=== PATIENT | female | born 1940 | race Caucasian/White ===

== ENCOUNTER 2018-09-06 19:04 | Inpatient (IN) | payer MEDICARE, OTHER ==
[~2018-09-06] VITALS: Ht 167.6 cm; Wt 80.6 kg
--- NOTE | 2018-09-06 19:40 | ED.ADGEN ---
Adult General Chief Complaint Chief Complaint Medical screening HPI HPI 77 years old female to be admitted for [facility] she is in emergency department for medical screening she denies any physical complaints no headache no fever no chills no cough no abdominal pain no chest pain no shortness breath Review of Systems Review of Systems Constitutional: Denies fever or chills [] Eyes: Denies change in visual acuity, redness, or eye pain [] HENT: Denies nasal congestion or sore throat [] Respiratory: Denies cough or shortness of breath [] Cardiovascular: No additional information not addressed in HPI [] GI: Denies abdominal pain, nausea, vomiting, bloody stools or diarrhea [] : Denies dysuria or hematuria [] Musculoskeletal: Denies back pain or joint pain [] Integument: Denies rash or skin lesions [] Neurologic: Denies headache, focal weakness or sensory changes [] Endocrine: Denies polyuria or polydipsia [] All other systems were reviewed and found to be within normal limits, except as documented in this note. Physical Exam Physical Exam Constitutional: Well developed, well nourished, no acute distress, non-toxic appearance. [] HENT: Normocephalic, atraumatic, bilateral external ears normal, oropharynx moist, no oral exudates, nose normal. [] Eyes: PERRLA, EOMI, conjunctiva normal, no discharge. [] Neck: Normal range of motion, no tenderness, supple, no stridor. [] Cardiovascular:Heart rate regular rhythm, no murmur [] Lungs & Thorax: Bilateral breath sounds clear to auscultation [] Abdomen: Bowel sounds normal, soft, no tenderness, no masses, no pulsatile masses. [] Skin: Warm, dry, no erythema, no rash. [] Back: No tenderness, no CVA tenderness. [] Extremities: No tenderness, no cyanosis, no clubbing, ROM intact, no edema. [] Neurologic: Alert and oriented X 3, normal motor function, normal sensory function, no focal deficits noted. [] Psychologic: Affect normal, judgement normal, mood normal. [] EKG EKG [] Radiology/Procedures Radiology/Procedures [] Course & Med Decision Making Course & Med Decision Making Pertinent Labs and Imaging studies reviewed. (See chart for details) [] Final Impression Final Impression [] Problems: (1) Encounter for medical screening examination Ghulam Disclaimer Dragon Disclaimer This electronic medical record was generated, in whole or in part, using a voice recognition dictation system. WENDY RIGGS MD Sep 06, 2018 19:40
[2018-09-06 19:52] LABS: BASO # 0.2 x10^3/uL (0.0-0.2); BASO % 2 % (0-3); EOS # 0.6 x10^3/uL (0.0-0.7); EOS % 6 % (0-3); HEMATOCRIT 46.1 % (36.0-47.0); HEMOGLOBIN 14.7 g/dL (12.0-15.5); LYMPH % 31 % (24-48); MEAN CORPUSCULAR HEMOGLOBIN 26 pg (25-35); MEAN CORPUSCULAR HGB CONC 32 g/dL (31-37); MEAN CORPUSCULAR VOLUME 82 fL (79-100); MONO # 1.1 x10^3/uL (0.0-1.1); MONO % 12 % (0-9); NEUT # 4.9 x10^3uL (1.8-7.7); NEUT % 50 % (31-73); PLATELET COUNT 250 x10^3/uL (140-400); RED BLOOD COUNT 5.63 x10^6/uL (3.50-5.40); RED CELL DISTRIBUTION WIDTH 15.2 % (11.5-14.5); WHITE BLOOD COUNT 9.7 x10^3/uL (4.0-11.0)
[2018-09-06 20:01] LABS: CALCIUM 10.4 mg/dL (8.5-10.1); CREATININE 1.3 mg/dL (0.6-1.0); GFR 39.9; POTASSIUM 4.5 mmol/L (3.5-5.1)
[2018-09-06 20:02] LABS: BACTERIA,URINE MANY /HPF (0-FEW); BILIRUBIN,URINE SMALL (NEG); CLARITY,URINE CLOUDY; COLOR,URINE AMBER; GLUCOSE,URINE NEG (NEG); NITRITE,URINE POS (NEG); RBC,URINE >40 /HPF (0-2); UROBILINOGEN,URINE 0.2 mg/dL (0.2 mg/dL); WBC,URINE TNTC /HPF (0-4)
[2018-09-06 20:03] LABS: BARBITURATES NEG (NEG); BENZODIAZEPINES NEG (NEG); CANNABINOIDS NEG (NEG); COCAINE NEG (NEG); METHADONE NEG (NEG); OPIATES NEG (NEG); PHENCYCLIDINE NEG (NEG); SQUAMOUS EPITHELIAL CELL,UR FEW /LPF
[2018-09-06 20:04] LABS: AMPHETAMINE/METHAMPHETAMINE NEG (NEG)
[2018-09-06] MEDS ORDERED: DULO60CA6 PO (22:15)
[2018-09-06] MEDS ORDERED: ALLO100T PO (22:15)
[2018-09-06] MEDS ORDERED: CYAN10005 PO (22:15)
[2018-09-06] MEDS ORDERED: TIOT18CA IH (22:15)
[2018-09-06] MEDS ORDERED: LATA2.5D3 OS (22:15)
[2018-09-06] MEDS ORDERED: CARV6.25 PO (22:15)
[2018-09-06] MEDS ORDERED: IPRA3AMP29 NEB (22:15)
[2018-09-06] MEDS ORDERED: FOLI1TAB16 PO (22:15)
[2018-09-06] MEDS ORDERED: POTA20TA4 PO (22:15)
[2018-09-06] MEDS ORDERED: RIVA20TA2 PO (22:15)
[2018-09-06] MEDS ORDERED: INSU100V8 SQ (22:15)
[2018-09-06] MEDS ORDERED: ACET500T33 PO (22:15)
[2018-09-06] MEDS ORDERED: LACT1CAP29 PO (22:15)
[2018-09-06] MEDS ORDERED: FURO-68 PO (22:15)
[2018-09-06] MEDS ORDERED: LOSA25TA11 PO (22:15)
[2018-09-06] MEDS ORDERED: ONDA4TAB7 PO (22:15)
[2018-09-06] MEDS ORDERED: CRAN425C3 PO (22:15)
[2018-09-06] MEDS ORDERED: FERR325T14 PO (22:15)
[2018-09-06] MEDS ORDERED: METHYL SALICYLATE/MENTHOL TOPICAL OINTMENT 29GM TUBE. TP PRN (22:45)
[2018-09-06] MEDS ORDERED: MAGNESIUM HYDROXIDE 2,400 MG/30 ML ORAL.SUSP. PO PRN (22:45)
[2018-09-06] MEDS ORDERED: MAG HYDROX/AL HYDROX/SIMETH 30 ML ORAL.SUSP PO PRN (22:45)
--- NOTE | 2018-09-06 22:46 | PDOC ---
Exam Note: Nain Note: Please also refer to the separate dictated note~for this date of service dictated separately. Discussed the patient with Nursing staff reviewed the chart.~Reviewed interim history and current functioning. Reviewed vital signs,~ Labs/ Radiology~and current medications noted below. Continue current treatment with the changes noted in the dictated addendum note Assessment: Vital Signs: Vital Signs Date Time Temp Pulse Resp B/P (MAP) Pulse Ox O2 Delivery O2 Flow Rate FiO2 09/06/18 19:10 97.8 67 20 110/55 (73) 93 Room Air Labs: Laboratory Tests Test 09/06/18 19:29 09/06/18 19:36 09/06/18 19:43 White Blood Count 9.7 x10^3/uL (4.0-11.0) Red Blood Count 5.63 x10^6/uL (3.50-5.40) H Hemoglobin 14.7 g/dL (12.0-15.5) Hematocrit 46.1 % (36.0-47.0) Mean Corpuscular Volume 82 fL (79-100) Mean Corpuscular Hemoglobin 26 pg (25-35) Mean Corpuscular Hemoglobin Concent 32 g/dL (31-37) Red Cell Distribution Width 15.2 % (11.5-14.5) H Platelet Count 250 x10^3/uL (140-400) Neutrophils (%) (Auto) 50 % (31-73) Lymphocytes (%) (Auto) 31 % (24-48) Monocytes (%) (Auto) 12 % (0-9) H Eosinophils (%) (Auto) 6 % (0-3) H Basophils (%) (Auto) 2 % (0-3) Neutrophils # (Auto) 4.9 x10^3uL (1.8-7.7) Lymphocytes # (Auto) 3.0 x10^3/uL (1.0-4.8) Monocytes # (Auto) 1.1 x10^3/uL (0.0-1.1) Eosinophils # (Auto) 0.6 x10^3/uL (0.0-0.7) Basophils # (Auto) 0.2 x10^3/uL (0.0-0.2) Sodium Level 141 mmol/L (136-145) Potassium Level 4.5 mmol/L (3.5-5.1) Chloride Level 105 mmol/L (98-107) Carbon Dioxide Level 32 mmol/L (21-32) Anion Gap 4 (6-14) L Blood Urea Nitrogen 37 mg/dL (7-20) H Creatinine 1.3 mg/dL (0.6-1.0) H Estimated GFR (Cockcroft-Gault) 39.9 Glucose Level 200 mg/dL (70-99) H Calcium Level 10.4 mg/dL (8.5-10.1) H Ethyl Alcohol Level < 10 mg/dL (0-10) Urine Collection Type U cath Urine Color Malgorzata Urine Clarity Cloudy Urine pH 5.5 Urine Specific [place] 1.020 Urine Protein 100 mg/dl (NEG-TRACE) Urine Glucose (UA) Neg mg/dL (NEG) Urine Ketones (Stick) Trace mg/dL (NEG) Urine Blood Large (NEG) Urine Nitrite Pos (NEG) Urine Bilirubin Small (NEG) Urine Urobilinogen Dipstick 0.2 mg/dL (0.2 mg/dL) Urine Leukocyte Esterase Large (NEG) Urine RBC >40 /HPF (0-2) Urine WBC Tntc /HPF (0-4) Urine Squamous Epithelial Cells Few /LPF Urine Transitional Epithelial Cells Few /LPF Urine Bacteria Many /HPF (0-FEW) Urine Mucus Mod /LPF Urine Opiates Screen Neg (NEG) Urine Methadone Screen Neg (NEG) Urine Barbiturates Neg (NEG) Urine Phencyclidine Screen Neg (NEG) Urine Amphetamine/Methamphetamine Neg (NEG) Urine Benzodiazepines Screen Neg (NEG) Urine Cocaine Screen Neg (NEG) Urine Cannabinoids Screen Neg (NEG) Urine Ethyl Alcohol Neg (NEG) Glucose (Fingerstick) 176 mg/dL (70-99) H Current Medications: Meds: Current Medications Multi-Ingredient Ointment (Analgesic [place]) 1 rachel PRN QID PRN TP MUSCLE PAIN; Start 09/06/18 at 22:45; Status UNV Al Hydroxide/Mg Hydroxide (Mylanta Plus Xs) 15 ml PRN AFTMEALHC PRN PO DYSPEPSIA; Start 09/06/18 at 22:45; Status UNV Magnesium Hydroxide (Milk Of Magnesia) 2,400 mg PRN QHS PRN PO CONSTIPATION; Start 09/06/18 at 22:45; Status UNV Active Scripts Active Reported Xarelto (Rivaroxaban) 20 Mg Tablet 20 Mg PO DAILY Probiotic (Lactobacillus Combo No.10) 1 Each Capsule 1 Cap PO DAILY Klor-Con M20 (Potassium Chloride) 20 Meq Tab.er.prt 20 Meq PO BID Lasix (Furosemide) 40 Mg Tablet 40 Mg PO DAILY Folic Acid 1 Mg Tablet 1 Mg PO DAILY Ferrous Sulfate 325 Mg Tablet 325 Mg PO DAILY Coreg (Carvedilol) 6.25 Mg Tablet 6.25 Mg PO BIDWMEALS Duoneb 0.5-3(2.5) Mg/3 Ml (Albuterol/Ipratropium) 3 Ml Ampul.neb 3 Ml NEB QID Lantus (Insulin Glargine,Hum.rec.anlog) 100 Unit/1 Ml Vial 17 Unit SQ HS Vitamin B-12 (Cyanocobalamin (Vitamin B-12)) 1,000 Mcg Tablet 1,000 Mcg PO DAILY Allopurinol 100 Mg Tablet 100 Mg PO DAILYWBKFT Tylenol Extra Strength (Acetaminophen) 500 Mg Tablet 500 Mg PO PRN Q6HRS PRN Zofran (Ondansetron Hcl) 4 Mg Tablet 4 Mg PO PRN Q4HRS PRN Latanoprost 2.5 Ml Drops 1 Drop OS QHS Losartan Potassium (Losartan Potassium) 25 Mg Tablet 25 Mg PO DAILY Cranberry (Cranberry Extract) 425 Mg Capsule 425 Mg PO DAILY Cymbalta (Duloxetine Hcl) 60 Mg Capsule. 60 Mg PO DAILY Spiriva (Tiotropium [place]) 18 Mcg Cap.w.dev 18 Mcg IH DAILY I have reviewed the current psychotropics carefully including drug interactions. Risk benefit ratio favors no change other than as noted in my dictated progress note. Diagnosis: Problems: (1) Encounter for medical screening examination CLAUDIA LAROSE MD Sep 06, 2018 22:46
--- NOTE | 2018-09-07 00:44 | EKG ---
[address] [address] Test Date: 2018-09-06 Test Time: 19:36:31 Pat Name: VALERIA HANCOCK Department: Room: [address] [place] [address] Gender: F Drop Board Man: JANELLE : 1940 Requested By: WENDY RIGGS Order Number: [id number] Reading MD: Dionicio Rivera Measurements Intervals [place] Rate: 70 P: -90 WV: 108 QRS: -34 QRSD: 78 T: 42 QT: 422 QTc: 459 Interpretive Statements SINUS RHYTHM ABNORMAL LEFT AXIS DEVIATION QRS(T) CONTOUR ABNORMALITY CONSIDER ANTEROLATERAL INFARCT CONSIDER INFERIOR INFARCT ABNORMAL ECG RI6.01 No previous ECG available for comparison Electronically Signed On 09-11-2018 8:46:32 PERSONNEL PLACEMENT SPECIALIST by Dionicio Rivera
[2018-09-07] MEDS ORDERED: ACETAMINOPHEN 500 MG TABLET PO PRN (00:45)
[2018-09-07] MEDS ORDERED: ANTI-COAG MONITOR BY PHARMACY. MC PRN (00:45)
[2018-09-07] MEDS ORDERED: ONDANSETRON ODT 4 MG TAB.RAPDIS PO PRN (00:45)
[2018-09-07] MEDS ORDERED: POTA10TA10 PO (01:06)
[2018-09-07] MEDS ORDERED: DOCU100C28 PO (01:18)
[2018-09-07] MEDS ORDERED: POLY15DR27 OU (01:18)
[2018-09-07] MEDS ORDERED: INSU100I11 SQ (01:18)
[2018-09-07] MEDS ORDERED: CEPH-263 PO (01:18)
[2018-09-07] MEDS ORDERED: FEBU40TA PO (01:18)
[2018-09-07] MEDS ORDERED: MAGN64TA7 PO (01:18)
[2018-09-07] MEDS ORDERED: ACET325T16 PO (01:18)
[2018-09-07] MEDS ORDERED: OXYB5TAB PO (01:18)
[2018-09-07] MEDS ORDERED: MINE3.5O4 OU (01:18)
[2018-09-07] MEDS ORDERED: ACETAMINOPHEN 325 MG TABLET PO PRN (01:30)
[2018-09-07 04:39] VITALS: BP 126/79
[2018-09-07 06:59] VITALS: BP 145/85
[2018-09-07] MEDS ORDERED: IPRATRPIUM/ALBUTEROL 0.5/2.5MG 3 ML NEBU. NEB SCH (08:00)
[2018-09-07] MEDS ORDERED: ALLOPURINOL 100 MG TABLET. PO SCH (08:00)
[2018-09-07] MEDS: POTASSIUM CHLORIDE 10 MEQ TABLET.ER. PO SCH (08:10)
[2018-09-07] MEDS: RIVAROXABAN 10 MG TABLET. PO SCH (08:10)
[2018-09-07] MEDS: CARVEDILOL 6.25 MG TABLET PO SCH ×2 (08:10→17:00)
[2018-09-07] MEDS: MAGNESIUM CHLORIDE ER 64 MG TABLET.ER PO SCH (08:14)
[2018-09-07] MEDS: POLYVINYL ALCOHOL 1.4% OPHTH SOLUTION 15ML BOTTLE. OU SCH ×4 (08:15→20:53)
[2018-09-07] MEDS: FUROSEMIDE 40 MG TABLET PO SCH (08:15)
[2018-09-07] MEDS: LOSARTAN 25 MG TABLET. PO SCH (08:15)
[2018-09-07] MEDS: DOCUSATE SODIUM 100 MG CAPSULE PO SCH (08:15)
[2018-09-07] MEDS: LACTOBACILLUS RHAMNOSUS GG 1 CAPSULE. PO SCH ×2 (08:15→20:49)
[2018-09-07] MEDS: OXYBUTYNIN CHLORIDE 5 MG TABLET PO SCH (08:15)
[2018-09-07] MEDS: DULoxetine HCL 60 MG CAPSULE.DR PO SCH (08:15)
[2018-09-07 08:52] LABS: ALBUMIN 3.1 g/dL (3.4-5.0); ALBUMIN/GLOBULIN RATIO 0.7 (1.0-1.7); CALCIUM 10.2 mg/dL (8.5-10.1); CREATININE 1.1 mg/dL (0.6-1.0); GFR 48.4; POTASSIUM 4.8 mmol/L (3.5-5.1); TOTAL BILIRUBIN 0.2 mg/dL (0.2-1.0); TOTAL PROTEIN 7.6 g/dL (6.4-8.2)
[2018-09-07] MEDS ORDERED: FOLIC ACID 1 MG TABLET PO SCH (09:00)
[2018-09-07] MEDS ORDERED: NON FORMULARY ITEM (Cranberry Extract (Cranberry) 425 MG) PO SCH (09:00)
[2018-09-07] MEDS ORDERED: POTASSIUM CHLORIDE 20 MEQ TABLET.ER. PO SCH (09:00)
[2018-09-07] MEDS ORDERED: CYANOCOBALAMIN (VITAMIN B-12) 1,000 MCG TABLET. PO SCH (09:00)
[2018-09-07] MEDS: INSULIN LISPRO 300 UNITS/3 ML INSULN.PEN. SQ SCH ×2 (09:00→11:57)
[2018-09-07] MEDS ORDERED: NON FORMULARY ITEM (Tiotropium Bromide (Spiriva) 18 MCG) IH SCH (09:00)
[2018-09-07] MEDS ORDERED: FERROUS SULFATE 325 MG TABLET. PO SCH (09:00)
[2018-09-07] MEDS ORDERED: CEPHALEXIN 250 MG CAPSULE PO SCH (09:00)
[2018-09-07 11:07] LABS: THYROXINE 6.8 ug/dL (4.5-12.0)
[2018-09-07] MEDS: FEBUXOSTAT 40 MG TABLET PO SCH (12:09)
[2018-09-07 15:10] LABS: THYROID STIM HORMONE (TSH) 1.726 uIU/mL (0.358-3.740)
[2018-09-07 16:15] VITALS: BP 117/75
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
[2018-09-07] MEDS: MELATONIN 3 MG TABLET PO SCH (20:52)
[2018-09-07] MEDS: LATANOPROST 0.005% OPHTH SOLUTION 2.5ML BOTTLE. OS SCH (20:53)
[2018-09-07] MEDS: INSULIN GLARGINE 300 UNITS/3 ML INSULN.PEN. SQ SCH (21:00)
[2018-09-07] MEDS: MINERAL OIL/PETROLATUM,WHITE OPHTH OINT 3.5GM TUBE. OU SCH (21:00)
--- NOTE | 2018-09-07 22:02 | PDOC ---
Exam Note: Nain Note: Please also refer to the separate dictated note~for this date of service dictated separately.~Patient seen individually. Discussed the patient with Nursing staff reviewed the chart.~Reviewed interim history and current functioning. Reviewed vital signs,~Labs/ Radiology~and current medications noted below. Continue current treatment with the changes noted in the dictated addendum note Assessment: Vital Signs: Vital Signs Date Time Temp Pulse Resp B/P (MAP) Pulse Ox O2 Delivery O2 Flow Rate FiO2 09/07/18 17:00 65 117/75 09/07/18 16:15 98.0 20 94 09/06/18 22:15 Room Air I&O Intake and Output 09/07/18 07:00 Intake Total 0 ml Balance 0 ml Intake Oral 0 ml Labs: Laboratory Tests Test 09/07/18 08:21 09/07/18 11:46 09/07/18 20:58 Sodium Level 143 mmol/L (136-145) Potassium Level 4.8 mmol/L (3.5-5.1) Chloride Level 105 mmol/L (98-107) Carbon Dioxide Level 32 mmol/L (21-32) Anion Gap 6 (6-14) Blood Urea Nitrogen 31 mg/dL (7-20) H Creatinine 1.1 mg/dL (0.6-1.0) H Estimated GFR (Cockcroft-Gault) 48.4 BUN/Creatinine Ratio 28 (6-20) H Glucose Level 230 mg/dL (70-99) H Calcium Level 10.2 mg/dL (8.5-10.1) H Iron Level 50 ug/dL (50-170) Total Iron Binding Capacity 311 ug/dL (250-450) Iron Saturation 16 % (15-34) Total Bilirubin 0.2 mg/dL (0.2-1.0) Aspartate Amino Transferase (AST) 10 U/L (15-37) L Alanine Aminotransferase (ALT) 12 U/L (14-59) L Alkaline Phosphatase 96 U/L (46-116) Total Protein 7.6 g/dL (6.4-8.2) Albumin 3.1 g/dL (3.4-5.0) L Albumin/Globulin Ratio 0.7 (1.0-1.7) L Triglycerides Level 159 mg/dL (0-150) H Cholesterol Level 199 mg/dL (0-200) LDL Cholesterol, Calculated 128 mg/dL (0-100) H VLDL Cholesterol, Calculated 31 mg/dL (0-40) Non-HDL Cholesterol Calculated 159 mg/dL (0-129) H HDL Cholesterol 40 mg/dL (40-60) Cholesterol/HDL Ratio 4.0 Thyroid Stimulating Hormone (TSH) 1.726 uIU/mL (0.358-3.740) Thyroxine (T4) 6.8 ug/dL (4.5-12.0) Total Triiodothyronine (TT3) 84 ng/dL (71-180) Glucose (Fingerstick) 307 mg/dL (70-99) H 270 mg/dL (70-99) H Current Medications: Meds: Current Medications Multi-Ingredient Ointment (Analgesic [place]) 1 karlos PRN QID PRN TP MUSCLE PAIN; Start 09/06/18 at 22:45 Al Hydroxide/Mg Hydroxide (Mylanta Plus Xs) 15 ml PRN AFTMEALHC PRN PO DYSPEPSIA; Start 09/06/18 at 22:45 Magnesium Hydroxide (Milk Of Magnesia) 2,400 mg PRN QHS PRN PO CONSTIPATION; Start 09/06/18 at 22:45 Duloxetine HCl (Cymbalta) 60 mg DAILY PO Last administered on 09/07/18at 08:15; Start 09/07/18 at 09:00 Cyanocobalamin (Vitamin B-12) 1,000 mcg DAILY PO ; Start 09/07/18 at 09:00; Stop 09/07/18 at 09:00; Status DC Ferrous Sulfate (Feosol) 325 mg DAILY PO ; Start 09/07/18 at 09:00; Stop at 09:00; Status DC Albuterol/ Ipratropium (Duoneb) 3 ml RTQID NEB ; Start 09/07/18 at 08:00; Stop 09/07/18 at 08:00; Status DC Losartan Potassium (Cozaar) 25 mg DAILY PO Last administered on 09/07/18at 08:15 ; Start 09/07/18 at 09:00 Potassium Chloride (Klor-Con) 20 meq BID PO ; Start 09/07/18 at 09:00; Status Cancel Acetaminophen (Tylenol) 500 mg PRN Q6HRS PRN PO PAIN / TEMP; Start 09/07/18 at 00:45 Allopurinol (Zyloprim) 100 mg DAILYWBKFT PO ; Start 09/07/18 at 08:00; Stop at 08:00; Status DC Carvedilol (Coreg) 6.25 mg BIDWMEALS PO Last administered on 09/07/18at 17:00; Start 09/07/18 at 08:00 Non-Formulary Medication (Cranberry Extract (Cranberry)) 425 mg DAILY PO ; Start 09/07/18 at 09:00; Status UNV Folic Acid (Folic Acid) 1 mg DAILY PO ; Start 09/07/18 at 09:00; Stop 09/07/18 at 09:00; Status DC Furosemide (Lasix) 40 mg DAILY PO Last administered on 09/07/18at 08:15; Start 09/07/18 at 09:00 Insulin Glargine (Lantus) 17 units QHS SQ Last administered on 09/07/18at 21:00 ; Start 09/07/18 at 21:00 Lactobacillus Rhamnosus (Culturelle) 1 cap BID PO Last administered on at 20:49; Start 09/07/18 at 09:00 Latanoprost (Xalatan) 1 drop QHS OS Last administered on 09/07/18at 20:53; Start 09/07/18 at 21:00 Ondansetron HCl (Zofran Odt) 4 mg PRN Q8HRS PRN PO NAUSEA/VOMITING; Start 09/07 at 00:45; Stop 09/07/18 at 01:25; Status DC Rivaroxaban (Xarelto) 20 mg DAILYWBKFT PO Last administered on 09/07/18at 08:10 ; Start 09/07/18 at 08:00 Non-Formulary Medication (Tiotropium [place] (Spiriva)) 18 mcg DAILY IH ; Start 09/07/18 at 09:00; Status UNV Info (Anti-Coagulation Monitoring By Pharmacy) 1 each PRN DAILY PRN MC SEE COMMENTS; Start 09/07/18 at 00:45 Acetaminophen (Tylenol) 650 mg PRN Q6HRS PRN PO PAIN / TEMP; Start 09/07/18 at 01:30; Stop 09/07/18 at 05:53; Status DC Cephalexin HCl (Keflex) 250 mg DAILY PO Last administered on 09/07/18 08:14; Start 09/07/18 at 09:00; Stop 09/07/18 at 17:40; Status DC Febuxostat (Uloric) 40 mg DAILY PO Last administered on 09/07/18at 12:09; Start 09/07/18 at 09:00 Insulin Human Lispro (HumaLOG) 5 units DAILY SQ Last administered on 09/07/18 11:57; Start 09/07/18 at 09:00; Stop 09/07/18 at 17:37; Status DC Artificial Tears (Artificial Tears) 1 drop QID OU Last administered on 20:53; Start 09/07/18 at 09:00 Docusate Sodium (Colace) 100 mg DAILY PO Last administered on 09/07/18 08:15; Start 09/07/18 at 09:00 Magnesium Chloride (Mag Delay) 64 mg DAILY PO Last administered on 09/07/18 08 :14; Start 09/07/18 at 09:00 Multi-Ingred Cream/Lotion/Oil/ Oint (Artificial Tears Eye Ointment) 1 karlos QHS OU ; Start 09/07/18 at 21:00 Oxybutynin Chloride (Ditropan) 5 mg DAILY PO Last administered on 09/07/18 08: 15; Start 09/07/18 at 09:00 Potassium Chloride (Klor-Con) 10 meq DAILYWBKFT PO Last administered on at 08:10; Start 09/07/18 at 08:00 Insulin Human Lispro (HumaLOG) 5 units TIDAC SQ ; Start 09/08/18 at 07:30 Melatonin 3 mg QHS PO Last administered on 09/07/18at 20:52; Start 09/07/18 at 21:00 Active Scripts Active Reported Uloric (Febuxostat) 40 Mg Tablet 40 Mg PO DAILY Systane Nighttime Eye Oint (Mineral Oil/Petrolatum,White) 3.5 Gm Oint...g. 1 Karlos OP QHS Oxybutynin Chloride Er (Oxybutynin Chloride) 5 Mg Tab.er.24 5 Mg PO DAILY Mapap (Acetaminophen) 325 Mg Tablet 650 Mg PO PRN Q6HRS PRN Magnesium Chloride 64 Mg Tablet.dr 64 Mg PO DAILY Keflex (Cephalexin) 250 Mg Capsule 250 Mg PO DAILY Humalog (Insulin Lispro) 100 Unit/1 Ml Insuln.pen 5 Unit SQ DAILY Docusate Sodium 100 Mg Capsule 100 Mg PO DAILY Artificial Tears (Polyvinyl Alcohol) 15 Ml Drops 1 Drp OP QID Potassium Chloride 10 Meq Tablet.er 10 Meq PO DAILY Xarelto (Rivaroxaban) 20 Mg Tablet 20 Mg PO DAILY Probiotic (Lactobacillus Combo No.10) 1 Each Capsule 1 Cap PO DAILY Lasix (Furosemide) 40 Mg Tablet 40 Mg PO DAILY Coreg (Carvedilol) 6.25 Mg Tablet 6.25 Mg PO BIDWMEALS Duoneb 0.5-3(2.5) Mg/3 Ml (Albuterol/Ipratropium) 3 Ml Ampul.neb 3 Ml NEB QID Lantus (Insulin Glargine,Hum.rec.anlog) 100 Unit/1 Ml Vial 17 Unit SQ HS Latanoprost 2.5 Ml Drops 1 Drop OS QHS Losartan Potassium (Losartan Potassium) 25 Mg Tablet 25 Mg PO DAILY Cymbalta (Duloxetine Hcl) 60 Mg Capsule.dr 60 Mg PO DAILY Spiriva (Tiotropium [place]) 18 Mcg Cap.w.dev 18 Mcg IH DAILY I have reviewed the current psychotropics carefully including drug interactions. Risk benefit ratio favors no change other than as noted in my dictated progress note. Diagnosis: Problems: (1) Encounter for medical screening examination (2) Anxiety disorder (3) Major depressive disorder, recurrent episode (4) Impulse control disorder CLAUDIA LAROSE MD Sep 07, 2018 22:02
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
[2018-09-07 23:09] LABS: HEMOGLOBIN A1C 8.8 % (4.8-5.6)
[2018-09-08 06:00] VITALS: BP 162/83
[2018-09-08] MEDS: RIVAROXABAN 10 MG TABLET. PO SCH (08:19)
[2018-09-08] MEDS: FEBUXOSTAT 40 MG TABLET PO SCH (08:21)
[2018-09-08] MEDS: OXYBUTYNIN CHLORIDE 5 MG TABLET PO SCH (08:21)
[2018-09-08] MEDS: MAGNESIUM CHLORIDE ER 64 MG TABLET.ER PO SCH (08:21)
[2018-09-08] MEDS: LOSARTAN 25 MG TABLET. PO SCH (08:21)
[2018-09-08] MEDS: POTASSIUM CHLORIDE 10 MEQ TABLET.ER. PO SCH (08:22)
[2018-09-08] MEDS: DOCUSATE SODIUM 100 MG CAPSULE PO SCH (08:22)
[2018-09-08] MEDS: FUROSEMIDE 40 MG TABLET PO SCH (08:23)
[2018-09-08] MEDS: CARVEDILOL 6.25 MG TABLET PO SCH ×2 (08:23→17:32)
[2018-09-08] MEDS: POLYVINYL ALCOHOL 1.4% OPHTH SOLUTION 15ML BOTTLE. OU SCH ×4 (08:23→19:48)
[2018-09-08] MEDS: LACTOBACILLUS RHAMNOSUS GG 1 CAPSULE. PO SCH ×2 (08:23→19:45)
[2018-09-08] MEDS: DULoxetine HCL 60 MG CAPSULE.DR PO SCH (08:23)
[2018-09-08] MEDS: INSULIN LISPRO 300 UNITS/3 ML INSULN.PEN. SQ SCH ×3 (08:38→16:30)
[2018-09-08 16:21] VITALS: BP 139/75
[2018-09-08] MEDS: MELATONIN 3 MG TABLET PO SCH (19:45)
[2018-09-08] MEDS: INSULIN GLARGINE 300 UNITS/3 ML INSULN.PEN. SQ SCH (19:46)
[2018-09-08] MEDS: LATANOPROST 0.005% OPHTH SOLUTION 2.5ML BOTTLE. OS SCH (19:48)
[2018-09-08] MEDS: MINERAL OIL/PETROLATUM,WHITE OPHTH OINT 3.5GM TUBE. OU SCH (19:48)
--- NOTE | 2018-09-08 22:42 | PDOC ---
Exam Note: Nain Note: Please also refer to the separate dictated note~for this date of service dictated separately.~Patient seen individually. Discussed the patient with Nursing staff reviewed the chart.~Reviewed interim history and current functioning. Reviewed vital signs,~Labs/ Radiology~and current medications noted below. Continue current treatment with the changes noted in the dictated addendum note Assessment: Vital Signs: Vital Signs Date Time Temp Pulse Resp B/P (MAP) Pulse Ox O2 Delivery O2 Flow Rate FiO2 09/08/18 17:32 71 139/75 09/08/18 16:21 97.9 18 95 09/06/18 22:15 Room Air I&O Intake and Output 09/08/18 07:00 Intake Total 1200 ml Output Total 600 ml Balance 600 ml Intake Oral 1200 ml Output Urine Total 600 ml Labs: Laboratory Tests Test 09/08/18 07:34 09/08/18 11:07 09/08/18 16:53 09/08/18 19:20 Glucose (Fingerstick) 190 mg/dL (70-99) H 264 mg/dL (70-99) H 115 mg/dL (70-99) H 198 mg/dL (70-99) H Current Medications: Meds: Current Medications Multi-Ingredient Ointment (Analgesic [place]) 1 karlos PRN QID PRN TP MUSCLE PAIN; Start 09/06/18 at 22:45 Al Hydroxide/Mg Hydroxide (Mylanta Plus Xs) 15 ml PRN AFTMEALHC PRN PO DYSPEPSIA; Start 09/06/18 at 22:45 Magnesium Hydroxide (Milk Of Magnesia) 2,400 mg PRN QHS PRN PO CONSTIPATION; Start 09/06/18 at 22:45 Duloxetine HCl (Cymbalta) 60 mg DAILY PO Last administered on 09/08/18at 08:23; Start 09/07/18 at 09:00 Cyanocobalamin (Vitamin B-12) 1,000 mcg DAILY PO ; Start 09/07/18 at 09:00; Stop 09/07/18 at 09:00; Status DC Ferrous Sulfate (Feosol) 325 mg DAILY PO ; Start 09/07/18 at 09:00; Stop at 09:00; Status DC Albuterol/ Ipratropium (Duoneb) 3 ml RTQID NEB ; Start 09/07/18 at 08:00; Stop 09/07/18 at 08:00; Status DC Losartan Potassium (Cozaar) 25 mg DAILY PO Last administered on 09/08/18at 08:21 ; Start 09/07/18 at 09:00 Potassium Chloride (Klor-Con) 20 meq BID PO ; Start 09/07/18 at 09:00; Status Cancel Acetaminophen (Tylenol) 500 mg PRN Q6HRS PRN PO PAIN / TEMP; Start 09/07/18 at 00:45 Allopurinol (Zyloprim) 100 mg DAILYWBKFT PO ; Start 09/07/18 at 08:00; Stop at 08:00; Status DC Carvedilol (Coreg) 6.25 mg BIDWMEALS PO Last administered on 09/08/18at 17:32; Start 09/07/18 at 08:00 Non-Formulary Medication (Cranberry Extract (Cranberry)) 425 mg DAILY PO ; Start 09/07/18 at 09:00; Status UNV Folic Acid (Folic Acid) 1 mg DAILY PO ; Start 09/07/18 at 09:00; Stop 09/07/18 at 09:00; Status DC Furosemide (Lasix) 40 mg DAILY PO Last administered on 09/08/18at 08:23; Start 09/07/18 at 09:00 Insulin Glargine (Lantus) 17 units QHS SQ Last administered on 09/08/18at 19:46 ; Start 09/07/18 at 21:00 Lactobacillus Rhamnosus (Culturelle) 1 cap BID PO Last administered on at 19:45; Start 09/07/18 at 09:00 Latanoprost (Xalatan) 1 drop QHS OS Last administered on 09/08/18at 19:48; Start 09/07/18 at 21:00 Ondansetron HCl (Zofran Odt) 4 mg PRN Q8HRS PRN PO NAUSEA/VOMITING; Start 09/07 at 00:45; Stop 09/07/18 at 01:25; Status DC Rivaroxaban (Xarelto) 20 mg DAILYWBKFT PO Last administered on 09/08/18at 08:19 ; Start 09/07/18 at 08:00 Non-Formulary Medication (Tiotropium [place] (Spiriva)) 18 mcg DAILY IH ; Start 09/07/18 at 09:00; Status UNV Info (Anti-Coagulation Monitoring By Pharmacy) 1 each PRN DAILY PRN MC SEE COMMENTS; Start 09/07/18 at 00:45 Acetaminophen (Tylenol) 650 mg PRN Q6HRS PRN PO PAIN / TEMP; Start 09/07/18 at 01:30; Stop 09/07/18 at 05:53; Status DC Cephalexin HCl (Keflex) 250 mg DAILY PO Last administered on 09/07/18at 08:14; Start 09/07/18 at 09:00; Stop 09/07/18 at 17:40; Status DC Febuxostat (Uloric) 40 mg DAILY PO Last administered on 09/08/18at 08:21; Start 09/07/18 at 09:00 Insulin Human Lispro (HumaLOG) 5 units DAILY SQ Last administered on 09/07/18at 11:57; Start 09/07/18 at 09:00; Stop 09/07/18 at 17:37; Status DC Artificial Tears (Artificial Tears) 1 drop QID OU Last administered on 19:48; Start 09/07/18 at 09:00 Docusate Sodium (Colace) 100 mg DAILY PO Last administered on 09/08/18at 08:22; Start 09/07/18 at 09:00 Magnesium Chloride (Mag Delay) 64 mg DAILY PO Last administered on 09/08/18at 08 :21; Start 09/07/18 at 09:00 Multi-Ingred Cream/Lotion/Oil/ Oint (Artificial Tears Eye Ointment) 1 karlos QHS OU ; Start 09/07/18 at 21:00 Oxybutynin Chloride (Ditropan) 5 mg DAILY PO Last administered on 09/08/18 08: 21; Start 09/07/18 at 09:00 Potassium Chloride (Klor-Con) 10 meq DAILYWBKFT PO Last administered on 08:22; Start 09/07/18 at 08:00 Insulin Human Lispro (HumaLOG) 5 units TIDAC SQ Last administered on 09/08/18at 12:18; Start 09/08/18 at 07:30 Melatonin 3 mg QHS PO Last administered on 2/17/19at 19:45; Start 09/07/18 at 21:00 Active Scripts Active Reported Uloric (Febuxostat) 40 Mg Tablet 40 Mg PO DAILY Systane Nighttime Eye Oint (Mineral Oil/Petrolatum,White) 3.5 Gm Oint...g. 1 Karlos OP QHS Oxybutynin Chloride Er (Oxybutynin Chloride) 5 Mg Tab.er.24 5 Mg PO DAILY Mapap (Acetaminophen) 325 Mg Tablet 650 Mg PO PRN Q6HRS PRN Magnesium Chloride 64 Mg Tablet.dr 64 Mg PO DAILY Keflex (Cephalexin) 250 Mg Capsule 250 Mg PO DAILY Humalog (Insulin Lispro) 100 Unit/1 Ml Insuln.pen 5 Unit SQ DAILY Docusate Sodium 100 Mg Capsule 100 Mg PO DAILY Artificial Tears (Polyvinyl Alcohol) 15 Ml Drops 1 Drp OP QID Potassium Chloride 10 Meq Tablet.er 10 Meq PO DAILY Xarelto (Rivaroxaban) 20 Mg Tablet 20 Mg PO DAILY Probiotic (Lactobacillus Combo No.10) 1 Each Capsule 1 Cap PO DAILY Lasix (Furosemide) 40 Mg Tablet 40 Mg PO DAILY Coreg (Carvedilol) 6.25 Mg Tablet 6.25 Mg PO BIDWMEALS Duoneb 0.5-3(2.5) Mg/3 Ml (Albuterol/Ipratropium) 3 Ml Ampul.neb 3 Ml NEB QID Lantus (Insulin Glargine,Hum.rec.anlog) 100 Unit/1 Ml Vial 17 Unit SQ HS Latanoprost 2.5 Ml Drops 1 Drop OS QHS Losartan Potassium (Losartan Potassium) 25 Mg Tablet 25 Mg PO DAILY Cymbalta (Duloxetine Hcl) 60 Mg Capsule.dr 60 Mg PO DAILY Spiriva (Tiotropium [place]) 18 Mcg Cap.w.dev 18 Mcg IH DAILY I have reviewed the current psychotropics carefully including drug interactions. Risk benefit ratio favors no change other than as noted in my dictated progress note. Diagnosis: Problems: (1) Encounter for medical screening examination (2) Anxiety disorder (3) Major depressive disorder, recurrent episode (4) Impulse control disorder CLAUDIA LAROSE MD Sep 08, 2018 22:42
[2018-09-09 06:20] VITALS: BP 143/60
[2018-09-09] MEDS: DULoxetine HCL 60 MG CAPSULE.DR PO SCH (08:12)
[2018-09-09] MEDS: OXYBUTYNIN CHLORIDE 5 MG TABLET PO SCH (08:12)
[2018-09-09] MEDS: FUROSEMIDE 40 MG TABLET PO SCH (08:12)
[2018-09-09] MEDS: POTASSIUM CHLORIDE 10 MEQ TABLET.ER. PO SCH (08:12)
[2018-09-09] MEDS: RIVAROXABAN 10 MG TABLET. PO SCH (08:13)
[2018-09-09] MEDS: FEBUXOSTAT 40 MG TABLET PO SCH (08:13)
[2018-09-09] MEDS: LOSARTAN 25 MG TABLET. PO SCH (08:13)
[2018-09-09] MEDS: MAGNESIUM CHLORIDE ER 64 MG TABLET.ER PO SCH (08:13)
[2018-09-09] MEDS: POLYVINYL ALCOHOL 1.4% OPHTH SOLUTION 15ML BOTTLE. OU SCH ×4 (08:13→20:57)
[2018-09-09] MEDS: CARVEDILOL 6.25 MG TABLET PO SCH ×2 (08:13→16:58)
[2018-09-09] MEDS: LACTOBACILLUS RHAMNOSUS GG 1 CAPSULE. PO SCH ×2 (08:13→20:58)
[2018-09-09] MEDS: DOCUSATE SODIUM 100 MG CAPSULE PO SCH (08:13)
[2018-09-09] MEDS: busPIRone 5 MG TABLET. PO SCH ×2 (08:14→16:58)
[2018-09-09] MEDS: INSULIN LISPRO 300 UNITS/3 ML INSULN.PEN. SQ SCH ×3 (08:16→16:58)
[2018-09-09 16:26] VITALS: BP 132/83
[2018-09-09] MEDS: LATANOPROST 0.005% OPHTH SOLUTION 2.5ML BOTTLE. OS SCH (20:57)
[2018-09-09] MEDS: MELATONIN 3 MG TABLET PO SCH (20:58)
[2018-09-09] MEDS: INSULIN GLARGINE 300 UNITS/3 ML INSULN.PEN. SQ SCH (20:59)
[2018-09-09] MEDS: MINERAL OIL/PETROLATUM,WHITE OPHTH OINT 3.5GM TUBE. OU SCH (21:00)
[2018-09-09] MEDS: NYSTATIN TOPICAL POWDER 15GM BOTTLE. TP SCH (21:29)
--- NOTE | 2018-09-09 22:29 | PDOC ---
Exam Note: Nain Note: Please also refer to the separate dictated note~for this date of service dictated separately.~Patient seen individually. Discussed the patient with Nursing staff reviewed the chart.~Reviewed interim history and current functioning. Reviewed vital signs,~Labs/ Radiology~and current medications noted below. Continue current treatment with the changes noted in the dictated addendum note Assessment: Vital Signs: Vital Signs Date Time Temp Pulse Resp B/P (MAP) Pulse Ox O2 Delivery O2 Flow Rate FiO2 09/09/18 16:58 76 132/83 09/09/18 16:26 97.8 16 92 09/06/18 22:15 Room Air I&O Intake and Output 09/09/18 07:00 Intake Total 960 ml Output Total 2300 ml Balance -1340 ml Intake Oral 960 ml Output Urine Total 2300 ml Labs: Laboratory Tests Test 09/09/18 07:04 09/09/18 11:41 09/09/18 16:38 09/09/18 19:10 Glucose (Fingerstick) 161 mg/dL (70-99) H 213 mg/dL (70-99) H 201 mg/dL (70-99) H 185 mg/dL (70-99) H Current Medications: Meds: Current Medications Multi-Ingredient Ointment (Analgesic [place]) 1 karlos PRN QID PRN TP MUSCLE PAIN; Start 09/06/18 at 22:45 Al Hydroxide/Mg Hydroxide (Mylanta Plus Xs) 15 ml PRN AFTMEALHC PRN PO DYSPEPSIA; Start 09/06/18 at 22:45 Magnesium Hydroxide (Milk Of Magnesia) 2,400 mg PRN QHS PRN PO CONSTIPATION; Start 09/06/18 at 22:45 Duloxetine HCl (Cymbalta) 60 mg DAILY PO Last administered on 09/09/18at 08:12; Start 09/07/18 at 09:00 Cyanocobalamin (Vitamin B-12) 1,000 mcg DAILY PO ; Start 09/07/18 at 09:00; Stop 09/07/18 at 09:00; Status DC Ferrous Sulfate (Feosol) 325 mg DAILY PO ; Start 09/07/18 at 09:00; Stop at 09:00; Status DC Albuterol/ Ipratropium (Duoneb) 3 ml RTQID NEB ; Start 09/07/18 at 08:00; Stop 09/07/18 at 08:00; Status DC Losartan Potassium (Cozaar) 25 mg DAILY PO Last administered on 09/09/18at 08:13 ; Start 09/07/18 at 09:00 Potassium Chloride (Klor-Con) 20 meq BID PO ; Start 09/07/18 at 09:00; Status Cancel Acetaminophen (Tylenol) 500 mg PRN Q6HRS PRN PO PAIN / TEMP; Start 09/07/18 at 00:45 Allopurinol (Zyloprim) 100 mg DAILYWBKFT PO ; Start 09/07/18 at 08:00; Stop at 08:00; Status DC Carvedilol (Coreg) 6.25 mg BIDWMEALS PO Last administered on 09/09/18at 16:58; Start 09/07/18 at 08:00 Non-Formulary Medication (Cranberry Extract (Cranberry)) 425 mg DAILY PO ; Start 09/07/18 at 09:00; Status UNV Folic Acid (Folic Acid) 1 mg DAILY PO ; Start 09/07/18 at 09:00; Stop 09/07/18 at 09:00; Status DC Furosemide (Lasix) 40 mg DAILY PO Last administered on 09/09/18at 08:12; Start 09/07/18 at 09:00 Insulin Glargine (Lantus) 17 units QHS SQ Last administered on 09/09/18at 20:59 ; Start 09/07/18 at 21:00 Lactobacillus Rhamnosus (Culturelle) 1 cap BID PO Last administered on 20:58; Start 09/07/18 at 09:00 Latanoprost (Xalatan) 1 drop QHS OS Last administered on 09/09/18at 20:57; Start 09/07/18 at 21:00 Ondansetron HCl (Zofran Odt) 4 mg PRN Q8HRS PRN PO NAUSEA/VOMITING; Start 09/07 at 00:45; Stop 09/07/18 at 01:25; Status DC Rivaroxaban (Xarelto) 20 mg DAILYWBKFT PO Last administered on 09/09/18at 08:13 ; Start 09/07/18 at 08:00 Non-Formulary Medication (Tiotropium [place] (Spiriva)) 18 mcg DAILY IH ; Start 09/07/18 at 09:00; Status UNV Info (Anti-Coagulation Monitoring By Pharmacy) 1 each PRN DAILY PRN MC SEE COMMENTS; Start 09/07/18 at 00:45 Acetaminophen (Tylenol) 650 mg PRN Q6HRS PRN PO PAIN / TEMP; Start 09/07/18 at 01:30; Stop 09/07/18 at 05:53; Status DC Cephalexin HCl (Keflex) 250 mg DAILY PO Last administered on 09/07/18at 08:14; Start 09/07/18 at 09:00; Stop 09/07/18 at 17:40; Status DC Febuxostat (Uloric) 40 mg DAILY PO Last administered on 09/09/18at 08:13; Start 09/07/18 at 09:00 Insulin Human Lispro (HumaLOG) 5 units DAILY SQ Last administered on 09/07/18at 11:57; Start 09/07/18 at 09:00; Stop 09/07/18 at 17:37; Status DC Artificial Tears (Artificial Tears) 1 drop QID OU Last administered on 20:57; Start 09/07/18 at 09:00 Docusate Sodium (Colace) 100 mg DAILY PO Last administered on 09/09/18 08:13; Start 09/07/18 at 09:00 Magnesium Chloride (Mag Delay) 64 mg DAILY PO Last administered on 09/09/18at 08 :13; Start 09/07/18 at 09:00 Multi-Ingred Cream/Lotion/Oil/ Oint (Artificial Tears Eye Ointment) 1 karlos QHS OU ; Start 09/07/18 at 21:00 Oxybutynin Chloride (Ditropan) 5 mg DAILY PO Last administered on 09/09/18at 08: 12; Start 09/07/18 at 09:00 Potassium Chloride (Klor-Con) 10 meq DAILYWBKFT PO Last administered on at 08:12; Start 09/07/18 at 08:00 Insulin Human Lispro (HumaLOG) 5 units TIDAC SQ Last administered on 09/09/18 16:58; Start 09/08/18 at 07:30 Melatonin 3 mg QHS PO Last administered on 2/18/19at 20:58; Start 09/07/18 at 21:00 Buspirone HCl (Buspar) 5 mg BID@0900,1700 PO Last administered on 09/09/18 16: 58; Start 09/09/18 at 09:00 Nystatin (Nystop) 1 karlos BID TP Last administered on 09/09/18at 21:29; Start at 21:30 Active Scripts Active Reported Uloric (Febuxostat) 40 Mg Tablet 40 Mg PO DAILY Systane Nighttime Eye Oint (Mineral Oil/Petrolatum,White) 3.5 Gm Oint...g. 1 Karlos OP QHS Oxybutynin Chloride Er (Oxybutynin Chloride) 5 Mg Tab.er.24 5 Mg PO DAILY Mapap (Acetaminophen) 325 Mg Tablet 650 Mg PO PRN Q6HRS PRN Magnesium Chloride 64 Mg Tablet.dr 64 Mg PO DAILY Keflex (Cephalexin) 250 Mg Capsule 250 Mg PO DAILY Humalog (Insulin Lispro) 100 Unit/1 Ml Insuln.pen 5 Unit SQ DAILY Docusate Sodium 100 Mg Capsule 100 Mg PO DAILY Artificial Tears (Polyvinyl Alcohol) 15 Ml Drops 1 Drp OP QID Potassium Chloride 10 Meq Tablet.er 10 Meq PO DAILY Xarelto (Rivaroxaban) 20 Mg Tablet 20 Mg PO DAILY Probiotic (Lactobacillus Combo No.10) 1 Each Capsule 1 Cap PO DAILY Lasix (Furosemide) 40 Mg Tablet 40 Mg PO DAILY Coreg (Carvedilol) 6.25 Mg Tablet 6.25 Mg PO BIDWMEALS Duoneb 0.5-3(2.5) Mg/3 Ml (Albuterol/Ipratropium) 3 Ml Ampul.neb 3 Ml NEB QID Lantus (Insulin Glargine,Hum.rec.anlog) 100 Unit/1 Ml Vial 17 Unit SQ HS Latanoprost 2.5 Ml Drops 1 Drop OS QHS Losartan Potassium (Losartan Potassium) 25 Mg Tablet 25 Mg PO DAILY Cymbalta (Duloxetine Hcl) 60 Mg Capsule.dr 60 Mg PO DAILY Spiriva (Tiotropium [place]) 18 Mcg Cap.w.dev 18 Mcg IH DAILY I have reviewed the current psychotropics carefully including drug interactions. Risk benefit ratio favors no change other than as noted in my dictated progress note. Diagnosis: Problems: (1) Encounter for medical screening examination (2) Anxiety disorder (3) Major depressive disorder, recurrent episode (4) Impulse control disorder CLAUDIA LAROSE MD Sep 09, 2018 22:29
[2018-09-10 06:07] VITALS: BP 130/75
[2018-09-10] MEDS: INSULIN LISPRO 300 UNITS/3 ML INSULN.PEN. SQ SCH ×3 (09:32→17:19)
[2018-09-10] MEDS: OXYBUTYNIN CHLORIDE 5 MG TABLET PO SCH (09:33)
[2018-09-10] MEDS: RIVAROXABAN 10 MG TABLET. PO SCH (09:33)
[2018-09-10] MEDS: busPIRone 5 MG TABLET. PO SCH ×2 (09:33→17:16)
[2018-09-10] MEDS: LOSARTAN 25 MG TABLET. PO SCH (09:33)
[2018-09-10] MEDS: POTASSIUM CHLORIDE 10 MEQ TABLET.ER. PO SCH (09:34)
[2018-09-10] MEDS: CARVEDILOL 6.25 MG TABLET PO SCH ×2 (09:34→17:17)
[2018-09-10] MEDS: DULoxetine HCL 60 MG CAPSULE.DR PO SCH (09:34)
[2018-09-10] MEDS: LACTOBACILLUS RHAMNOSUS GG 1 CAPSULE. PO SCH ×2 (09:34→20:47)
[2018-09-10] MEDS: MAGNESIUM CHLORIDE ER 64 MG TABLET.ER PO SCH (09:34)
[2018-09-10] MEDS: FUROSEMIDE 40 MG TABLET PO SCH (09:35)
[2018-09-10] MEDS: DOCUSATE SODIUM 100 MG CAPSULE PO SCH (09:35)
[2018-09-10] MEDS: POLYVINYL ALCOHOL 1.4% OPHTH SOLUTION 15ML BOTTLE. OU SCH ×3 (09:35→20:46)
[2018-09-10] MEDS: NYSTATIN TOPICAL POWDER 15GM BOTTLE. TP SCH ×2 (09:38→20:52)
[2018-09-10] MEDS: FEBUXOSTAT 40 MG TABLET PO SCH (09:38)
[2018-09-10 16:33] VITALS: BP 119/80
[2018-09-10] MEDS: LATANOPROST 0.005% OPHTH SOLUTION 2.5ML BOTTLE. OS SCH (20:47)
[2018-09-10] MEDS: MELATONIN 3 MG TABLET PO SCH (20:47)
[2018-09-10] MEDS: INSULIN GLARGINE 300 UNITS/3 ML INSULN.PEN. SQ SCH (20:50)
[2018-09-10] MEDS: DOXYCYCLINE HYCLATE 100 MG TABLET PO SCH (20:51)
[2018-09-10] MEDS: MINERAL OIL/PETROLATUM,WHITE OPHTH OINT 3.5GM TUBE. OU SCH (21:00)
--- NOTE | 2018-09-10 22:35 | PN ---
DATE: 09/08/2018 PSYCHIATRIC PROGRESS NOTE This late entry 09/08/2018 covers elements not covered in my initial note. SUBJECTIVE: I met with the patient in the evening. The patient slept 6-1/2 hours previous night. She has been rude condescending per nursing report. She is on DNR status, wants full code. We will defer to psychiatric social worker discussing with family. REVIEW OF SYSTEMS: Ambulation impaired, in wheelchair. No CV, , pulmonary, eye system symptoms on review. MENTAL STATUS EXAM: Oriented to herself and situation. Speech coherent, rapid at times. Abstraction fair, computation impaired, language function intact, attention span short. Mood and affect somewhat anxious, labile at times. LABORATORY DATA: Reviewed. IMPRESSION: Major depressive disorder; anxiety disorder, unspecified. Rest unchanged. PLAN: Start BuSpar 5 mg 9 a.m., 5:00 p.m. Rest unchanged per initial note. MAN Nicolette LAROSE MD DR: RUFUS/carina JOB#: [id number] / [id number]
--- NOTE | 2018-09-10 22:36 | PN ---
DATE: 09/09/2018 PSYCHIATRIC PROGRESS NOTE This late entry 09/09/2018 covers elements not covered in my initial note. SUBJECTIVE: I met with the patient in the evening. The patient slept 6-3/4 hours previous night. Overall, she remains somewhat anxious, attention seeking per nursing report, labile at times. REVIEW OF SYSTEMS: Ambulation impaired, in wheelchair. No CV, , pulmonary, eye system symptoms on review. MENTAL STATUS EXAM: Oriented to herself and situation. Speech is coherent, rapid at times, obsessive of talking about problems on the unit. Abstraction fair, computation impaired, language function intact. Mood and affect remains anxious, labile. No suicidal ideation, no homicidal ideation. LABORATORY DATA: Reviewed. IMPRESSION: Unchanged from initial note. PLAN: No change from initial note. MAN Nicolette LAROSE MD DR: RUFUS/carina JOB#: [id number] / [id number]
--- NOTE | 2018-09-10 22:45 | PDOC ---
Exam Note: Nain Note: Please also refer to the separate dictated note~for this date of service dictated separately.~Patient seen individually. Discussed the patient with Nursing staff reviewed the chart.~Reviewed interim history and current functioning. Reviewed vital signs,~Labs/ Radiology~and current medications noted below. Continue current treatment with the changes noted in the dictated addendum note Assessment: Vital Signs: Vital Signs Date Time Temp Pulse Resp B/P (MAP) Pulse Ox O2 Delivery O2 Flow Rate FiO2 09/10/18 17:17 73 119/80 09/10/18 16:33 97.8 18 96 Room Air I&O Intake and Output 09/10/18 07:00 Intake Total 960 ml Output Total 1150 ml Balance -190 ml Intake Oral 960 ml Output Urine Total 1150 ml Labs: Laboratory Tests Test 09/10/18 07:25 09/10/18 11:42 09/10/18 17:04 09/10/18 19:19 Glucose (Fingerstick) 127 mg/dL (70-99) H 251 mg/dL (70-99) H 127 mg/dL (70-99) H 207 mg/dL (70-99) H Current Medications: Meds: Current Medications Multi-Ingredient Ointment (Analgesic [place]) 1 karlos PRN QID PRN TP MUSCLE PAIN; Start 09/06/18 at 22:45 Al Hydroxide/Mg Hydroxide (Mylanta Plus Xs) 15 ml PRN AFTMEALHC PRN PO DYSPEPSIA; Start 09/06/18 at 22:45 Magnesium Hydroxide (Milk Of Magnesia) 2,400 mg PRN QHS PRN PO CONSTIPATION; Start 09/06/18 at 22:45 Duloxetine HCl (Cymbalta) 60 mg DAILY PO Last administered on 09/10/18at 09:34; Start 09/07/18 at 09:00 Cyanocobalamin (Vitamin B-12) 1,000 mcg DAILY PO ; Start 09/07/18 at 09:00; Stop 09/07/18 at 09:00; Status DC Ferrous Sulfate (Feosol) 325 mg DAILY PO ; Start 09/07/18 at 09:00; Stop at 09:00; Status DC Albuterol/ Ipratropium (Duoneb) 3 ml RTQID NEB ; Start 09/07/18 at 08:00; Stop 09/07/18 at 08:00; Status DC Losartan Potassium (Cozaar) 25 mg DAILY PO Last administered on 09/10/18at 09:33 ; Start 09/07/18 at 09:00 Potassium Chloride (Klor-Con) 20 meq BID PO ; Start 09/07/18 at 09:00; Status Cancel Acetaminophen (Tylenol) 500 mg PRN Q6HRS PRN PO PAIN / TEMP; Start 09/07/18 at 00:45 Allopurinol (Zyloprim) 100 mg DAILYWBKFT PO ; Start 09/07/18 at 08:00; Stop at 08:00; Status DC Carvedilol (Coreg) 6.25 mg BIDWMEALS PO Last administered on 09/10/18at 17:17; Start 09/07/18 at 08:00 Non-Formulary Medication (Cranberry Extract (Cranberry)) 425 mg DAILY PO ; Start 09/07/18 at 09:00; Status UNV Folic Acid (Folic Acid) 1 mg DAILY PO ; Start 09/07/18 at 09:00; Stop 09/07/18 at 09:00; Status DC Furosemide (Lasix) 40 mg DAILY PO Last administered on 09/10/18at 09:35; Start 09/07/18 at 09:00 Insulin Glargine (Lantus) 17 units QHS SQ Last administered on 09/10/18at 20:50 ; Start 09/07/18 at 21:00 Lactobacillus Rhamnosus (Culturelle) 1 cap BID PO Last administered on at 20:47; Start 09/07/18 at 09:00 Latanoprost (Xalatan) 1 drop QHS OS Last administered on 09/10/18at 20:47; Start 09/07/18 at 21:00 Ondansetron HCl (Zofran Odt) 4 mg PRN Q8HRS PRN PO NAUSEA/VOMITING; Start 09/07 at 00:45; Stop 09/07/18 at 01:25; Status DC Rivaroxaban (Xarelto) 20 mg DAILYWBKFT PO Last administered on 09/10/18at 09:33 ; Start 09/07/18 at 08:00 Non-Formulary Medication (Tiotropium [place] (Spiriva)) 18 mcg DAILY IH ; Start 09/07/18 at 09:00; Status UNV Info (Anti-Coagulation Monitoring By Pharmacy) 1 each PRN DAILY PRN MC SEE COMMENTS; Start 09/07/18 at 00:45 Acetaminophen (Tylenol) 650 mg PRN Q6HRS PRN PO PAIN / TEMP; Start 09/07/18 at 01:30; Stop 09/07/18 at 05:53; Status DC Cephalexin HCl (Keflex) 250 mg DAILY PO Last administered on 09/07/18at 08:14; Start 09/07/18 at 09:00; Stop 09/07/18 at 17:40; Status DC Febuxostat (Uloric) 40 mg DAILY PO Last administered on 09/10/18at 09:38; Start 09/07/18 at 09:00 Insulin Human Lispro (HumaLOG) 5 units DAILY SQ Last administered on 09/07/18at 11:57; Start 09/07/18 at 09:00; Stop 09/07/18 at 17:37; Status DC Artificial Tears (Artificial Tears) 1 drop QID OU Last administered on at 12:02; Start 09/07/18 at 09:00; Stop 09/10/18 at 15:55; Status DC Docusate Sodium (Colace) 100 mg DAILY PO Last administered on 09/10/18at 09:35; Start 09/07/18 at 09:00 Magnesium Chloride (Mag Delay) 64 mg DAILY PO Last administered on 09/10/18at 09 :34; Start 09/07/18 at 09:00 Multi-Ingred Cream/Lotion/Oil/ Oint (Artificial Tears Eye Ointment) 1 karlos QHS OU ; Start 09/07/18 at 21:00 Oxybutynin Chloride (Ditropan) 5 mg DAILY PO Last administered on 09/10/18at 09: 33; Start 09/07/18 at 09:00 Potassium Chloride (Klor-Con) 10 meq DAILYWBKFT PO Last administered on at 09:34; Start 09/07/18 at 08:00 Insulin Human Lispro (HumaLOG) 5 units TIDAC SQ Last administered on 09/10/18at 17:19; Start 09/08/18 at 07:30 Melatonin 3 mg QHS PO Last administered on 09/10/18at 20:47; Start 09/07/18 at 21:00 Buspirone HCl (Buspar) 5 mg BID@0900,1700 PO Last administered on 09/10/18at 17: 16; Start 09/09/18 at 09:00 Nystatin (Nystop) 1 karlos BID TP Last administered on 09/10/18at 20:52; Start at 21:30 Doxycycline Hyclate (Vibra-Tab) 100 mg BID PO Last administered on 09/10/18 20 :51; Start 09/10/18 at 21:00; Stop 09/19/18 at 20:59 Artificial Tears (Artificial Tears) 1 drop Q6H OU Last administered on at 20:46; Start 09/10/18 at 21:00 Active Scripts Active Reported Uloric (Febuxostat) 40 Mg Tablet 40 Mg PO DAILY Systane Nighttime Eye Oint (Mineral Oil/Petrolatum,White) 3.5 Gm Oint...g. 1 Karlos OP QHS Oxybutynin Chloride Er (Oxybutynin Chloride) 5 Mg Tab.er.24 5 Mg PO DAILY Mapap (Acetaminophen) 325 Mg Tablet 650 Mg PO PRN Q6HRS PRN Magnesium Chloride 64 Mg Tablet.dr 64 Mg PO DAILY Keflex (Cephalexin) 250 Mg Capsule 250 Mg PO DAILY Humalog (Insulin Lispro) 100 Unit/1 Ml Insuln.pen 5 Unit SQ DAILY Docusate Sodium 100 Mg Capsule 100 Mg PO DAILY Artificial Tears (Polyvinyl Alcohol) 15 Ml Drops 1 Drp OP QID Potassium Chloride 10 Meq Tablet.er 10 Meq PO DAILY Xarelto (Rivaroxaban) 20 Mg Tablet 20 Mg PO DAILY Probiotic (Lactobacillus Combo No.10) 1 Each Capsule 1 Cap PO DAILY Lasix (Furosemide) 40 Mg Tablet 40 Mg PO DAILY Coreg (Carvedilol) 6.25 Mg Tablet 6.25 Mg PO BIDWMEALS Duoneb 0.5-3(2.5) Mg/3 Ml (Albuterol/Ipratropium) 3 Ml Ampul.neb 3 Ml NEB QID Lantus (Insulin Glargine,Hum.rec.anlog) 100 Unit/1 Ml Vial 17 Unit SQ HS Latanoprost 2.5 Ml Drops 1 Drop OS QHS Losartan Potassium (Losartan Potassium) 25 Mg Tablet 25 Mg PO DAILY Cymbalta (Duloxetine Hcl) 60 Mg Capsule.dr 60 Mg PO DAILY Spiriva (Tiotropium [place]) 18 Mcg Cap.w.dev 18 Mcg IH DAILY I have reviewed the current psychotropics carefully including drug interactions. Risk benefit ratio favors no change other than as noted in my dictated progress note. Diagnosis: Problems: (1) Encounter for medical screening examination (2) Anxiety disorder (3) Major depressive disorder, recurrent episode (4) Impulse control disorder CLAUDIA LAROSE MD Sep 10, 2018 22:45
[2018-09-11] MEDS: POLYVINYL ALCOHOL 1.4% OPHTH SOLUTION 15ML BOTTLE. OU SCH ×4 (03:00→20:45)
[2018-09-11 05:52] VITALS: BP 133/77
[2018-09-11] MEDS: CARVEDILOL 6.25 MG TABLET PO SCH ×2 (08:09→16:15)
[2018-09-11] MEDS: DOCUSATE SODIUM 100 MG CAPSULE PO SCH (08:09)
[2018-09-11] MEDS: MAGNESIUM CHLORIDE ER 64 MG TABLET.ER PO SCH (08:09)
[2018-09-11] MEDS: DOXYCYCLINE HYCLATE 100 MG TABLET PO SCH ×2 (08:10→20:45)
[2018-09-11] MEDS: LOSARTAN 25 MG TABLET. PO SCH (08:10)
[2018-09-11] MEDS: OXYBUTYNIN CHLORIDE 5 MG TABLET PO SCH (08:10)
[2018-09-11] MEDS: FUROSEMIDE 40 MG TABLET PO SCH (08:10)
[2018-09-11] MEDS: POTASSIUM CHLORIDE 10 MEQ TABLET.ER. PO SCH (08:10)
[2018-09-11] MEDS: DULoxetine HCL 60 MG CAPSULE.DR PO SCH (08:10)
[2018-09-11] MEDS: LACTOBACILLUS RHAMNOSUS GG 1 CAPSULE. PO SCH ×2 (08:11→20:45)
[2018-09-11] MEDS: RIVAROXABAN 10 MG TABLET. PO SCH (08:11)
[2018-09-11] MEDS: busPIRone 5 MG TABLET. PO SCH ×2 (08:11→16:14)
[2018-09-11] MEDS: INSULIN LISPRO 300 UNITS/3 ML INSULN.PEN. SQ SCH ×3 (08:15→17:00)
[2018-09-11] MEDS: FEBUXOSTAT 40 MG TABLET PO SCH (08:16)
[2018-09-11] MEDS: NYSTATIN TOPICAL POWDER 15GM BOTTLE. TP SCH ×2 (08:16→20:45)
[2018-09-11 15:26] VITALS: BP 112/77
[2018-09-11] MEDS: MINERAL OIL/PETROLATUM,WHITE OPHTH OINT 3.5GM TUBE. OU SCH (20:44)
[2018-09-11] MEDS: MELATONIN 3 MG TABLET PO SCH (20:45)
[2018-09-11] MEDS: LATANOPROST 0.005% OPHTH SOLUTION 2.5ML BOTTLE. OS SCH (20:45)
[2018-09-11] MEDS: INSULIN GLARGINE 300 UNITS/3 ML INSULN.PEN. SQ SCH (20:46)
--- NOTE | 2018-09-11 21:44 | PN ---
DATE: 09/10/2018 PSYCHIATRIC PROGRESS NOTE This late entry 09/10/2018 covers elements not covered in my initial note. SUBJECTIVE: I met with the patient in the evening at length. The patient slept 6-1/4 hours previous night. She remains extremely obsessive, very particular and wants things done exactly the same way; gets upset, anxious if anything changes. She does have a UTI, started on doxycycline per Dr. Dennis. Nursing staff report her to be "needy." REVIEW OF SYSTEMS: Ambulation impaired, in wheelchair. No CV, , pulmonary, eye system symptoms on review. MENTAL STATUS EXAM: Reasonably oriented. Speech is coherent, has some latency. Abstraction fair, computation impaired, language function intact, attention span short. Mood and affect remains quite anxious, labile, obsessive. LABORATORY DATA: Reviewed. IMPRESSION: Unchanged from initial note. PLAN: No change from initial note. MAN Nicolette LAROSE MD DR: RUFUS/carina JOB#: [id number] / [id number]
--- NOTE | 2018-09-11 22:22 | PDOC ---
Exam Note: Nain Note: Please also refer to the separate dictated note~for this date of service dictated separately.~Patient seen individually. Discussed the patient with Nursing staff reviewed the chart.~Reviewed interim history and current functioning. Reviewed vital signs,~Labs/ Radiology~and current medications noted below. Continue current treatment with the changes noted in the dictated addendum note Assessment: Vital Signs: Vital Signs Date Time Temp Pulse Resp B/P (MAP) Pulse Ox O2 Delivery O2 Flow Rate FiO2 09/11/18 16:15 82 112/77 09/11/18 15:26 98.1 15 92 09/11/18 05:52 Room Air I&O Intake and Output 09/11/18 07:00 Intake Total 1560 ml Output Total 450 ml Balance 1110 ml Intake Oral 1560 ml Output Urine Total 450 ml Labs: Laboratory Tests Test 09/11/18 07:20 09/11/18 11:36 09/11/18 16:57 09/11/18 19:07 Glucose (Fingerstick) 123 mg/dL (70-99) H 164 mg/dL (70-99) H 166 mg/dL (70-99) H 259 mg/dL (70-99) H Current Medications: Meds: Current Medications Multi-Ingredient Ointment (Analgesic [place]) 1 karlos PRN QID PRN TP MUSCLE PAIN; Start 09/06/18 at 22:45 Al Hydroxide/Mg Hydroxide (Mylanta Plus Xs) 15 ml PRN AFTMEALHC PRN PO DYSPEPSIA; Start 09/06/18 at 22:45 Magnesium Hydroxide (Milk Of Magnesia) 2,400 mg PRN QHS PRN PO CONSTIPATION; Start 09/06/18 at 22:45 Duloxetine HCl (Cymbalta) 60 mg DAILY PO Last administered on 09/11/18at 08:10; Start 09/07/18 at 09:00 Cyanocobalamin (Vitamin B-12) 1,000 mcg DAILY PO ; Start 09/07/18 at 09:00; Stop 09/07/18 at 09:00; Status DC Ferrous Sulfate (Feosol) 325 mg DAILY PO ; Start 09/07/18 at 09:00; Stop at 09:00; Status DC Albuterol/ Ipratropium (Duoneb) 3 ml RTQID NEB ; Start 09/07/18 at 08:00; Stop 09/07/18 at 08:00; Status DC Losartan Potassium (Cozaar) 25 mg DAILY PO Last administered on 09/11/18at 08:10 ; Start 09/07/18 at 09:00 Potassium Chloride (Klor-Con) 20 meq BID PO ; Start 09/07/18 at 09:00; Status Cancel Acetaminophen (Tylenol) 500 mg PRN Q6HRS PRN PO PAIN / TEMP; Start 09/07/18 at 00:45 Allopurinol (Zyloprim) 100 mg DAILYWBKFT PO ; Start 09/07/18 at 08:00; Stop at 08:00; Status DC Carvedilol (Coreg) 6.25 mg BIDWMEALS PO Last administered on 09/11/18at 16:15; Start 09/07/18 at 08:00 Non-Formulary Medication (Cranberry Extract (Cranberry)) 425 mg DAILY PO ; Start 09/07/18 at 09:00; Status UNV Folic Acid (Folic Acid) 1 mg DAILY PO ; Start 09/07/18 at 09:00; Stop 09/07/18 at 09:00; Status DC Furosemide (Lasix) 40 mg DAILY PO Last administered on 09/11/18at 08:10; Start 09/07/18 at 09:00 Insulin Glargine (Lantus) 17 units QHS SQ Last administered on 09/11/18at 20:46 ; Start 09/07/18 at 21:00 Lactobacillus Rhamnosus (Culturelle) 1 cap BID PO Last administered on at 20:45; Start 09/07/18 at 09:00 Latanoprost (Xalatan) 1 drop QHS OS Last administered on 09/11/18at 20:45; Start 09/07/18 at 21:00 Ondansetron HCl (Zofran Odt) 4 mg PRN Q8HRS PRN PO NAUSEA/VOMITING; Start 09/07 at 00:45; Stop 09/07/18 at 01:25; Status DC Rivaroxaban (Xarelto) 20 mg DAILYWBKFT PO Last administered on 09/11/18at 08:11 ; Start 09/07/18 at 08:00 Non-Formulary Medication (Tiotropium [place] (Spiriva)) 18 mcg DAILY IH ; Start 09/07/18 at 09:00; Status UNV Info (Anti-Coagulation Monitoring By Pharmacy) 1 each PRN DAILY PRN MC SEE COMMENTS; Start 09/07/18 at 00:45 Acetaminophen (Tylenol) 650 mg PRN Q6HRS PRN PO PAIN / TEMP; Start 09/07/18 at 01:30; Stop 09/07/18 at 05:53; Status DC Cephalexin HCl (Keflex) 250 mg DAILY PO Last administered on 09/07/18at 08:14; Start 09/07/18 at 09:00; Stop 09/07/18 at 17:40; Status DC Febuxostat (Uloric) 40 mg DAILY PO Last administered on 09/11/18at 08:16; Start 09/07/18 at 09:00 Insulin Human Lispro (HumaLOG) 5 units DAILY SQ Last administered on 09/07/18at 11:57; Start 09/07/18 at 09:00; Stop 09/07/18 at 17:37; Status DC Artificial Tears (Artificial Tears) 1 drop QID OU Last administered on at 12:02; Start 09/07/18 at 09:00; Stop 09/10/18 at 15:55; Status DC Docusate Sodium (Colace) 100 mg DAILY PO Last administered on 09/11/18at 08:09; Start 09/07/18 at 09:00 Magnesium Chloride (Mag Delay) 64 mg DAILY PO Last administered on 09/11/18at 08 :09; Start 09/07/18 at 09:00 Multi-Ingred Cream/Lotion/Oil/ Oint (Artificial Tears Eye Ointment) 1 karlos QHS OU ; Start 09/07/18 at 21:00 Oxybutynin Chloride (Ditropan) 5 mg DAILY PO Last administered on 09/11/18 08: 10; Start 09/07/18 at 09:00 Potassium Chloride (Klor-Con) 10 meq DAILYWBKFT PO Last administered on at 08:10; Start 09/07/18 at 08:00 Insulin Human Lispro (HumaLOG) 5 units TIDAC SQ Last administered on 09/11/18at 17:00; Start 09/08/18 at 07:30 Melatonin 3 mg QHS PO Last administered on 09/11/18at 20:45; Start 09/07/18 at 21:00 Buspirone HCl (Buspar) 5 mg BID@0900,1700 PO Last administered on 09/11/18at 16: 14; Start 09/09/18 at 09:00 Nystatin (Nystop) 1 karlos BID TP Last administered on 09/11/18 20:45; Start at 21:30 Doxycycline Hyclate (Vibra-Tab) 100 mg BID PO Last administered on 09/11/18 20 :45; Start 09/10/18 at 21:00; Stop 09/19/18 at 20:59 Artificial Tears (Artificial Tears) 1 drop Q6H OU Last administered on 20:45; Start 09/10/18 at 21:00 Ascorbic Acid (Vitamin C) 500 mg DAILY PO ; Start 09/12/18 at 09:00 Active Scripts Active Reported Uloric (Febuxostat) 40 Mg Tablet 40 Mg PO DAILY Systane Nighttime Eye Oint (Mineral Oil/Petrolatum,White) 3.5 Gm Oint...g. 1 Karlos OP QHS Oxybutynin Chloride Er (Oxybutynin Chloride) 5 Mg Tab.er.24 5 Mg PO DAILY Mapap (Acetaminophen) 325 Mg Tablet 650 Mg PO PRN Q6HRS PRN Magnesium Chloride 64 Mg Tablet.dr 64 Mg PO DAILY Keflex (Cephalexin) 250 Mg Capsule 250 Mg PO DAILY Humalog (Insulin Lispro) 100 Unit/1 Ml Insuln.pen 5 Unit SQ DAILY Docusate Sodium 100 Mg Capsule 100 Mg PO DAILY Artificial Tears (Polyvinyl Alcohol) 15 Ml Drops 1 Drp OP QID Potassium Chloride 10 Meq Tablet.er 10 Meq PO DAILY Xarelto (Rivaroxaban) 20 Mg Tablet 20 Mg PO DAILY Probiotic (Lactobacillus Combo No.10) 1 Each Capsule 1 Cap PO DAILY Lasix (Furosemide) 40 Mg Tablet 40 Mg PO DAILY Coreg (Carvedilol) 6.25 Mg Tablet 6.25 Mg PO BIDWMEALS Duoneb 0.5-3(2.5) Mg/3 Ml (Albuterol/Ipratropium) 3 Ml Ampul.neb 3 Ml NEB QID Lantus (Insulin Glargine,Hum.rec.anlog) 100 Unit/1 Ml Vial 17 Unit SQ HS Latanoprost 2.5 Ml Drops 1 Drop OS QHS Losartan Potassium (Losartan Potassium) 25 Mg Tablet 25 Mg PO DAILY Cymbalta (Duloxetine Hcl) 60 Mg Capsule.dr 60 Mg PO DAILY Spiriva (Tiotropium [place]) 18 Mcg Cap.w.dev 18 Mcg IH DAILY I have reviewed the current psychotropics carefully including drug interactions. Risk benefit ratio favors no change other than as noted in my dictated progress note. Diagnosis: Problems: (1) Encounter for medical screening examination (2) Anxiety disorder (3) Major depressive disorder, recurrent episode (4) Impulse control disorder CLAUDIA LAROSE MD Sep 11, 2018 22:22
[2018-09-12] MEDS: POLYVINYL ALCOHOL 1.4% OPHTH SOLUTION 15ML BOTTLE. OU SCH ×4 (03:00→21:11)
[2018-09-12 06:21] VITALS: BP 149/85
[2018-09-12] MEDS: INSULIN LISPRO 300 UNITS/3 ML INSULN.PEN. SQ SCH ×3 (07:41→16:41)
[2018-09-12] MEDS: DOXYCYCLINE HYCLATE 100 MG TABLET PO SCH ×2 (08:46→21:11)
[2018-09-12] MEDS: MAGNESIUM CHLORIDE ER 64 MG TABLET.ER PO SCH (08:46)
[2018-09-12] MEDS: CARVEDILOL 6.25 MG TABLET PO SCH ×2 (08:46→16:39)
[2018-09-12] MEDS: RIVAROXABAN 10 MG TABLET. PO SCH (08:47)
[2018-09-12] MEDS: OXYBUTYNIN CHLORIDE 5 MG TABLET PO SCH (08:47)
[2018-09-12] MEDS: busPIRone 5 MG TABLET. PO SCH ×2 (08:47→16:38)
[2018-09-12] MEDS: POTASSIUM CHLORIDE 10 MEQ TABLET.ER. PO SCH (08:47)
[2018-09-12] MEDS: DULoxetine HCL 60 MG CAPSULE.DR PO SCH (08:47)
[2018-09-12] MEDS: LACTOBACILLUS RHAMNOSUS GG 1 CAPSULE. PO SCH ×2 (08:47→21:11)
[2018-09-12] MEDS: DOCUSATE SODIUM 100 MG CAPSULE PO SCH (08:48)
[2018-09-12] MEDS: LOSARTAN 25 MG TABLET. PO SCH (08:48)
[2018-09-12] MEDS: NYSTATIN TOPICAL POWDER 15GM BOTTLE. TP SCH ×2 (08:48→21:12)
[2018-09-12] MEDS: FUROSEMIDE 40 MG TABLET PO SCH (08:48)
[2018-09-12] MEDS: FEBUXOSTAT 40 MG TABLET PO SCH (08:51)
[2018-09-12] MEDS: ASCORBIC ACID 500 MG TABLET PO SCH (08:51)
[2018-09-12 16:08] VITALS: BP 136/81
[2018-09-12] MEDS: MINERAL OIL/PETROLATUM,WHITE OPHTH OINT 3.5GM TUBE. OU SCH (21:00)
[2018-09-12] MEDS: LATANOPROST 0.005% OPHTH SOLUTION 2.5ML BOTTLE. OS SCH (21:11)
[2018-09-12] MEDS: MELATONIN 3 MG TABLET PO SCH (21:11)
[2018-09-12] MEDS: INSULIN GLARGINE 300 UNITS/3 ML INSULN.PEN. SQ SCH (21:13)
--- NOTE | 2018-09-12 22:19 | PDOC ---
Exam Note: Nain Note: Please also refer to the separate dictated note~for this date of service dictated separately.~Patient seen individually. Discussed the patient with Nursing staff reviewed the chart.~Reviewed interim history and current functioning. Reviewed vital signs,~Labs/ Radiology~and current medications noted below. Continue current treatment with the changes noted in the dictated addendum note Assessment: Vital Signs: Vital Signs Date Time Temp Pulse Resp B/P (MAP) Pulse Ox O2 Delivery O2 Flow Rate FiO2 09/12/18 16:39 71 136/81 09/12/18 16:08 98.1 16 96 09/11/18 05:52 Room Air I&O Intake and Output 09/12/18 07:00 Intake Total 1195 ml Balance 1195 ml Intake Oral 1195 ml Labs: Laboratory Tests Test 09/12/18 07:15 09/12/18 11:59 09/12/18 16:24 09/12/18 19:10 Glucose (Fingerstick) 99 mg/dL (70-99) 302 mg/dL (70-99) H 190 mg/dL (70-99) H 291 mg/dL (70-99) H Current Medications: Meds: Current Medications Multi-Ingredient Ointment (Analgesic [place]) 1 karlos PRN QID PRN TP MUSCLE PAIN; Start 09/06/18 at 22:45 Al Hydroxide/Mg Hydroxide (Mylanta Plus Xs) 15 ml PRN AFTMEALHC PRN PO DYSPEPSIA; Start 09/06/18 at 22:45 Magnesium Hydroxide (Milk Of Magnesia) 2,400 mg PRN QHS PRN PO CONSTIPATION; Start 09/06/18 at 22:45 Duloxetine HCl (Cymbalta) 60 mg DAILY PO Last administered on 09/12/18at 08:47; Start 09/07/18 at 09:00 Cyanocobalamin (Vitamin B-12) 1,000 mcg DAILY PO ; Start 09/07/18 at 09:00; Stop 09/07/18 at 09:00; Status DC Ferrous Sulfate (Feosol) 325 mg DAILY PO ; Start 09/07/18 at 09:00; Stop at 09:00; Status DC Albuterol/ Ipratropium (Duoneb) 3 ml RTQID NEB ; Start 09/07/18 at 08:00; Stop 09/07/18 at 08:00; Status DC Losartan Potassium (Cozaar) 25 mg DAILY PO Last administered on 09/12/18at 08:48 ; Start 09/07/18 at 09:00 Potassium Chloride (Klor-Con) 20 meq BID PO ; Start 09/07/18 at 09:00; Status Cancel Acetaminophen (Tylenol) 500 mg PRN Q6HRS PRN PO PAIN / TEMP; Start 09/07/18 at 00:45 Allopurinol (Zyloprim) 100 mg DAILYWBKFT PO ; Start 09/07/18 at 08:00; Stop at 08:00; Status DC Carvedilol (Coreg) 6.25 mg BIDWMEALS PO Last administered on 09/12/18at 16:39; Start 09/07/18 at 08:00 Non-Formulary Medication (Cranberry Extract (Cranberry)) 425 mg DAILY PO ; Start 09/07/18 at 09:00; Status UNV Folic Acid (Folic Acid) 1 mg DAILY PO ; Start 09/07/18 at 09:00; Stop 09/07/18 at 09:00; Status DC Furosemide (Lasix) 40 mg DAILY PO Last administered on 09/12/18at 08:48; Start 09/07/18 at 09:00 Insulin Glargine (Lantus) 17 units QHS SQ Last administered on 09/12/18at 21:13 ; Start 09/07/18 at 21:00 Lactobacillus Rhamnosus (Culturelle) 1 cap BID PO Last administered on at 21:11; Start 09/07/18 at 09:00 Latanoprost (Xalatan) 1 drop QHS OS Last administered on 09/12/18at 21:11; Start 09/07/18 at 21:00 Ondansetron HCl (Zofran Odt) 4 mg PRN Q8HRS PRN PO NAUSEA/VOMITING; Start 09/07 at 00:45; Stop 09/07/18 at 01:25; Status DC Rivaroxaban (Xarelto) 20 mg DAILYWBKFT PO Last administered on 09/12/18at 08:47 ; Start 09/07/18 at 08:00 Non-Formulary Medication (Tiotropium [place] (Spiriva)) 18 mcg DAILY IH ; Start 09/07/18 at 09:00; Status UNV Info (Anti-Coagulation Monitoring By Pharmacy) 1 each PRN DAILY PRN MC SEE COMMENTS; Start 09/07/18 at 00:45 Acetaminophen (Tylenol) 650 mg PRN Q6HRS PRN PO PAIN / TEMP; Start 09/07/18 at 01:30; Stop 09/07/18 at 05:53; Status DC Cephalexin HCl (Keflex) 250 mg DAILY PO Last administered on 09/07/18at 08:14; Start 09/07/18 at 09:00; Stop 09/07/18 at 17:40; Status DC Febuxostat (Uloric) 40 mg DAILY PO Last administered on 09/12/18at 08:51; Start 09/07/18 at 09:00 Insulin Human Lispro (HumaLOG) 5 units DAILY SQ Last administered on 09/07/18at 11:57; Start 09/07/18 at 09:00; Stop 09/07/18 at 17:37; Status DC Artificial Tears (Artificial Tears) 1 drop QID OU Last administered on at 12:02; Start 09/07/18 at 09:00; Stop 09/10/18 at 15:55; Status DC Docusate Sodium (Colace) 100 mg DAILY PO Last administered on 09/12/18at 08:48; Start 09/07/18 at 09:00 Magnesium Chloride (Mag Delay) 64 mg DAILY PO Last administered on 09/12/18at 08 :46; Start 09/07/18 at 09:00 Multi-Ingred Cream/Lotion/Oil/ Oint (Artificial Tears Eye Ointment) 1 karlos QHS OU ; Start 09/07/18 at 21:00 Oxybutynin Chloride (Ditropan) 5 mg DAILY PO Last administered on 09/12/18 08: 47; Start 09/07/18 at 09:00 Potassium Chloride (Klor-Con) 10 meq DAILYWBKFT PO Last administered on at 08:47; Start 09/07/18 at 08:00 Insulin Human Lispro (HumaLOG) 5 units TIDAC SQ Last administered on 09/12/18 16:41; Start 09/08/18 at 07:30 Melatonin 3 mg QHS PO Last administered on 09/12/18 21:11; Start 09/07/18 at 21:00 Buspirone HCl (Buspar) 5 mg BID@0900,1700 PO Last administered on 09/12/18 16: 38; Start 09/09/18 at 09:00 Nystatin (Nystop) 1 karlos BID TP Last administered on 09/12/18 21:12; Start at 21:30 Doxycycline Hyclate (Vibra-Tab) 100 mg BID PO Last administered on 09/12/18 21 :11; Start 09/10/18 at 21:00; Stop 09/19/18 at 20:59 Artificial Tears (Artificial Tears) 1 drop Q6H OU Last administered on 21:11; Start 09/10/18 at 21:00 Ascorbic Acid (Vitamin C) 500 mg DAILY PO Last administered on 09/12/18 08:51 ; Start 09/12/18 at 09:00 Active Scripts Active Reported Uloric (Febuxostat) 40 Mg Tablet 40 Mg PO DAILY Systane Nighttime Eye Oint (Mineral Oil/Petrolatum,White) 3.5 Gm Oint...g. 1 Karlos OP QHS Oxybutynin Chloride Er (Oxybutynin Chloride) 5 Mg Tab.er.24 5 Mg PO DAILY Mapap (Acetaminophen) 325 Mg Tablet 650 Mg PO PRN Q6HRS PRN Magnesium Chloride 64 Mg Tablet.dr 64 Mg PO DAILY Keflex (Cephalexin) 250 Mg Capsule 250 Mg PO DAILY Humalog (Insulin Lispro) 100 Unit/1 Ml Insuln.pen 5 Unit SQ DAILY Docusate Sodium 100 Mg Capsule 100 Mg PO DAILY Artificial Tears (Polyvinyl Alcohol) 15 Ml Drops 1 Drp OP QID Potassium Chloride 10 Meq Tablet.er 10 Meq PO DAILY Xarelto (Rivaroxaban) 20 Mg Tablet 20 Mg PO DAILY Probiotic (Lactobacillus Combo No.10) 1 Each Capsule 1 Cap PO DAILY Lasix (Furosemide) 40 Mg Tablet 40 Mg PO DAILY Coreg (Carvedilol) 6.25 Mg Tablet 6.25 Mg PO BIDWMEALS Duoneb 0.5-3(2.5) Mg/3 Ml (Albuterol/Ipratropium) 3 Ml Ampul.neb 3 Ml NEB QID Lantus (Insulin Glargine,Hum.rec.anlog) 100 Unit/1 Ml Vial 17 Unit SQ HS Latanoprost 2.5 Ml Drops 1 Drop OS QHS Losartan Potassium (Losartan Potassium) 25 Mg Tablet 25 Mg PO DAILY Cymbalta (Duloxetine Hcl) 60 Mg Capsule.dr 60 Mg PO DAILY Spiriva (Tiotropium [place]) 18 Mcg Cap.w.dev 18 Mcg IH DAILY I have reviewed the current psychotropics carefully including drug interactions. Risk benefit ratio favors no change other than as noted in my dictated progress note. Diagnosis: Problems: (1) Encounter for medical screening examination (2) Anxiety disorder (3) Major depressive disorder, recurrent episode (4) Impulse control disorder CLAUDIA LAROSE MD Sep 12, 2018 22:19
[2018-09-13] MEDS: POLYVINYL ALCOHOL 1.4% OPHTH SOLUTION 15ML BOTTLE. OU SCH ×4 (03:00→20:33)
[2018-09-13 06:30] VITALS: BP 138/56
[2018-09-13] MEDS: INSULIN LISPRO 300 UNITS/3 ML INSULN.PEN. SQ SCH ×3 (07:30→17:27)
[2018-09-13] MEDS: CARVEDILOL 6.25 MG TABLET PO SCH ×2 (08:32→17:02)
[2018-09-13] MEDS: POTASSIUM CHLORIDE 10 MEQ TABLET.ER. PO SCH (08:33)
[2018-09-13] MEDS: RIVAROXABAN 10 MG TABLET. PO SCH (08:33)
[2018-09-13] MEDS: DOCUSATE SODIUM 100 MG CAPSULE PO SCH (08:33)
[2018-09-13] MEDS: busPIRone 5 MG TABLET. PO SCH ×2 (08:33→17:02)
[2018-09-13] MEDS: DULoxetine HCL 60 MG CAPSULE.DR PO SCH (08:34)
[2018-09-13] MEDS: FUROSEMIDE 40 MG TABLET PO SCH (08:34)
[2018-09-13] MEDS: ASCORBIC ACID 500 MG TABLET PO SCH (08:34)
[2018-09-13] MEDS: LACTOBACILLUS RHAMNOSUS GG 1 CAPSULE. PO SCH ×2 (08:34→20:28)
[2018-09-13] MEDS: MAGNESIUM CHLORIDE ER 64 MG TABLET.ER PO SCH (08:34)
[2018-09-13] MEDS: OXYBUTYNIN CHLORIDE 5 MG TABLET PO SCH (08:34)
[2018-09-13] MEDS: NYSTATIN TOPICAL POWDER 15GM BOTTLE. TP SCH ×2 (08:34→20:28)
[2018-09-13] MEDS: LOSARTAN 25 MG TABLET. PO SCH (08:34)
[2018-09-13] MEDS: DOXYCYCLINE HYCLATE 100 MG TABLET PO SCH ×2 (08:34→20:28)
[2018-09-13] MEDS: FEBUXOSTAT 40 MG TABLET PO SCH (08:34)
[2018-09-13 16:03] VITALS: BP 155/72
[2018-09-13] MEDS ORDERED: CHOLECALCIFEROL (VITAMIN D3) 50,000 UNIT CAPSULE PO SCH (18:00)
--- NOTE | 2018-09-13 19:49 | PN ---
DATE: 09/11/2018 PSYCHIATRIC PROGRESS NOTE This late entry 09/11/2018 covers elements not covered in my initial note. SUBJECTIVE: I met with the patient in the evening and staffed at treatment team meeting with the entire team earlier in the day. The patient sleeping about 6 hours average at night. At the treatment team meeting, the patient's cousin Wes, power of contract attorney, attended the conference along with the patient. We had a lengthy discussion about her diagnosis, circumstances prompting admission, medications, some of her obsessive thought processes, inflexibility, ways to correct this, discharge plans, and current psychotropics including the option of fluvoxamine. The patient is unsure of it and I will continue to address this with her. She is compliant with her medications. Does have UTI. Reviewed at length circumstances and the incident that happened at the nursing facility prompting admission. REVIEW OF SYSTEMS: Ambulation impaired, in wheelchair. No CV, , pulmonary, eye system symptoms on review. MENTAL STATUS EXAM: Oriented to herself and situation. Speech has some latency, coherent. Abstraction fair, computation impaired, language function intact, attention span short. Mood and affect still somewhat anxious, at times labile, but improved. LABORATORY DATA: Reviewed. IMPRESSION: Unchanged from initial note. PLAN: No change from initial note other than above. CLAUDIA LAROSE MD DR: RUFUS/carina JOB#: [id number] / [id number]
[2018-09-13] MEDS: LATANOPROST 0.005% OPHTH SOLUTION 2.5ML BOTTLE. OS SCH (20:28)
[2018-09-13] MEDS: MELATONIN 3 MG TABLET PO SCH (20:28)
[2018-09-13] MEDS: MINERAL OIL/PETROLATUM,WHITE OPHTH OINT 3.5GM TUBE. OU SCH (20:28)
[2018-09-13] MEDS: INSULIN GLARGINE 300 UNITS/3 ML INSULN.PEN. SQ SCH (20:31)
[2018-09-13] MEDS: CHOLECALCIFEROL (VITAMIN D3) 50,000 UNIT CAPSULE PO SCH (20:31)
--- NOTE | 2018-09-13 21:23 | PN ---
DATE: 09/12/2018 PSYCHIATRIC PROGRESS NOTE This late entry 09/12/2018 covers elements not covered in my initial note. SUBJECTIVE: I met with the patient in the evening. The patient slept 6-1/4 hours previous night. She has been quite somatically preoccupied, anxious, believes she is going blind. REVIEW OF SYSTEMS: Ambulation impaired, in wheelchair. No CV, , pulmonary, eye system symptoms on review other than above. MENTAL STATUS EXAM: Oriented to herself and situation. Speech is coherent, abstraction fair, computation impaired, language function intact, attention span short. Mood and affect somewhat anxious, labile at times, but improved. LABORATORY DATA: Reviewed. IMPRESSION: Unchanged from initial note. PLAN: No change from initial note. MAN Nicolette LAROSE MD DR: RUFUS/carina JOB#: [id number] / [id number]
--- NOTE | 2018-09-13 22:47 | PDOC ---
Exam Note: Nain Note: Please also refer to the separate dictated note~for this date of service dictated separately.~Patient seen individually. Discussed the patient with Nursing staff reviewed the chart.~Reviewed interim history and current functioning. Reviewed vital signs,~Labs/ Radiology~and current medications noted below. Continue current treatment with the changes noted in the dictated addendum note Assessment: Vital Signs: Vital Signs Date Time Temp Pulse Resp B/P (MAP) Pulse Ox O2 Delivery O2 Flow Rate FiO2 09/13/18 17:02 63 155/72 09/13/18 16:03 97.6 20 95 09/13/18 06:30 Room Air I&O Intake and Output 09/13/18 06:59 Intake Total 1080 ml Output Total 650 ml Balance 430 ml Intake Oral 1080 ml Output Urine Total 650 ml # Bowel Movements 1 Labs: Laboratory Tests Test 09/13/18 07:11 09/13/18 11:55 09/13/18 17:14 09/13/18 19:12 Glucose (Fingerstick) 75 mg/dL (70-99) 260 mg/dL (70-99) H 255 mg/dL (70-99) H 325 mg/dL (70-99) H Current Medications: Meds: Current Medications Multi-Ingredient Ointment (Analgesic [place]) 1 karlos PRN QID PRN TP MUSCLE PAIN; Start 09/06/18 at 22:45 Al Hydroxide/Mg Hydroxide (Mylanta Plus Xs) 15 ml PRN AFTMEALHC PRN PO DYSPEPSIA; Start 09/06/18 at 22:45 Magnesium Hydroxide (Milk Of Magnesia) 2,400 mg PRN QHS PRN PO CONSTIPATION; Start 09/06/18 at 22:45 Duloxetine HCl (Cymbalta) 60 mg DAILY PO Last administered on 09/13/18at 08:34; Start 09/07/18 at 09:00 Cyanocobalamin (Vitamin B-12) 1,000 mcg DAILY PO ; Start 09/07/18 at 09:00; Stop 09/07/18 at 09:00; Status DC Ferrous Sulfate (Feosol) 325 mg DAILY PO ; Start 09/07/18 at 09:00; Stop at 09:00; Status DC Albuterol/ Ipratropium (Duoneb) 3 ml RTQID NEB ; Start 09/07/18 at 08:00; Stop 09/07/18 at 08:00; Status DC Losartan Potassium (Cozaar) 25 mg DAILY PO Last administered on 09/13/18 08:34 ; Start 09/07/18 at 09:00 Potassium Chloride (Klor-Con) 20 meq BID PO ; Start 09/07/18 at 09:00; Status Cancel Acetaminophen (Tylenol) 500 mg PRN Q6HRS PRN PO PAIN / TEMP; Start 09/07/18 at 00:45 Allopurinol (Zyloprim) 100 mg DAILYWBKFT PO ; Start 09/07/18 at 08:00; Stop at 08:00; Status DC Carvedilol (Coreg) 6.25 mg BIDWMEALS PO Last administered on 09/13/18 17:02; Start 09/07/18 at 08:00 Non-Formulary Medication (Cranberry Extract (Cranberry)) 425 mg DAILY PO ; Start 09/07/18 at 09:00; Status UNV Folic Acid (Folic Acid) 1 mg DAILY PO ; Start 09/07/18 at 09:00; Stop 09/07/18 at 09:00; Status DC Furosemide (Lasix) 40 mg DAILY PO Last administered on 09/13/18 08:34; Start 09/07/18 at 09:00 Insulin Glargine (Lantus) 17 units QHS SQ Last administered on 09/13/18at 20:31 ; Start 09/07/18 at 21:00 Lactobacillus Rhamnosus (Culturelle) 1 cap BID PO Last administered on 20:28; Start 09/07/18 at 09:00 Latanoprost (Xalatan) 1 drop QHS OS Last administered on 09/13/18 20:28; Start 09/07/18 at 21:00 Ondansetron HCl (Zofran Odt) 4 mg PRN Q8HRS PRN PO NAUSEA/VOMITING; Start 09/07 at 00:45; Stop 09/07/18 at 01:25; Status DC Rivaroxaban (Xarelto) 20 mg DAILYWBKFT PO Last administered on 09/13/18at 08:33 ; Start 09/07/18 at 08:00 Non-Formulary Medication (Tiotropium [place] (Spiriva)) 18 mcg DAILY IH ; Start 09/07/18 at 09:00; Status UNV Info (Anti-Coagulation Monitoring By Pharmacy) 1 each PRN DAILY PRN MC SEE COMMENTS; Start 09/07/18 at 00:45 Acetaminophen (Tylenol) 650 mg PRN Q6HRS PRN PO PAIN / TEMP; Start 09/07/18 at 01:30; Stop 09/07/18 at 05:53; Status DC Cephalexin HCl (Keflex) 250 mg DAILY PO Last administered on 09/07/18at 08:14; Start 09/07/18 at 09:00; Stop 09/07/18 at 17:40; Status DC Febuxostat (Uloric) 40 mg DAILY PO Last administered on 09/13/18at 08:34; Start 09/07/18 at 09:00 Insulin Human Lispro (HumaLOG) 5 units DAILY SQ Last administered on 09/07/18at 11:57; Start 09/07/18 at 09:00; Stop 09/07/18 at 17:37; Status DC Artificial Tears (Artificial Tears) 1 drop QID OU Last administered on at 12:02; Start 09/07/18 at 09:00; Stop 09/10/18 at 15:55; Status DC Docusate Sodium (Colace) 100 mg DAILY PO Last administered on 09/13/18at 08:33; Start 09/07/18 at 09:00 Magnesium Chloride (Mag Delay) 64 mg DAILY PO Last administered on 09/13/18at 08 :34; Start 09/07/18 at 09:00 Multi-Ingred Cream/Lotion/Oil/ Oint (Artificial Tears Eye Ointment) 1 karlos QHS OU ; Start 09/07/18 at 21:00 Oxybutynin Chloride (Ditropan) 5 mg DAILY PO Last administered on 09/13/18 08: 34; Start 09/07/18 at 09:00 Potassium Chloride (Klor-Con) 10 meq DAILYWBKFT PO Last administered on at 08:33; Start 09/07/18 at 08:00 Insulin Human Lispro (HumaLOG) 5 units TIDAC SQ Last administered on 09/13/18at 17:27; Start 09/08/18 at 07:30 Melatonin 3 mg QHS PO Last administered on 09/13/18 20:28; Start 09/07/18 at 21:00 Buspirone HCl (Buspar) 5 mg BID@0900,1700 PO Last administered on 09/13/18 17: 02; Start 09/09/18 at 09:00 Nystatin (Nystop) 1 karlos BID TP Last administered on 09/13/18 20:28; Start at 21:30 Doxycycline Hyclate (Vibra-Tab) 100 mg BID PO Last administered on 09/13/18 20 :28; Start 09/10/18 at 21:00; Stop 09/19/18 at 20:59 Artificial Tears (Artificial Tears) 1 drop Q6H OU Last administered on 20:33; Start 09/10/18 at 21:00 Ascorbic Acid (Vitamin C) 500 mg DAILY PO Last administered on 09/13/18 08:34 ; Start 09/12/18 at 09:00 Vitamin D (Vitamin D3) 50,000 unit WEEKLY PO ; Start 09/13/18 at 18:00; Stop at 18:06; Status DC Vitamin D (Vitamin D3) 50,000 unit WEEKLY PO Last administered on 09/13/18 20: 31; Start 09/13/18 at 20:00 Active Scripts Active Reported Uloric (Febuxostat) 40 Mg Tablet 40 Mg PO DAILY Systane Nighttime Eye Oint (Mineral Oil/Petrolatum,White) 3.5 Gm Oint...g. 1 Karlos OP QHS Oxybutynin Chloride Er (Oxybutynin Chloride) 5 Mg Tab.er.24 5 Mg PO DAILY Mapap (Acetaminophen) 325 Mg Tablet 650 Mg PO PRN Q6HRS PRN Magnesium Chloride 64 Mg Tablet.dr 64 Mg PO DAILY Keflex (Cephalexin) 250 Mg Capsule 250 Mg PO DAILY Humalog (Insulin Lispro) 100 Unit/1 Ml Insuln.pen 5 Unit SQ DAILY Docusate Sodium 100 Mg Capsule 100 Mg PO DAILY Artificial Tears (Polyvinyl Alcohol) 15 Ml Drops 1 Drp OP QID Potassium Chloride 10 Meq Tablet.er 10 Meq PO DAILY Xarelto (Rivaroxaban) 20 Mg Tablet 20 Mg PO DAILY Probiotic (Lactobacillus Combo No.10) 1 Each Capsule 1 Cap PO DAILY Lasix (Furosemide) 40 Mg Tablet 40 Mg PO DAILY Coreg (Carvedilol) 6.25 Mg Tablet 6.25 Mg PO BIDWMEALS Duoneb 0.5-3(2.5) Mg/3 Ml (Albuterol/Ipratropium) 3 Ml Ampul.neb 3 Ml NEB QID Lantus (Insulin Glargine,Hum.rec.anlog) 100 Unit/1 Ml Vial 17 Unit SQ HS Latanoprost 2.5 Ml Drops 1 Drop OS QHS Losartan Potassium (Losartan Potassium) 25 Mg Tablet 25 Mg PO DAILY Cymbalta (Duloxetine Hcl) 60 Mg Capsule.dr 60 Mg PO DAILY Spiriva (Tiotropium [place]) 18 Mcg Cap.w.dev 18 Mcg IH DAILY I have reviewed the current psychotropics carefully including drug interactions. Risk benefit ratio favors no change other than as noted in my dictated progress note. Diagnosis: Problems: (1) Encounter for medical screening examination (2) Anxiety disorder (3) Major depressive disorder, recurrent episode (4) Impulse control disorder CLAUDIA LAROSE MD Sep 13, 2018 22:47
[2018-09-14] MEDS: POLYVINYL ALCOHOL 1.4% OPHTH SOLUTION 15ML BOTTLE. OU SCH ×4 (03:00→20:48)
[2018-09-14 07:16] VITALS: BP 147/91
[2018-09-14] MEDS: INSULIN LISPRO 300 UNITS/3 ML INSULN.PEN. SQ SCH ×3 (07:38→17:22)
[2018-09-14] MEDS: RIVAROXABAN 10 MG TABLET. PO SCH (08:01)
[2018-09-14] MEDS: CARVEDILOL 6.25 MG TABLET PO SCH ×2 (08:01→17:36)
[2018-09-14] MEDS: POTASSIUM CHLORIDE 10 MEQ TABLET.ER. PO SCH (08:01)
[2018-09-14] MEDS: busPIRone 5 MG TABLET. PO SCH ×2 (08:02→17:36)
[2018-09-14] MEDS: DOCUSATE SODIUM 100 MG CAPSULE PO SCH (08:02)
[2018-09-14] MEDS: LOSARTAN 25 MG TABLET. PO SCH (08:03)
[2018-09-14] MEDS: MAGNESIUM CHLORIDE ER 64 MG TABLET.ER PO SCH (08:03)
[2018-09-14] MEDS: FUROSEMIDE 40 MG TABLET PO SCH (08:03)
[2018-09-14] MEDS: DULoxetine HCL 60 MG CAPSULE.DR PO SCH (08:03)
[2018-09-14] MEDS: OXYBUTYNIN CHLORIDE 5 MG TABLET PO SCH (08:03)
[2018-09-14] MEDS: LACTOBACILLUS RHAMNOSUS GG 1 CAPSULE. PO SCH ×2 (08:03→20:46)
[2018-09-14] MEDS: DOXYCYCLINE HYCLATE 100 MG TABLET PO SCH ×2 (08:04→20:46)
[2018-09-14] MEDS: FEBUXOSTAT 40 MG TABLET PO SCH (08:04)
[2018-09-14] MEDS: ASCORBIC ACID 500 MG TABLET PO SCH (08:04)
[2018-09-14] MEDS: NYSTATIN TOPICAL POWDER 15GM BOTTLE. TP SCH ×2 (08:05→20:50)
[2018-09-14 15:50] VITALS: BP 142/64
[2018-09-14] MEDS: LATANOPROST 0.005% OPHTH SOLUTION 2.5ML BOTTLE. OS SCH (20:48)
[2018-09-14] MEDS: INSULIN GLARGINE 300 UNITS/3 ML INSULN.PEN. SQ SCH (20:48)
[2018-09-14] MEDS: MINERAL OIL/PETROLATUM,WHITE OPHTH OINT 3.5GM TUBE. OU SCH (20:50)
[2018-09-14] MEDS: MELATONIN 3 MG TABLET PO SCH (20:50)
--- NOTE | 2018-09-14 21:42 | PDOC ---
Exam Note: Nain Note: Please also refer to the separate dictated note~for this date of service dictated separately.~Patient seen individually. Discussed the patient with Nursing staff reviewed the chart.~Reviewed interim history and current functioning. Reviewed vital signs,~Labs/ Radiology~and current medications noted below. Continue current treatment with the changes noted in the dictated addendum note Assessment: Vital Signs: Vital Signs Date Time Temp Pulse Resp B/P (MAP) Pulse Ox O2 Delivery O2 Flow Rate FiO2 09/14/18 17:36 80 142/64 09/14/18 15:50 97.9 20 97 Room Air I&O Intake and Output 09/14/18 07:00 Intake Total 1300 ml Output Total 2000 ml Balance -700 ml Intake Oral 1300 ml Output Urine Total 2000 ml Labs: Laboratory Tests Test 09/14/18 07:08 09/14/18 12:19 09/14/18 16:38 09/14/18 19:14 Glucose (Fingerstick) 78 mg/dL (70-99) 181 mg/dL (70-99) H 133 mg/dL (70-99) H 112 mg/dL (70-99) H Current Medications: Meds: Current Medications Multi-Ingredient Ointment (Analgesic [place]) 1 karlos PRN QID PRN TP MUSCLE PAIN; Start 09/06/18 at 22:45 Al Hydroxide/Mg Hydroxide (Mylanta Plus Xs) 15 ml PRN AFTMEALHC PRN PO DYSPEPSIA; Start 09/06/18 at 22:45 Magnesium Hydroxide (Milk Of Magnesia) 2,400 mg PRN QHS PRN PO CONSTIPATION; Start 09/06/18 at 22:45 Duloxetine HCl (Cymbalta) 60 mg DAILY PO Last administered on 09/14/18at 08:03; Start 09/07/18 at 09:00 Cyanocobalamin (Vitamin B-12) 1,000 mcg DAILY PO ; Start 09/07/18 at 09:00; Stop 09/07/18 at 09:00; Status DC Ferrous Sulfate (Feosol) 325 mg DAILY PO ; Start 09/07/18 at 09:00; Stop at 09:00; Status DC Albuterol/ Ipratropium (Duoneb) 3 ml RTQID NEB ; Start 09/07/18 at 08:00; Stop 09/07/18 at 08:00; Status DC Losartan Potassium (Cozaar) 25 mg DAILY PO Last administered on 09/14/18 08:03 ; Start 09/07/18 at 09:00 Potassium Chloride (Klor-Con) 20 meq BID PO ; Start 09/07/18 at 09:00; Status Cancel Acetaminophen (Tylenol) 500 mg PRN Q6HRS PRN PO PAIN / TEMP; Start 09/07/18 at 00:45 Allopurinol (Zyloprim) 100 mg DAILYWBKFT PO ; Start 09/07/18 at 08:00; Stop at 08:00; Status DC Carvedilol (Coreg) 6.25 mg BIDWMEALS PO Last administered on 09/14/18 17:36; Start 09/07/18 at 08:00 Non-Formulary Medication (Cranberry Extract (Cranberry)) 425 mg DAILY PO ; Start 09/07/18 at 09:00; Status UNV Folic Acid (Folic Acid) 1 mg DAILY PO ; Start 09/07/18 at 09:00; Stop 09/07/18 at 09:00; Status DC Furosemide (Lasix) 40 mg DAILY PO Last administered on 09/14/18 08:03; Start 09/07/18 at 09:00 Insulin Glargine (Lantus) 17 units QHS SQ Last administered on 09/14/18 20:48 ; Start 09/07/18 at 21:00 Lactobacillus Rhamnosus (Culturelle) 1 cap BID PO Last administered on 20:46; Start 09/07/18 at 09:00 Latanoprost (Xalatan) 1 drop QHS OS Last administered on 09/14/18 20:48; Start 09/07/18 at 21:00 Ondansetron HCl (Zofran Odt) 4 mg PRN Q8HRS PRN PO NAUSEA/VOMITING; Start 09/07 at 00:45; Stop 09/07/18 at 01:25; Status DC Rivaroxaban (Xarelto) 20 mg DAILYWBKFT PO Last administered on 09/14/18 08:01 ; Start 09/07/18 at 08:00 Non-Formulary Medication (Tiotropium [place] (Spiriva)) 18 mcg DAILY IH ; Start 09/07/18 at 09:00; Status UNV Info (Anti-Coagulation Monitoring By Pharmacy) 1 each PRN DAILY PRN [facility] SEE COMMENTS; Start 09/07/18 at 00:45 Acetaminophen (Tylenol) 650 mg PRN Q6HRS PRN PO PAIN / TEMP; Start 09/07/18 at 01:30; Stop 09/07/18 at 05:53; Status DC Cephalexin HCl (Keflex) 250 mg DAILY PO Last administered on 09/07/18 08:14; Start 09/07/18 at 09:00; Stop 09/07/18 at 17:40; Status DC Febuxostat (Uloric) 40 mg DAILY PO Last administered on 09/14/18 08:04; Start 09/07/18 at 09:00 Insulin Human Lispro (HumaLOG) 5 units DAILY SQ Last administered on 09/07/18 11:57; Start 09/07/18 at 09:00; Stop 09/07/18 at 17:37; Status DC Artificial Tears (Artificial Tears) 1 drop QID OU Last administered on 12:02; Start 09/07/18 at 09:00; Stop 09/10/18 at 15:55; Status DC Docusate Sodium (Colace) 100 mg DAILY PO Last administered on 09/14/18 08:02; Start 09/07/18 at 09:00 Magnesium Chloride (Mag Delay) 64 mg DAILY PO Last administered on 09/14/18 08 :03; Start 09/07/18 at 09:00 Multi-Ingred Cream/Lotion/Oil/ Oint (Artificial Tears Eye Ointment) 1 karlos QHS OU ; Start 09/07/18 at 21:00 Oxybutynin Chloride (Ditropan) 5 mg DAILY PO Last administered on 09/14/18 08: 03; Start 09/07/18 at 09:00 Potassium Chloride (Klor-Con) 10 meq DAILYWBKFT PO Last administered on 08:01; Start 09/07/18 at 08:00 Insulin Human Lispro (HumaLOG) 5 units TIDAC SQ Last administered on 09/14/18 17:22; Start 09/08/18 at 07:30 Melatonin 3 mg QHS PO Last administered on 09/14/18 20:50; Start 09/07/18 at 21:00 Buspirone HCl (Buspar) 5 mg BID@0900,1700 PO Last administered on 09/14/18 17: 36; Start 09/09/18 at 09:00 Nystatin (Nystop) 1 karlos BID TP Last administered on 09/14/18 20:50; Start at 21:30 Doxycycline Hyclate (Vibra-Tab) 100 mg BID PO Last administered on 09/14/18 20 :46; Start 09/10/18 at 21:00; Stop 09/19/18 at 20:59 Artificial Tears (Artificial Tears) 1 drop Q6H OU Last administered on 20:48; Start 09/10/18 at 21:00 Ascorbic Acid (Vitamin C) 500 mg DAILY PO Last administered on 09/14/18 08:04 ; Start 09/12/18 at 09:00 Vitamin D (Vitamin D3) 50,000 unit WEEKLY PO ; Start 09/13/18 at 18:00; Stop at 18:06; Status DC Vitamin D (Vitamin D3) 50,000 unit WEEKLY PO Last administered on 09/13/18 20: 31; Start 09/13/18 at 20:00 Active Scripts Active Reported Uloric (Febuxostat) 40 Mg Tablet 40 Mg PO DAILY Systane Nighttime Eye Oint (Mineral Oil/Petrolatum,White) 3.5 Gm Oint...g. 1 Karlos OP QHS Oxybutynin Chloride Er (Oxybutynin Chloride) 5 Mg Tab.er.24 5 Mg PO DAILY Mapap (Acetaminophen) 325 Mg Tablet 650 Mg PO PRN Q6HRS PRN Magnesium Chloride 64 Mg Tablet.dr 64 Mg PO DAILY Keflex (Cephalexin) 250 Mg Capsule 250 Mg PO DAILY Humalog (Insulin Lispro) 100 Unit/1 Ml Insuln.pen 5 Unit SQ DAILY Docusate Sodium 100 Mg Capsule 100 Mg PO DAILY Artificial Tears (Polyvinyl Alcohol) 15 Ml Drops 1 Drp OP QID Potassium Chloride 10 Meq Tablet.er 10 Meq PO DAILY Xarelto (Rivaroxaban) 20 Mg Tablet 20 Mg PO DAILY Probiotic (Lactobacillus Combo No.10) 1 Each Capsule 1 Cap PO DAILY Lasix (Furosemide) 40 Mg Tablet 40 Mg PO DAILY Coreg (Carvedilol) 6.25 Mg Tablet 6.25 Mg PO BIDWMEALS Duoneb 0.5-3(2.5) Mg/3 Ml (Albuterol/Ipratropium) 3 Ml Ampul.neb 3 Ml NEB QID Lantus (Insulin Glargine,Hum.rec.anlog) 100 Unit/1 Ml Vial 17 Unit SQ HS Latanoprost 2.5 Ml Drops 1 Drop OS QHS Losartan Potassium (Losartan Potassium) 25 Mg Tablet 25 Mg PO DAILY Cymbalta (Duloxetine Hcl) 60 Mg Capsule.dr 60 Mg PO DAILY Spiriva (Tiotropium [place]) 18 Mcg Cap.w.dev 18 Mcg IH DAILY I have reviewed the current psychotropics carefully including drug interactions. Risk benefit ratio favors no change other than as noted in my dictated progress note. Diagnosis: Problems: (1) Encounter for medical screening examination (2) Anxiety disorder (3) Major depressive disorder, recurrent episode (4) Impulse control disorder CLAUDIA LAROSE MD Sep 14, 2018 21:42
[2018-09-15] MEDS: POLYVINYL ALCOHOL 1.4% OPHTH SOLUTION 15ML BOTTLE. OU SCH ×4 (03:00→20:22)
[2018-09-15 06:21] VITALS: BP 136/82
[2018-09-15 07:45] LABS: BASO # 0.2 x10^3/uL (0.0-0.2); BASO % 2 % (0-3); EOS # 0.4 x10^3/uL (0.0-0.7); EOS % 6 % (0-3); HEMATOCRIT 49.5 % (36.0-47.0); HEMOGLOBIN 16.1 g/dL (12.0-15.5); LYMPH # 2.3 x10^3/uL (1.0-4.8); LYMPH % 30 % (24-48); MEAN CORPUSCULAR HEMOGLOBIN 26 pg (25-35); MEAN CORPUSCULAR HGB CONC 32 g/dL (31-37); MEAN CORPUSCULAR VOLUME 81 fL (79-100); MONO # 0.7 x10^3/uL (0.0-1.1); MONO % 10 % (0-9); NEUT % 53 % (31-73); PLATELET COUNT 244 x10^3/uL (140-400); RED CELL DISTRIBUTION WIDTH 15.3 % (11.5-14.5); WHITE BLOOD COUNT 7.6 x10^3/uL (4.0-11.0)
[2018-09-15] MEDS: INSULIN LISPRO 300 UNITS/3 ML INSULN.PEN. SQ SCH ×3 (07:48→17:15)
[2018-09-15 07:59] LABS: ALBUMIN 3.1 g/dL (3.4-5.0); ALBUMIN/GLOBULIN RATIO 0.6 (1.0-1.7); CALCIUM 10.5 mg/dL (8.5-10.1); GFR 54.1; POTASSIUM 4.1 mmol/L (3.5-5.1); TOTAL BILIRUBIN 0.3 mg/dL (0.2-1.0); TOTAL PROTEIN 8.5 g/dL (6.4-8.2)
[2018-09-15] MEDS: CARVEDILOL 6.25 MG TABLET PO SCH ×2 (08:20→17:26)
[2018-09-15] MEDS: busPIRone 5 MG TABLET. PO SCH ×2 (08:21→17:26)
[2018-09-15] MEDS: POTASSIUM CHLORIDE 10 MEQ TABLET.ER. PO SCH (08:21)
[2018-09-15] MEDS: RIVAROXABAN 10 MG TABLET. PO SCH (08:21)
[2018-09-15] MEDS: DOCUSATE SODIUM 100 MG CAPSULE PO SCH (08:21)
[2018-09-15] MEDS: LACTOBACILLUS RHAMNOSUS GG 1 CAPSULE. PO SCH ×2 (08:23→20:21)
[2018-09-15] MEDS: LOSARTAN 25 MG TABLET. PO SCH (08:23)
[2018-09-15] MEDS: FEBUXOSTAT 40 MG TABLET PO SCH (08:24)
[2018-09-15] MEDS: ASCORBIC ACID 500 MG TABLET PO SCH (08:24)
[2018-09-15] MEDS: MAGNESIUM CHLORIDE ER 64 MG TABLET.ER PO SCH (08:24)
[2018-09-15] MEDS: FUROSEMIDE 40 MG TABLET PO SCH (08:24)
[2018-09-15] MEDS: OXYBUTYNIN CHLORIDE 5 MG TABLET PO SCH (08:24)
[2018-09-15] MEDS: DULoxetine HCL 60 MG CAPSULE.DR PO SCH (08:24)
[2018-09-15] MEDS: NYSTATIN TOPICAL POWDER 15GM BOTTLE. TP SCH ×2 (08:24→20:22)
[2018-09-15] MEDS: DOXYCYCLINE HYCLATE 100 MG TABLET PO SCH ×2 (08:25→20:21)
[2018-09-15 16:21] VITALS: BP 101/64
--- NOTE | 2018-09-15 16:38 | PN ---
DATE: 09/15/2018 PSYCHIATRIC PROGRESS NOTE This late entry 09/13/2018 covers elements not covered in my initial note. SUBJECTIVE: I met with the patient in the evening. The patient slept 6-1/4 hours previous night. She has done well previous night and during the day, still somewhat anxious and I processed this with her individually in the evening. REVIEW OF SYSTEMS: Ambulation impaired, in wheelchair. No CV, , pulmonary, eye system symptoms on review. MENTAL STATUS EXAM: Reasonably oriented. Speech is coherent, abstraction fair, computation impaired, language function intact, attention span short. Mood and affect somewhat anxious, labile at times, but improved. LABORATORY DATA: Reviewed. ASSESSMENT: Unchanged from initial note. PLAN: No change from initial note. MAN Nicolette LAROSE MD DR: RUFUS/carina JOB#: [id number] / [id number]
--- NOTE | 2018-09-15 19:47 | PDOC ---
Exam Note: Nain Note: Please also refer to the separate dictated note~for this date of service dictated separately.~Patient seen individually. Discussed the patient with Nursing staff reviewed the chart.~Reviewed interim history and current functioning. Reviewed vital signs,~Labs/ Radiology~and current medications noted below. Continue current treatment with the changes noted in the dictated addendum note Assessment: Vital Signs: Vital Signs Date Time Temp Pulse Resp B/P (MAP) Pulse Ox O2 Delivery O2 Flow Rate FiO2 09/15/18 17:26 75 101/64 09/15/18 16:21 98.5 18 94 09/14/18 15:50 Room Air I&O Intake and Output 09/15/18 06:59 Intake Total 600 ml Balance 600 ml Intake Oral 600 ml Labs: Laboratory Tests Test 09/15/18 07:14 09/15/18 07:32 09/15/18 11:43 09/15/18 16:41 Glucose (Fingerstick) 111 mg/dL (70-99) H 228 mg/dL (70-99) H 126 mg/dL (70-99) H White Blood Count 7.6 x10^3/uL (4.0-11.0) Red Blood Count 6.10 x10^6/uL (3.50-5.40) H Hemoglobin 16.1 g/dL (12.0-15.5) H Hematocrit 49.5 % (36.0-47.0) H Mean Corpuscular Volume 81 fL (79-100) Mean Corpuscular Hemoglobin 26 pg (25-35) Mean Corpuscular Hemoglobin Concent 32 g/dL (31-37) Red Cell Distribution Width 15.3 % (11.5-14.5) H Platelet Count 244 x10^3/uL (140-400) Neutrophils (%) (Auto) 53 % (31-73) Lymphocytes (%) (Auto) 30 % (24-48) Monocytes (%) (Auto) 10 % (0-9) H Eosinophils (%) (Auto) 6 % (0-3) H Basophils (%) (Auto) 2 % (0-3) Neutrophils # (Auto) 4.0 x10^3uL (1.8-7.7) Lymphocytes # (Auto) 2.3 x10^3/uL (1.0-4.8) Monocytes # (Auto) 0.7 x10^3/uL (0.0-1.1) Eosinophils # (Auto) 0.4 x10^3/uL (0.0-0.7) Basophils # (Auto) 0.2 x10^3/uL (0.0-0.2) Sodium Level 143 mmol/L (136-145) Potassium Level 4.1 mmol/L (3.5-5.1) Chloride Level 105 mmol/L (98-107) Carbon Dioxide Level 31 mmol/L (21-32) Anion Gap 7 (6-14) Blood Urea Nitrogen 28 mg/dL (7-20) H Creatinine 1.0 mg/dL (0.6-1.0) Estimated GFR (Cockcroft-Gault) 54.1 BUN/Creatinine Ratio 28 (6-20) H Glucose Level 129 mg/dL (70-99) H Calcium Level 10.5 mg/dL (8.5-10.1) H Total Bilirubin 0.3 mg/dL (0.2-1.0) Aspartate Amino Transferase (AST) 11 U/L (15-37) L Alanine Aminotransferase (ALT) 12 U/L (14-59) L Alkaline Phosphatase 107 U/L (46-116) Total Protein 8.5 g/dL (6.4-8.2) H Albumin 3.1 g/dL (3.4-5.0) L Albumin/Globulin Ratio 0.6 (1.0-1.7) L Test 09/15/18 19:15 Glucose (Fingerstick) 211 mg/dL (70-99) H Current Medications: Meds: Current Medications Multi-Ingredient Ointment (Analgesic [place]) 1 karlos PRN QID PRN TP MUSCLE PAIN; Start 09/06/18 at 22:45 Al Hydroxide/Mg Hydroxide (Mylanta Plus Xs) 15 ml PRN AFTMEALHC PRN PO DYSPEPSIA; Start 09/06/18 at 22:45 Magnesium Hydroxide (Milk Of Magnesia) 2,400 mg PRN QHS PRN PO CONSTIPATION; Start 09/06/18 at 22:45 Duloxetine HCl (Cymbalta) 60 mg DAILY PO Last administered on 09/15/18at 08:24; Start 09/07/18 at 09:00 Cyanocobalamin (Vitamin B-12) 1,000 mcg DAILY PO ; Start 09/07/18 at 09:00; Stop 09/07/18 at 09:00; Status DC Ferrous Sulfate (Feosol) 325 mg DAILY PO ; Start 09/07/18 at 09:00; Stop at 09:00; Status DC Albuterol/ Ipratropium (Duoneb) 3 ml RTQID NEB ; Start 09/07/18 at 08:00; Stop 09/07/18 at 08:00; Status DC Losartan Potassium (Cozaar) 25 mg DAILY PO Last administered on 09/15/18at 08:23 ; Start 09/07/18 at 09:00 Potassium Chloride (Klor-Con) 20 meq BID PO ; Start 09/07/18 at 09:00; Status Cancel Acetaminophen (Tylenol) 500 mg PRN Q6HRS PRN PO PAIN / TEMP; Start 09/07/18 at 00:45 Allopurinol (Zyloprim) 100 mg DAILYWBKFT PO ; Start 09/07/18 at 08:00; Stop at 08:00; Status DC Carvedilol (Coreg) 6.25 mg BIDWMEALS PO Last administered on 09/15/18at 17:26; Start 09/07/18 at 08:00 Non-Formulary Medication (Cranberry Extract (Cranberry)) 425 mg DAILY PO ; Start 09/07/18 at 09:00; Status UNV Folic Acid (Folic Acid) 1 mg DAILY PO ; Start 09/07/18 at 09:00; Stop 09/07/18 at 09:00; Status DC Furosemide (Lasix) 40 mg DAILY PO Last administered on 09/15/18at 08:24; Start 09/07/18 at 09:00 Insulin Glargine (Lantus) 17 units QHS SQ Last administered on 09/14/18at 20:48 ; Start 09/07/18 at 21:00 Lactobacillus Rhamnosus (Culturelle) 1 cap BID PO Last administered on at 08:23; Start 09/07/18 at 09:00 Latanoprost (Xalatan) 1 drop QHS OS Last administered on 09/14/18at 20:48; Start 09/07/18 at 21:00 Ondansetron HCl (Zofran Odt) 4 mg PRN Q8HRS PRN PO NAUSEA/VOMITING; Start 09/07 at 00:45; Stop 09/07/18 at 01:25; Status DC Rivaroxaban (Xarelto) 20 mg DAILYWBKFT PO Last administered on 09/15/18at 08:21 ; Start 09/07/18 at 08:00 Non-Formulary Medication (Tiotropium [place] (Spiriva)) 18 mcg DAILY IH ; Start 09/07/18 at 09:00; Status UNV Info (Anti-Coagulation Monitoring By Pharmacy) 1 each PRN DAILY PRN MC SEE COMMENTS; Start 09/07/18 at 00:45 Acetaminophen (Tylenol) 650 mg PRN Q6HRS PRN PO PAIN / TEMP; Start 09/07/18 at 01:30; Stop 09/07/18 at 05:53; Status DC Cephalexin HCl (Keflex) 250 mg DAILY PO Last administered on 09/07/18at 08:14; Start 09/07/18 at 09:00; Stop 09/07/18 at 17:40; Status DC Febuxostat (Uloric) 40 mg DAILY PO Last administered on 09/15/18 08:24; Start 09/07/18 at 09:00 Insulin Human Lispro (HumaLOG) 5 units DAILY SQ Last administered on 09/07/18 11:57; Start 09/07/18 at 09:00; Stop 09/07/18 at 17:37; Status DC Artificial Tears (Artificial Tears) 1 drop QID OU Last administered on 12:02; Start 09/07/18 at 09:00; Stop 09/10/18 at 15:55; Status DC Docusate Sodium (Colace) 100 mg DAILY PO Last administered on 09/15/18 08:21; Start 09/07/18 at 09:00 Magnesium Chloride (Mag Delay) 64 mg DAILY PO Last administered on 09/15/18 08 :24; Start 09/07/18 at 09:00 Multi-Ingred Cream/Lotion/Oil/ Oint (Artificial Tears Eye Ointment) 1 karlos QHS OU ; Start 09/07/18 at 21:00 Oxybutynin Chloride (Ditropan) 5 mg DAILY PO Last administered on 09/15/18 08: 24; Start 09/07/18 at 09:00 Potassium Chloride (Klor-Con) 10 meq DAILYWBKFT PO Last administered on 08:21; Start 09/07/18 at 08:00 Insulin Human Lispro (HumaLOG) 5 units TIDAC SQ Last administered on 09/15/18 17:15; Start 09/08/18 at 07:30 Melatonin 3 mg QHS PO Last administered on 09/14/18 20:50; Start 09/07/18 at 21:00 Buspirone HCl (Buspar) 5 mg BID@0900,1700 PO Last administered on 09/15/18 17: 26; Start 09/09/18 at 09:00 Nystatin (Nystop) 1 karlos BID TP Last administered on 09/15/18 08:24; Start at 21:30 Doxycycline Hyclate (Vibra-Tab) 100 mg BID PO Last administered on 09/15/18 08 :25; Start 09/10/18 at 21:00; Stop 09/19/18 at 20:59 Artificial Tears (Artificial Tears) 1 drop Q6H OU Last administered on 17:26; Start 09/10/18 at 21:00 Ascorbic Acid (Vitamin C) 500 mg DAILY PO Last administered on 09/15/18 08:24 ; Start 09/12/18 at 09:00 Vitamin D (Vitamin D3) 50,000 unit WEEKLY PO ; Start 09/13/18 at 18:00; Stop at 18:06; Status DC Vitamin D (Vitamin D3) 50,000 unit WEEKLY PO Last administered on 09/13/18 20: 31; Start 09/13/18 at 20:00 Active Scripts Active Reported Uloric (Febuxostat) 40 Mg Tablet 40 Mg PO DAILY Systane Nighttime Eye Oint (Mineral Oil/Petrolatum,White) 3.5 Gm Oint...g. 1 Karlos OP QHS Oxybutynin Chloride Er (Oxybutynin Chloride) 5 Mg Tab.er.24 5 Mg PO DAILY Mapap (Acetaminophen) 325 Mg Tablet 650 Mg PO PRN Q6HRS PRN Magnesium Chloride 64 Mg Tablet.dr 64 Mg PO DAILY Keflex (Cephalexin) 250 Mg Capsule 250 Mg PO DAILY Humalog (Insulin Lispro) 100 Unit/1 Ml Insuln.pen 5 Unit SQ DAILY Docusate Sodium 100 Mg Capsule 100 Mg PO DAILY Artificial Tears (Polyvinyl Alcohol) 15 Ml Drops 1 Drp OP QID Potassium Chloride 10 Meq Tablet.er 10 Meq PO DAILY Xarelto (Rivaroxaban) 20 Mg Tablet 20 Mg PO DAILY Probiotic (Lactobacillus Combo No.10) 1 Each Capsule 1 Cap PO DAILY Lasix (Furosemide) 40 Mg Tablet 40 Mg PO DAILY Coreg (Carvedilol) 6.25 Mg Tablet 6.25 Mg PO BIDWMEALS Duoneb 0.5-3(2.5) Mg/3 Ml (Albuterol/Ipratropium) 3 Ml Ampul.neb 3 Ml NEB QID Lantus (Insulin Glargine,Hum.rec.anlog) 100 Unit/1 Ml Vial 17 Unit SQ HS Latanoprost 2.5 Ml Drops 1 Drop OS QHS Losartan Potassium (Losartan Potassium) 25 Mg Tablet 25 Mg PO DAILY Cymbalta (Duloxetine Hcl) 60 Mg Capsule.dr 60 Mg PO DAILY Spiriva (Tiotropium [place]) 18 Mcg Cap.w.dev 18 Mcg IH DAILY I have reviewed the current psychotropics carefully including drug interactions. Risk benefit ratio favors no change other than as noted in my dictated progress note. Diagnosis: Problems: (1) Encounter for medical screening examination (2) Anxiety disorder (3) Major depressive disorder, recurrent episode (4) Impulse control disorder CLAUDIA LAROSE MD Sep 15, 2018 19:47
[2018-09-15] MEDS: MELATONIN 3 MG TABLET PO SCH (20:21)
[2018-09-15] MEDS: MINERAL OIL/PETROLATUM,WHITE OPHTH OINT 3.5GM TUBE. OU SCH (20:22)
[2018-09-15] MEDS: LATANOPROST 0.005% OPHTH SOLUTION 2.5ML BOTTLE. OS SCH (20:23)
[2018-09-15] MEDS: INSULIN GLARGINE 300 UNITS/3 ML INSULN.PEN. SQ SCH (20:25)
[2018-09-16] MEDS: POLYVINYL ALCOHOL 1.4% OPHTH SOLUTION 15ML BOTTLE. OU SCH ×4 (03:00→21:06)
[2018-09-16 06:16] VITALS: BP 162/91
[2018-09-16] MEDS: INSULIN LISPRO 300 UNITS/3 ML INSULN.PEN. SQ SCH ×3 (07:54→17:13)
[2018-09-16] MEDS: RIVAROXABAN 10 MG TABLET. PO SCH (08:13)
[2018-09-16] MEDS: POTASSIUM CHLORIDE 10 MEQ TABLET.ER. PO SCH (08:13)
[2018-09-16] MEDS: CARVEDILOL 6.25 MG TABLET PO SCH ×2 (08:13→17:22)
[2018-09-16] MEDS: LOSARTAN 25 MG TABLET. PO SCH (08:14)
[2018-09-16] MEDS: DULoxetine HCL 60 MG CAPSULE.DR PO SCH (08:14)
[2018-09-16] MEDS: LACTOBACILLUS RHAMNOSUS GG 1 CAPSULE. PO SCH ×2 (08:14→21:05)
[2018-09-16] MEDS: DOCUSATE SODIUM 100 MG CAPSULE PO SCH (08:14)
[2018-09-16] MEDS: busPIRone 5 MG TABLET. PO SCH ×2 (08:14→17:22)
[2018-09-16] MEDS: DOXYCYCLINE HYCLATE 100 MG TABLET PO SCH ×2 (08:15→21:05)
[2018-09-16] MEDS: MAGNESIUM CHLORIDE ER 64 MG TABLET.ER PO SCH (08:15)
[2018-09-16] MEDS: FEBUXOSTAT 40 MG TABLET PO SCH (08:15)
[2018-09-16] MEDS: OXYBUTYNIN CHLORIDE 5 MG TABLET PO SCH (08:15)
[2018-09-16] MEDS: FUROSEMIDE 40 MG TABLET PO SCH (08:15)
[2018-09-16] MEDS: ASCORBIC ACID 500 MG TABLET PO SCH (08:16)
[2018-09-16] MEDS: NYSTATIN TOPICAL POWDER 15GM BOTTLE. TP SCH ×2 (08:17→21:06)
[2018-09-16 16:00] VITALS: BP 123/78
--- NOTE | 2018-09-16 18:57 | PN ---
DATE: 09/14/2018 PSYCHIATRIC PROGRESS NOTE This late entry 09/14/2018 covers elements, not covered in my initial note. SUBJECTIVE: I met with the patient in the evening. The patient slept 5-3/4 hours previous night. The patient has been more appropriate. [place] was changed per nursing report. REVIEW OF SYSTEMS: Ambulation impaired, in wheelchair. No CV, , pulmonary, eye system symptoms on review other than above. MENTAL STATUS EXAM: Reasonably oriented. Speech coherent, somewhat anxious, labile at times. Abstraction fair, computation impaired, language function intact. Mood and affect showing improvement. LABORATORY DATA: Reviewed. IMPRESSION: Unchanged from initial note. PLAN: No change from initial note. CLAUDIA LAROSE MD DR: RUFUS/carina JOB#: [id number] / [id number]
--- NOTE | 2018-09-16 19:00 | PN ---
DATE: 09/15/2018 PSYCHIATRIC PROGRESS NOTE This is a late entry 09/15/2018, covers elements not covered in my initial note. SUBJECTIVE: I met with the patient in the evening. The patient slept 4 hours previous night, took no shower the previous night, but more appropriate during the day. As I met with her in the evening, she was anxious, upset that nursing staff had removed her dinner tray earlier then she was ready to let it go and I processed this with her. REVIEW OF SYSTEMS: Ambulation impaired, in wheelchair. No CV, , pulmonary, eye system symptoms on review. MENTAL STATUS EXAM: Oriented reasonably. Speech coherent, abstraction fair, computation impaired, language function intact. Mood and affect overall improved, less anxious, labile. LABORATORY DATA: Reviewed. IMPRESSION: Unchanged from initial note. PLAN: No change from initial note. MAN Nicolette LAROSE MD DR: RUFUS/carina JOB#: [id number] / [id number]
[2018-09-16] MEDS: MINERAL OIL/PETROLATUM,WHITE OPHTH OINT 3.5GM TUBE. OU SCH (21:00)
[2018-09-16] MEDS: LATANOPROST 0.005% OPHTH SOLUTION 2.5ML BOTTLE. OS SCH (21:06)
[2018-09-16] MEDS: MELATONIN 3 MG TABLET PO SCH (21:07)
[2018-09-16] MEDS: INSULIN GLARGINE 300 UNITS/3 ML INSULN.PEN. SQ SCH (21:09)
--- NOTE | 2018-09-16 22:26 | PDOC ---
Exam Note: Nain Note: Please also refer to the separate dictated note~for this date of service dictated separately.~Patient seen individually. Discussed the patient with Nursing staff reviewed the chart.~Reviewed interim history and current functioning. Reviewed vital signs,~Labs/ Radiology~and current medications noted below. Continue current treatment with the changes noted in the dictated addendum note Assessment: Vital Signs: Vital Signs Date Time Temp Pulse Resp B/P (MAP) Pulse Ox O2 Delivery O2 Flow Rate FiO2 09/16/18 17:22 78 123/78 09/16/18 16:00 97.3 18 98 09/14/18 15:50 Room Air I&O Intake and Output 09/16/18 06:59 Intake Total 1320 ml Output Total 1800 ml Balance -480 ml Intake Oral 1320 ml Output Urine Total 1800 ml Labs: Laboratory Tests Test 09/16/18 07:20 09/16/18 11:22 09/16/18 16:37 09/16/18 19:32 Glucose (Fingerstick) 105 mg/dL (70-99) H 160 mg/dL (70-99) H 183 mg/dL (70-99) H 140 mg/dL (70-99) H Current Medications: Meds: Current Medications Multi-Ingredient Ointment (Analgesic [place]) 1 karlos PRN QID PRN TP MUSCLE PAIN; Start 09/06/18 at 22:45 Al Hydroxide/Mg Hydroxide (Mylanta Plus Xs) 15 ml PRN AFTMEALHC PRN PO DYSPEPSIA; Start 09/06/18 at 22:45 Magnesium Hydroxide (Milk Of Magnesia) 2,400 mg PRN QHS PRN PO CONSTIPATION; Start 09/06/18 at 22:45 Duloxetine HCl (Cymbalta) 60 mg DAILY PO Last administered on 09/16/18at 08:14; Start 09/07/18 at 09:00 Cyanocobalamin (Vitamin B-12) 1,000 mcg DAILY PO ; Start 09/07/18 at 09:00; Stop 09/07/18 at 09:00; Status DC Ferrous Sulfate (Feosol) 325 mg DAILY PO ; Start 09/07/18 at 09:00; Stop at 09:00; Status DC Albuterol/ Ipratropium (Duoneb) 3 ml RTQID NEB ; Start 09/07/18 at 08:00; Stop 09/07/18 at 08:00; Status DC Losartan Potassium (Cozaar) 25 mg DAILY PO Last administered on 09/16/18 08:14 ; Start 09/07/18 at 09:00 Potassium Chloride (Klor-Con) 20 meq BID PO ; Start 09/07/18 at 09:00; Status Cancel Acetaminophen (Tylenol) 500 mg PRN Q6HRS PRN PO PAIN / TEMP; Start 09/07/18 at 00:45 Allopurinol (Zyloprim) 100 mg DAILYWBKFT PO ; Start 09/07/18 at 08:00; Stop at 08:00; Status DC Carvedilol (Coreg) 6.25 mg BIDWMEALS PO Last administered on 09/16/18 17:22; Start 09/07/18 at 08:00 Non-Formulary Medication (Cranberry Extract (Cranberry)) 425 mg DAILY PO ; Start 09/07/18 at 09:00; Status UNV Folic Acid (Folic Acid) 1 mg DAILY PO ; Start 09/07/18 at 09:00; Stop 09/07/18 at 09:00; Status DC Furosemide (Lasix) 40 mg DAILY PO Last administered on 09/16/18 08:15; Start 09/07/18 at 09:00 Insulin Glargine (Lantus) 17 units QHS SQ Last administered on 09/16/18 21:09 ; Start 09/07/18 at 21:00 Lactobacillus Rhamnosus (Culturelle) 1 cap BID PO Last administered on 21:05; Start 09/07/18 at 09:00 Latanoprost (Xalatan) 1 drop QHS OS Last administered on 09/16/18 21:06; Start 09/07/18 at 21:00 Ondansetron HCl (Zofran Odt) 4 mg PRN Q8HRS PRN PO NAUSEA/VOMITING; Start 09/07 at 00:45; Stop 09/07/18 at 01:25; Status DC Rivaroxaban (Xarelto) 20 mg DAILYWBKFT PO Last administered on 09/16/18 08:13 ; Start 09/07/18 at 08:00 Non-Formulary Medication (Tiotropium [place] (Spiriva)) 18 mcg DAILY IH ; Start 09/07/18 at 09:00; Status UNV Info (Anti-Coagulation Monitoring By Pharmacy) 1 each PRN DAILY PRN MC SEE COMMENTS; Start 09/07/18 at 00:45 Acetaminophen (Tylenol) 650 mg PRN Q6HRS PRN PO PAIN / TEMP; Start 09/07/18 at 01:30; Stop 09/07/18 at 05:53; Status DC Cephalexin HCl (Keflex) 250 mg DAILY PO Last administered on 09/07/18at 08:14; Start 09/07/18 at 09:00; Stop 09/07/18 at 17:40; Status DC Febuxostat (Uloric) 40 mg DAILY PO Last administered on 09/16/18at 08:15; Start 09/07/18 at 09:00 Insulin Human Lispro (HumaLOG) 5 units DAILY SQ Last administered on 09/07/18at 11:57; Start 09/07/18 at 09:00; Stop 09/07/18 at 17:37; Status DC Artificial Tears (Artificial Tears) 1 drop QID OU Last administered on at 12:02; Start 09/07/18 at 09:00; Stop 09/10/18 at 15:55; Status DC Docusate Sodium (Colace) 100 mg DAILY PO Last administered on 09/16/18at 08:14; Start 09/07/18 at 09:00 Magnesium Chloride (Mag Delay) 64 mg DAILY PO Last administered on 09/16/18at 08 :15; Start 09/07/18 at 09:00 Multi-Ingred Cream/Lotion/Oil/ Oint (Artificial Tears Eye Ointment) 1 karlos QHS OU ; Start 09/07/18 at 21:00 Oxybutynin Chloride (Ditropan) 5 mg DAILY PO Last administered on 09/16/18 08: 15; Start 09/07/18 at 09:00 Potassium Chloride (Klor-Con) 10 meq DAILYWBKFT PO Last administered on 08:13; Start 09/07/18 at 08:00 Insulin Human Lispro (HumaLOG) 5 units TIDAC SQ Last administered on 09/16/18 17:13; Start 09/08/18 at 07:30 Melatonin 3 mg QHS PO Last administered on 09/16/18 21:07; Start 09/07/18 at 21:00 Buspirone HCl (Buspar) 5 mg BID@0900,1700 PO Last administered on 09/16/18 17: 22; Start 09/09/18 at 09:00 Nystatin (Nystop) 1 karlos BID TP Last administered on 09/16/18 21:06; Start at 21:30 Doxycycline Hyclate (Vibra-Tab) 100 mg BID PO Last administered on 09/16/18 21 :05; Start 09/10/18 at 21:00; Stop 09/19/18 at 20:59 Artificial Tears (Artificial Tears) 1 drop Q6H OU Last administered on 21:06; Start 09/10/18 at 21:00 Ascorbic Acid (Vitamin C) 500 mg DAILY PO Last administered on 09/16/18 08:16 ; Start 09/12/18 at 09:00 Vitamin D (Vitamin D3) 50,000 unit WEEKLY PO ; Start 09/13/18 at 18:00; Stop at 18:06; Status DC Vitamin D (Vitamin D3) 50,000 unit WEEKLY PO Last administered on 09/13/18 20: 31; Start 09/13/18 at 20:00 Active Scripts Active Reported Uloric (Febuxostat) 40 Mg Tablet 40 Mg PO DAILY Systane Nighttime Eye Oint (Mineral Oil/Petrolatum,White) 3.5 Gm Oint...g. 1 Karlos OP QHS Oxybutynin Chloride Er (Oxybutynin Chloride) 5 Mg Tab.er.24 5 Mg PO DAILY Mapap (Acetaminophen) 325 Mg Tablet 650 Mg PO PRN Q6HRS PRN Magnesium Chloride 64 Mg Tablet.dr 64 Mg PO DAILY Keflex (Cephalexin) 250 Mg Capsule 250 Mg PO DAILY Humalog (Insulin Lispro) 100 Unit/1 Ml Insuln.pen 5 Unit SQ DAILY Docusate Sodium 100 Mg Capsule 100 Mg PO DAILY Artificial Tears (Polyvinyl Alcohol) 15 Ml Drops 1 Drp OP QID Potassium Chloride 10 Meq Tablet.er 10 Meq PO DAILY Xarelto (Rivaroxaban) 20 Mg Tablet 20 Mg PO DAILY Probiotic (Lactobacillus Combo No.10) 1 Each Capsule 1 Cap PO DAILY Lasix (Furosemide) 40 Mg Tablet 40 Mg PO DAILY Coreg (Carvedilol) 6.25 Mg Tablet 6.25 Mg PO BIDWMEALS Duoneb 0.5-3(2.5) Mg/3 Ml (Albuterol/Ipratropium) 3 Ml Ampul.neb 3 Ml NEB QID Lantus (Insulin Glargine,Hum.rec.anlog) 100 Unit/1 Ml Vial 17 Unit SQ HS Latanoprost 2.5 Ml Drops 1 Drop OS QHS Losartan Potassium (Losartan Potassium) 25 Mg Tablet 25 Mg PO DAILY Cymbalta (Duloxetine Hcl) 60 Mg Capsule.dr 60 Mg PO DAILY Spiriva (Tiotropium [place]) 18 Mcg Cap.w.dev 18 Mcg IH DAILY I have reviewed the current psychotropics carefully including drug interactions. Risk benefit ratio favors no change other than as noted in my dictated progress note. Diagnosis: Problems: (1) Encounter for medical screening examination (2) Anxiety disorder (3) Major depressive disorder, recurrent episode (4) Impulse control disorder CLAUDIA LAROSE MD Sep 16, 2018 22:26
[2018-09-17] MEDS: POLYVINYL ALCOHOL 1.4% OPHTH SOLUTION 15ML BOTTLE. OU SCH ×4 (03:00→22:10)
[2018-09-17 06:12] VITALS: BP 165/66
[2018-09-17] MEDS: RIVAROXABAN 10 MG TABLET. PO SCH (08:03)
[2018-09-17] MEDS: DOCUSATE SODIUM 100 MG CAPSULE PO SCH (08:03)
[2018-09-17] MEDS: CARVEDILOL 6.25 MG TABLET PO SCH ×2 (08:04→17:01)
[2018-09-17] MEDS: busPIRone 5 MG TABLET. PO SCH ×2 (08:05→17:01)
[2018-09-17] MEDS: DOXYCYCLINE HYCLATE 100 MG TABLET PO SCH ×2 (08:06→22:02)
[2018-09-17] MEDS: POTASSIUM CHLORIDE 10 MEQ TABLET.ER. PO SCH (08:06)
[2018-09-17] MEDS: OXYBUTYNIN CHLORIDE 5 MG TABLET PO SCH (08:06)
[2018-09-17] MEDS: DULoxetine HCL 60 MG CAPSULE.DR PO SCH (08:06)
[2018-09-17] MEDS: FUROSEMIDE 40 MG TABLET PO SCH (08:06)
[2018-09-17] MEDS: FEBUXOSTAT 40 MG TABLET PO SCH (08:06)
[2018-09-17] MEDS: LOSARTAN 25 MG TABLET. PO SCH (08:06)
[2018-09-17] MEDS: MAGNESIUM CHLORIDE ER 64 MG TABLET.ER PO SCH (08:07)
[2018-09-17] MEDS: LACTOBACILLUS RHAMNOSUS GG 1 CAPSULE. PO SCH ×2 (08:07→22:02)
[2018-09-17] MEDS: ASCORBIC ACID 500 MG TABLET PO SCH (08:07)
[2018-09-17] MEDS: INSULIN LISPRO 300 UNITS/3 ML INSULN.PEN. SQ SCH ×3 (08:14→17:28)
[2018-09-17] MEDS: NYSTATIN TOPICAL POWDER 15GM BOTTLE. TP SCH ×2 (08:16→22:02)
[2018-09-17 16:27] VITALS: BP 133/77
[2018-09-17] MEDS: MINERAL OIL/PETROLATUM,WHITE OPHTH OINT 3.5GM TUBE. OU SCH (21:00)
[2018-09-17] MEDS: MELATONIN 3 MG TABLET PO SCH (22:02)
[2018-09-17] MEDS: INSULIN GLARGINE 300 UNITS/3 ML INSULN.PEN. SQ SCH (22:05)
[2018-09-17] MEDS: LATANOPROST 0.005% OPHTH SOLUTION 2.5ML BOTTLE. OS SCH (22:10)
--- NOTE | 2018-09-17 22:19 | PN ---
DATE: 09/16/2018 PSYCHIATRIC PROGRESS NOTE This late entry 09/16/2018 covers elements not covered in my initial note. SUBJECTIVE: I met with the patient in the evening. The patient slept 7 hours previous night. Per nursing report, she has been irritable at times. As I met with her in the evening, she is quite anxious, labile again over an incident in the dining room for dinner when she thinks her tray was removed prematurely. REVIEW OF SYSTEMS: Ambulation impaired, in wheelchair. No CV, , pulmonary, eye system symptoms on review. She has vague somatic symptoms. MENTAL STATUS EXAM: Reasonably oriented. Speech is coherent, has some latency. Abstraction fair, computation impaired, language function intact. Mood and affect still somewhat anxious, labile, showing gradual improvement. LABORATORY DATA: Reviewed. IMPRESSION: Unchanged from initial note. PLAN: No change from initial note for now. MAN Nicolette LAROSE MD DR: RUFUS/carina JOB#: [id number] / [id number]
--- NOTE | 2018-09-17 22:32 | PDOC ---
Exam Note: Nain Note: Please also refer to the separate dictated note~for this date of service dictated separately.~Patient seen individually. Discussed the patient with Nursing staff reviewed the chart.~Reviewed interim history and current functioning. Reviewed vital signs,~Labs/ Radiology~and current medications noted below. Continue current treatment with the changes noted in the dictated addendum note Assessment: Vital Signs: Vital Signs Date Time Temp Pulse Resp B/P (MAP) Pulse Ox O2 Delivery O2 Flow Rate FiO2 09/17/18 17:01 65 133/77 09/17/18 16:27 97.6 18 99 09/14/18 15:50 Room Air I&O Intake and Output 09/17/18 06:59 Intake Total 1680 ml Output Total 2900 ml Balance -1220 ml Intake Oral 1680 ml Output Urine Total 2900 ml Labs: Laboratory Tests Test 09/17/18 07:44 09/17/18 11:32 09/17/18 17:23 09/17/18 19:26 Glucose (Fingerstick) 116 mg/dL (70-99) H 215 mg/dL (70-99) H 92 mg/dL (70-99) 178 mg/dL (70-99) H Current Medications: Meds: Current Medications Multi-Ingredient Ointment (Analgesic [place]) 1 karlos PRN QID PRN TP MUSCLE PAIN; Start 09/06/18 at 22:45 Al Hydroxide/Mg Hydroxide (Mylanta Plus Xs) 15 ml PRN AFTMEALHC PRN PO DYSPEPSIA; Start 09/06/18 at 22:45 Magnesium Hydroxide (Milk Of Magnesia) 2,400 mg PRN QHS PRN PO CONSTIPATION; Start 09/06/18 at 22:45 Duloxetine HCl (Cymbalta) 60 mg DAILY PO Last administered on 09/17/18at 08:06; Start 09/07/18 at 09:00 Cyanocobalamin (Vitamin B-12) 1,000 mcg DAILY PO ; Start 09/07/18 at 09:00; Stop 09/07/18 at 09:00; Status DC Ferrous Sulfate (Feosol) 325 mg DAILY PO ; Start 09/07/18 at 09:00; Stop at 09:00; Status DC Albuterol/ Ipratropium (Duoneb) 3 ml RTQID NEB ; Start 09/07/18 at 08:00; Stop 09/07/18 at 08:00; Status DC Losartan Potassium (Cozaar) 25 mg DAILY PO Last administered on 09/17/18at 08:06 ; Start 09/07/18 at 09:00 Potassium Chloride (Klor-Con) 20 meq BID PO ; Start 09/07/18 at 09:00; Status Cancel Acetaminophen (Tylenol) 500 mg PRN Q6HRS PRN PO PAIN / TEMP; Start 09/07/18 at 00:45 Allopurinol (Zyloprim) 100 mg DAILYWBKFT PO ; Start 09/07/18 at 08:00; Stop at 08:00; Status DC Carvedilol (Coreg) 6.25 mg BIDWMEALS PO Last administered on 09/17/18at 17:01; Start 09/07/18 at 08:00 Non-Formulary Medication (Cranberry Extract (Cranberry)) 425 mg DAILY PO ; Start 09/07/18 at 09:00; Status UNV Folic Acid (Folic Acid) 1 mg DAILY PO ; Start 09/07/18 at 09:00; Stop 09/07/18 at 09:00; Status DC Furosemide (Lasix) 40 mg DAILY PO Last administered on 09/17/18at 08:06; Start 09/07/18 at 09:00 Insulin Glargine (Lantus) 17 units QHS SQ Last administered on 09/17/18at 22:05 ; Start 09/07/18 at 21:00 Lactobacillus Rhamnosus (Culturelle) 1 cap BID PO Last administered on at 22:02; Start 09/07/18 at 09:00 Latanoprost (Xalatan) 1 drop QHS OS Last administered on 09/17/18at 22:10; Start 09/07/18 at 21:00 Ondansetron HCl (Zofran Odt) 4 mg PRN Q8HRS PRN PO NAUSEA/VOMITING; Start 09/07 at 00:45; Stop 09/07/18 at 01:25; Status DC Rivaroxaban (Xarelto) 20 mg DAILYWBKFT PO Last administered on 09/17/18at 08:03 ; Start 09/07/18 at 08:00 Non-Formulary Medication (Tiotropium [place] (Spiriva)) 18 mcg DAILY IH ; Start 09/07/18 at 09:00; Status UNV Info (Anti-Coagulation Monitoring By Pharmacy) 1 each PRN DAILY PRN MC SEE COMMENTS; Start 09/07/18 at 00:45 Acetaminophen (Tylenol) 650 mg PRN Q6HRS PRN PO PAIN / TEMP; Start 09/07/18 at 01:30; Stop 09/07/18 at 05:53; Status DC Cephalexin HCl (Keflex) 250 mg DAILY PO Last administered on 09/07/18at 08:14; Start 09/07/18 at 09:00; Stop 09/07/18 at 17:40; Status DC Febuxostat (Uloric) 40 mg DAILY PO Last administered on 09/17/18at 08:06; Start 09/07/18 at 09:00 Insulin Human Lispro (HumaLOG) 5 units DAILY SQ Last administered on 09/07/18at 11:57; Start 09/07/18 at 09:00; Stop 09/07/18 at 17:37; Status DC Artificial Tears (Artificial Tears) 1 drop QID OU Last administered on 12:02; Start 09/07/18 at 09:00; Stop 09/10/18 at 15:55; Status DC Docusate Sodium (Colace) 100 mg DAILY PO Last administered on 09/17/18at 08:03; Start 09/07/18 at 09:00 Magnesium Chloride (Mag Delay) 64 mg DAILY PO Last administered on 09/17/18at 08 :07; Start 09/07/18 at 09:00 Multi-Ingred Cream/Lotion/Oil/ Oint (Artificial Tears Eye Ointment) 1 karlos QHS OU ; Start 09/07/18 at 21:00 Oxybutynin Chloride (Ditropan) 5 mg DAILY PO Last administered on 09/17/18 08: 06; Start 09/07/18 at 09:00 Potassium Chloride (Klor-Con) 10 meq DAILYWBKFT PO Last administered on 08:06; Start 09/07/18 at 08:00 Insulin Human Lispro (HumaLOG) 5 units TIDAC SQ Last administered on 09/17/18at 17:28; Start 09/08/18 at 07:30 Melatonin 3 mg QHS PO Last administered on 09/17/18 22:02; Start 09/07/18 at 21:00 Buspirone HCl (Buspar) 5 mg BID@0900,1700 PO Last administered on 09/17/18 17: 01; Start 09/09/18 at 09:00 Nystatin (Nystop) 1 karlos BID TP Last administered on 09/17/18 22:02; Start at 21:30 Doxycycline Hyclate (Vibra-Tab) 100 mg BID PO Last administered on 09/17/18 22 :02; Start 09/10/18 at 21:00; Stop 09/19/18 at 20:59 Artificial Tears (Artificial Tears) 1 drop Q6H OU Last administered on 22:10; Start 09/10/18 at 21:00 Ascorbic Acid (Vitamin C) 500 mg DAILY PO Last administered on 09/17/18 08:07 ; Start 09/12/18 at 09:00 Vitamin D (Vitamin D3) 50,000 unit WEEKLY PO ; Start 09/13/18 at 18:00; Stop at 18:06; Status DC Vitamin D (Vitamin D3) 50,000 unit WEEKLY PO Last administered on 09/13/18at 20: 31; Start 09/13/18 at 20:00 Active Scripts Active Reported Uloric (Febuxostat) 40 Mg Tablet 40 Mg PO DAILY Systane Nighttime Eye Oint (Mineral Oil/Petrolatum,White) 3.5 Gm Oint...g. 1 Karlos OP QHS Oxybutynin Chloride Er (Oxybutynin Chloride) 5 Mg Tab.er.24 5 Mg PO DAILY Mapap (Acetaminophen) 325 Mg Tablet 650 Mg PO PRN Q6HRS PRN Magnesium Chloride 64 Mg Tablet.dr 64 Mg PO DAILY Keflex (Cephalexin) 250 Mg Capsule 250 Mg PO DAILY Humalog (Insulin Lispro) 100 Unit/1 Ml Insuln.pen 5 Unit SQ DAILY Docusate Sodium 100 Mg Capsule 100 Mg PO DAILY Artificial Tears (Polyvinyl Alcohol) 15 Ml Drops 1 Drp OP QID Potassium Chloride 10 Meq Tablet.er 10 Meq PO DAILY Xarelto (Rivaroxaban) 20 Mg Tablet 20 Mg PO DAILY Probiotic (Lactobacillus Combo No.10) 1 Each Capsule 1 Cap PO DAILY Lasix (Furosemide) 40 Mg Tablet 40 Mg PO DAILY Coreg (Carvedilol) 6.25 Mg Tablet 6.25 Mg PO BIDWMEALS Duoneb 0.5-3(2.5) Mg/3 Ml (Albuterol/Ipratropium) 3 Ml Ampul.neb 3 Ml NEB QID Lantus (Insulin Glargine,Hum.rec.anlog) 100 Unit/1 Ml Vial 17 Unit SQ HS Latanoprost 2.5 Ml Drops 1 Drop OS QHS Losartan Potassium (Losartan Potassium) 25 Mg Tablet 25 Mg PO DAILY Cymbalta (Duloxetine Hcl) 60 Mg Capsule.dr 60 Mg PO DAILY Spiriva (Tiotropium [place]) 18 Mcg Cap.w.dev 18 Mcg IH DAILY I have reviewed the current psychotropics carefully including drug interactions. Risk benefit ratio favors no change other than as noted in my dictated progress note. Diagnosis: Problems: (1) Encounter for medical screening examination (2) Anxiety disorder (3) Major depressive disorder, recurrent episode (4) Impulse control disorder CLAUDIA LAROSE MD Sep 17, 2018 22:32
[2018-09-18] MEDS: POLYVINYL ALCOHOL 1.4% OPHTH SOLUTION 15ML BOTTLE. OU SCH ×4 (03:00→20:43)
[2018-09-18 06:09] VITALS: BP 140/57
[2018-09-18] MEDS: RIVAROXABAN 10 MG TABLET. PO SCH (08:40)
[2018-09-18] MEDS: POTASSIUM CHLORIDE 10 MEQ TABLET.ER. PO SCH (08:40)
[2018-09-18] MEDS: OXYBUTYNIN CHLORIDE 5 MG TABLET PO SCH (08:40)
[2018-09-18] MEDS: LACTOBACILLUS RHAMNOSUS GG 1 CAPSULE. PO SCH ×2 (08:40→20:43)
[2018-09-18] MEDS: DOCUSATE SODIUM 100 MG CAPSULE PO SCH (08:40)
[2018-09-18] MEDS: DULoxetine HCL 60 MG CAPSULE.DR PO SCH (08:40)
[2018-09-18] MEDS: MAGNESIUM CHLORIDE ER 64 MG TABLET.ER PO SCH (08:40)
[2018-09-18] MEDS: ASCORBIC ACID 500 MG TABLET PO SCH (08:41)
[2018-09-18] MEDS: busPIRone 5 MG TABLET. PO SCH ×2 (08:41→17:15)
[2018-09-18] MEDS: DOXYCYCLINE HYCLATE 100 MG TABLET PO SCH ×2 (08:41→20:44)
[2018-09-18] MEDS: FUROSEMIDE 40 MG TABLET PO SCH (08:41)
[2018-09-18] MEDS: INSULIN LISPRO 300 UNITS/3 ML INSULN.PEN. SQ SCH ×3 (08:43→17:01)
[2018-09-18] MEDS: NYSTATIN TOPICAL POWDER 15GM BOTTLE. TP SCH (08:46)
[2018-09-18] MEDS: FEBUXOSTAT 40 MG TABLET PO SCH (08:46)
[2018-09-18 09:48] VITALS: BP 138/74
[2018-09-18] MEDS: LOSARTAN 25 MG TABLET. PO SCH (09:50)
[2018-09-18] MEDS: CARVEDILOL 6.25 MG TABLET PO SCH ×2 (09:52→17:17)
[2018-09-18 16:07] VITALS: BP 116/72
[2018-09-18] MEDS: LATANOPROST 0.005% OPHTH SOLUTION 2.5ML BOTTLE. OS SCH (20:43)
[2018-09-18] MEDS: MINERAL OIL/PETROLATUM,WHITE OPHTH OINT 3.5GM TUBE. OU SCH (20:44)
[2018-09-18] MEDS: MELATONIN 3 MG TABLET PO SCH (20:44)
[2018-09-18] MEDS: INSULIN GLARGINE 300 UNITS/3 ML INSULN.PEN. SQ SCH (20:48)
--- NOTE | 2018-09-18 21:40 | PN ---
DATE: 09/17/2018 PSYCHIATRIC PROGRESS NOTE This late entry 09/17/2018 covers elements not covered in my initial note. SUBJECTIVE: I met with the patient in the evening. The patient slept 6-1/4 hours previous night. She is compliant with her medications, tearful in the evening, morning was better. REVIEW OF SYSTEMS: Ambulation impaired, in wheelchair. No CV, , pulmonary, eye system symptoms on review. MENTAL STATUS EXAM: Reasonably oriented. Speech coherent, has some latency, somewhat tearful as I met with her when we processed this at some length. Abstraction fair, computation impaired, language function intact. Mood and affect is as above. LABORATORY DATA: Reviewed. IMPRESSION: Unchanged from initial note. PLAN: No change from initial note. MAN Nicolette LAROSE MD DR: RUFUS/carina JOB#: [id number] / [id number]
--- NOTE | 2018-09-18 22:36 | PDOC ---
Exam Note: Nain Note: Please also refer to the separate dictated note~for this date of service dictated separately.~Patient seen individually. Discussed the patient with Nursing staff reviewed the chart.~Reviewed interim history and current functioning. Reviewed vital signs,~Labs/ Radiology~and current medications noted below. Continue current treatment with the changes noted in the dictated addendum note Assessment: Vital Signs: Vital Signs Date Time Temp Pulse Resp B/P (MAP) Pulse Ox O2 Delivery O2 Flow Rate FiO2 09/18/18 17:17 69 116/72 09/18/18 16:07 97.6 20 96 09/18/18 09:48 Room Air I&O Intake and Output 09/18/18 06:59 Intake Total 960 ml Output Total 1450 ml Balance -490 ml Intake Oral 960 ml Output Urine Total 1450 ml Labs: Laboratory Tests Test 09/18/18 07:13 09/18/18 11:43 09/18/18 16:33 09/18/18 19:09 Glucose (Fingerstick) 78 mg/dL (70-99) 141 mg/dL (70-99) H 178 mg/dL (70-99) H 140 mg/dL (70-99) H Current Medications: Meds: Current Medications Multi-Ingredient Ointment (Analgesic [place]) 1 karlos PRN QID PRN TP MUSCLE PAIN; Start 09/06/18 at 22:45 Al Hydroxide/Mg Hydroxide (Mylanta Plus Xs) 15 ml PRN AFTMEALHC PRN PO DYSPEPSIA; Start 09/06/18 at 22:45 Magnesium Hydroxide (Milk Of Magnesia) 2,400 mg PRN QHS PRN PO CONSTIPATION; Start 09/06/18 at 22:45 Duloxetine HCl (Cymbalta) 60 mg DAILY PO Last administered on 09/18/18at 08:40; Start 09/07/18 at 09:00 Cyanocobalamin (Vitamin B-12) 1,000 mcg DAILY PO ; Start 09/07/18 at 09:00; Stop 09/07/18 at 09:00; Status DC Ferrous Sulfate (Feosol) 325 mg DAILY PO ; Start 09/07/18 at 09:00; Stop at 09:00; Status DC Albuterol/ Ipratropium (Duoneb) 3 ml RTQID NEB ; Start 09/07/18 at 08:00; Stop 09/07/18 at 08:00; Status DC Losartan Potassium (Cozaar) 25 mg DAILY PO Last administered on 09/18/18at 09:50 ; Start 09/07/18 at 09:00 Potassium Chloride (Klor-Con) 20 meq BID PO ; Start 09/07/18 at 09:00; Status Cancel Acetaminophen (Tylenol) 500 mg PRN Q6HRS PRN PO PAIN / TEMP; Start 09/07/18 at 00:45 Allopurinol (Zyloprim) 100 mg DAILYWBKFT PO ; Start 09/07/18 at 08:00; Stop at 08:00; Status DC Carvedilol (Coreg) 6.25 mg BIDWMEALS PO Last administered on 09/18/18 17:17; Start 09/07/18 at 08:00 Non-Formulary Medication (Cranberry Extract (Cranberry)) 425 mg DAILY PO ; Start 09/07/18 at 09:00; Status UNV Folic Acid (Folic Acid) 1 mg DAILY PO ; Start 09/07/18 at 09:00; Stop 09/07/18 at 09:00; Status DC Furosemide (Lasix) 40 mg DAILY PO Last administered on 09/18/18 08:41; Start 09/07/18 at 09:00 Insulin Glargine (Lantus) 17 units QHS SQ Last administered on 09/18/18at 20:48 ; Start 09/07/18 at 21:00 Lactobacillus Rhamnosus (Culturelle) 1 cap BID PO Last administered on 20:43; Start 09/07/18 at 09:00 Latanoprost (Xalatan) 1 drop QHS OS Last administered on 09/18/18 20:43; Start 09/07/18 at 21:00 Ondansetron HCl (Zofran Odt) 4 mg PRN Q8HRS PRN PO NAUSEA/VOMITING; Start 09/07 at 00:45; Stop 09/07/18 at 01:25; Status DC Rivaroxaban (Xarelto) 20 mg DAILYWBKFT PO Last administered on 09/18/18 08:40 ; Start 09/07/18 at 08:00 Non-Formulary Medication (Tiotropium [place] (Spiriva)) 18 mcg DAILY IH ; Start 09/07/18 at 09:00; Status UNV Info (Anti-Coagulation Monitoring By Pharmacy) 1 each PRN DAILY PRN MC SEE COMMENTS; Start 09/07/18 at 00:45 Acetaminophen (Tylenol) 650 mg PRN Q6HRS PRN PO PAIN / TEMP; Start 09/07/18 at 01:30; Stop 09/07/18 at 05:53; Status DC Cephalexin HCl (Keflex) 250 mg DAILY PO Last administered on 09/07/18at 08:14; Start 09/07/18 at 09:00; Stop 09/07/18 at 17:40; Status DC Febuxostat (Uloric) 40 mg DAILY PO Last administered on 09/18/18at 08:46; Start 09/07/18 at 09:00 Insulin Human Lispro (HumaLOG) 5 units DAILY SQ Last administered on 09/07/18at 11:57; Start 09/07/18 at 09:00; Stop 09/07/18 at 17:37; Status DC Artificial Tears (Artificial Tears) 1 drop QID OU Last administered on 12:02; Start 09/07/18 at 09:00; Stop 09/10/18 at 15:55; Status DC Docusate Sodium (Colace) 100 mg DAILY PO Last administered on 09/18/18at 08:40; Start 09/07/18 at 09:00 Magnesium Chloride (Mag Delay) 64 mg DAILY PO Last administered on 09/18/18at 08 :40; Start 09/07/18 at 09:00 Multi-Ingred Cream/Lotion/Oil/ Oint (Artificial Tears Eye Ointment) 1 karlos QHS OU ; Start 09/07/18 at 21:00 Oxybutynin Chloride (Ditropan) 5 mg DAILY PO Last administered on 09/18/18 08: 40; Start 09/07/18 at 09:00 Potassium Chloride (Klor-Con) 10 meq DAILYWBKFT PO Last administered on 08:40; Start 09/07/18 at 08:00 Insulin Human Lispro (HumaLOG) 5 units TIDAC SQ Last administered on 09/18/18at 17:01; Start 09/08/18 at 07:30 Melatonin 3 mg QHS PO Last administered on 09/18/18 20:44; Start 09/07/18 at 21:00 Buspirone HCl (Buspar) 5 mg BID@0900,1700 PO Last administered on 09/18/18 17: 15; Start 09/09/18 at 09:00 Nystatin (Nystop) 1 karlos BID TP Last administered on 09/18/18 08:46; Start at 21:30 Doxycycline Hyclate (Vibra-Tab) 100 mg BID PO Last administered on 09/18/18 20 :44; Start 09/10/18 at 21:00; Stop 09/19/18 at 20:59 Artificial Tears (Artificial Tears) 1 drop Q6H OU Last administered on 20:43; Start 09/10/18 at 21:00 Ascorbic Acid (Vitamin C) 500 mg DAILY PO Last administered on 09/18/18 08:41 ; Start 09/12/18 at 09:00 Vitamin D (Vitamin D3) 50,000 unit WEEKLY PO ; Start 09/13/18 at 18:00; Stop at 18:06; Status DC Vitamin D (Vitamin D3) 50,000 unit WEEKLY PO Last administered on 09/13/18 20: 31; Start 09/13/18 at 20:00 Active Scripts Active Reported Uloric (Febuxostat) 40 Mg Tablet 40 Mg PO DAILY Systane Nighttime Eye Oint (Mineral Oil/Petrolatum,White) 3.5 Gm Oint...g. 1 Karlos OP QHS Oxybutynin Chloride Er (Oxybutynin Chloride) 5 Mg Tab.er.24 5 Mg PO DAILY Mapap (Acetaminophen) 325 Mg Tablet 650 Mg PO PRN Q6HRS PRN Magnesium Chloride 64 Mg Tablet.dr 64 Mg PO DAILY Keflex (Cephalexin) 250 Mg Capsule 250 Mg PO DAILY Humalog (Insulin Lispro) 100 Unit/1 Ml Insuln.pen 5 Unit SQ DAILY Docusate Sodium 100 Mg Capsule 100 Mg PO DAILY Artificial Tears (Polyvinyl Alcohol) 15 Ml Drops 1 Drp OP QID Potassium Chloride 10 Meq Tablet.er 10 Meq PO DAILY Xarelto (Rivaroxaban) 20 Mg Tablet 20 Mg PO DAILY Probiotic (Lactobacillus Combo No.10) 1 Each Capsule 1 Cap PO DAILY Lasix (Furosemide) 40 Mg Tablet 40 Mg PO DAILY Coreg (Carvedilol) 6.25 Mg Tablet 6.25 Mg PO BIDWMEALS Duoneb 0.5-3(2.5) Mg/3 Ml (Albuterol/Ipratropium) 3 Ml Ampul.neb 3 Ml NEB QID Lantus (Insulin Glargine,Hum.rec.anlog) 100 Unit/1 Ml Vial 17 Unit SQ HS Latanoprost 2.5 Ml Drops 1 Drop OS QHS Losartan Potassium (Losartan Potassium) 25 Mg Tablet 25 Mg PO DAILY Cymbalta (Duloxetine Hcl) 60 Mg Capsule.dr 60 Mg PO DAILY Spiriva (Tiotropium [place]) 18 Mcg Cap.w.dev 18 Mcg IH DAILY I have reviewed the current psychotropics carefully including drug interactions. Risk benefit ratio favors no change other than as noted in my dictated progress note. Diagnosis: Problems: (1) Encounter for medical screening examination (2) Anxiety disorder (3) Major depressive disorder, recurrent episode (4) Impulse control disorder CLAUDIA LAROSE MD Sep 18, 2018 22:36
[2018-09-19] MEDS: POLYVINYL ALCOHOL 1.4% OPHTH SOLUTION 15ML BOTTLE. OU SCH ×4 (03:00→20:57)
[2018-09-19 05:52] VITALS: BP 122/53
[2018-09-19] MEDS: NYSTATIN TOPICAL POWDER 15GM BOTTLE. TP SCH ×3 (06:07→20:58)
[2018-09-19] MEDS: FUROSEMIDE 40 MG TABLET PO SCH (07:44)
[2018-09-19] MEDS: RIVAROXABAN 10 MG TABLET. PO SCH (07:44)
[2018-09-19] MEDS: DOXYCYCLINE HYCLATE 100 MG TABLET PO SCH (07:44)
[2018-09-19] MEDS: MAGNESIUM CHLORIDE ER 64 MG TABLET.ER PO SCH (07:44)
[2018-09-19] MEDS: ASCORBIC ACID 500 MG TABLET PO SCH (07:45)
[2018-09-19] MEDS: DOCUSATE SODIUM 100 MG CAPSULE PO SCH (07:45)
[2018-09-19] MEDS: LACTOBACILLUS RHAMNOSUS GG 1 CAPSULE. PO SCH ×2 (07:46→20:57)
[2018-09-19] MEDS: POTASSIUM CHLORIDE 10 MEQ TABLET.ER. PO SCH (07:47)
[2018-09-19] MEDS: DULoxetine HCL 60 MG CAPSULE.DR PO SCH (07:47)
[2018-09-19] MEDS: INSULIN LISPRO 300 UNITS/3 ML INSULN.PEN. SQ SCH ×3 (07:50→16:30)
[2018-09-19] MEDS: FEBUXOSTAT 40 MG TABLET PO SCH (07:55)
[2018-09-19] MEDS: OXYBUTYNIN CHLORIDE 5 MG TABLET PO SCH (07:57)
[2018-09-19] MEDS: CARVEDILOL 6.25 MG TABLET PO SCH ×2 (08:04→16:57)
[2018-09-19 08:05] VITALS: BP 132/69
[2018-09-19] MEDS: LOSARTAN 25 MG TABLET. PO SCH (08:06)
[2018-09-19] MEDS: busPIRone 10 MG TABLET. PO SCH ×2 (09:48→16:56)
[2018-09-19 16:28] VITALS: BP 110/72
[2018-09-19] MEDS: LATANOPROST 0.005% OPHTH SOLUTION 2.5ML BOTTLE. OS SCH (20:57)
[2018-09-19] MEDS: MELATONIN 3 MG TABLET PO SCH (20:57)
[2018-09-19] MEDS: MINERAL OIL/PETROLATUM,WHITE OPHTH OINT 3.5GM TUBE. OU SCH (20:57)
[2018-09-19] MEDS: INSULIN GLARGINE 300 UNITS/3 ML INSULN.PEN. SQ SCH (20:59)
--- NOTE | 2018-09-19 22:32 | PDOC ---
Exam Note: Nain Note: Please also refer to the separate dictated note~for this date of service dictated separately.~Patient seen individually. Discussed the patient with Nursing staff reviewed the chart.~Reviewed interim history and current functioning. Reviewed vital signs,~Labs/ Radiology~and current medications noted below. Continue current treatment with the changes noted in the dictated addendum note Assessment: Vital Signs: Vital Signs Date Time Temp Pulse Resp B/P (MAP) Pulse Ox O2 Delivery O2 Flow Rate FiO2 09/19/18 16:57 71 110/72 09/19/18 16:28 98.6 16 97 Room Air I&O Intake and Output 09/19/18 07:00 Intake Total 1860 ml Output Total 1650 ml Balance 210 ml Intake Oral 1860 ml Output Urine Total 1650 ml Labs: Laboratory Tests Test 09/19/18 07:17 09/19/18 11:49 09/19/18 16:36 09/19/18 19:06 Glucose (Fingerstick) 95 mg/dL (70-99) 160 mg/dL (70-99) H 64 mg/dL (70-99) L 275 mg/dL (70-99) H Current Medications: Meds: Current Medications Multi-Ingredient Ointment (Analgesic [place]) 1 karlos PRN QID PRN TP MUSCLE PAIN; Start 09/06/18 at 22:45 Al Hydroxide/Mg Hydroxide (Mylanta Plus Xs) 15 ml PRN AFTMEALHC PRN PO DYSPEPSIA; Start 09/06/18 at 22:45 Magnesium Hydroxide (Milk Of Magnesia) 2,400 mg PRN QHS PRN PO CONSTIPATION; Start 09/06/18 at 22:45 Duloxetine HCl (Cymbalta) 60 mg DAILY PO Last administered on 09/19/18at 07:47; Start 09/07/18 at 09:00 Cyanocobalamin (Vitamin B-12) 1,000 mcg DAILY PO ; Start 09/07/18 at 09:00; Stop 09/07/18 at 09:00; Status DC Ferrous Sulfate (Feosol) 325 mg DAILY PO ; Start 09/07/18 at 09:00; Stop at 09:00; Status DC Albuterol/ Ipratropium (Duoneb) 3 ml RTQID NEB ; Start 09/07/18 at 08:00; Stop 09/07/18 at 08:00; Status DC Losartan Potassium (Cozaar) 25 mg DAILY PO Last administered on 09/19/18 08:06 ; Start 09/07/18 at 09:00 Potassium Chloride (Klor-Con) 20 meq BID PO ; Start 09/07/18 at 09:00; Status Cancel Acetaminophen (Tylenol) 500 mg PRN Q6HRS PRN PO PAIN / TEMP; Start 09/07/18 at 00:45 Allopurinol (Zyloprim) 100 mg DAILYWBKFT PO ; Start 09/07/18 at 08:00; Stop at 08:00; Status DC Carvedilol (Coreg) 6.25 mg BIDWMEALS PO Last administered on 09/19/18 16:57; Start 09/07/18 at 08:00 Non-Formulary Medication (Cranberry Extract (Cranberry)) 425 mg DAILY PO ; Start 09/07/18 at 09:00; Status UNV Folic Acid (Folic Acid) 1 mg DAILY PO ; Start 09/07/18 at 09:00; Stop 09/07/18 at 09:00; Status DC Furosemide (Lasix) 40 mg DAILY PO Last administered on 09/19/18 07:44; Start 09/07/18 at 09:00 Insulin Glargine (Lantus) 17 units QHS SQ Last administered on 09/19/18 20:59 ; Start 09/07/18 at 21:00 Lactobacillus Rhamnosus (Culturelle) 1 cap BID PO Last administered on 20:57; Start 09/07/18 at 09:00 Latanoprost (Xalatan) 1 drop QHS OS Last administered on 09/19/18 20:57; Start 09/07/18 at 21:00 Ondansetron HCl (Zofran Odt) 4 mg PRN Q8HRS PRN PO NAUSEA/VOMITING; Start 09/07 at 00:45; Stop 09/07/18 at 01:25; Status DC Rivaroxaban (Xarelto) 20 mg DAILYWBKFT PO Last administered on 09/19/18 07:44 ; Start 09/07/18 at 08:00 Non-Formulary Medication (Tiotropium [place] (Spiriva)) 18 mcg DAILY IH ; Start 09/07/18 at 09:00; Status UNV Info (Anti-Coagulation Monitoring By Pharmacy) 1 each PRN DAILY PRN MC SEE COMMENTS; Start 09/07/18 at 00:45 Acetaminophen (Tylenol) 650 mg PRN Q6HRS PRN PO PAIN / TEMP; Start 09/07/18 at 01:30; Stop 09/07/18 at 05:53; Status DC Cephalexin HCl (Keflex) 250 mg DAILY PO Last administered on 09/07/18at 08:14; Start 09/07/18 at 09:00; Stop 09/07/18 at 17:40; Status DC Febuxostat (Uloric) 40 mg DAILY PO Last administered on 09/19/18 07:55; Start 09/07/18 at 09:00 Insulin Human Lispro (HumaLOG) 5 units DAILY SQ Last administered on 09/07/18at 11:57; Start 09/07/18 at 09:00; Stop 09/07/18 at 17:37; Status DC Artificial Tears (Artificial Tears) 1 drop QID OU Last administered on 12:02; Start 09/07/18 at 09:00; Stop 09/10/18 at 15:55; Status DC Docusate Sodium (Colace) 100 mg DAILY PO Last administered on 09/19/18at 07:45; Start 09/07/18 at 09:00 Magnesium Chloride (Mag Delay) 64 mg DAILY PO Last administered on 09/19/18at 07 :44; Start 09/07/18 at 09:00 Multi-Ingred Cream/Lotion/Oil/ Oint (Artificial Tears Eye Ointment) 1 karlos QHS OU ; Start 09/07/18 at 21:00 Oxybutynin Chloride (Ditropan) 5 mg DAILY PO Last administered on 09/19/18 07: 57; Start 09/07/18 at 09:00 Potassium Chloride (Klor-Con) 10 meq DAILYWBKFT PO Last administered on 07:47; Start 09/07/18 at 08:00 Insulin Human Lispro (HumaLOG) 5 units TIDAC SQ Last administered on 09/19/18 12:21; Start 09/08/18 at 07:30 Melatonin 3 mg QHS PO Last administered on 09/19/18 20:57; Start 09/07/18 at 21:00 Buspirone HCl (Buspar) 5 mg BID@0900,1700 PO Last administered on 09/18/18 17: 15; Start 09/09/18 at 09:00; Stop 09/19/18 at 08:47; Status DC Nystatin (Nystop) 1 karlos BID TP Last administered on 09/19/18 20:58; Start at 21:30 Doxycycline Hyclate (Vibra-Tab) 100 mg BID PO Last administered on 09/19/18 07 :44; Start 09/10/18 at 21:00; Stop 09/19/18 at 20:59; Status DC Artificial Tears (Artificial Tears) 1 drop Q6H OU Last administered on 20:57; Start 09/10/18 at 21:00 Ascorbic Acid (Vitamin C) 500 mg DAILY PO Last administered on 09/19/18 07:45 ; Start 09/12/18 at 09:00 Vitamin D (Vitamin D3) 50,000 unit WEEKLY PO ; Start 09/13/18 at 18:00; Stop at 18:06; Status DC Vitamin D (Vitamin D3) 50,000 unit WEEKLY PO Last administered on 09/13/18 20: 31; Start 09/13/18 at 20:00 Buspirone HCl (Buspar) 5 mg BID@0900,1700 PO Last administered on 09/19/18 16: 56; Start 09/19/18 at 09:00 Active Scripts Active Reported Uloric (Febuxostat) 40 Mg Tablet 40 Mg PO DAILY Systane Nighttime Eye Oint (Mineral Oil/Petrolatum,White) 3.5 Gm Oint...g. 1 Karlos OP QHS Oxybutynin Chloride Er (Oxybutynin Chloride) 5 Mg Tab.er.24 5 Mg PO DAILY Mapap (Acetaminophen) 325 Mg Tablet 650 Mg PO PRN Q6HRS PRN Magnesium Chloride 64 Mg Tablet.dr 64 Mg PO DAILY Keflex (Cephalexin) 250 Mg Capsule 250 Mg PO DAILY Humalog (Insulin Lispro) 100 Unit/1 Ml Insuln.pen 5 Unit SQ DAILY Docusate Sodium 100 Mg Capsule 100 Mg PO DAILY Artificial Tears (Polyvinyl Alcohol) 15 Ml Drops 1 Drp OP QID Potassium Chloride 10 Meq Tablet.er 10 Meq PO DAILY Xarelto (Rivaroxaban) 20 Mg Tablet 20 Mg PO DAILY Probiotic (Lactobacillus Combo No.10) 1 Each Capsule 1 Cap PO DAILY Lasix (Furosemide) 40 Mg Tablet 40 Mg PO DAILY Coreg (Carvedilol) 6.25 Mg Tablet 6.25 Mg PO BIDWMEALS Duoneb 0.5-3(2.5) Mg/3 Ml (Albuterol/Ipratropium) 3 Ml Ampul.neb 3 Ml NEB QID Lantus (Insulin Glargine,Hum.rec.anlog) 100 Unit/1 Ml Vial 17 Unit SQ HS Latanoprost 2.5 Ml Drops 1 Drop OS QHS Losartan Potassium (Losartan Potassium) 25 Mg Tablet 25 Mg PO DAILY Cymbalta (Duloxetine Hcl) 60 Mg Capsule.dr 60 Mg PO DAILY Spiriva (Tiotropium [place]) 18 Mcg Cap.w.dev 18 Mcg IH DAILY I have reviewed the current psychotropics carefully including drug interactions. Risk benefit ratio favors no change other than as noted in my dictated progress note. Diagnosis: Problems: (1) Encounter for medical screening examination (2) Anxiety disorder (3) Major depressive disorder, recurrent episode (4) Impulse control disorder CLAUDIA LAROSE MD Sep 19, 2018 22:32
[2018-09-20] MEDS: POLYVINYL ALCOHOL 1.4% OPHTH SOLUTION 15ML BOTTLE. OU SCH ×2 (03:00→08:45)
[2018-09-20] MEDS ORDERED: ASCO500T3 PO (05:03)
[2018-09-20] MEDS ORDERED: CHOL500021 PO (05:04)
[2018-09-20] MEDS ORDERED: MAG30ORA2 PO (05:09)
[2018-09-20] MEDS ORDERED: MAGN400O7 PO (05:10)
[2018-09-20] MEDS ORDERED: MELA3TAB2 PO (05:11)
[2018-09-20] MEDS ORDERED: METH29OI TP (05:12)
[2018-09-20] MEDS ORDERED: NYST15PO9 TP (05:13)
[2018-09-20] MEDS ORDERED: BUSP5TAB PO (05:17)
[2018-09-20] MEDS ORDERED: ACET500T68 PO (05:17)
[2018-09-20 06:17] VITALS: BP 138/74
[2018-09-20] MEDS: CHOLECALCIFEROL (VITAMIN D3) 50,000 UNIT CAPSULE PO SCH (08:39)
[2018-09-20] MEDS: DOCUSATE SODIUM 100 MG CAPSULE PO SCH (08:39)
[2018-09-20] MEDS: MAGNESIUM CHLORIDE ER 64 MG TABLET.ER PO SCH (08:39)
[2018-09-20] MEDS: RIVAROXABAN 10 MG TABLET. PO SCH (08:39)
[2018-09-20] MEDS: LOSARTAN 25 MG TABLET. PO SCH (08:42)
[2018-09-20] MEDS: DULoxetine HCL 60 MG CAPSULE.DR PO SCH (08:42)
[2018-09-20] MEDS: busPIRone 10 MG TABLET. PO SCH (08:42)
[2018-09-20 08:43] VITALS: BP 138/74
[2018-09-20] MEDS: CARVEDILOL 6.25 MG TABLET PO SCH (08:43)
[2018-09-20] MEDS: NYSTATIN TOPICAL POWDER 15GM BOTTLE. TP SCH (08:43)
[2018-09-20] MEDS: ASCORBIC ACID 500 MG TABLET PO SCH (08:43)
[2018-09-20] MEDS: FEBUXOSTAT 40 MG TABLET PO SCH (08:43)
[2018-09-20] MEDS: POTASSIUM CHLORIDE 10 MEQ TABLET.ER. PO SCH (08:43)
[2018-09-20] MEDS: LACTOBACILLUS RHAMNOSUS GG 1 CAPSULE. PO SCH (08:43)
[2018-09-20] MEDS: FUROSEMIDE 40 MG TABLET PO SCH (08:43)
[2018-09-20] MEDS: OXYBUTYNIN CHLORIDE 5 MG TABLET PO SCH (08:43)
[2018-09-20] MEDS: INSULIN LISPRO 300 UNITS/3 ML INSULN.PEN. SQ SCH (08:44)
[2018-09-20] MEDS ORDERED: busPIRone 5 MG TABLET. PO SCH (17:00)
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
--- NOTE | 2018-09-20 21:41 | PDOC ---
Exam Note: Nain Note: Please also refer to the separate dictated note~for this date of service dictated separately.~Patient seen individually. Discussed the patient with Nursing staff reviewed the chart.~Reviewed interim history and current functioning. Reviewed vital signs,~Labs/ Radiology~and current medications noted below. Continue current treatment with the changes noted in the dictated addendum note Assessment: Vital Signs: Vital Signs Date Time Temp Pulse Resp B/P (MAP) Pulse Ox O2 Delivery O2 Flow Rate FiO2 09/20/18 08:43 74 138/74 09/20/18 06:17 98.0 18 97 09/19/18 16:28 Room Air I&O Intake and Output 09/20/18 06:59 Intake Total 1200 ml Output Total 1400 ml Balance -200 ml Intake Oral 1200 ml Output Urine Total 1400 ml Labs: Laboratory Tests Test 09/20/18 07:02 Glucose (Fingerstick) 96 mg/dL (70-99) Current Medications: Meds: Current Medications Multi-Ingredient Ointment (Analgesic [place]) 1 karlos PRN QID PRN TP MUSCLE PAIN; Start 09/06/18 at 22:45; Stop 09/20/18 at 11:28; Status DC Al Hydroxide/Mg Hydroxide (Mylanta Plus Xs) 15 ml PRN AFTMEALHC PRN PO DYSPEPSIA; Start 09/06/18 at 22:45; Stop 09/20/18 at 11:28; Status DC Magnesium Hydroxide (Milk Of Magnesia) 2,400 mg PRN QHS PRN PO CONSTIPATION; Start 09/06/18 at 22:45; Stop 09/20/18 at 11:28; Status DC Duloxetine HCl (Cymbalta) 60 mg DAILY PO Last administered on 09/20/18at 08:42; Start 09/07/18 at 09:00; Stop 09/20/18 at 11:28; Status DC Cyanocobalamin (Vitamin B-12) 1,000 mcg DAILY PO ; Start 09/07/18 at 09:00; Stop 09/07/18 at 09:00; Status DC Ferrous Sulfate (Feosol) 325 mg DAILY PO ; Start 09/07/18 at 09:00; Stop at 09:00; Status DC Albuterol/ Ipratropium (Duoneb) 3 ml RTQID NEB ; Start 09/07/18 at 08:00; Stop 09/07/18 at 08:00; Status DC Losartan Potassium (Cozaar) 25 mg DAILY PO Last administered on 09/20/18at 08:42 ; Start 09/07/18 at 09:00; Stop 09/20/18 at 11:28; Status DC Potassium Chloride (Klor-Con) 20 meq BID PO ; Start 09/07/18 at 09:00; Status Cancel Acetaminophen (Tylenol) 500 mg PRN Q6HRS PRN PO PAIN / TEMP; Start 09/07/18 at 00:45; Stop 09/20/18 at 11:28; Status DC Allopurinol (Zyloprim) 100 mg DAILYWBKFT PO ; Start 09/07/18 at 08:00; Stop at 08:00; Status DC Carvedilol (Coreg) 6.25 mg BIDWMEALS PO Last administered on 09/20/18at 08:43; Start 09/07/18 at 08:00; Stop 09/20/18 at 11:28; Status DC Non-Formulary Medication (Cranberry Extract (Cranberry)) 425 mg DAILY PO ; Start 09/07/18 at 09:00; Status UNV Folic Acid (Folic Acid) 1 mg DAILY PO ; Start 09/07/18 at 09:00; Stop 09/07/18 at 09:00; Status DC Furosemide (Lasix) 40 mg DAILY PO Last administered on 09/20/18at 08:43; Start at 09:00; Stop 09/20/18 at 11:28; Status DC Insulin Glargine (Lantus) 17 units QHS SQ Last administered on 09/19/18at 20:59 ; Start 09/07/18 at 21:00; Stop 09/20/18 at 11:28; Status DC Lactobacillus Rhamnosus (Culturelle) 1 cap BID PO Last administered on at 08:43; Start 09/07/18 at 09:00; Stop 09/20/18 at 11:28; Status DC Latanoprost (Xalatan) 1 drop QHS OS Last administered on 09/19/18at 20:57; Start 09/07/18 at 21:00; Stop 09/20/18 at 11:28; Status DC Ondansetron HCl (Zofran Odt) 4 mg PRN Q8HRS PRN PO NAUSEA/VOMITING; Start 09/07 at 00:45; Stop 09/07/18 at 01:25; Status DC Rivaroxaban (Xarelto) 20 mg DAILYWBKFT PO Last administered on 09/20/18at 08:39; Start 09/07/18 at 08:00; Stop 09/20/18 at 11:28; Status DC Non-Formulary Medication (Tiotropium [place] (Spiriva)) 18 mcg DAILY IH ; Start 09/07/18 at 09:00; Status UNV Info (Anti-Coagulation Monitoring By Pharmacy) 1 each PRN DAILY PRN MC SEE COMMENTS; Start 09/07/18 at 00:45; Status Cancel Acetaminophen (Tylenol) 650 mg PRN Q6HRS PRN PO PAIN / TEMP; Start 09/07/18 at 01:30; Stop 09/07/18 at 05:53; Status DC Cephalexin HCl (Keflex) 250 mg DAILY PO Last administered on 09/07/18at 08:14; Start 09/07/18 at 09:00; Stop 09/07/18 at 17:40; Status DC Febuxostat (Uloric) 40 mg DAILY PO Last administered on 09/20/18at 08:43; Start 09/07/18 at 09:00; Stop 09/20/18 at 11:28; Status DC Insulin Human Lispro (HumaLOG) 5 units DAILY SQ Last administered on 09/07/18at 11:57; Start 09/07/18 at 09:00; Stop 09/07/18 at 17:37; Status DC Artificial Tears (Artificial Tears) 1 drop QID OU Last administered on at 12:02; Start 09/07/18 at 09:00; Stop 09/10/18 at 15:55; Status DC Docusate Sodium (Colace) 100 mg DAILY PO Last administered on 09/20/18at 08:39; Start 09/07/18 at 09:00; Stop 09/20/18 at 11:28; Status DC Magnesium Chloride (Mag Delay) 64 mg DAILY PO Last administered on 09/20/18at 08: 39; Start 09/07/18 at 09:00; Stop 09/20/18 at 11:28; Status DC Multi-Ingred Cream/Lotion/Oil/ Oint (Artificial Tears Eye Ointment) 1 karlos QHS OU ; Start 09/07/18 at 21:00; Stop 09/20/18 at 11:28; Status DC Oxybutynin Chloride (Ditropan) 5 mg DAILY PO Last administered on 09/20/18 08: 43; Start 09/07/18 at 09:00; Stop 09/20/18 at 11:28; Status DC Potassium Chloride (Klor-Con) 10 meq DAILYWBKFT PO Last administered on 08:43; Start 09/07/18 at 08:00; Stop 09/20/18 at 11:28; Status DC Insulin Human Lispro (HumaLOG) 5 units TIDAC SQ Last administered on 09/20/18 08:44; Start 09/08/18 at 07:30; Stop 09/20/18 at 11:28; Status DC Melatonin 3 mg QHS PO Last administered on 09/19/18at 20:57; Start 09/07/18 at 21:00; Stop 09/20/18 at 11:28; Status DC Buspirone HCl (Buspar) 5 mg BID@0900,1700 PO Last administered on 09/18/18at 17: 15; Start 09/09/18 at 09:00; Stop 09/19/18 at 08:47; Status DC Nystatin (Nystop) 1 karlos BID TP Last administered on 09/20/18 08:43; Start 09/09 at 21:30; Stop 09/20/18 at 11:28; Status DC Doxycycline Hyclate (Vibra-Tab) 100 mg BID PO Last administered on 09/19/18 07 :44; Start 09/10/18 at 21:00; Stop 09/19/18 at 20:59; Status DC Artificial Tears (Artificial Tears) 1 drop Q6H OU Last administered on 08:45; Start 09/10/18 at 21:00; Stop 09/20/18 at 11:28; Status DC Ascorbic Acid (Vitamin C) 500 mg DAILY PO Last administered on 09/20/18 08:43; Start 09/12/18 at 09:00; Stop 09/20/18 at 11:28; Status DC Vitamin D (Vitamin D3) 50,000 unit WEEKLY PO ; Start 09/13/18 at 18:00; Stop at 18:06; Status DC Vitamin D (Vitamin D3) 50,000 unit WEEKLY PO Last administered on 09/20/18at 08: 39; Start 09/13/18 at 20:00; Stop 09/20/18 at 11:28; Status DC Buspirone HCl (Buspar) 5 mg BID@0900,1700 PO Last administered on 09/20/18at 08: 42; Start 09/19/18 at 09:00; Stop 09/20/18 at 10:18; Status DC Buspirone HCl (Buspar) 5 mg BID@0900,1700 PO ; Start 09/20/18 at 17:00; Stop 09/20 at 17:00; Status DC Active Scripts Active Reported Acetaminophen 500 Mg Tablet 500 Mg PO PRN Q6HRS PRN Buspirone Hcl 5 Mg Tablet 5 Mg PO BID@0900,1700 Nystatin 15 Gm Powder 1 Karlos TP BID Analgesic [place] (Methyl Salicylate/Menthol) 28 Gm Oint...g. 1 Karlos TP PRN QID PRN Melatonin 3 Mg Tablet 3 Mg PO QHS Milk Of Magnesia (Magnesium Hydroxide) 400 Mg/5 Ml Oral.susp 2,400 Mg PO PRN QHS PRN Mag-Al Plus Xs Suspension (Mag Hydrox/Al Hydrox/Simeth) 30 Ml Oral.susp 15 Ml PO PRN AFTMEALHC PRN D3-50 (Cholecalciferol (Vitamin D3)) 50,000 Unit Capsule 50,000 Unit PO WEEKLY start date: 09/13/18 Ascorbic Acid 500 Mg Tablet 500 Mg PO DAILY Uloric (Febuxostat) 40 Mg Tablet 40 Mg PO DAILY Systane Nighttime Eye Oint (Mineral Oil/Petrolatum,White) 3.5 Gm Oint...g. 1 Karlos OU QHS Oxybutynin Chloride Er (Oxybutynin Chloride) 5 Mg Tab.er.24 5 Mg PO DAILY Magnesium Chloride 64 Mg Tablet.dr 64 Mg PO DAILY Humalog (Insulin Lispro) 100 Unit/1 Ml Insuln.pen 5 Unit SQ TIDAC Docusate Sodium 100 Mg Capsule 100 Mg PO DAILY Artificial Tears (Polyvinyl Alcohol) 15 Ml Drops 1 Drp OP QID Potassium Chloride 10 Meq Tablet.er 10 Meq PO DAILY Xarelto (Rivaroxaban) 20 Mg Tablet 20 Mg PO DAILY Probiotic (Lactobacillus Combo No.10) 1 Each Capsule 1 Cap PO BID Lasix (Furosemide) 40 Mg Tablet 40 Mg PO DAILY Coreg (Carvedilol) 6.25 Mg Tablet 6.25 Mg PO BIDWMEALS Lantus (Insulin Glargine,Hum.rec.anlog) 100 Unit/1 Ml Vial 17 Unit SQ HS Latanoprost 2.5 Ml Drops 1 Drop OS QHS Losartan Potassium (Losartan Potassium) 25 Mg Tablet 25 Mg PO DAILY Cymbalta (Duloxetine Hcl) 60 Mg Capsule.dr 60 Mg PO DAILY I have reviewed the current psychotropics carefully including drug interactions. Risk benefit ratio favors no change other than as noted in my dictated progress note. Diagnosis: Problems: (1) Encounter for medical screening examination (2) Anxiety disorder (3) Major depressive disorder, recurrent episode (4) Impulse control disorder CLAUDIA LAROSE MD Sep 20, 2018 21:41
--- NOTE | 2018-09-20 23:10 | PN ---
DATE: 09/19/2018 PSYCHIATRIC PROGRESS NOTE This is a late entry for 09/19/2018 and covers elements not covered in my initial note. SUBJECTIVE: I met with the patient in the evening, staffed at a treatment team meeting with the entire team earlier in the day. She has been fairly appropriate, little withdrawn, but less anxious, less agitated. REVIEW OF SYSTEMS: Ambulation impaired, in wheelchair. No CV, , pulmonary, eye system symptoms on review. MENTAL STATUS EXAM: The patient is reasonably oriented. Speech is coherent, abstraction fair, computation impaired, language function intact. Mood and affect is improved. IMPRESSION: Unchanged from initial note. PLAN: No change from initial note. CLAUDIA LAROSE MD DR: RUFUS/carina JOB#: [id number] / [id number]
--- NOTE | 2018-09-20 23:11 | PN ---
DATE: 09/18/2018 PSYCHIATRIC PROGRESS NOTE This late entry 09/18/2018 covers elements not covered in my initial note. SUBJECTIVE: Met with the patient in the evening. The patient slept 6-1/4 hours previous night. The patient has been tearful, anxious at times, but overall improved. Met with her at some length to discuss her anxiety, ways to distract herself, focus on the positives, ignore the negatives in this regard things that affect her negatively. She is quite insightful. REVIEW OF SYSTEMS: Ambulation impaired, in wheelchair. No CV, , pulmonary, eye system symptoms on review. MENTAL STATUS EXAM: Reasonably oriented. Speech is coherent, abstraction fair, computation impaired. Mood and affect generally improved. IMPRESSION: Unchanged from initial note. PLAN: No change from initial note. MAN Nicolette LAROSE MD DR: RUFUS/carina JOB#: [id number] / [id number]
== END 2018-09-20 11:27 | DRG 885 ==
LOC: ER 19:04 → GEROPSY 22:32
PROVIDERS: ADMIT Psychiatry & Neurology Psychiatry; ATTEND Psychiatry & Neurology Psychiatry
DX: F33.3 Major depressive disorder, recurrent, severe with psychotic symptoms (principal); N39.0 Urinary tract infection, site not specified; I13.0 Hypertensive heart and chronic kidney disease with heart failure and stage 1 through stage 4 chronic kidney disease, or unspecified chronic kidney disease; F41.9 Anxiety disorder, unspecified; F63.9 Impulse disorder, unspecified; N18.9 Chronic kidney disease, unspecified; E11.22 Type 2 diabetes mellitus with diabetic chronic kidney disease; E53.8 Deficiency of other specified B group vitamins; E78.5 Hyperlipidemia, unspecified; E83.52 Hypercalcemia; G89.4 Chronic pain syndrome; H40.9 Unspecified glaucoma; H54.61 Unqualified visual loss, right eye, normal vision left eye; I50.9 Heart failure, unspecified; J44.9 Chronic obstructive pulmonary disease, unspecified; M10.9 Gout, unspecified; Z66 Do not resuscitate; Z79.899 Other long term (current) drug therapy; Z93.3 Colostomy status; Z98.41 Cataract extraction status, right eye; Z98.42 Cataract extraction status, left eye; Z88.2 Allergy status to sulfonamides; Z88.8 Allergy status to other drugs, medicaments and biological substances
CPT/HCPCS: 36415; 80048; 80053; 80061; 80307; 81001; 82306; 82947; 83036; 83540; 83550; 84436; 84443; 84480; 85025; 86592; 87086; 87186; 93005; G0480; J1815; 99285-25

== ENCOUNTER 2018-11-01 14:43 | Inpatient (IN) | payer MEDICARE, OTHER ==
[~2018-11-01] VITALS: Ht 162.6 cm; Wt 88.3 kg
[~2018-11-01 14:43] MED LIST: ACET325T16 PO; ACET500T33 PO; ACET500T68 PO; ALLO100T PO; ASCO500T3 PO; BUSP5TAB PO; CARV6.25 PO; CEPH-263 PO; CHOL500021 PO; CRAN425C3 PO; CYAN10005 PO; DOCU100C28 PO; DULO60CA6 PO; FEBU40TA PO; FERR325T14 PO; FOLI1TAB16 PO; FURO-68 PO; INSU100I11 SQ; INSU100V8 SQ; IPRA3AMP29 NEB; LACT1CAP29 PO; LATA2.5D3 OS; LOSA25TA11 PO; MAG30ORA2 PO; MAGN400O7 PO; MAGN64TA7 PO; MELA3TAB2 PO; METH29OI TP; MINE3.5O4 OU; NYST15PO9 TP; ONDA4TAB7 PO; OXYB5TAB PO; POLY15DR27 OU; POTA10TA10 PO; POTA20TA4 PO; RIVA20TA2 PO; TIOT18CA IH
--- NOTE | 2018-11-01 15:23 | PHYS DOC ---
Past History Past Medical History: Anxiety, CHF, COPD, Depression, Diverticulitis, Diabetes , Hypertension, UTI, Other Past Surgical History: Colectomy, Other Alcohol Use: None Drug Use: None Adult General Chief Complaint Chief Complaint: PSYCH EVALUATION HPI HPI Patient is a 77-year-old female presenting for medical clearance for the [facility] unit. According to report she is been making racial slurs, increased, agitated, and insomnia.[] Review of Systems Review of Systems Constitutional: Denies fever or chills [] Eyes: Denies change in visual acuity, redness, or eye pain [] HENT: Denies nasal congestion or sore throat [] Respiratory: Denies cough or shortness of breath [] Cardiovascular: No chest pain or palpitations[] GI: Denies abdominal pain, nausea, vomiting, bloody stools or diarrhea [] : Denies dysuria or hematuria [] Musculoskeletal: Denies back pain or joint pain [] Integument: Denies rash or skin lesions [] Neurologic: Denies headache, focal weakness or sensory changes [] Endocrine: Denies polyuria or polydipsia [] All other systems were reviewed and found to be within normal limits, except as documented in this note. Allergies Allergies Allergies Coded Allergies Type Severity Reaction Last Updated Verified morphine Adverse Reaction Severe 09/06/18 Yes Sulfa (Sulfonamide Antibiotics) Adverse Reaction Intermediate Nausea and Vomiting 09/06/18 Yes aspirin Adverse Reaction Intermediate 09/19/18 Yes Physical Exam Physical Exam Constitutional: Well developed, well nourished, no acute distress, non-toxic appearance. [] HENT: Normocephalic, atraumatic, bilateral external ears normal, oropharynx moist, no oral exudates, nose normal. [] Eyes: PERRLA, EOMI, conjunctiva normal, no discharge. [] Neck: Normal range of motion, no tenderness, supple, no stridor. [] Cardiovascular:Heart rate regular rhythm, no murmur [] Lungs & Thorax: Bilateral breath sounds clear to auscultation [] Abdomen: Bowel sounds normal, soft, no tenderness, no masses, no pulsatile masses. [] Skin: Warm, dry, no erythema, no rash. [] Back: No tenderness, no CVA tenderness. [] Extremities: No tenderness, no cyanosis, no clubbing, ROM intact, no edema. [] Neurologic: Alert and oriented, normal motor function, normal sensory function, no focal deficits noted. [] Psychologic: Affect normal, mood normal. [] Current Patient Data Vital Signs Vital Signs Date Time Temp Pulse Resp B/P (MAP) Pulse Ox O2 Delivery O2 Flow Rate FiO2 11/01/18 15:03 98.7 78 24 87 Room Air 2.0 EKG EKG EKG shows a sinus rhythm at 68 bpm, left axis, QTC of 434 ms, no ST elevations. Interpreted by me at 1501[] Radiology/Procedures Radiology/Procedures [] Course & Med Decision Making Course & Med Decision Making Pertinent Labs and Imaging studies reviewed. (See chart for details) ED course: Patient arrived, was placed in bed, and tolerated exam well. She has remained in stable condition, no acting out behaviors while in the emergency department. She was admitted in improved condition the [facility] unit. Medical decision making: Patient has some degree of renal insufficiency, creatinine of 1.6 however this is comparable with her admission creatinine of 1.3 several months ago. Also appears that she has a urinary tract infection and starting antibiotics for this. This is most likely due to her indwelling urinary catheter. No evidence of pyelonephritis nor systemic toxicity. Uncertain if this urinary tract infection relates to her change in behavior. Patient appears to be otherwise medically stable for admission to [facility].[] Dragon Disclaimer Dragon Disclaimer This electronic medical record was generated, in whole or in part, using a voice recognition dictation system. Departure Departure: Impression: Primary Impression: Encounter for medical screening examination Additional Impression: Urinary tract infection Disposition: ADMITTED INPATIENT Condition: IMPROVED Referrals: MOJGAN ARBOLEDA MD (PCP) Problem Qualifiers Additional Impression: Urinary tract infection Urinary tract infection type: site unspecified Hematuria presence: with hematuria Qualified Codes: N39.0 - Urinary tract infection, site not specified ; R31.9 - Hematuria, unspecified MAREK DE ANDA DO Nov 01, 2018 15:23
[2018-11-01 15:24] LABS: BASO # 0.1 x10^3/uL (0.0-0.2); BASO % 1 % (0-3); EOS # 0.4 x10^3/uL (0.0-0.7); EOS % 4 % (0-3); HEMATOCRIT 42.4 % (36.0-47.0); HEMOGLOBIN 13.5 g/dL (12.0-15.5); LYMPH # 2.2 x10^3/uL (1.0-4.8); LYMPH % 21 % (24-48); MEAN CORPUSCULAR HEMOGLOBIN 26 pg (25-35); MEAN CORPUSCULAR HGB CONC 32 g/dL (31-37); MEAN CORPUSCULAR VOLUME 81 fL (79-100); MONO # 1.1 x10^3/uL (0.0-1.1); MONO % 10 % (0-9); NEUT # 6.8 x10^3uL (1.8-7.7); NEUT % 64 % (31-73); PLATELET COUNT 327 x10^3/uL (140-400); RED BLOOD COUNT 5.26 x10^6/uL (3.50-5.40); RED CELL DISTRIBUTION WIDTH 16.2 % (11.5-14.5); WHITE BLOOD COUNT 10.6 x10^3/uL (4.0-11.0)
[2018-11-01 15:42] LABS: ALBUMIN 2.4 g/dL (3.4-5.0); ALBUMIN/GLOBULIN RATIO 0.4 (1.0-1.7); ALK PHOS 85 U/L (46-116); ALT (SGPT) 9 U/L (14-59); ANION GAP 5 (6-14); AST (SGOT) 8 U/L (15-37); BLOOD UREA NITROGEN 38 mg/dL (7-20); BUN/CREATININE RATIO 24 (6-20); CALCIUM 10.6 mg/dL (8.5-10.1); CARBON DIOXIDE 31 mmol/L (21-32); CHLORIDE 104 mmol/L (98-107); CREATININE 1.6 mg/dL (0.6-1.0); GFR 31.4; GLUCOSE 181 mg/dL (70-99); MAGNESIUM 2.1 mg/dL (1.8-2.4); POTASSIUM 4.9 mmol/L (3.5-5.1); SODIUM 140 mmol/L (136-145); TOTAL BILIRUBIN 0.2 mg/dL (0.2-1.0); TOTAL PROTEIN 8.2 g/dL (6.4-8.2)
[2018-11-01 15:43] LABS: VAL ACID 24 mcg/mL (50-100)
[2018-11-01] MEDS ORDERED: SODI50SP NS (16:06)
[2018-11-01] MEDS ORDERED: DIVA125C2 PO (16:06)
[2018-11-01] MEDS ORDERED: LEVO750T5 PO (16:06)
[2018-11-01] MEDS ORDERED: FLUT9.9S NS (16:06)
[2018-11-01] MEDS ORDERED: POLY10DR3 OU (16:06)
[2018-11-01 16:37] LABS: BILIRUBIN,URINE NEG (NEG); CLARITY,URINE CLOUDY; COLOR,URINE BROWN; GLUCOSE,URINE NEG (NEG); NITRITE,URINE POS (NEG); RBC,URINE TNTC /HPF (0-2); UROBILINOGEN,URINE 0.2 mg/dL (0.2 mg/dL); WBC,URINE 20-40 /HPF (0-4)
[2018-11-01 16:38] LABS: BACTERIA,URINE FEW /HPF (0-FEW); SQUAMOUS EPITHELIAL CELL,UR OCC /LPF
--- NOTE | 2018-11-01 17:07 | EKG ---
[address] [address] Test Date: 2018-11-01 Test Time: 14:57:35 Pat Name: VALERIA HANCOCK Department: Room: Gender: F Material Carrier: : [id number] Requested By: MAREK DE ANDA Order Number: [id number] Reading MD: Dionicio Rivera Measurements Intervals [place] Rate: 68 P: VT: QRS: -20 QRSD: 68 T: 17 QT: 404 QTc: 434 Interpretive Statements SINUS RHYTHM ATRIAL PREMATURE COMPLEXES LEFTWARD AXIS QRS(T) CONTOUR ABNORMALITY CONSISTENT WITH INFERIOR INFARCT PROBABLY OLD ABNORMAL ECG Electronically Signed On 11-11-2018 12:33:24 CDT by Dionicio Rivera
[2018-11-01] MEDS ORDERED: CEPHALEXIN 250 MG CAPSULE PO ONE (17:15)
[2018-11-01 18:23] VITALS: BP 137/79
[2018-11-01] MEDS ORDERED: MAGNESIUM HYDROXIDE 2,400 MG/30 ML ORAL.SUSP. PO PRN (18:45)
[2018-11-01] MEDS ORDERED: MAG HYDROX/AL HYDROX/SIMETH 30 ML ORAL.SUSP PO PRN (18:45)
[2018-11-01] MEDS ORDERED: DEXTROSE ORAL GEL 15 GM TUBE. PO PRN (18:45)
[2018-11-01] MEDS: SODIUM CHL/ALOE VERA NASAL GEL 14.1GM TUBE. NS SCH (20:41)
[2018-11-01] MEDS: MINERAL OIL/PETROLATUM,WHITE OPHTH OINT 3.5GM TUBE. OU SCH (20:42)
[2018-11-01] MEDS: LATANOPROST 0.005% OPHTH SOLUTION 2.5ML BOTTLE. OS SCH (20:42)
[2018-11-01] MEDS: MELATONIN 3 MG TABLET PO SCH (20:42)
[2018-11-01] MEDS: POLYVINYL ALCOHOL 1.4% OPHTH SOLUTION 15ML BOTTLE. OU SCH (20:42)
[2018-11-01] MEDS: POLYMYXIN/TRIMETHOPRIM OPHTH SOLUTION 10ML BOTTLE. OU SCH (20:42)
[2018-11-01] MEDS: LACTOBACILLUS RHAMNOSUS GG 1 CAPSULE. PO SCH (20:43)
[2018-11-01] MEDS: DIVALPROEX 125 MG CAP.SPRINK PO SCH (20:43)
[2018-11-01] MEDS: POTASSIUM CHLORIDE 10 MEQ TABLET.ER. PO SCH (20:43)
[2018-11-01] MEDS: INSULIN GLARGINE 300 UNITS/3 ML INSULN.PEN. SQ SCH (20:47)
[2018-11-02] MEDS ORDERED: levoFLOXacin 750 MG TABLET PO SCH (06:00)
[2018-11-02 06:08] VITALS: BP 152/82
[2018-11-02] MEDS: DIVALPROEX 125 MG CAP.SPRINK PO SCH ×3 (08:08→20:23)
[2018-11-02] MEDS: LACTOBACILLUS RHAMNOSUS GG 1 CAPSULE. PO SCH ×2 (08:09→20:22)
[2018-11-02] MEDS: POTASSIUM CHLORIDE 10 MEQ TABLET.ER. PO SCH ×2 (08:09→20:23)
[2018-11-02] MEDS: ASCORBIC ACID 500 MG TABLET PO SCH (08:14)
[2018-11-02] MEDS: MAGNESIUM CHLORIDE ER 64 MG TABLET.ER PO SCH (08:14)
[2018-11-02] MEDS: LOSARTAN 25 MG TABLET. PO SCH (08:14)
[2018-11-02] MEDS: DOCUSATE SODIUM 100 MG CAPSULE PO SCH (08:14)
[2018-11-02] MEDS: busPIRone 5 MG TABLET. PO SCH ×2 (08:14→18:00)
[2018-11-02] MEDS: FUROSEMIDE 40 MG TABLET PO SCH (08:14)
[2018-11-02] MEDS: DULoxetine HCL 60 MG CAPSULE.DR PO SCH (08:15)
[2018-11-02] MEDS: POLYMYXIN/TRIMETHOPRIM OPHTH SOLUTION 10ML BOTTLE. OU SCH ×3 (08:15→18:00)
[2018-11-02] MEDS: CARVEDILOL 6.25 MG TABLET PO SCH ×2 (08:15→17:00)
[2018-11-02] MEDS: OXYBUTYNIN CHLORIDE 5 MG TABLET PO SCH (08:15)
[2018-11-02] MEDS: SODIUM CHL/ALOE VERA NASAL GEL 14.1GM TUBE. NS SCH ×3 (08:19→20:23)
[2018-11-02] MEDS: FEBUXOSTAT 40 MG TABLET PO SCH (08:19)
[2018-11-02] MEDS: POLYVINYL ALCOHOL 1.4% OPHTH SOLUTION 15ML BOTTLE. OU SCH ×4 (08:19→20:23)
[2018-11-02] MEDS: INSULIN LISPRO 300 UNITS/3 ML INSULN.PEN. SQ SCH ×3 (08:21→16:30)
[2018-11-02] MEDS: FLUTICASONE 50MCG/NASAL SPRAY 16GM BOTTLE. NS SCH (08:24)
[2018-11-02] MEDS ORDERED: LEVOFLOXACIN 750 MG PO SCH (09:00)
[2018-11-02 13:11] LABS: THYROXINE 7.9 ug/dL (4.5-12.0)
[2018-11-02 15:44] VITALS: BP 134/77
[2018-11-02] MEDS: RIVAROXABAN 10 MG TABLET. PO SCH (18:00)
[2018-11-02] MEDS: MELATONIN 3 MG TABLET PO SCH (20:23)
[2018-11-02] MEDS: MINERAL OIL/PETROLATUM,WHITE OPHTH OINT 3.5GM TUBE. OU SCH (20:23)
[2018-11-02] MEDS: LATANOPROST 0.005% OPHTH SOLUTION 2.5ML BOTTLE. OS SCH (20:24)
[2018-11-02] MEDS: NITROFURANTOIN MONOHYD/M-CRYST 100 MG CAPSULE. PO SCH (20:26)
[2018-11-02] MEDS: INSULIN GLARGINE 300 UNITS/3 ML INSULN.PEN. SQ SCH (20:26)
--- NOTE | 2018-11-03 01:59 | PSYEV ---
DATE OF SERVICE: REASON FOR ADMISSION: This 77-year-old female, who was readmitted to [facility] through the Emergency Room from [facility] in [place], [place]. The patient was sent here because of inability to sleep, increased agitation and also verbally abusive towards others including making racial slurs and also grabbed a broom and swung it around, hitting the door, throw jam, also barricaded in her room with a broom. HISTORY OF PRESENT ILLNESS: The patient apparently was here since 09/07/2018 and then discharged back to the long term. The patient also presents with similar problems last time, being angry, irritable, paranoid, mood swings, difficulty with sleep and appetite, increased aggression, did not express any suicidal or homicidal ideation. The patient apparently has a diagnosis of bipolar disorder and the patient has the DPOA. Apparently, a cousin, who is the DPOA. The patient at this time denying all the things that happened prior to coming here and was also angry being back here. The patient is concerned that she is legally blind because she lost her eyesight on the right side, almost 100% after she had surgery for meningioma. The patient also had only 5% vision on her left eye and apparently is having difficulty managing with her poor eyesight. The patient also admits she has a severe hearing loss. She is not sleeping well and the patient also concerned about being at the facility at [facility] because the other male resident threatening to come to their room and also the patient is having difficulty with the roommate. The patient has a constant fear that somebody may walk into her room. PAST PSYCHIATRIC HISTORY: The patient apparently has been treated in the past for bipolar disorder. The patient was discharged home on 09/20/2018. PAST MEDICAL HISTORY: History of gout, gait impairment, on wheelchair, cellulitis, chronic pain, diverticulitis, CHF, COPD, diabetes mellitus, hypertension, B12 deficiency, status post colostomy and also gait impairment. LABORATORY DATA: The patient's lab reviewed. The patient's blood sugar was elevated, varied from 120-245. The patient's thyroxine level was within normal range. TSH was normal. The patient's Depakote level was 24. Urine was clear. MEDICATIONS: The patient's current medications, vitamin D 50,000 units, Macrobid 100 mg b.i.d., Xarelto 20 mg daily, Ditropan 5 mg daily, magnesium chloride 64 mg daily, Lasix 40 mg daily, Flonase 2 sprays daily, Cymbalta 60 mg daily, BuSpar 5 mg b.i.d., Cozaar 25 mg daily, Uloric 40 mg daily, Coreg 6.25 mg daily, Humalog 5 units, potassium chloride 10 mEq b.i.d., melatonin 3 mg at night, Lantus 17 units at night, Depakote 125 mg t.i.d. PSYCHOSOCIAL HISTORY: The patient denies of any alcohol or substance abuse in the past. The patient also denied of any abuse including physical, emotional or sexual. FAMILY HISTORY: Noncontributory. MENTAL STATUS EXAMINATION: The patient appeared to be of her stated age, casually dressed, obese. Poor eye contact. The patient was slow to respond to questions. Her speech was clear, monotone, decreased rate and rhythm. Her affect and mood showed she is anxious, somewhat labile, but admits to being fearful, she was afraid somebody is going to walk into her room. The patient also not trusting anyone, has some paranoia. No visual or auditory hallucinations. The patient denies of any suicidal or homicidal thoughts. The patient has some difficulty processing information at times, also high level of anxiety. The patient denied of any suicidal or homicidal thoughts. She is oriented to surroundings, but short-term memory is intact. The patient's judgment fair, insight limited. STRENGTH: Supportive family, fairly in good health. The patient is able to communicate. The patient is oriented to her surroundings and not overtly psychotic. WEAKNESSES: The patient has problems with impulse control and the patient also beginning to show some cognitive deficits and increased anxiety and impulse control problems. ADMITTING DIAGNOSES: AXIS I: 1. Major depressive disorder, recurrent with psychotic features. 2. Generalized anxiety disorder. AXIS II: None. AXIS III: As stated above. INITIAL TREATMENT PLAN: The patient will be admitted to the [facility]. The patient will be seen by the psychiatrist daily. The patient will be increased in all the activities including individual therapy, group therapy, activity therapy. The patient will also continue on the medication listed above. We will make changes according to the patient's behavior. Length of stay is 7 days. Aftercare plan, the patient is able to maintain improvement, steady for at least 3 days to consider returning to the long term, which came from. ARTI CHAMBERLAIN MD DR: KIMBERLY/carina JOB#: [id number] / [id number]
[2018-11-03 05:37] VITALS: BP 158/72
[2018-11-03] MEDS: NITROFURANTOIN MONOHYD/M-CRYST 100 MG CAPSULE. PO SCH ×2 (08:03→19:48)
[2018-11-03] MEDS: busPIRone 5 MG TABLET. PO SCH ×2 (08:03→17:38)
[2018-11-03] MEDS: FEBUXOSTAT 40 MG TABLET PO SCH (08:03)
[2018-11-03] MEDS: MAGNESIUM CHLORIDE ER 64 MG TABLET.ER PO SCH (08:03)
[2018-11-03] MEDS: DULoxetine HCL 60 MG CAPSULE.DR PO SCH (08:04)
[2018-11-03] MEDS: CARVEDILOL 6.25 MG TABLET PO SCH ×2 (08:04→17:38)
[2018-11-03] MEDS: OXYBUTYNIN CHLORIDE 5 MG TABLET PO SCH (08:04)
[2018-11-03] MEDS: LACTOBACILLUS RHAMNOSUS GG 1 CAPSULE. PO SCH ×2 (08:04→19:48)
[2018-11-03] MEDS: DIVALPROEX 125 MG CAP.SPRINK PO SCH ×3 (08:04→19:48)
[2018-11-03] MEDS: FUROSEMIDE 40 MG TABLET PO SCH (08:04)
[2018-11-03] MEDS: LOSARTAN 25 MG TABLET. PO SCH (08:05)
[2018-11-03] MEDS: ASCORBIC ACID 500 MG TABLET PO SCH (08:05)
[2018-11-03] MEDS: DOCUSATE SODIUM 100 MG CAPSULE PO SCH (08:05)
[2018-11-03] MEDS: POTASSIUM CHLORIDE 10 MEQ TABLET.ER. PO SCH ×2 (08:05→19:48)
[2018-11-03] MEDS: INSULIN LISPRO 300 UNITS/3 ML INSULN.PEN. SQ SCH ×3 (08:07→17:40)
[2018-11-03] MEDS: SODIUM CHL/ALOE VERA NASAL GEL 14.1GM TUBE. NS SCH ×3 (08:08→21:00)
[2018-11-03] MEDS: POLYMYXIN/TRIMETHOPRIM OPHTH SOLUTION 10ML BOTTLE. OU SCH ×3 (08:08→21:00)
[2018-11-03] MEDS: POLYVINYL ALCOHOL 1.4% OPHTH SOLUTION 15ML BOTTLE. OU SCH ×4 (08:08→21:00)
[2018-11-03] MEDS: FLUTICASONE 50MCG/NASAL SPRAY 16GM BOTTLE. NS SCH (08:08)
[2018-11-03 16:05] VITALS: BP 119/74
[2018-11-03] MEDS: RIVAROXABAN 10 MG TABLET. PO SCH (17:39)
--- NOTE | 2018-11-03 17:53 | PN ---
DATE: 11/03/2018 SUBJECTIVE: The patient was seen today, met with the staff, chart reviewed and also covering for Dr. Woodruff. The patient's behavior has improved, much calmer. She is on wheelchair and she is able to make eye contact, but admits she has significant problems with hearing, especially on the right ear. The patient has not presented with any major behavior problems. The patient tends to isolate herself. The patient has not shown any aggressive outbursts. No major mood swings. OBSERVATION: VITAL SIGNS: Temperature 97.8, blood pressure 158/72, pulse 74, respirations 20, O2 sat 92%. Slept about 5.5 hours and her appetite has improved. LABORATORY DATA: The patient's lab reviewed and her blood sugar continues to fluctuate. The patient's BUN was 38, creatinine 1.6, calcium 10.6. The patient's medications reviewed. Currently on Cymbalta 60 mg daily, buspirone 5 mg b.i.d., Depakote 125 mg t.i.d. p.o. The patient is not having any physical complaints. No major side effects. ASSESSMENT: AXIS I: 1. Major depressive disorder, recurrent with psychotic features. 2. Generalized anxiety disorder. AXIS III: As above. PLAN: Continue with the current treatment plan. Continue to monitor her appetite and sleep pattern and also her depression. LENGTH OF STAY: Seven days. ARTI CHAMBERLAIN MD DR: KIMBERLY/carina JOB#: [id number] / [id number]
[2018-11-03] MEDS: MINERAL OIL/PETROLATUM,WHITE OPHTH OINT 3.5GM TUBE. OU SCH (19:47)
[2018-11-03] MEDS: LATANOPROST 0.005% OPHTH SOLUTION 2.5ML BOTTLE. OS SCH (19:48)
[2018-11-03] MEDS: MELATONIN 3 MG TABLET PO SCH (19:48)
[2018-11-03] MEDS: NYSTATIN TOPICAL POWDER 15GM BOTTLE. TP SCH (19:48)
[2018-11-03] MEDS: INSULIN GLARGINE 300 UNITS/3 ML INSULN.PEN. SQ SCH (19:50)
--- NOTE | 2018-11-03 23:50 | CONS ---
DATE OF CONSULTATION: HISTORY OF PRESENT ILLNESS: A 77-year-old female, who came in for increased agitation and insomnia. Apparently, she has been having problems with her ability to sleep, increased agitation, verbally abusive toward others. Apparently, the patient has been in the [facility] and become increasingly angry, irritable, paranoid, mood swings, decrease in appetite and so forth and so on. The patient is legally blind after her surgery for meningioma. PAST MEDICAL HISTORY: Positive for abnormal gait. She has gout impairment, wheelchair, cellulitis, chronic pain, chronic diverticulitis, CHF, COPD, type 2 diabetes, hypertension, B12 deficiency and status post colostomy and gait impairment. MEDICATIONS: Include vitamin D, nystatin, Macrobid, Xarelto 20 mg, oxycodone, Ditropan 5 mg daily, magnesium, furosemide 40, Flonase nasal spray, Cymbalta, Colace, BuSpar 5, Cozaar 25, Uloric 40, vitamin C, Coreg, Humalog 5 units, Culturelle, nasal saline, Klor-Con, melatonin, Xalatan eyedrops, Lantus, Depakote, artificial tears, polymyxin eyedrops, Tylenol, magnesium hydroxide. ALLERGIES: SULFA, ASPIRIN AND MORPHINE. She is a do not resuscitate. SOCIAL HISTORY: No smoking, alcohol or drug history. History obviously for neurological, cardiac symptoms, respiratory problems, influenza vaccination up to date. REVIEW OF SYSTEMS: The patient really not able to give much in the way of a history. PHYSICAL EXAMINATION: GENERAL: A pleasant female at the present time sitting in her wheelchair. The patient is alert. She is responsive in fairly normal way, in no apparent distress. VITAL SIGNS: Blood pressure 152/80, respiratory rate 20, pulse 76, afebrile. HEENT: The patient's head was atraumatic, normocephalic. Eyes: PERRLA without jaundice. Mouth and throat were normal. NECK: Supple. LUNGS: Diminished, but clear. CARDIOVASCULAR: Regular sinus rhythm. ABDOMEN: Soft. The patient has a diverting colostomy in the left lower quadrant secondary to from her diverticulitis, protuberant. EXTREMITIES: No clubbing or cyanosis. No obvious edema noted. NEUROLOGIC: She is mostly bed bound to a chair. LABORATORY DATA: The patient's labs are basically CBC was unremarkable. Her chemistries show an elevated blood sugar, which are being monitored carefully by our wonderful nursing staff. Her sodium and potassium 140 and 4.9, BUN and creatinine 36 and 1.6 with a GFR of only 31. The patient's calcium is slightly elevated, albumin slightly low, otherwise. IMPRESSION: The patient with multiple psychiatric issues. See the psychiatric notes as well as B12 deficiency, gout, glaucoma, chronic kidney disease stage 3, type 2 diabetes, morbid obesity, diverting colostomy secondary to diverticulitis and [id number] protein malnutrition. PLAN: The patient will be continued to be monitored by the fine nursing staff and we will continue to follow along with you. Thank you for this consultation. SHAYNA FARIA MD DR: MATT/nts JOB#: [id number] / [id number]
[2018-11-04 05:56] VITALS: BP 137/72
[2018-11-04] MEDS: OXYBUTYNIN CHLORIDE 5 MG TABLET PO SCH (07:50)
[2018-11-04] MEDS: DULoxetine HCL 60 MG CAPSULE.DR PO SCH (07:50)
[2018-11-04] MEDS: MAGNESIUM CHLORIDE ER 64 MG TABLET.ER PO SCH (07:50)
[2018-11-04] MEDS: busPIRone 5 MG TABLET. PO SCH ×2 (07:51→17:44)
[2018-11-04] MEDS: NITROFURANTOIN MONOHYD/M-CRYST 100 MG CAPSULE. PO SCH ×2 (07:51→19:01)
[2018-11-04] MEDS: DIVALPROEX 125 MG CAP.SPRINK PO SCH ×3 (07:51→19:03)
[2018-11-04] MEDS: LOSARTAN 25 MG TABLET. PO SCH (07:51)
[2018-11-04] MEDS: FUROSEMIDE 40 MG TABLET PO SCH (07:51)
[2018-11-04] MEDS: LACTOBACILLUS RHAMNOSUS GG 1 CAPSULE. PO SCH ×2 (07:51→19:01)
[2018-11-04] MEDS: DOCUSATE SODIUM 100 MG CAPSULE PO SCH (07:51)
[2018-11-04] MEDS: ASCORBIC ACID 500 MG TABLET PO SCH (07:51)
[2018-11-04] MEDS: POTASSIUM CHLORIDE 10 MEQ TABLET.ER. PO SCH ×2 (07:52→19:01)
[2018-11-04] MEDS: POLYMYXIN/TRIMETHOPRIM OPHTH SOLUTION 10ML BOTTLE. OU SCH ×3 (07:52→19:04)
[2018-11-04] MEDS: NYSTATIN TOPICAL POWDER 15GM BOTTLE. TP SCH ×2 (07:52→20:10)
[2018-11-04] MEDS: SODIUM CHL/ALOE VERA NASAL GEL 14.1GM TUBE. NS SCH ×3 (07:52→19:03)
[2018-11-04] MEDS: CARVEDILOL 6.25 MG TABLET PO SCH ×2 (07:52→17:45)
[2018-11-04] MEDS: POLYVINYL ALCOHOL 1.4% OPHTH SOLUTION 15ML BOTTLE. OU SCH ×4 (07:53→19:04)
[2018-11-04] MEDS: FLUTICASONE 50MCG/NASAL SPRAY 16GM BOTTLE. NS SCH (07:54)
[2018-11-04] MEDS: FEBUXOSTAT 40 MG TABLET PO SCH (07:54)
[2018-11-04] MEDS: INSULIN LISPRO 300 UNITS/3 ML INSULN.PEN. SQ SCH ×3 (08:15→17:38)
[2018-11-04 16:22] VITALS: BP 128/56
[2018-11-04] MEDS: RIVAROXABAN 10 MG TABLET. PO SCH (17:44)
[2018-11-04] MEDS: LATANOPROST 0.005% OPHTH SOLUTION 2.5ML BOTTLE. OS SCH (19:04)
[2018-11-04] MEDS: MINERAL OIL/PETROLATUM,WHITE OPHTH OINT 3.5GM TUBE. OU SCH (19:04)
--- NOTE | 2018-11-04 19:38 | PN ---
DATE: 11/04/2018 SUBJECTIVE: The patient was seen today, met with the staff, chart reviewed, also covering for Dr. Woodruff. The patient's behavior continues to fluctuate, still anxious, agitated easily. The patient's UDS was positive. The patient is also irritable and vaughan, exhibiting poor impulse control, low frustration tolerance, also having multiple physical complaints. OBSERVATION: VITAL SIGNS: Temperature 97.2, blood pressure 131/72, pulse 65, respirations 20, O2 sat 91%. Slept about 7 hours last night. CURRENT MEDICATIONS: The patient's current medications include BuSpar 5 mg b.i.d., Depakote 125 mg t.i.d. p.o., Cymbalta 60 mg daily. The patient's lab reviewed. The patient was also started on Macrobid 100 mg b.i.d. p.o. for UTI. The patient is not presenting with any other major complaints. The patient is not having any side effects from medications. ASSESSMENT: 1. Major depressive disorder, recurrent with psychotic features. 2. Generalized anxiety disorder. PLAN: Continue with the treatment. The patient will continue on her Cymbalta 60 mg daily, BuSpar 5 mg b.i.d. and Depakote 125 mg t.i.d. p.o. LENGTH OF STAY: 5-7 days. ARTI CHAMBERLAIN MD DR: KIMBERLY/carina JOB#: [id number] / [id number]
[2018-11-04] MEDS: INSULIN GLARGINE 300 UNITS/3 ML INSULN.PEN. SQ SCH (20:10)
[2018-11-05 05:20] LABS: BACTERIA,URINE FEW /HPF (0-FEW); BILIRUBIN,URINE NEG (NEG); CLARITY,URINE CLOUDY; COLOR,URINE BROWN; GLUCOSE,URINE NEG (NEG); NITRITE,URINE POS (NEG); RBC,URINE >40 /HPF (0-2); UROBILINOGEN,URINE 1 mg/dL (0.2 mg/dL)
[2018-11-05 05:34] VITALS: BP 117/64
[2018-11-05] MEDS: NITROFURANTOIN MONOHYD/M-CRYST 100 MG CAPSULE. PO SCH ×2 (05:48→20:07)
[2018-11-05] MEDS: FUROSEMIDE 40 MG TABLET PO SCH (05:48)
[2018-11-05] MEDS: LOSARTAN 25 MG TABLET. PO SCH (05:48)
[2018-11-05] MEDS: busPIRone 5 MG TABLET. PO SCH ×2 (05:48→16:15)
[2018-11-05] MEDS: DIVALPROEX 125 MG CAP.SPRINK PO SCH ×3 (05:49→20:08)
[2018-11-05] MEDS: ASCORBIC ACID 500 MG TABLET PO SCH (05:49)
[2018-11-05] MEDS: DOCUSATE SODIUM 100 MG CAPSULE PO SCH (05:49)
[2018-11-05] MEDS: MAGNESIUM CHLORIDE ER 64 MG TABLET.ER PO SCH (05:49)
[2018-11-05] MEDS: DULoxetine HCL 60 MG CAPSULE.DR PO SCH (05:49)
[2018-11-05] MEDS: LACTOBACILLUS RHAMNOSUS GG 1 CAPSULE. PO SCH ×2 (05:50→20:08)
[2018-11-05] MEDS: OXYBUTYNIN CHLORIDE 5 MG TABLET PO SCH (05:50)
[2018-11-05] MEDS: CARVEDILOL 6.25 MG TABLET PO SCH ×2 (05:50→16:15)
[2018-11-05] MEDS: POTASSIUM CHLORIDE 10 MEQ TABLET.ER. PO SCH ×2 (05:51→20:08)
[2018-11-05] MEDS: INSULIN LISPRO 300 UNITS/3 ML INSULN.PEN. SQ SCH ×3 (07:48→16:30)
[2018-11-05 08:31] LABS: ALBUMIN 2.5 g/dL (3.4-5.0); ALBUMIN/GLOBULIN RATIO 0.4 (1.0-1.7); CALCIUM 10.4 mg/dL (8.5-10.1); CREATININE 1.1 mg/dL (0.6-1.0); GFR 48.4; POTASSIUM 4.4 mmol/L (3.5-5.1); TOTAL BILIRUBIN 0.2 mg/dL (0.2-1.0); TOTAL PROTEIN 8.1 g/dL (6.4-8.2)
[2018-11-05 08:46] LABS: BASO # 0.1 x10^3/uL (0.0-0.2); BASO % 1 % (0-3); EOS # 0.6 x10^3/uL (0.0-0.7); EOS % 7 % (0-3); HEMATOCRIT 41.7 % (36.0-47.0); HEMOGLOBIN 13.7 g/dL (12.0-15.5); LYMPH # 1.8 x10^3/uL (1.0-4.8); LYMPH % 21 % (24-48); MEAN CORPUSCULAR HEMOGLOBIN 27 pg (25-35); MEAN CORPUSCULAR HGB CONC 33 g/dL (31-37); MEAN CORPUSCULAR VOLUME 81 fL (79-100); MONO # 0.9 x10^3/uL (0.0-1.1); MONO % 11 % (0-9); NEUT % 60 % (31-73); PLATELET COUNT 329 x10^3/uL (140-400); RED BLOOD COUNT 5.14 x10^6/uL (3.50-5.40); RED CELL DISTRIBUTION WIDTH 15.5 % (11.5-14.5); WHITE BLOOD COUNT 8.3 x10^3/uL (4.0-11.0)
[2018-11-05] MEDS: FEBUXOSTAT 40 MG TABLET PO SCH (08:55)
[2018-11-05] MEDS: POLYMYXIN/TRIMETHOPRIM OPHTH SOLUTION 10ML BOTTLE. OU SCH ×3 (08:55→20:11)
[2018-11-05] MEDS: POLYVINYL ALCOHOL 1.4% OPHTH SOLUTION 15ML BOTTLE. OU SCH ×4 (08:55→20:11)
[2018-11-05] MEDS: SODIUM CHL/ALOE VERA NASAL GEL 14.1GM TUBE. NS SCH ×3 (08:55→20:11)
[2018-11-05] MEDS: FLUTICASONE 50MCG/NASAL SPRAY 16GM BOTTLE. NS SCH ×2 (08:56→20:11)
[2018-11-05] MEDS: NYSTATIN TOPICAL POWDER 15GM BOTTLE. TP SCH ×2 (08:56→20:15)
[2018-11-05] MEDS: ACETAMINOPHEN 500 MG TABLET PO PRN (09:03)
[2018-11-05 15:47] VITALS: BP 104/68
[2018-11-05] MEDS: RIVAROXABAN 10 MG TABLET. PO SCH (16:15)
[2018-11-05] MEDS: MINERAL OIL/PETROLATUM,WHITE OPHTH OINT 3.5GM TUBE. OU SCH (20:11)
[2018-11-05] MEDS: LATANOPROST 0.005% OPHTH SOLUTION 2.5ML BOTTLE. OS SCH (20:11)
[2018-11-05] MEDS: INSULIN GLARGINE 300 UNITS/3 ML INSULN.PEN. SQ SCH (20:14)
--- NOTE | 2018-11-05 23:55 | PN ---
DATE: 11/05/2018 SUBJECTIVE: The patient was seen today, met with the staff, chart reviewed. The patient continues to have problems, high level of anxiety, irritability, mood swings, constantly angry, accusing the staff of being rough with her while transferring to bed. The patient currently treated for UTI on Macrobid. The patient continues to have problems repeating the cultures and sensitivity again. OBSERVATION: VITAL SIGNS: Temperature 97.9, blood pressure 117/64, pulse 70, respirations 20, O2 sat 94%. Slept about 6 hours last night. The patient's appetite is fair. MEDICATIONS: The patient's current medications include Cymbalta 60 mg daily, BuSpar 5 mg b.i.d., Depakote 125 mg t.i.d. p.o. The patient is not having any side effects. ASSESSMENT: 1. Major depressive disorder, recurrent with psychotic features. 2. Generalized anxiety disorder. 3. Cognitive disorder, mild. PLAN: To continue with the treatment. LENGTH OF STAY: 5-7 days. ARTI CHAMBERLAIN MD DR: KIMBERLY/carina JOB#: [id number] / [id number]
[2018-11-06 05:42] VITALS: BP 131/81
[2018-11-06] MEDS: ASCORBIC ACID 500 MG TABLET PO SCH (08:38)
[2018-11-06] MEDS: POTASSIUM CHLORIDE 10 MEQ TABLET.ER. PO SCH ×2 (08:38→20:04)
[2018-11-06] MEDS: MAGNESIUM CHLORIDE ER 64 MG TABLET.ER PO SCH (08:38)
[2018-11-06] MEDS: OXYBUTYNIN CHLORIDE 5 MG TABLET PO SCH (08:38)
[2018-11-06] MEDS: DULoxetine HCL 60 MG CAPSULE.DR PO SCH (08:38)
[2018-11-06] MEDS: DOCUSATE SODIUM 100 MG CAPSULE PO SCH (08:38)
[2018-11-06] MEDS: LOSARTAN 25 MG TABLET. PO SCH (08:39)
[2018-11-06] MEDS: LACTOBACILLUS RHAMNOSUS GG 1 CAPSULE. PO SCH ×2 (08:39→20:03)
[2018-11-06] MEDS: DIVALPROEX 125 MG CAP.SPRINK PO SCH ×3 (08:39→20:04)
[2018-11-06] MEDS: NITROFURANTOIN MONOHYD/M-CRYST 100 MG CAPSULE. PO SCH ×2 (08:39→08:45)
[2018-11-06] MEDS: busPIRone 5 MG TABLET. PO SCH ×2 (08:39→17:22)
[2018-11-06] MEDS: CARVEDILOL 6.25 MG TABLET PO SCH ×2 (08:39→17:22)
[2018-11-06] MEDS: FUROSEMIDE 40 MG TABLET PO SCH (08:39)
[2018-11-06] MEDS: cefTRIAXone IM 1 GM VIAL IM SCH (08:40)
[2018-11-06] MEDS: FEBUXOSTAT 40 MG TABLET PO SCH (08:47)
[2018-11-06] MEDS: POLYVINYL ALCOHOL 1.4% OPHTH SOLUTION 15ML BOTTLE. OU SCH ×4 (08:48→20:09)
[2018-11-06] MEDS: SODIUM CHL/ALOE VERA NASAL GEL 14.1GM TUBE. NS SCH ×3 (08:48→20:11)
[2018-11-06] MEDS: POLYMYXIN/TRIMETHOPRIM OPHTH SOLUTION 10ML BOTTLE. OU SCH ×3 (08:48→20:09)
[2018-11-06] MEDS: NYSTATIN TOPICAL POWDER 15GM BOTTLE. TP SCH ×2 (08:48→20:09)
[2018-11-06] MEDS: INSULIN LISPRO 300 UNITS/3 ML INSULN.PEN. SQ SCH ×3 (08:49→17:24)
[2018-11-06 16:13] VITALS: BP 134/80
[2018-11-06] MEDS: RIVAROXABAN 10 MG TABLET. PO SCH (17:23)
[2018-11-06] MEDS: LATANOPROST 0.005% OPHTH SOLUTION 2.5ML BOTTLE. OS SCH (20:08)
[2018-11-06] MEDS: MINERAL OIL/PETROLATUM,WHITE OPHTH OINT 3.5GM TUBE. OU SCH (20:09)
[2018-11-06] MEDS: INSULIN GLARGINE 300 UNITS/3 ML INSULN.PEN. SQ SCH (20:10)
--- NOTE | 2018-11-06 23:41 | PN ---
DATE: 11/06/2018 SUBJECTIVE: The patient was seen today, met with the staff, chart reviewed. The patient continues to be exhibiting behavior problems including irritability, mood swings and also gets angry easily and part of the problem also stemming from deafness. The patient is currently being treated for UTI. OBSERVATION: VITAL SIGNS: Temperature is 98.2, blood pressure 131/81, pulse 81, respirations 18, O2 sat ____, repeat 95%. GENERAL: Slept about 7 hours last night. The patient's appetite is fair. The patient is on wheelchair. The patient has difficulty with ADLs, needing assistance. The patient is not exhibiting any other physical complaints. LABORATORY DATA: The patient's lab reviewed. Her white cell count was normal at 8.3. Repeat urinalysis showed few bacteria. MEDICATIONS: The patient's current medications include Rocephin 1 gram daily, nystatin 1 application b.i.d., Macrobid 100 mg b.i.d., Xarelto 20 mg daily, Lasix 40 mg daily, also Flonase spray, Cymbalta 60 mg daily, BuSpar 5 mg b.i.d. She is also on losartan, Coreg, insulin. The patient is also on potassium chloride 10 mEq b.i.d., also Depakote 125 mg t.i.d. The patient is not having any side effects. ASSESSMENT: 1. Major depressive disorder, recurrent with psychotic features. 2. Generalized anxiety disorder. 3. Cognitive disorder, mild. PLAN: To continue with the treatment. The patient is making some progress. LENGTH OF STAY: 5-7 days. ARTI CHAMBERLAIN MD DR: KIMBERLY/carina JOB#: [id number] / [id number]
[2018-11-07 05:49] VITALS: BP 142/73
[2018-11-07] MEDS: busPIRone 5 MG TABLET. PO SCH ×2 (07:24→16:46)
[2018-11-07] MEDS: MAGNESIUM CHLORIDE ER 64 MG TABLET.ER PO SCH (07:25)
[2018-11-07] MEDS: LACTOBACILLUS RHAMNOSUS GG 1 CAPSULE. PO SCH ×2 (07:25→19:47)
[2018-11-07] MEDS: FUROSEMIDE 40 MG TABLET PO SCH (07:25)
[2018-11-07] MEDS: DIVALPROEX 125 MG CAP.SPRINK PO SCH ×3 (07:25→19:47)
[2018-11-07] MEDS: DOCUSATE SODIUM 100 MG CAPSULE PO SCH (07:25)
[2018-11-07] MEDS: DULoxetine HCL 60 MG CAPSULE.DR PO SCH (07:25)
[2018-11-07] MEDS: ASCORBIC ACID 500 MG TABLET PO SCH (07:25)
[2018-11-07] MEDS: OXYBUTYNIN CHLORIDE 5 MG TABLET PO SCH (07:26)
[2018-11-07] MEDS: LOSARTAN 25 MG TABLET. PO SCH (07:26)
[2018-11-07] MEDS: POTASSIUM CHLORIDE 10 MEQ TABLET.ER. PO SCH ×2 (07:26→19:47)
[2018-11-07] MEDS: CARVEDILOL 6.25 MG TABLET PO SCH ×2 (07:27→16:46)
[2018-11-07] MEDS: cefTRIAXone IM 1 GM VIAL IM SCH (07:27)
[2018-11-07] MEDS: FEBUXOSTAT 40 MG TABLET PO SCH (07:27)
[2018-11-07] MEDS: SODIUM CHL/ALOE VERA NASAL GEL 14.1GM TUBE. NS SCH ×3 (07:28→19:53)
[2018-11-07] MEDS: FLUTICASONE 50MCG/NASAL SPRAY 16GM BOTTLE. NS SCH (07:28)
[2018-11-07] MEDS: NYSTATIN TOPICAL POWDER 15GM BOTTLE. TP SCH ×2 (07:28→19:46)
[2018-11-07] MEDS: POLYMYXIN/TRIMETHOPRIM OPHTH SOLUTION 10ML BOTTLE. OU SCH ×3 (07:28→19:46)
[2018-11-07] MEDS: POLYVINYL ALCOHOL 1.4% OPHTH SOLUTION 15ML BOTTLE. OU SCH ×4 (07:28→19:53)
[2018-11-07] MEDS: INSULIN LISPRO 300 UNITS/3 ML INSULN.PEN. SQ SCH ×3 (08:15→17:18)
[2018-11-07 15:53] VITALS: BP 107/71
[2018-11-07] MEDS: RIVAROXABAN 10 MG TABLET. PO SCH (16:45)
[2018-11-07] MEDS: LATANOPROST 0.005% OPHTH SOLUTION 2.5ML BOTTLE. OS SCH (19:47)
[2018-11-07] MEDS: MINERAL OIL/PETROLATUM,WHITE OPHTH OINT 3.5GM TUBE. OU SCH (19:52)
[2018-11-07] MEDS: INSULIN GLARGINE 300 UNITS/3 ML INSULN.PEN. SQ SCH (19:56)
--- NOTE | 2018-11-07 22:24 | PN ---
DATE: 11/07/2018 SUBJECTIVE: The patient was seen today, met with the staff, chart reviewed. The patient is still irritable and vaughan, tends to withdraw, fluctuating mood. The patient also gets angry easily and also paranoid and obsessive with her behavior. OBSERVATION: VITAL SIGNS: Temperature 97.7, blood pressure 134/80, pulse 70, respirations 18, O2 sat 95%. The patient's sleep is fair. Appetite decreased. MEDICATIONS: The patient's current medications include Xarelto 20 mg daily, Lasix 40 mg daily, Cymbalta 60 mg daily, BuSpar 5 mg b.i.d. The patient is also on losartan, Coreg, and insulin. The patient is also on potassium chloride 10 mEq b.i.d., Depakote 125 mg b.i.d. The patient denies of any side effects. ASSESSMENT: 1. Major depressive disorder, recurrent with psychotic features. 2. Generalized anxiety disorder. 3. Cognitive disorder, mild. PLAN: To continue with the treatment. LENGTH OF STAY: 5-7 days. ARTI CHAMBERLAIN MD DR: KIMBERLY/carina JOB#: [id number] / [id number]
[2018-11-08 05:43] VITALS: BP 148/82
[2018-11-08] MEDS: FEBUXOSTAT 40 MG TABLET PO SCH (07:52)
[2018-11-08] MEDS: MAGNESIUM CHLORIDE ER 64 MG TABLET.ER PO SCH (07:52)
[2018-11-08] MEDS: POTASSIUM CHLORIDE 10 MEQ TABLET.ER. PO SCH ×2 (07:53→19:36)
[2018-11-08] MEDS: DOCUSATE SODIUM 100 MG CAPSULE PO SCH (07:53)
[2018-11-08] MEDS: LACTOBACILLUS RHAMNOSUS GG 1 CAPSULE. PO SCH ×2 (07:53→19:35)
[2018-11-08] MEDS: OXYBUTYNIN CHLORIDE 5 MG TABLET PO SCH (07:53)
[2018-11-08] MEDS: DULoxetine HCL 60 MG CAPSULE.DR PO SCH (07:53)
[2018-11-08] MEDS: CARVEDILOL 6.25 MG TABLET PO SCH ×2 (07:53→18:08)
[2018-11-08] MEDS: ASCORBIC ACID 500 MG TABLET PO SCH (07:54)
[2018-11-08] MEDS: RIVAROXABAN 10 MG TABLET. PO SCH (07:54)
[2018-11-08] MEDS: FUROSEMIDE 40 MG TABLET PO SCH (07:54)
[2018-11-08] MEDS: DIVALPROEX 125 MG CAP.SPRINK PO SCH ×3 (07:54→19:35)
[2018-11-08] MEDS: LOSARTAN 25 MG TABLET. PO SCH (07:54)
[2018-11-08] MEDS: cefTRIAXone IM 1 GM VIAL IM SCH (07:55)
[2018-11-08] MEDS: busPIRone 5 MG TABLET. PO SCH ×2 (07:56→17:00)
[2018-11-08] MEDS: INSULIN LISPRO 300 UNITS/3 ML INSULN.PEN. SQ SCH ×3 (07:57→18:10)
[2018-11-08] MEDS: POLYMYXIN/TRIMETHOPRIM OPHTH SOLUTION 10ML BOTTLE. OU SCH ×2 (07:59→12:54)
[2018-11-08] MEDS: SODIUM CHL/ALOE VERA NASAL GEL 14.1GM TUBE. NS SCH ×3 (07:59→12:54)
[2018-11-08] MEDS: FLUTICASONE 50MCG/NASAL SPRAY 16GM BOTTLE. NS SCH (07:59)
[2018-11-08] MEDS: POLYVINYL ALCOHOL 1.4% OPHTH SOLUTION 15ML BOTTLE. OU SCH ×4 (07:59→19:35)
[2018-11-08] MEDS: NYSTATIN TOPICAL POWDER 15GM BOTTLE. TP SCH ×2 (08:00→19:35)
[2018-11-08] MEDS ORDERED: CHOLECALCIFEROL (VITAMIN D3) 50,000 UNIT CAPSULE PO SCH (09:00)
[2018-11-08 15:23] VITALS: BP 108/71
[2018-11-08] MEDS: LATANOPROST 0.005% OPHTH SOLUTION 2.5ML BOTTLE. OS SCH (19:35)
[2018-11-08] MEDS: INSULIN GLARGINE 300 UNITS/3 ML INSULN.PEN. SQ SCH (19:36)
[2018-11-08] MEDS: MINERAL OIL/PETROLATUM,WHITE OPHTH OINT 3.5GM TUBE. OU SCH (19:37)
--- NOTE | 2018-11-09 00:22 | PN ---
DATE: 11/08/2018 SUBJECTIVE: The patient was seen today, met with the staff, chart reviewed. The patient is still withdrawn, hearing loss and also complains of lower extremity pain. Apparently, she had cellulitis in the past. The patient is also irritable and vaughan, but not presented with any major behavior problems. OBSERVATION: VITAL SIGNS: Temperature 97.8, blood pressure 148/82, pulse 69, respirations 18, and O2 sat 90%. Slept about 8 hours last night. The patient's appetite is fair. MEDICATIONS: The patient's current medications include Cymbalta 60 mg daily, BuSpar 5 mg b.i.d., and Depakote 125 mg b.i.d. The patient is not having any side effects or major medical issues. ASSESSMENT: 1. Major depressive disorder, recurrent with psychotic features. 2. Generalized anxiety disorder. 3. Cognitive disorder, mild. PLAN: To continue with the treatment. LENGTH OF STAY: Five days. ARTI CHAMBERLAIN MD DR: KIMBERLY/carina JOB#: [id number] / [id number]
[2018-11-09] MEDS: INSULIN LISPRO 300 UNITS/3 ML INSULN.PEN. SQ SCH ×3 (07:30→17:52)
[2018-11-09] MEDS: CARVEDILOL 6.25 MG TABLET PO SCH ×2 (08:00→17:50)
[2018-11-09] MEDS: cefTRIAXone IM 1 GM VIAL IM SCH (08:59)
[2018-11-09] MEDS: DULoxetine HCL 60 MG CAPSULE.DR PO SCH (09:00)
[2018-11-09] MEDS: NYSTATIN TOPICAL POWDER 15GM BOTTLE. TP SCH ×2 (09:00→19:42)
[2018-11-09] MEDS: MAGNESIUM CHLORIDE ER 64 MG TABLET.ER PO SCH (09:00)
[2018-11-09] MEDS: POTASSIUM CHLORIDE 10 MEQ TABLET.ER. PO SCH ×2 (09:00→19:38)
[2018-11-09] MEDS: LACTOBACILLUS RHAMNOSUS GG 1 CAPSULE. PO SCH ×2 (09:00→19:38)
[2018-11-09] MEDS: busPIRone 5 MG TABLET. PO SCH ×2 (09:00→17:50)
[2018-11-09] MEDS: FUROSEMIDE 40 MG TABLET PO SCH (09:00)
[2018-11-09] MEDS: DIVALPROEX 125 MG CAP.SPRINK PO SCH ×3 (09:00→19:37)
[2018-11-09] MEDS: FLUTICASONE 50MCG/NASAL SPRAY 16GM BOTTLE. NS SCH (09:00)
[2018-11-09] MEDS: ASCORBIC ACID 500 MG TABLET PO SCH (09:00)
[2018-11-09] MEDS: POLYVINYL ALCOHOL 1.4% OPHTH SOLUTION 15ML BOTTLE. OU SCH ×4 (09:00→19:39)
[2018-11-09] MEDS: LOSARTAN 25 MG TABLET. PO SCH (09:00)
[2018-11-09] MEDS: OXYBUTYNIN CHLORIDE 5 MG TABLET PO SCH (09:00)
[2018-11-09] MEDS: FEBUXOSTAT 40 MG TABLET PO SCH (09:00)
[2018-11-09] MEDS: DOCUSATE SODIUM 100 MG CAPSULE PO SCH (09:00)
[2018-11-09 12:14] VITALS: BP 157/78
[2018-11-09 15:40] VITALS: BP 133/73
[2018-11-09] MEDS: RIVAROXABAN 10 MG TABLET. PO SCH (17:00)
--- NOTE | 2018-11-09 18:30 | PN ---
DATE: 11/09/2018 SUBJECTIVE: The patient was seen today, met with the staff, chart reviewed. The patient's affect improved slightly. The patient continues to have problems with hearing. The patient also complains of lower extremity pain. The patient states he is not having any major physical problems at this time. VITAL SIGNS: Temperature 97.6, blood pressure 157/78, pulse 79, respiration 18, O2 sat 98%. Slept about 6 hours last night. The patient is not having any major side effects. MEDICATIONS: Currently, she is on Cymbalta 60 mg daily, BuSpar 5 mg b.i.d. and Depakote 125 mg b.i.d. ASSESSMENT: 1. Major depressive disorder, recurrent with psychotic features. 2. Generalized anxiety disorder. 3. Cognitive disorder, mild. PLAN: To continue with the treatment. LENGTH OF STAY: 4-5 days. ARTI CHAMBERLAIN MD DR: KIMBERLY/carina JOB#: [id number] / [id number]
[2018-11-09] MEDS: LATANOPROST 0.005% OPHTH SOLUTION 2.5ML BOTTLE. OS SCH (19:39)
[2018-11-09] MEDS: INSULIN GLARGINE 300 UNITS/3 ML INSULN.PEN. SQ SCH (19:41)
[2018-11-09] MEDS: MINERAL OIL/PETROLATUM,WHITE OPHTH OINT 3.5GM TUBE. OU SCH (19:41)
[2018-11-10] MEDS: POLYVINYL ALCOHOL 1.4% OPHTH SOLUTION 15ML BOTTLE. OU SCH ×2 (05:44→19:48)
[2018-11-10 05:47] VITALS: BP 143/82
[2018-11-10] MEDS: cefTRIAXone IM 1 GM VIAL IM SCH (07:27)
[2018-11-10] MEDS: CARVEDILOL 6.25 MG TABLET PO SCH ×2 (07:28→17:29)
[2018-11-10] MEDS: DIVALPROEX 125 MG CAP.SPRINK PO SCH ×3 (07:28→19:45)
[2018-11-10] MEDS: POTASSIUM CHLORIDE 10 MEQ TABLET.ER. PO SCH ×2 (07:28→19:44)
[2018-11-10] MEDS: DOCUSATE SODIUM 100 MG CAPSULE PO SCH (07:28)
[2018-11-10] MEDS: LACTOBACILLUS RHAMNOSUS GG 1 CAPSULE. PO SCH ×2 (07:28→19:44)
[2018-11-10] MEDS: LOSARTAN 25 MG TABLET. PO SCH (07:28)
[2018-11-10] MEDS: MAGNESIUM CHLORIDE ER 64 MG TABLET.ER PO SCH (07:28)
[2018-11-10] MEDS: OXYBUTYNIN CHLORIDE 5 MG TABLET PO SCH (07:29)
[2018-11-10] MEDS: FEBUXOSTAT 40 MG TABLET PO SCH (07:29)
[2018-11-10] MEDS: DULoxetine HCL 60 MG CAPSULE.DR PO SCH (07:29)
[2018-11-10] MEDS: ASCORBIC ACID 500 MG TABLET PO SCH (07:29)
[2018-11-10] MEDS: busPIRone 5 MG TABLET. PO SCH ×2 (07:29→17:29)
[2018-11-10] MEDS: NYSTATIN TOPICAL POWDER 15GM BOTTLE. TP SCH ×2 (07:29→19:56)
[2018-11-10] MEDS: FUROSEMIDE 40 MG TABLET PO SCH (07:29)
[2018-11-10] MEDS: FLUTICASONE 50MCG/NASAL SPRAY 16GM BOTTLE. NS SCH (07:30)
[2018-11-10] MEDS: INSULIN LISPRO 300 UNITS/3 ML INSULN.PEN. SQ SCH ×3 (07:31→17:35)
[2018-11-10 15:33] VITALS: BP 133/78
[2018-11-10 15:35] VITALS: BP 133/78
[2018-11-10] MEDS: RIVAROXABAN 10 MG TABLET. PO SCH (17:29)
[2018-11-10] MEDS: LATANOPROST 0.005% OPHTH SOLUTION 2.5ML BOTTLE. OS SCH (19:48)
[2018-11-10] MEDS: MINERAL OIL/PETROLATUM,WHITE OPHTH OINT 3.5GM TUBE. OU SCH (19:51)
[2018-11-10] MEDS: INSULIN GLARGINE 300 UNITS/3 ML INSULN.PEN. SQ SCH (19:55)
--- NOTE | 2018-11-11 00:51 | PN ---
DATE: 11/10/2018 SUBJECTIVE: The patient was seen today, met with the staff, chart reviewed. Staff reports the patient is very irritable and vaughan, angry with the staff, resistant to care and not following directions at times. The patient is withdrawn most of the time, isolates herself. OBSERVATION: VITAL SIGNS: Temperature 97.6, blood pressure 143/82, respirations 20, O2 sat 91%, and pulse 72. Slept about 6 hours last night. CURRENT MEDICATIONS: The patient's current medications include Cymbalta 60 mg daily, BuSpar 5 mg b.i.d. and Depakote 125 mg b.i.d. ASSESSMENT: 1. Major depressive disorder, recurrent with psychotic features. 2. Generalized anxiety disorder. 3. Cognitive disorder, mild. PLAN: Continue with the treatment and also agreed to increase her Depakote to 125 mg in the morning and 250 mg at night. Continue to monitor behavior. LENGTH OF STAY: Four to five days. ARTI CHAMBERLAIN MD DR: KIMBERLY/carina JOB#: [id number] / [id number]
[2018-11-11 05:45] VITALS: BP 150/80
[2018-11-11 08:04] LABS: BASO # 0.3 x10^3/uL (0.0-0.2); BASO % 3 % (0-3); EOS # 0.6 x10^3/uL (0.0-0.7); EOS % 8 % (0-3); HEMATOCRIT 44.9 % (36.0-47.0); HEMOGLOBIN 14.3 g/dL (12.0-15.5); LYMPH # 2.1 x10^3/uL (1.0-4.8); LYMPH % 27 % (24-48); MEAN CORPUSCULAR HEMOGLOBIN 26 pg (25-35); MEAN CORPUSCULAR HGB CONC 32 g/dL (31-37); MEAN CORPUSCULAR VOLUME 81 fL (79-100); MONO # 0.7 x10^3/uL (0.0-1.1); MONO % 9 % (0-9); NEUT % 53 % (31-73); PLATELET COUNT 385 x10^3/uL (140-400); RED BLOOD COUNT 5.54 x10^6/uL (3.50-5.40); WHITE BLOOD COUNT 7.6 x10^3/uL (4.0-11.0)
[2018-11-11 08:16] LABS: ALBUMIN 2.8 g/dL (3.4-5.0); ALBUMIN/GLOBULIN RATIO 0.5 (1.0-1.7); CALCIUM 10.7 mg/dL (8.5-10.1); GFR 54.1; POTASSIUM 4.6 mmol/L (3.5-5.1); TOTAL BILIRUBIN 0.2 mg/dL (0.2-1.0); TOTAL PROTEIN 8.8 g/dL (6.4-8.2)
[2018-11-11] MEDS: OXYBUTYNIN CHLORIDE 5 MG TABLET PO SCH (08:17)
[2018-11-11] MEDS: LACTOBACILLUS RHAMNOSUS GG 1 CAPSULE. PO SCH ×2 (08:17→19:40)
[2018-11-11] MEDS: LOSARTAN 25 MG TABLET. PO SCH (08:17)
[2018-11-11] MEDS: ASCORBIC ACID 500 MG TABLET PO SCH (08:17)
[2018-11-11] MEDS: FUROSEMIDE 40 MG TABLET PO SCH (08:17)
[2018-11-11] MEDS: FEBUXOSTAT 40 MG TABLET PO SCH (08:17)
[2018-11-11] MEDS: MAGNESIUM CHLORIDE ER 64 MG TABLET.ER PO SCH (08:18)
[2018-11-11] MEDS: POTASSIUM CHLORIDE 10 MEQ TABLET.ER. PO SCH ×2 (08:18→19:41)
[2018-11-11] MEDS: CARVEDILOL 6.25 MG TABLET PO SCH ×2 (08:18→17:11)
[2018-11-11] MEDS: DOCUSATE SODIUM 100 MG CAPSULE PO SCH (08:18)
[2018-11-11] MEDS: busPIRone 5 MG TABLET. PO SCH ×2 (08:18→17:11)
[2018-11-11] MEDS: NYSTATIN TOPICAL POWDER 15GM BOTTLE. TP SCH ×2 (08:18→19:42)
[2018-11-11] MEDS: DULoxetine HCL 60 MG CAPSULE.DR PO SCH (08:18)
[2018-11-11] MEDS: POLYVINYL ALCOHOL 1.4% OPHTH SOLUTION 15ML BOTTLE. OU SCH ×2 (08:19→19:42)
[2018-11-11] MEDS: INSULIN LISPRO 300 UNITS/3 ML INSULN.PEN. SQ SCH ×3 (08:20→17:12)
[2018-11-11] MEDS: FLUTICASONE 50MCG/NASAL SPRAY 16GM BOTTLE. NS SCH (08:21)
[2018-11-11] MEDS: DIVALPROEX 125 MG CAP.SPRINK PO SCH ×3 (08:22→19:41)
[2018-11-11 08:28] LABS: VAL ACID 37 mcg/mL (50-100)
[2018-11-11 16:06] VITALS: BP 121/67
[2018-11-11] MEDS: RIVAROXABAN 10 MG TABLET. PO SCH (17:11)
[2018-11-11] MEDS: LATANOPROST 0.005% OPHTH SOLUTION 2.5ML BOTTLE. OS SCH (19:40)
[2018-11-11] MEDS: MINERAL OIL/PETROLATUM,WHITE OPHTH OINT 3.5GM TUBE. OU SCH (19:42)
[2018-11-11] MEDS: INSULIN GLARGINE 300 UNITS/3 ML INSULN.PEN. SQ SCH (19:43)
--- NOTE | 2018-11-11 22:36 | PDOC ---
Exam Note: Nain Note: Please also refer to the separate dictated note~for this date of service dictated separately.~Patient seen individually. Discussed the patient with Nursing staff reviewed the chart.~Reviewed interim history and current functioning. Reviewed vital signs,~Labs/ Radiology~and current medications noted below. Continue current treatment with the changes noted in the dictated addendum note Assessment: Vital Signs: Vital Signs Date Time Temp Pulse Resp B/P (MAP) Pulse Ox O2 Delivery O2 Flow Rate FiO2 11/11/18 17:11 70 121/67 11/11/18 16:06 97.3 18 91 11/09/18 15:40 Room Air I&O Intake and Output 11/11/18 06:59 Intake Total 720 ml Output Total 475 ml Balance 245 ml Intake Oral 720 ml Output Urine Total 475 ml Labs: Laboratory Tests Test 11/11/18 07:20 11/11/18 07:35 11/11/18 11:28 11/11/18 16:25 Glucose (Fingerstick) 142 mg/dL (70-99) H 218 mg/dL (70-99) H 189 mg/dL (70-99) H White Blood Count 7.6 x10^3/uL (4.0-11.0) Red Blood Count 5.54 x10^6/uL (3.50-5.40) H Hemoglobin 14.3 g/dL (12.0-15.5) Hematocrit 44.9 % (36.0-47.0) Mean Corpuscular Volume 81 fL (79-100) Mean Corpuscular Hemoglobin 26 pg (25-35) Mean Corpuscular Hemoglobin Concent 32 g/dL (31-37) Red Cell Distribution Width 16.0 % (11.5-14.5) H Platelet Count 385 x10^3/uL (140-400) Neutrophils (%) (Auto) 53 % (31-73) Lymphocytes (%) (Auto) 27 % (24-48) Monocytes (%) (Auto) 9 % (0-9) Eosinophils (%) (Auto) 8 % (0-3) H Basophils (%) (Auto) 3 % (0-3) Neutrophils # (Auto) 4.0 x10^3uL (1.8-7.7) Lymphocytes # (Auto) 2.1 x10^3/uL (1.0-4.8) Monocytes # (Auto) 0.7 x10^3/uL (0.0-1.1) Eosinophils # (Auto) 0.6 x10^3/uL (0.0-0.7) Basophils # (Auto) 0.3 x10^3/uL (0.0-0.2) H Sodium Level 143 mmol/L (136-145) Potassium Level 4.6 mmol/L (3.5-5.1) Chloride Level 106 mmol/L (98-107) Carbon Dioxide Level 32 mmol/L (21-32) Anion Gap 5 (6-14) L Blood Urea Nitrogen 26 mg/dL (7-20) H Creatinine 1.0 mg/dL (0.6-1.0) Estimated GFR (Cockcroft-Gault) 54.1 BUN/Creatinine Ratio 26 (6-20) H Glucose Level 148 mg/dL (70-99) H Calcium Level 10.7 mg/dL (8.5-10.1) H Total Bilirubin 0.2 mg/dL (0.2-1.0) Aspartate Amino Transferase (AST) 10 U/L (15-37) L Alanine Aminotransferase (ALT) 9 U/L (14-59) L Alkaline Phosphatase 86 U/L (46-116) Total Protein 8.8 g/dL (6.4-8.2) H Albumin 2.8 g/dL (3.4-5.0) L Albumin/Globulin Ratio 0.5 (1.0-1.7) L Valproic Acid Level 37 mcg/mL (50-100) L Valproic Acid Last Dose Date 11/10/18 Valproic Acid Last Dose Time 2100 Test 11/11/18 19:09 Glucose (Fingerstick) 218 mg/dL (70-99) H Current Medications: Meds: Current Medications Cephalexin HCl (Keflex) 500 mg 1X ONCE PO ; Start 11/01/18 at 17:15; Stop 11/01/18 at 17:16; Status DC Ascorbic Acid (Vitamin C) 500 mg DAILY PO Last administered on 11/11/18at 08:17; Start 11/02/18 at 09:00 Vitamin D (Vitamin D3) 50,000 unit WEEKLY PO Last administered on 11/08/18at 08:01; Start 11/08/18 at 09:00 Febuxostat (Uloric) 40 mg DAILY PO Last administered on 11/11/18 08:17; Start 11/02/18 at 09:00 Insulin Human Lispro (HumaLOG) 5 units TIDAC SQ Last administered on 11/11/18 12:07; Start 11/02/18 at 07:30; Stop 11/11/18 at 15:00; Status DC Losartan Potassium (Cozaar) 25 mg DAILY PO Last administered on 11/11/18 08:17; Start 11/02/18 at 09:00 Al Hydroxide/Mg Hydroxide (Mylanta Plus Xs) 15 ml PRN AFTMEALHC PRN PO DYSPEPSIA; Start 11/01/18 at 18:45 Magnesium Hydroxide (Milk Of Magnesia) 2,400 mg PRN QHS PRN PO CONSTIPATION; Start 11/01/18 at 18:45 Polymyxin/ Trimethoprim Sulfate (Polytrim) 1 drop TID OU Last administered on 11/08/18at 12:54; Start 11/01/18 at 21:00; Stop 11/08/18 at 21:00; Status DC Artificial Tears (Artificial Tears) 1 drop QID OU Last administered on 11/09/18at 17:00; Start 11/01/18 at 21:00; Stop 11/09/18 at 17:10; Status DC Acetaminophen (Tylenol) 500 mg PRN Q6HRS PRN PO PAIN / TEMP Last administered on 11/05/18 09:03; Start 11/01/18 at 18:45 Buspirone HCl (Buspar) 5 mg BID@0900,1700 PO Last administered on 11/11/18at 17:11; Start 11/02/18 at 09:00 Carvedilol (Coreg) 6.25 mg BIDWMEALS PO Last administered on 11/11/18 17:11; Start 11/02/18 at 08:00 Divalproex Sodium (Depakote Sprinkles) 125 mg TID PO Last administered on 11/10/18 13:09; Start 11/01/18 at 21:00; Stop 11/10/18 at 15:36; Status DC Docusate Sodium (Colace) 100 mg DAILY PO Last administered on 11/11/18at 08:18; Start 11/02/18 at 09:00 Duloxetine HCl (Cymbalta) 60 mg DAILY PO Last administered on 11/11/18 08:18; Start 11/02/18 at 09:00 Fluticasone Propionate (Flonase) 2 spray DAILY NS Last administered on 11/11/18 at 08:21; Start 11/02/18 at 09:00 Furosemide (Lasix) 40 mg DAILY PO Last administered on 11/11/18 08:17; Start 11/02/18 at 09:00 Insulin Glargine (Lantus) 17 units QHS SQ Last administered on 11/11/18 19:43; Start 11/01/18 at 21:00 Levofloxacin (Levaquin) 750 mg DAILY06 PO Last administered on 11/02/18 05:08; Start 11/02/18 at 06:00; Stop 11/02/18 at 13:06; Status DC Latanoprost (Xalatan) 1 drop QHS OS Last administered on 11/11/18 19:40; Start 11/01/18 at 21:00 Non-Formulary Medication (Levofloxacin ) 750 mg DAILY PO ; Start 11/02/18 at 09:00; Stop 11/02/18 at 09:00; Status DC Magnesium Chloride (Mag Delay) 64 mg DAILY PO Last administered on 11/11/18 08:18; Start 11/02/18 at 09:00 Melatonin 3 mg QHS PO Last administered on 11/03/18 19:48; Start 11/01/18 at 21:00; Stop 11/04/18 at 20:59; Status DC Multi-Ingred Cream/Lotion/Oil/ Oint (Artificial Tears Eye Ointment) 1 karlos QHS OU Last administered on 11/11/18 19:42; Start 11/01/18 at 21:00 Oxybutynin Chloride (Ditropan) 5 mg DAILY PO Last administered on 11/11/18 08:17; Start 11/02/18 at 09:00 Potassium Chloride (Klor-Con) 10 meq BID PO Last administered on 11/11/18 19:41; Start 11/01/18 at 21:00 Rivaroxaban (Xarelto) 20 mg DAILYWSUP PO Last administered on 11/11/18 17:11; Start 11/02/18 at 17:00 Sodium Chloride ([place] Saline Nasal) 1 karlos TID NS Last administered on 11/08/18 12:54; Start 11/01/18 at 21:00; Stop 11/08/18 at 21:00; Status DC Glucose (Insta-Glucose) 15 gm PRN Q15MIN PRN PO LOW BLOOD SUGAR; Start 11/01/18 at 18:45 Lactobacillus Rhamnosus (Culturelle) 1 cap BID PO Last administered on 11/11/18 19:40; Start 11/01/18 at 21:00 Nitrofurantoin Macrocrystals (Macrobid) 100 mg BID PO Last administered on 11/05/18 20:07; Start 11/02/18 at 21:00; Stop 11/06/18 at 17:21; Status DC Nystatin (Nystop) 1 karlos BID TP Last administered on 11/11/18 19:42; Start 11/03/18 at 21:00 Ceftriaxone Sodium (Rocephin Im) 1 gm DAILY IM Last administered on 11/10/18 07:27; Start 11/06/18 at 09:00; Stop 11/10/18 at 21:00; Status DC Artificial Tears (Artificial Tears) 1 drop BID OU Last administered on 11/11/18 19:42; Start 11/09/18 at 21:00 Divalproex Sodium (Depakote Sprinkles) 125 mg BID92 PO Last administered on 11/11/18 13:19; Start 11/11/18 at 09:00 Divalproex Sodium (Depakote Sprinkles) 250 mg HS PO Last administered on 11/11/18 19:41; Start 11/10/18 at 21:00 Insulin Human Lispro (HumaLOG) 8 units TIDAC SQ Last administered on 11/11/18 17:12; Start 11/11/18 at 16:30 Active Scripts Active Reported [place] Saline (Sodium Chloride) 50 Ml [place] 1 Spr NS TID 7 Days Polymyxin B-Tmp Eye Drops (Polymyxin B Sulf/Trimethoprim) 10 Ml Drops 1 Drop OU TID 7 Days Depakote Sprinkle (Divalproex Sodium) 125 Mg Cap.sprink 125 Mg PO TID Levofloxacin 750 Mg Tablet 750 Mg PO DAILY 9 Days Flonase Allergy Relief (Fluticasone Propionate) 9.9 Ml [place].susp 1 Sprays NS DAILY Acetaminophen 500 Mg Tablet 500 Mg PO PRN Q6HRS PRN Buspirone Hcl 5 Mg Tablet 5 Mg PO BID@0900,1700 Melatonin 3 Mg Tablet 3 Mg PO QHS 3 Days Milk Of Magnesia (Magnesium Hydroxide) 400 Mg/5 Ml Oral.susp 2,400 Mg PO PRN QHS PRN Mag-Al Plus Xs Suspension (Mag Hydrox/Al Hydrox/Simeth) 30 Ml Oral.susp 15 Ml PO PRN AFTMEALHC PRN D3-50 (Cholecalciferol (Vitamin D3)) 50,000 Unit Capsule 50,000 Unit PO WEEKLY start date: 09/13/18 Ascorbic Acid 500 Mg Tablet 500 Mg PO DAILY Uloric (Febuxostat) 40 Mg Tablet 40 Mg PO DAILY Systane Nighttime Eye Oint (Mineral Oil/Petrolatum,White) 3.5 Gm Oint...g. 1 Karlos OU QHS Oxybutynin Chloride Er (Oxybutynin Chloride) 5 Mg Tab.er.24 5 Mg PO DAILY Magnesium Chloride 64 Mg Tablet.dr 64 Mg PO DAILY Humalog (Insulin Lispro) 100 Unit/1 Ml Insuln.pen 5 Unit SQ TIDAC Docusate Sodium 100 Mg Capsule 100 Mg PO DAILY Artificial Tears (Polyvinyl Alcohol) 15 Ml Drops 1 Drp OU QID Potassium Chloride 10 Meq Tablet.er 10 Meq PO BID Xarelto (Rivaroxaban) 20 Mg Tablet 20 Mg PO DAILY Probiotic (Lactobacillus Combo No.10) 1 Each Capsule 1 Cap PO DAILY 14 Days Lasix (Furosemide) 40 Mg Tablet 40 Mg PO DAILY Coreg (Carvedilol) 6.25 Mg Tablet 6.25 Mg PO BIDWMEALS Lantus (Insulin Glargine,Hum.rec.anlog) 100 Unit/1 Ml Vial 17 Unit SQ HS Latanoprost 2.5 Ml Drops 1 Drop OS QHS Losartan Potassium (Losartan Potassium) 25 Mg Tablet 25 Mg PO DAILY Cymbalta (Duloxetine Hcl) 60 Mg Capsule.dr 60 Mg PO DAILY I have reviewed the current psychotropics carefully including drug interactions. Risk benefit ratio favors no change other than as noted in my dictated progress note. Diagnosis: Problems: (1) Urinary tract infection (2) Encounter for medical screening examination (3) Anxiety disorder (4) Major depressive disorder, recurrent episode (5) Impulse control disorder CLAUDIA LAROSE MD Nov 11, 2018 22:36
[2018-11-12 04:39] VITALS: BP 126/75
[2018-11-12] MEDS: busPIRone 5 MG TABLET. PO SCH (08:14)
[2018-11-12] MEDS: LACTOBACILLUS RHAMNOSUS GG 1 CAPSULE. PO SCH ×2 (08:14→19:44)
[2018-11-12] MEDS: LOSARTAN 25 MG TABLET. PO SCH (08:15)
[2018-11-12] MEDS: DULoxetine HCL 60 MG CAPSULE.DR PO SCH (08:15)
[2018-11-12] MEDS: CARVEDILOL 6.25 MG TABLET PO SCH ×2 (08:15→17:11)
[2018-11-12] MEDS: FUROSEMIDE 40 MG TABLET PO SCH (08:15)
[2018-11-12] MEDS: DOCUSATE SODIUM 100 MG CAPSULE PO SCH (08:15)
[2018-11-12] MEDS: ASCORBIC ACID 500 MG TABLET PO SCH (08:15)
[2018-11-12] MEDS: OXYBUTYNIN CHLORIDE 5 MG TABLET PO SCH (08:15)
[2018-11-12] MEDS: MAGNESIUM CHLORIDE ER 64 MG TABLET.ER PO SCH (08:15)
[2018-11-12] MEDS: DIVALPROEX 125 MG CAP.SPRINK PO SCH ×3 (08:16→19:40)
[2018-11-12] MEDS: POTASSIUM CHLORIDE 10 MEQ TABLET.ER. PO SCH ×2 (08:16→19:40)
[2018-11-12] MEDS: POLYVINYL ALCOHOL 1.4% OPHTH SOLUTION 15ML BOTTLE. OU SCH ×2 (08:16→19:43)
[2018-11-12] MEDS: FLUTICASONE 50MCG/NASAL SPRAY 16GM BOTTLE. NS SCH (08:16)
[2018-11-12] MEDS: NYSTATIN TOPICAL POWDER 15GM BOTTLE. TP SCH ×2 (08:17→19:43)
[2018-11-12] MEDS: FEBUXOSTAT 40 MG TABLET PO SCH (08:17)
[2018-11-12] MEDS: INSULIN LISPRO 300 UNITS/3 ML INSULN.PEN. SQ SCH ×3 (08:18→17:12)
[2018-11-12 16:14] VITALS: BP 122/75
[2018-11-12] MEDS: busPIRone 10 MG TABLET. PO SCH (17:10)
[2018-11-12] MEDS: RIVAROXABAN 10 MG TABLET. PO SCH (17:10)
[2018-11-12 18:09] LABS: CALCIUM PTH 10.1 mg/dL (8.7-10.3); CREATININE PTH 0.84 mg/dL (0.57-1.00); PTH INTACT 86 pg/mL (15-65)
[2018-11-12] MEDS: INSULIN GLARGINE 300 UNITS/3 ML INSULN.PEN. SQ SCH (19:39)
[2018-11-12] MEDS: LATANOPROST 0.005% OPHTH SOLUTION 2.5ML BOTTLE. OS SCH (19:43)
[2018-11-12] MEDS: MINERAL OIL/PETROLATUM,WHITE OPHTH OINT 3.5GM TUBE. OU SCH (19:43)
--- NOTE | 2018-11-12 21:01 | PN ---
DATE: 11/11/2018 PSYCHIATRIC PROGRESS NOTE This late entry 11/11/2018 covers the elements not covered in my initial note. SUBJECTIVE: I met with the patient in the evening. Reviewed information from Dr. Price who had covered for me for the last several days. The patient slept 6-1/2 hours previous night. She is doing better, remains somewhat anxious. UA culture was negative. Valproic acid level 37, subtherapeutic on 11/11/2018, but clinically adequate for now. She does have cellulitis of her leg and peripheral vascular disease. We will defer to Dr. Dennis. REVIEW OF SYSTEMS: Ambulation impaired, in wheelchair. No CV, , pulmonary, eye system symptoms on review. MENTAL STATUS EXAM: Oriented to herself and situation. Speech is coherent. Abstraction fair, computation impaired, language function intact, attention span short. Mood and affect remain somewhat anxious, less labile. No suicidal or homicidal ideation. LABORATORY DATA: Reviewed. IMPRESSION: Unchanged from initial note. PLAN: No change from initial note, but if needed for her anxiety. We may need to increase the BuSpar. MAN Nicolette LAROSE MD DR: RUFUS/carina JOB#: [id number] / [id number]
--- NOTE | 2018-11-12 22:37 | PDOC ---
Exam Note: Nain Note: Please also refer to the separate dictated note~for this date of service dictated separately.~Patient seen individually. Discussed the patient with Nursing staff reviewed the chart.~Reviewed interim history and current functioning. Reviewed vital signs,~Labs/ Radiology~and current medications noted below. Continue current treatment with the changes noted in the dictated addendum note Assessment: Vital Signs: Vital Signs Date Time Temp Pulse Resp B/P (MAP) Pulse Ox O2 Delivery O2 Flow Rate FiO2 11/12/18 17:11 70 122/75 11/12/18 16:14 98.0 18 94 11/12/18 04:39 Room Air I&O Intake and Output 11/12/18 07:00 Intake Total 1320 ml Output Total 1175 ml Balance 145 ml Intake Oral 1320 ml Output Urine Total 1175 ml Labs: Laboratory Tests Test 11/12/18 07:15 11/12/18 07:41 11/12/18 11:46 11/12/18 16:35 Phosphorus Level 2.8 mg/dL (2.6-4.7) EGFR Other 68 (>59) EGFR 79 (>59) Parathyroid Hormone (Intact) 86 pg/mL (15-65) H Calcium (PTH Intact) 10.1 mg/dL (8.7-10.3) Creatinine (PTH Intact) 0.84 mg/dL (0.57-1.00) Phosphorus (PTH Intact) 2.6 mg/dL (2.5-4.5) Glucose (Fingerstick) 146 mg/dL (70-99) H 197 mg/dL (70-99) H 162 mg/dL (70-99) H Test 11/12/18 19:06 Glucose (Fingerstick) 177 mg/dL (70-99) H Current Medications: Meds: Current Medications Cephalexin HCl (Keflex) 500 mg 1X ONCE PO ; Start 11/01/18 at 17:15; Stop 11/01/18 at 17:16; Status DC Ascorbic Acid (Vitamin C) 500 mg DAILY PO Last administered on 11/12/18at 08:15; Start 11/02/18 at 09:00 Vitamin D (Vitamin D3) 50,000 unit WEEKLY PO Last administered on 11/08/18at 08:01; Start 11/08/18 at 09:00 Febuxostat (Uloric) 40 mg DAILY PO Last administered on 11/12/18 08:17; Start 11/02/18 at 09:00 Insulin Human Lispro (HumaLOG) 5 units TIDAC SQ Last administered on 11/11/18 12:07; Start 11/02/18 at 07:30; Stop 11/11/18 at 15:00; Status DC Losartan Potassium (Cozaar) 25 mg DAILY PO Last administered on 11/12/18 08:15; Start 11/02/18 at 09:00 Al Hydroxide/Mg Hydroxide (Mylanta Plus Xs) 15 ml PRN AFTMEALHC PRN PO DYSPEPSIA; Start 11/01/18 at 18:45 Magnesium Hydroxide (Milk Of Magnesia) 2,400 mg PRN QHS PRN PO CONSTIPATION; Start 11/01/18 at 18:45 Polymyxin/ Trimethoprim Sulfate (Polytrim) 1 drop TID OU Last administered on 11/08/18 12:54; Start 11/01/18 at 21:00; Stop 11/08/18 at 21:00; Status DC Artificial Tears (Artificial Tears) 1 drop QID OU Last administered on 11/09/18 17:00; Start 11/01/18 at 21:00; Stop 11/09/18 at 17:10; Status DC Acetaminophen (Tylenol) 500 mg PRN Q6HRS PRN PO PAIN / TEMP Last administered on 11/05/18 09:03; Start 11/01/18 at 18:45 Buspirone HCl (Buspar) 5 mg BID@0900,1700 PO Last administered on 11/12/18 08:14; Start 11/02/18 at 09:00; Stop 11/12/18 at 16:47; Status DC Carvedilol (Coreg) 6.25 mg BIDWMEALS PO Last administered on 11/12/18 17:11; Start 11/02/18 at 08:00 Divalproex Sodium (Depakote Sprinkles) 125 mg TID PO Last administered on 11/10/18 13:09; Start 11/01/18 at 21:00; Stop 11/10/18 at 15:36; Status DC Docusate Sodium (Colace) 100 mg DAILY PO Last administered on 11/12/18 08:15; Start 11/02/18 at 09:00 Duloxetine HCl (Cymbalta) 60 mg DAILY PO Last administered on 11/12/18 08:15; Start 11/02/18 at 09:00 Fluticasone Propionate (Flonase) 2 spray DAILY NS Last administered on 11/12/18 08:16; Start 11/02/18 at 09:00 Furosemide (Lasix) 40 mg DAILY PO Last administered on 11/12/18 08:15; Start 11/02/18 at 09:00 Insulin Glargine (Lantus) 17 units QHS SQ Last administered on 11/12/18 19:39; Start 11/01/18 at 21:00 Levofloxacin (Levaquin) 750 mg DAILY06 PO Last administered on 11/02/18 05:08; Start 11/02/18 at 06:00; Stop 11/02/18 at 13:06; Status DC Latanoprost (Xalatan) 1 drop QHS OS Last administered on 11/12/18 19:43; Start 11/01/18 at 21:00 Non-Formulary Medication (Levofloxacin ) 750 mg DAILY PO ; Start 11/02/18 at 09:00; Stop 11/02/18 at 09:00; Status DC Magnesium Chloride (Mag Delay) 64 mg DAILY PO Last administered on 11/12/18 08:15; Start 11/02/18 at 09:00 Melatonin 3 mg QHS PO Last administered on 11/03/18 19:48; Start 11/01/18 at 21:00; Stop 11/04/18 at 20:59; Status DC Multi-Ingred Cream/Lotion/Oil/ Oint (Artificial Tears Eye Ointment) 1 karlos QHS OU Last administered on 11/12/18 19:43; Start 11/01/18 at 21:00 Oxybutynin Chloride (Ditropan) 5 mg DAILY PO Last administered on 11/12/18 08:15; Start 11/02/18 at 09:00 Potassium Chloride (Klor-Con) 10 meq BID PO Last administered on 11/12/18 19:40; Start 11/01/18 at 21:00 Rivaroxaban (Xarelto) 20 mg DAILYWSUP PO Last administered on 11/12/18 17:10; Start 11/02/18 at 17:00 Sodium Chloride ([place] Saline Nasal) 1 karlos TID NS Last administered on 11/08/18 12:54; Start 11/01/18 at 21:00; Stop 11/08/18 at 21:00; Status DC Glucose (Insta-Glucose) 15 gm PRN Q15MIN PRN PO LOW BLOOD SUGAR; Start 11/01/18 at 18:45 Lactobacillus Rhamnosus (Culturelle) 1 cap BID PO Last administered on 11/12/18 19:44; Start 11/01/18 at 21:00 Nitrofurantoin Macrocrystals (Macrobid) 100 mg BID PO Last administered on 11/05/18 20:07; Start 11/02/18 at 21:00; Stop 11/06/18 at 17:21; Status DC Nystatin (Nystop) 1 karlos BID TP Last administered on 11/12/18 19:43; Start 11/03/18 at 21:00 Ceftriaxone Sodium (Rocephin Im) 1 gm DAILY IM Last administered on 11/10/18 07:27; Start 11/06/18 at 09:00; Stop 11/10/18 at 21:00; Status DC Artificial Tears (Artificial Tears) 1 drop BID OU Last administered on 11/12/18 08:16; Start 11/09/18 at 21:00; Stop 11/12/18 at 17:53; Status DC Divalproex Sodium (Depakote Sprinkles) 125 mg BID92 PO Last administered on 10/22 14:02; Start 11/11/18 at 09:00 Divalproex Sodium (Depakote Sprinkles) 250 mg HS PO Last administered on 11/12/18 19:40; Start 11/10/18 at 21:00 Insulin Human Lispro (HumaLOG) 8 units TIDAC SQ Last administered on 11/12/18 17:12; Start 11/11/18 at 16:30 Buspirone HCl (Buspar) 10 mg BID@0900,1700 PO Last administered on 11/12/18 17:10; Start 11/12/18 at 17:00 Artificial Tears (Artificial Tears) 1 drop QID OU Last administered on 11/12/18 19:43; Start 11/12/18 at 21:00 Active Scripts Active Reported [place] Saline (Sodium Chloride) 50 Ml [place] 1 Spr NS TID 7 Days Polymyxin B-Tmp Eye Drops (Polymyxin B Sulf/Trimethoprim) 10 Ml Drops 1 Drop OU TID 7 Days Depakote Sprinkle (Divalproex Sodium) 125 Mg Cap.sprink 125 Mg PO TID Levofloxacin 750 Mg Tablet 750 Mg PO DAILY 9 Days Flonase Allergy Relief (Fluticasone Propionate) 9.9 Ml [place].susp 1 Sprays NS DAILY Acetaminophen 500 Mg Tablet 500 Mg PO PRN Q6HRS PRN Buspirone Hcl 5 Mg Tablet 5 Mg PO BID@0900,1700 Melatonin 3 Mg Tablet 3 Mg PO QHS 3 Days Milk Of Magnesia (Magnesium Hydroxide) 400 Mg/5 Ml Oral.susp 2,400 Mg PO PRN QHS PRN Mag-Al Plus Xs Suspension (Mag Hydrox/Al Hydrox/Simeth) 30 Ml Oral.susp 15 Ml PO PRN AFTMEALHC PRN D3-50 (Cholecalciferol (Vitamin D3)) 50,000 Unit Capsule 50,000 Unit PO WEEKLY start date: 09/13/18 Ascorbic Acid 500 Mg Tablet 500 Mg PO DAILY Uloric (Febuxostat) 40 Mg Tablet 40 Mg PO DAILY Systane Nighttime Eye Oint (Mineral Oil/Petrolatum,White) 3.5 Gm Oint...g. 1 Karlos OU QHS Oxybutynin Chloride Er (Oxybutynin Chloride) 5 Mg Tab.er.24 5 Mg PO DAILY Magnesium Chloride 64 Mg Tablet.dr 64 Mg PO DAILY Humalog (Insulin Lispro) 100 Unit/1 Ml Insuln.pen 5 Unit SQ TIDAC Docusate Sodium 100 Mg Capsule 100 Mg PO DAILY Artificial Tears (Polyvinyl Alcohol) 15 Ml Drops 1 Drp OU QID Potassium Chloride 10 Meq Tablet.er 10 Meq PO BID Xarelto (Rivaroxaban) 20 Mg Tablet 20 Mg PO DAILY Probiotic (Lactobacillus Combo No.10) 1 Each Capsule 1 Cap PO DAILY 14 Days Lasix (Furosemide) 40 Mg Tablet 40 Mg PO DAILY Coreg (Carvedilol) 6.25 Mg Tablet 6.25 Mg PO BIDWMEALS Lantus (Insulin Glargine,Hum.rec.anlog) 100 Unit/1 Ml Vial 17 Unit SQ HS Latanoprost 2.5 Ml Drops 1 Drop OS QHS Losartan Potassium (Losartan Potassium) 25 Mg Tablet 25 Mg PO DAILY Cymbalta (Duloxetine Hcl) 60 Mg Capsule. 60 Mg PO DAILY I have reviewed the current psychotropics carefully including drug interactions. Risk benefit ratio favors no change other than as noted in my dictated progress note. Diagnosis: Problems: (1) Urinary tract infection (2) Encounter for medical screening examination (3) Anxiety disorder (4) Major depressive disorder, recurrent episode (5) Impulse control disorder CLAUDIA LAROSE MD Nov 12, 2018 22:37
[2018-11-13] MEDS: ACETAMINOPHEN 500 MG TABLET PO PRN (04:13)
[2018-11-13 06:06] VITALS: BP 142/83
[2018-11-13] MEDS: MAGNESIUM CHLORIDE ER 64 MG TABLET.ER PO SCH (08:05)
[2018-11-13] MEDS: ASCORBIC ACID 500 MG TABLET PO SCH (08:05)
[2018-11-13] MEDS: DULoxetine HCL 60 MG CAPSULE.DR PO SCH (08:10)
[2018-11-13] MEDS: OXYBUTYNIN CHLORIDE 5 MG TABLET PO SCH (08:10)
[2018-11-13] MEDS: LACTOBACILLUS RHAMNOSUS GG 1 CAPSULE. PO SCH ×2 (08:10→20:03)
[2018-11-13] MEDS: POTASSIUM CHLORIDE 10 MEQ TABLET.ER. PO SCH ×2 (08:10→20:03)
[2018-11-13] MEDS: DOCUSATE SODIUM 100 MG CAPSULE PO SCH (08:10)
[2018-11-13] MEDS: busPIRone 10 MG TABLET. PO SCH ×2 (08:10→17:23)
[2018-11-13] MEDS: DIVALPROEX 125 MG CAP.SPRINK PO SCH ×3 (08:10→20:03)
[2018-11-13] MEDS: LOSARTAN 25 MG TABLET. PO SCH (08:10)
[2018-11-13] MEDS: FUROSEMIDE 40 MG TABLET PO SCH (08:11)
[2018-11-13] MEDS: FLUTICASONE 50MCG/NASAL SPRAY 16GM BOTTLE. NS SCH (08:11)
[2018-11-13] MEDS: POLYVINYL ALCOHOL 1.4% OPHTH SOLUTION 15ML BOTTLE. OU SCH ×4 (08:11→20:05)
[2018-11-13] MEDS: FEBUXOSTAT 40 MG TABLET PO SCH (08:11)
[2018-11-13] MEDS: CARVEDILOL 6.25 MG TABLET PO SCH ×2 (08:11→17:24)
[2018-11-13] MEDS: NYSTATIN TOPICAL POWDER 15GM BOTTLE. TP SCH ×2 (08:12→20:03)
[2018-11-13] MEDS: INSULIN LISPRO 300 UNITS/3 ML INSULN.PEN. SQ SCH ×3 (08:13→17:23)
[2018-11-13 16:21] VITALS: BP 124/82
[2018-11-13] MEDS: RIVAROXABAN 10 MG TABLET. PO SCH (17:25)
--- NOTE | 2018-11-13 17:37 | PN ---
DATE: 11/13/2018 PSYCHIATRIC PROGRESS NOTE This late entry 11/12/2018 covers elements not covered in my initial note. SUBJECTIVE: I met with the patient in the evening. The patient slept 6-1/4 hours previous night. She remains somewhat anxious and in the evening, she complains of staff members mistreating her, not responding to her request immediately, was somewhat anxious, making statements that aides were poking her at night. She has had none of this during the day on 11/12/2017. REVIEW OF SYSTEMS: Ambulation impaired, in wheelchair. No CV, , pulmonary, eye system symptoms on review. MENTAL STATUS EXAM: The patient is reasonably oriented. Speech is coherent, hard of hearing. Abstraction fair, computation impaired, language function intact, attention span short. Mood and affect, somewhat anxious, at times labile, but improved. LABORATORY DATA: Reviewed. IMPRESSION: Unchanged from initial note. PLAN: Maintain Cymbalta 60 mg a day, melatonin 3 mg at bedtime, BuSpar 10 b.i.d., Depakote Sprinkles 125 mg b.i.d. and 250 at bedtime and we will go ahead and increase the BuSpar to 10 mg twice a day for her anxiety. Consider transition back to snf later this week. CLAUDIA LAROSE MD DR: RUFUS/carina JOB#: [id number] / [id number]
[2018-11-13] MEDS: MINERAL OIL/PETROLATUM,WHITE OPHTH OINT 3.5GM TUBE. OU SCH (20:03)
[2018-11-13] MEDS: LATANOPROST 0.005% OPHTH SOLUTION 2.5ML BOTTLE. OS SCH (20:05)
[2018-11-13] MEDS: INSULIN GLARGINE 300 UNITS/3 ML INSULN.PEN. SQ SCH (20:07)
--- NOTE | 2018-11-13 22:41 | PDOC ---
Exam Note: Nain Note: Please also refer to the separate dictated note~for this date of service dictated separately.~Patient seen individually. Discussed the patient with Nursing staff reviewed the chart.~Reviewed interim history and current functioning. Reviewed vital signs,~Labs/ Radiology~and current medications noted below. Continue current treatment with the changes noted in the dictated addendum note Assessment: Vital Signs: Vital Signs Date Time Temp Pulse Resp B/P (MAP) Pulse Ox O2 Delivery O2 Flow Rate FiO2 11/13/18 17:24 70 124/82 11/13/18 16:21 97.7 19 94 11/12/18 04:39 Room Air I&O Intake and Output 11/13/18 07:00 Intake Total 1080 ml Output Total 1100 ml Balance -20 ml Intake Oral 1080 ml Output Urine Total 1100 ml Labs: Laboratory Tests Test 11/13/18 07:24 11/13/18 11:40 11/13/18 16:56 11/13/18 19:19 Glucose (Fingerstick) 147 mg/dL (70-99) H 184 mg/dL (70-99) H 193 mg/dL (70-99) H 184 mg/dL (70-99) H Current Medications: Meds: Current Medications Cephalexin HCl (Keflex) 500 mg 1X ONCE PO ; Start 11/01/18 at 17:15; Stop 11/01/18 at 17:16; Status DC Ascorbic Acid (Vitamin C) 500 mg DAILY PO Last administered on 11/13/18at 08:05; Start 11/02/18 at 09:00 Vitamin D (Vitamin D3) 50,000 unit WEEKLY PO Last administered on 11/08/18at 08:01; Start 11/08/18 at 09:00; Stop 11/13/18 at 16:27; Status DC Febuxostat (Uloric) 40 mg DAILY PO Last administered on 11/13/18at 08:11; Start 11/02/18 at 09:00 Insulin Human Lispro (HumaLOG) 5 units TIDAC SQ Last administered on 11/11/18at 12:07; Start 11/02/18 at 07:30; Stop 11/11/18 at 15:00; Status DC Losartan Potassium (Cozaar) 25 mg DAILY PO Last administered on 11/13/18at 08:10 ; Start 11/02/18 at 09:00 Al Hydroxide/Mg Hydroxide (Mylanta Plus Xs) 15 ml PRN AFTMEALHC PRN PO DYSPEPSIA; Start 11/01/18 at 18:45 Magnesium Hydroxide (Milk Of Magnesia) 2,400 mg PRN QHS PRN PO CONSTIPATION; Start 11/01/18 at 18:45 Polymyxin/ Trimethoprim Sulfate (Polytrim) 1 drop TID OU Last administered on 11/08/18 12:54; Start 11/01/18 at 21:00; Stop 11/08/18 at 21:00; Status DC Artificial Tears (Artificial Tears) 1 drop QID OU Last administered on 11/09/18 17:00; Start 11/01/18 at 21:00; Stop 11/09/18 at 17:10; Status DC Acetaminophen (Tylenol) 500 mg PRN Q6HRS PRN PO PAIN / TEMP Last administered on 11/13/18 04:13; Start 11/01/18 at 18:45 Buspirone HCl (Buspar) 5 mg BID@0900,1700 PO Last administered on 11/12/18 08:14; Start 11/02/18 at 09:00; Stop 11/12/18 at 16:47; Status DC Carvedilol (Coreg) 6.25 mg BIDWMEALS PO Last administered on 11/13/18 17:24; Start 11/02/18 at 08:00 Divalproex Sodium (Depakote Sprinkles) 125 mg TID PO Last administered on 11/10/18 13:09; Start 11/01/18 at 21:00; Stop 11/10/18 at 15:36; Status DC Docusate Sodium (Colace) 100 mg DAILY PO Last administered on 11/13/18 08:10; Start 11/02/18 at 09:00 Duloxetine HCl (Cymbalta) 60 mg DAILY PO Last administered on 11/13/18 08:10; Start 11/02/18 at 09:00 Fluticasone Propionate (Flonase) 2 spray DAILY NS Last administered on 11/13/18 08:11; Start 11/02/18 at 09:00 Furosemide (Lasix) 40 mg DAILY PO Last administered on 11/13/18 08:11; Start 11/02/18 at 09:00 Insulin Glargine (Lantus) 17 units QHS SQ Last administered on 11/13/18 20:07; Start 11/01/18 at 21:00 Levofloxacin (Levaquin) 750 mg DAILY06 PO Last administered on 11/02/18 05:08; Start 11/02/18 at 06:00; Stop 11/02/18 at 13:06; Status DC Latanoprost (Xalatan) 1 drop QHS OS Last administered on 11/13/18 20:05; Start 11/01/18 at 21:00 Non-Formulary Medication (Levofloxacin ) 750 mg DAILY PO ; Start 11/02/18 at 09:00; Stop 11/02/18 at 09:00; Status DC Magnesium Chloride (Mag Delay) 64 mg DAILY PO Last administered on 11/13/18 08:05; Start 11/02/18 at 09:00 Melatonin 3 mg QHS PO Last administered on 11/03/18 19:48; Start 11/01/18 at 21:00; Stop 11/04/18 at 20:59; Status DC Multi-Ingred Cream/Lotion/Oil/ Oint (Artificial Tears Eye Ointment) 1 karlos QHS OU Last administered on 11/12/18 19:43; Start 11/01/18 at 21:00 Oxybutynin Chloride (Ditropan) 5 mg DAILY PO Last administered on 11/13/18 08:10; Start 11/02/18 at 09:00 Potassium Chloride (Klor-Con) 10 meq BID PO Last administered on 11/13/18 20:03; Start 11/01/18 at 21:00 Rivaroxaban (Xarelto) 20 mg DAILYWSUP PO Last administered on 11/13/18 17:25; Start 11/02/18 at 17:00 Sodium Chloride ([place] Saline Nasal) 1 karlos TID NS Last administered on 11/08/18 12:54; Start 11/01/18 at 21:00; Stop 11/08/18 at 21:00; Status DC Glucose (Insta-Glucose) 15 gm PRN Q15MIN PRN PO LOW BLOOD SUGAR; Start 11/01/18 at 18:45 Lactobacillus Rhamnosus (Culturelle) 1 cap BID PO Last administered on 11/13/18 20:03; Start 11/01/18 at 21:00 Nitrofurantoin Macrocrystals (Macrobid) 100 mg BID PO Last administered on 11/05/18 20:07; Start 11/02/18 at 21:00; Stop 11/06/18 at 17:21; Status DC Nystatin (Nystop) 1 karlos BID TP Last administered on 11/13/18 20:03; Start 11/03/18 at 21:00 Ceftriaxone Sodium (Rocephin Im) 1 gm DAILY IM Last administered on 11/10/18 07:27; Start 11/06/18 at 09:00; Stop 11/10/18 at 21:00; Status DC Artificial Tears (Artificial Tears) 1 drop BID OU Last administered on 11/12 08:16; Start 11/09/18 at 21:00; Stop 11/12/18 at 17:53; Status DC Divalproex Sodium (Depakote Sprinkles) 125 mg BID92 PO Last administered on 11/13/18 13:58; Start 11/11/18 at 09:00 Divalproex Sodium (Depakote Sprinkles) 250 mg HS PO Last administered on 11/13/18 20:03; Start 11/10/18 at 21:00 Insulin Human Lispro (HumaLOG) 8 units TIDAC SQ Last administered on 11/13/18 17:23; Start 11/11/18 at 16:30 Buspirone HCl (Buspar) 10 mg BID@0900,1700 PO Last administered on 11/13/18 17:23; Start 11/12/18 at 17:00 Artificial Tears (Artificial Tears) 1 drop QID OU Last administered on 11/13/18 20:05; Start 11/12/18 at 21:00 Active Scripts Active Reported [place] Saline (Sodium Chloride) 50 Ml [place] 1 Spr NS TID 7 Days Polymyxin B-Tmp Eye Drops (Polymyxin B Sulf/Trimethoprim) 10 Ml Drops 1 Drop OU TID 7 Days Depakote Sprinkle (Divalproex Sodium) 125 Mg Cap.sprink 125 Mg PO TID Levofloxacin 750 Mg Tablet 750 Mg PO DAILY 9 Days Flonase Allergy Relief (Fluticasone Propionate) 9.9 Ml [place].susp 1 Sprays NS DAILY Acetaminophen 500 Mg Tablet 500 Mg PO PRN Q6HRS PRN Buspirone Hcl 5 Mg Tablet 5 Mg PO BID@0900,1700 Melatonin 3 Mg Tablet 3 Mg PO QHS 3 Days Milk Of Magnesia (Magnesium Hydroxide) 400 Mg/5 Ml Oral.susp 2,400 Mg PO PRN QHS PRN Mag-Al Plus Xs Suspension (Mag Hydrox/Al Hydrox/Simeth) 30 Ml Oral.susp 15 Ml PO PRN AFTMEALHC PRN D3-50 (Cholecalciferol (Vitamin D3)) 50,000 Unit Capsule 50,000 Unit PO WEEKLY start date: 09/13/18 Ascorbic Acid 500 Mg Tablet 500 Mg PO DAILY Uloric (Febuxostat) 40 Mg Tablet 40 Mg PO DAILY Systane Nighttime Eye Oint (Mineral Oil/Petrolatum,White) 3.5 Gm Oint...g. 1 Karlos OU QHS Oxybutynin Chloride Er (Oxybutynin Chloride) 5 Mg Tab.er.24 5 Mg PO DAILY Magnesium Chloride 64 Mg Tablet.dr 64 Mg PO DAILY Humalog (Insulin Lispro) 100 Unit/1 Ml Insuln.pen 5 Unit SQ TIDAC Docusate Sodium 100 Mg Capsule 100 Mg PO DAILY Artificial Tears (Polyvinyl Alcohol) 15 Ml Drops 1 Drp OU QID Potassium Chloride 10 Meq Tablet.er 10 Meq PO BID Xarelto (Rivaroxaban) 20 Mg Tablet 20 Mg PO DAILY Probiotic (Lactobacillus Combo No.10) 1 Each Capsule 1 Cap PO DAILY 14 Days Lasix (Furosemide) 40 Mg Tablet 40 Mg PO DAILY Coreg (Carvedilol) 6.25 Mg Tablet 6.25 Mg PO BIDWMEALS Lantus (Insulin Glargine,Hum.rec.anlog) 100 Unit/1 Ml Vial 17 Unit SQ HS Latanoprost 2.5 Ml Drops 1 Drop OS QHS Losartan Potassium (Losartan Potassium) 25 Mg Tablet 25 Mg PO DAILY Cymbalta (Duloxetine Hcl) 60 Mg Capsule.dr 60 Mg PO DAILY I have reviewed the current psychotropics carefully including drug interactions. Risk benefit ratio favors no change other than as noted in my dictated progress note. Diagnosis: Problems: (1) Urinary tract infection (2) Encounter for medical screening examination (3) Anxiety disorder (4) Major depressive disorder, recurrent episode (5) Impulse control disorder CLAUDIA LAROSE MD Nov 13, 2018 22:41
[2018-11-14] MEDS ORDERED: DIVA250T PO (00:47)
[2018-11-14] MEDS ORDERED: NYST15PO9 TP (00:50)
[2018-11-14] MEDS: ACETAMINOPHEN 500 MG TABLET PO PRN (03:50)
[2018-11-14 05:41] VITALS: BP 146/81
[2018-11-14] MEDS: ASCORBIC ACID 500 MG TABLET PO SCH (08:09)
[2018-11-14] MEDS: LOSARTAN 25 MG TABLET. PO SCH (08:09)
[2018-11-14] MEDS: DULoxetine HCL 60 MG CAPSULE.DR PO SCH (08:10)
[2018-11-14] MEDS: POTASSIUM CHLORIDE 10 MEQ TABLET.ER. PO SCH (08:10)
[2018-11-14] MEDS: LACTOBACILLUS RHAMNOSUS GG 1 CAPSULE. PO SCH (08:10)
[2018-11-14] MEDS: DOCUSATE SODIUM 100 MG CAPSULE PO SCH (08:10)
[2018-11-14] MEDS: MAGNESIUM CHLORIDE ER 64 MG TABLET.ER PO SCH (08:10)
[2018-11-14] MEDS: FUROSEMIDE 40 MG TABLET PO SCH (08:10)
[2018-11-14 08:11] VITALS: BP 146/81
[2018-11-14] MEDS: OXYBUTYNIN CHLORIDE 5 MG TABLET PO SCH (08:11)
[2018-11-14] MEDS: NYSTATIN TOPICAL POWDER 15GM BOTTLE. TP SCH (08:11)
[2018-11-14] MEDS: DIVALPROEX 125 MG CAP.SPRINK PO SCH (08:11)
[2018-11-14] MEDS: CARVEDILOL 6.25 MG TABLET PO SCH (08:11)
[2018-11-14] MEDS: busPIRone 10 MG TABLET. PO SCH (08:11)
[2018-11-14] MEDS: FLUTICASONE 50MCG/NASAL SPRAY 16GM BOTTLE. NS SCH ×2 (08:12→09:00)
[2018-11-14] MEDS: POLYVINYL ALCOHOL 1.4% OPHTH SOLUTION 15ML BOTTLE. OU SCH (08:12)
[2018-11-14] MEDS: FEBUXOSTAT 40 MG TABLET PO SCH (08:12)
[2018-11-14] MEDS: INSULIN LISPRO 300 UNITS/3 ML INSULN.PEN. SQ SCH (08:14)
--- NOTE | 2018-11-14 12:06 | PDOC ---
Exam Note: Nain Note: Please also refer to the separate dictated note~for this date of service dictated separately.~Patient seen individually. Discussed the patient with Nursing staff reviewed the chart.~Reviewed interim history and current functioning. Reviewed vital signs,~Labs/ Radiology~and current medications noted below. Continue current treatment with the changes noted in the dictated addendum note Assessment: Vital Signs: Vital Signs Date Time Temp Pulse Resp B/P (MAP) Pulse Ox O2 Delivery O2 Flow Rate FiO2 11/14/18 08:11 67 146/81 11/14/18 05:41 97.7 18 93 11/12/18 04:39 Room Air I&O Intake and Output 11/14/18 07:00 Intake Total 600 ml Output Total 1750 ml Balance -1150 ml Intake Oral 600 ml Output Urine Total 1750 ml Labs: Laboratory Tests Test 11/13/18 16:56 11/13/18 19:19 11/14/18 07:25 Glucose (Fingerstick) 193 mg/dL (70-99) H 184 mg/dL (70-99) H 118 mg/dL (70-99) H Current Medications: Meds: Current Medications Cephalexin HCl (Keflex) 500 mg 1X ONCE PO ; Start 11/01/18 at 17:15; Stop 11/01/18 at 17:16; Status DC Ascorbic Acid (Vitamin C) 500 mg DAILY PO Last administered on 11/14/18at 08:09; Start 11/02/18 at 09:00 Vitamin D (Vitamin D3) 50,000 unit WEEKLY PO Last administered on 11/08/18at 08:01; Start 11/08/18 at 09:00; Stop 11/13/18 at 16:27; Status DC Febuxostat (Uloric) 40 mg DAILY PO Last administered on 11/14/18at 08:12; Start 11/02/18 at 09:00 Insulin Human Lispro (HumaLOG) 5 units TIDAC SQ Last administered on 11/11/18at 12:07; Start 11/02/18 at 07:30; Stop 11/11/18 at 15:00; Status DC Losartan Potassium (Cozaar) 25 mg DAILY PO Last administered on 11/14/18at 08:09; Start 11/02/18 at 09:00 Al Hydroxide/Mg Hydroxide (Mylanta Plus Xs) 15 ml PRN AFTMEALHC PRN PO DYSPEPSIA; Start 11/01/18 at 18:45 Magnesium Hydroxide (Milk Of Magnesia) 2,400 mg PRN QHS PRN PO CONSTIPATION; Start 11/01/18 at 18:45 Polymyxin/ Trimethoprim Sulfate (Polytrim) 1 drop TID OU Last administered on 11/08/18 12:54; Start 11/01/18 at 21:00; Stop 11/08/18 at 21:00; Status DC Artificial Tears (Artificial Tears) 1 drop QID OU Last administered on 11/09/18 17:00; Start 11/01/18 at 21:00; Stop 11/09/18 at 17:10; Status DC Acetaminophen (Tylenol) 500 mg PRN Q6HRS PRN PO PAIN / TEMP Last administered on 11/14/18 03:50; Start 11/01/18 at 18:45 Buspirone HCl (Buspar) 5 mg BID@0900,1700 PO Last administered on 11/12/18 08:14; Start 11/02/18 at 09:00; Stop 11/12/18 at 16:47; Status DC Carvedilol (Coreg) 6.25 mg BIDWMEALS PO Last administered on 11/14/18 08:11; Start 11/02/18 at 08:00 Divalproex Sodium (Depakote Sprinkles) 125 mg TID PO Last administered on 11/10/18 13:09; Start 11/01/18 at 21:00; Stop 11/10/18 at 15:36; Status DC Docusate Sodium (Colace) 100 mg DAILY PO Last administered on 11/14/18 08:10; Start 11/02/18 at 09:00 Duloxetine HCl (Cymbalta) 60 mg DAILY PO Last administered on 11/14/18 08:10; Start 11/02/18 at 09:00 Fluticasone Propionate (Flonase) 2 spray DAILY NS Last administered on 11/13/18 08:11; Start 11/02/18 at 09:00 Furosemide (Lasix) 40 mg DAILY PO Last administered on 11/14/18 08:10; Start 11/02/18 at 09:00 Insulin Glargine (Lantus) 17 units QHS SQ Last administered on 11/13/18 20:07; Start 11/01/18 at 21:00 Levofloxacin (Levaquin) 750 mg DAILY06 PO Last administered on 11/02/18 05:08; Start 11/02/18 at 06:00; Stop 11/02/18 at 13:06; Status DC Latanoprost (Xalatan) 1 drop QHS OS Last administered on 11/13/18 20:05; Start 11/01/18 at 21:00 Non-Formulary Medication (Levofloxacin ) 750 mg DAILY PO ; Start 11/02/18 at 09:00; Stop 11/02/18 at 09:00; Status DC Magnesium Chloride (Mag Delay) 64 mg DAILY PO Last administered on 11/14/18 08:10; Start 11/02/18 at 09:00 Melatonin 3 mg QHS PO Last administered on 11/03/18 19:48; Start 11/01/18 at 21:00; Stop 11/04/18 at 20:59; Status DC Multi-Ingred Cream/Lotion/Oil/ Oint (Artificial Tears Eye Ointment) 1 karlos QHS OU Last administered on 11/12/18 19:43; Start 11/01/18 at 21:00 Oxybutynin Chloride (Ditropan) 5 mg DAILY PO Last administered on 11/14/18 08:11; Start 11/02/18 at 09:00 Potassium Chloride (Klor-Con) 10 meq BID PO Last administered on 11/14/18 08:10; Start 11/01/18 at 21:00 Rivaroxaban (Xarelto) 20 mg DAILYWSUP PO Last administered on 11/13/18 17:25; Start 11/02/18 at 17:00 Sodium Chloride ([place] Saline Nasal) 1 karlos TID NS Last administered on 11/08/18 12:54; Start 11/01/18 at 21:00; Stop 11/08/18 at 21:00; Status DC Glucose (Insta-Glucose) 15 gm PRN Q15MIN PRN PO LOW BLOOD SUGAR; Start 11/01/18 at 18:45 Lactobacillus Rhamnosus (Culturelle) 1 cap BID PO Last administered on 11/14/18 08:10; Start 11/01/18 at 21:00 Nitrofurantoin Macrocrystals (Macrobid) 100 mg BID PO Last administered on 11/05/18 20:07; Start 11/02/18 at 21:00; Stop 11/06/18 at 17:21; Status DC Nystatin (Nystop) 1 karlos BID TP Last administered on 11/14/18 08:11; Start 11/03/18 at 21:00 Ceftriaxone Sodium (Rocephin Im) 1 gm DAILY IM Last administered on 11/10/18 07:27; Start 11/06/18 at 09:00; Stop 11/10/18 at 21:00; Status DC Artificial Tears (Artificial Tears) 1 drop BID OU Last administered on 11/12/18 08:16; Start 11/09/18 at 21:00; Stop 11/12/18 at 17:53; Status DC Divalproex Sodium (Depakote Sprinkles) 125 mg BID92 PO Last administered on 11/14/18 08:11; Start 11/11/18 at 09:00 Divalproex Sodium (Depakote Sprinkles) 250 mg HS PO Last administered on 11/13/18 20:03; Start 11/10/18 at 21:00 Insulin Human Lispro (HumaLOG) 8 units TIDAC SQ Last administered on 11/14/18 08:14; Start 11/11/18 at 16:30 Buspirone HCl (Buspar) 10 mg BID@0900,1700 PO Last administered on 11/14/18 08:11; Start 11/12/18 at 17:00 Artificial Tears (Artificial Tears) 1 drop QID OU Last administered on 11/14/18 08:12; Start 11/12/18 at 21:00 Active Scripts Active Reported Nystatin 15 Gm Powder 1 Karlos TP BID Depakote Er (Divalproex Sodium) 250 Mg Tab.er.24h 250 Mg PO QHS Depakote Sprinkle (Divalproex Sodium) 125 Mg Cap.sprink 125 Mg PO BID92 Flonase Allergy Relief (Fluticasone Propionate) 9.9 Ml [place].susp 2 Sprays NS DAILY Acetaminophen 500 Mg Tablet 500 Mg PO PRN Q6HRS PRN Buspirone Hcl 5 Mg Tablet 10 Mg PO BID@0900,1700 Milk Of Magnesia (Magnesium Hydroxide) 400 Mg/5 Ml Oral.susp 2,400 Mg PO PRN QHS PRN Mag-Al Plus Xs Suspension (Mag Hydrox/Al Hydrox/Simeth) 30 Ml Oral.susp 15 Ml PO PRN AFTMEALHC PRN Ascorbic Acid 500 Mg Tablet 500 Mg PO DAILY Uloric (Febuxostat) 40 Mg Tablet 40 Mg PO DAILY Systane Nighttime Eye Oint (Mineral Oil/Petrolatum,White) 3.5 Gm Oint...g. 1 Karlos OU QHS Oxybutynin Chloride Er (Oxybutynin Chloride) 5 Mg Tab.er.24 5 Mg PO DAILY Magnesium Chloride 64 Mg Tablet.dr 64 Mg PO DAILY Humalog (Insulin Lispro) 100 Unit/1 Ml Insuln.pen 8 Unit SQ TIDAC Docusate Sodium 100 Mg Capsule 100 Mg PO DAILY Artificial Tears (Polyvinyl Alcohol) 15 Ml Drops 1 Drp OU QID Potassium Chloride 10 Meq Tablet.er 10 Meq PO BID Xarelto (Rivaroxaban) 20 Mg Tablet 20 Mg PO DAILY Probiotic (Lactobacillus Combo No.10) 1 Each Capsule 1 Cap PO BID 14 Days Lasix (Furosemide) 40 Mg Tablet 40 Mg PO DAILY Coreg (Carvedilol) 6.25 Mg Tablet 6.25 Mg PO BIDWMEALS Lantus (Insulin Glargine,Hum.rec.anlog) 100 Unit/1 Ml Vial 17 Unit SQ HS Latanoprost 2.5 Ml Drops 1 Drop OS QHS Losartan Potassium (Losartan Potassium) 25 Mg Tablet 25 Mg PO DAILY Cymbalta (Duloxetine Hcl) 60 Mg Capsule.dr 60 Mg PO DAILY I have reviewed the current psychotropics carefully including drug interactions. Risk benefit ratio favors no change other than as noted in my dictated progress note. Diagnosis: Problems: (1) Impulse control disorder (2) Major depressive disorder, recurrent episode (3) Anxiety disorder (4) Urinary tract infection CLAUDIA LAROSE MD Nov 14, 2018 12:06
--- NOTE | 2018-11-15 13:23 | DS ---
DATE OF DISCHARGE: 11/14/2018 DISCHARGE SUMMARY/PSYCHIATRIC PROGRESS NOTE This is a late entry, date of service 11/14/2018 and covers elements not covered in my initial note of 11/14/2018. REASON FOR ADMISSION: Please refer to the admission history for details. Briefly, the patient is a 77-year-old female referred to us from [facility] by her primary care physician on account of marked agitation, making racial slur, significant insomnia. She had grabbed a broom and swung it around hitting the door and door jam. She barricaded the room with the broom. She was agitated, behaviors were unmanageable, potentially dangerous at the facility resulting in this referral. SIGNIFICANT FINDINGS AND CLINICAL COURSE: Following admission, the patient was seen daily individually by myself from a psychiatric standpoint, medical followup with Dr. Dennis. The patient did have UTI at admission and was treated on a course of Rocephin for 5 days 1 gram daily. Further adjustments were made in her psychotropics and she seemed to respond to a combination of duloxetine 60 mg a day, melatonin 3 mg at bedtime, BuSpar 10 mg b.i.d., Depakote Sprinkles 125 mg b.i.d., 250 mg at bedtime. Gradually, her mood appeared to improve. She was still somewhat anxious, at times, impulsive, but much more able to control her anger and anxiety. Being hard of hearing, was impediment in communication, but she appeared to compensate reasonably for this. REVIEW OF SYSTEMS: At discharge; ambulation impaired, in wheelchair, hard of hearing. No CV, , pulmonary, eye system symptoms on review. MENTAL SUBJECTIVE: Met with the patient prior to discharge. She is oriented reasonably. Speech is coherent, has some latency. Abstraction fair, computation impaired, language function intact, attention span short. Mood and affect was improved. Anxiety was better. No suicidal or homicidal ideation. LABORATORY DATA: Reviewed. CONDITION AT DISCHARGE: Improved. FINAL DIAGNOSES: Major depressive disorder, recurrent, in partial remission; anxiety disorder, unspecified; impulse control disorder, unspecified. Rest unchanged from admission. DISCHARGE MEDICATIONS: Please refer to the MRAD. DISCHARGE INSTRUCTIONS: Outpatient psychiatric and medical followup at the intermediate. Time for discharge day management greater than 30 minutes. MAN Nicolette LAROSE MD DR: June JOB#: [id number] / [id number]
--- NOTE | 2018-11-15 20:12 | PN ---
DATE: 11/13/2018 PSYCHIATRIC PROGRESS NOTE This late entry of 11/13/2018, covers elements not covered in my initial note. SUBJECTIVE: I met with the patient in the evening. The patient slept 7-1/2 hours previous night. The patient remains somewhat anxious, hard of hearing, impaired ambulation, in wheelchair. No CV, , pulmonary, eye system symptoms on review. She has not been aggressive, though at times, she is somewhat labile. She has been obsessing about her eyedrops. MENTAL STATUS EXAM: Oriented to herself and situation. Speech is coherent, abstraction fair, computation impaired, language function intact, attention span short. Mood and affect remain somewhat anxious, labile at times. LABORATORY DATA: Reviewed. IMPRESSION: Unchanged from initial note. PLAN: No change from initial note. Transition to [facility] on 11/15/2018. MAN Nicolette LAROSE MD DR: RUFUS/carina JOB#: [id number] / [id number]
== END 2018-11-14 11:30 | DRG 885 ==
LOC: ER 14:43 → GEROPSY 17:43
PROVIDERS: ADMIT Psychiatry & Neurology Psychiatry; ATTEND Psychiatry & Neurology Psychiatry
DX: F33.3 Major depressive disorder, recurrent, severe with psychotic symptoms (principal); E43 Unspecified severe protein-calorie malnutrition; N39.0 Urinary tract infection, site not specified; I50.9 Heart failure, unspecified; I11.0 Hypertensive heart disease with heart failure; J44.9 Chronic obstructive pulmonary disease, unspecified; F41.1 Generalized anxiety disorder; F63.9 Impulse disorder, unspecified; H54.8 Legal blindness, as defined in USA; E11.51 Type 2 diabetes mellitus with diabetic peripheral angiopathy without gangrene; E53.8 Deficiency of other specified B group vitamins; E66.01 Morbid (severe) obesity due to excess calories; F09 Unspecified mental disorder due to known physiological condition; G47.00 Insomnia, unspecified; H40.9 Unspecified glaucoma; M10.9 Gout, unspecified; H91.90 Unspecified hearing loss, unspecified ear; G89.29 Other chronic pain; Z79.899 Other long term (current) drug therapy; Z93.3 Colostomy status; Z88.6 Allergy status to analgesic agent; Z88.5 Allergy status to narcotic agent; Z88.2 Allergy status to sulfonamides; Z68.33 Body mass index [BMI] 33.0-33.9, adult
CPT/HCPCS: 36415; 80053; 80164; 81001; 82306; 82947; 83735; 83970; 84100; 84436; 84443; 84480; 85025; 87086; 87186; 93005; J0696; J1815; 97110; 97530; 99285-25

== ENCOUNTER 2018-12-26 15:06 | Inpatient (IN) | payer MEDICARE, OTHER ==
[~2018-12-26] VITALS: Ht 165.1 cm; Wt 79.0 kg
[~2018-12-26 15:06] MED LIST changes: +DIVA125C2 PO; +DIVA250T PO; +FLUT9.9S NS; +LEVO750T5 PO; +POLY10DR3 OU; +SODI50SP NS
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
--- NOTE | 2018-12-26 15:43 | EKG ---
[address] [address] Test Date: 2018-12-26 Test Time: 15:42:01 Pat Name: VALERIA HANCOCK Department: Room: Gender: F Family Law Legal Assistant: HAYDEE : 1940 Requested By: JACKSON ALVAREZ Order Number: [id number] Reading MD: Measurements Intervals [place] Rate: 76 P: 59 ME: 148 QRS: -24 QRSD: 78 T: 36 QT: 386 QTc: 439 Interpretive Statements SINUS RHYTHM LEFTWARD AXIS QRS(T) CONTOUR ABNORMALITY CONSIDER ANTEROLATERAL INFARCT CONSISTENT WITH INFERIOR INFARCT PROBABLY OLD ABNORMAL ECG RI6.01 Compared to ECG 11/01/2018 14:57:35 Atrial premature complex(es) no longer present Myocardial infarct finding still present
[2018-12-26 15:50] LABS: BASO # 0.1 x10^3/uL (0.0-0.2); BASO % 2 % (0-3); EOS # 0.1 x10^3/uL (0.0-0.7); EOS % 2 % (0-3); HEMATOCRIT 45.1 % (36.0-47.0); HEMOGLOBIN 14.3 g/dL (12.0-15.5); LYMPH # 1.3 x10^3/uL (1.0-4.8); LYMPH % 16 % (24-48); MEAN CORPUSCULAR HEMOGLOBIN 26 pg (25-35); MEAN CORPUSCULAR HGB CONC 32 g/dL (31-37); MEAN CORPUSCULAR VOLUME 81 fL (79-100); MONO # 0.9 x10^3/uL (0.0-1.1); MONO % 11 % (0-9); NEUT # 5.8 x10^3uL (1.8-7.7); NEUT % 71 % (31-73); PLATELET COUNT 282 x10^3/uL (140-400); RED BLOOD COUNT 5.59 x10^6/uL (3.50-5.40); RED CELL DISTRIBUTION WIDTH 16.3 % (11.5-14.5); WHITE BLOOD COUNT 8.2 x10^3/uL (4.0-11.0)
[2018-12-26 16:01] LABS: BILIRUBIN,URINE NEG (NEG); CLARITY,URINE TURBID; COLOR,URINE AMBER; GLUCOSE,URINE NEG (NEG)
[2018-12-26 16:02] LABS: BACTERIA,URINE MOD /HPF (0-FEW); NITRITE,URINE POS (NEG); RBC,URINE 20-40 /HPF (0-2); SQUAMOUS EPITHELIAL CELL,UR OCC /LPF; UROBILINOGEN,URINE 0.2 mg/dL (0.2 mg/dL); WBC,URINE TNTC /HPF (0-4)
[2018-12-26 16:03] LABS: ALBUMIN/GLOBULIN RATIO 0.5 (1.0-1.7); CALCIUM 11.5 mg/dL (8.5-10.1); CREATININE 1.7 mg/dL (0.6-1.0); GFR 29.3; MAGNESIUM 2.3 mg/dL (1.8-2.4); POTASSIUM 5.6 mmol/L (3.5-5.1); TOTAL BILIRUBIN 0.4 mg/dL (0.2-1.0); TOTAL PROTEIN 9.3 g/dL (6.4-8.2)
[2018-12-26] MEDS ORDERED: cefTRIAXone SODIUM 1 GM VIAL ONE ×2 (16:15→16:16)
[2018-12-26] MEDS ORDERED: IV NORMAL SALINE 1,000ML 1,000 ML IV ONE (16:15)
[2018-12-26] MEDS ORDERED: IV NORMAL SALINE 50ML 50 ML ONE ×3 (16:15→16:23)
--- NOTE | 2018-12-26 22:54 | PDOC ---
Exam Note: Nain Note: Please also refer to the separate dictated note~for this date of service dictated separately. Discussed the patient with Nursing staff reviewed the chart.~Reviewed interim history and current functioning. Reviewed vital signs,~Labs/ Radiology~and current medications noted below. Continue current treatment with the changes noted in the dictated addendum note Assessment: Vital Signs: Vital Signs Date Time Temp Pulse Resp B/P (MAP) Pulse Ox O2 Delivery O2 Flow Rate FiO2 12/26/18 20:49 81 16 113/81 (92) 99 Nasal Cannula 2.0 12/26/18 15:40 98.1 Labs: Laboratory Tests Test 12/26/18 15:30 White Blood Count 8.2 x10^3/uL (4.0-11.0) Red Blood Count 5.59 x10^6/uL (3.50-5.40) H Hemoglobin 14.3 g/dL (12.0-15.5) Hematocrit 45.1 % (36.0-47.0) Mean Corpuscular Volume 81 fL (79-100) Mean Corpuscular Hemoglobin 26 pg (25-35) Mean Corpuscular Hemoglobin Concent 32 g/dL (31-37) Red Cell Distribution Width 16.3 % (11.5-14.5) H Platelet Count 282 x10^3/uL (140-400) Neutrophils (%) (Auto) 71 % (31-73) Lymphocytes (%) (Auto) 16 % (24-48) L Monocytes (%) (Auto) 11 % (0-9) H Eosinophils (%) (Auto) 2 % (0-3) Basophils (%) (Auto) 2 % (0-3) Neutrophils # (Auto) 5.8 x10^3uL (1.8-7.7) Lymphocytes # (Auto) 1.3 x10^3/uL (1.0-4.8) Monocytes # (Auto) 0.9 x10^3/uL (0.0-1.1) Eosinophils # (Auto) 0.1 x10^3/uL (0.0-0.7) Basophils # (Auto) 0.1 x10^3/uL (0.0-0.2) Urine Collection Type Unknown Urine Color Malgorzata Urine Clarity Turbid Urine pH 5.0 Urine Specific [place] 1.025 Urine Protein 100 mg/dl (NEG-TRACE) Urine Glucose (UA) Neg mg/dL (NEG) Urine Ketones (Stick) 15 mg/dL (NEG) Urine Blood Large (NEG) Urine Nitrite Pos (NEG) Urine Bilirubin Neg (NEG) Urine Urobilinogen Dipstick 0.2 mg/dL (0.2 mg/dL) Urine Leukocyte Esterase Large (NEG) Urine RBC 20-40 /HPF (0-2) Urine WBC Tntc /HPF (0-4) Urine Squamous Epithelial Cells Occ /LPF Urine Bacteria Mod /HPF (0-FEW) Sodium Level 138 mmol/L (136-145) Potassium Level 5.6 mmol/L (3.5-5.1) H Chloride Level 101 mmol/L (98-107) Carbon Dioxide Level 31 mmol/L (21-32) Anion Gap 6 (6-14) Blood Urea Nitrogen 44 mg/dL (7-20) H Creatinine 1.7 mg/dL (0.6-1.0) H Estimated GFR (Cockcroft-Gault) 29.3 BUN/Creatinine Ratio 26 (6-20) H Glucose Level 166 mg/dL (70-99) H Calcium Level 11.5 mg/dL (8.5-10.1) H Magnesium Level 2.3 mg/dL (1.8-2.4) Total Bilirubin 0.4 mg/dL (0.2-1.0) Aspartate Amino Transferase (AST) 12 U/L (15-37) L Alanine Aminotransferase (ALT) 16 U/L (14-59) Alkaline Phosphatase 87 U/L (46-116) Total Protein 9.3 g/dL (6.4-8.2) H Albumin 3.0 g/dL (3.4-5.0) L Albumin/Globulin Ratio 0.5 (1.0-1.7) L Current Medications: Meds: Current Medications Sodium Chloride 1,000 ml @ 1,000 mls/hr 1X ONCE IV Last administered on 12/26/18at 16:15; Start 12/26/18 at 16:15; Stop 12/26/18 at 17:14; Status DC Ceftriaxone Sodium 1 gm/ Sodium Chloride 50 ml @ 100 mls/hr 1X ONCE IV Last administered on 12/26/18at 16:15; Start 12/26/18 at 16:15; Stop 12/26/18 at 16:44; Status DC Sodium Chloride 50 ml @ As Directed STK-MED ONCE .ROUTE ; Start 12/26/18 at 16:15; Stop 12/26/18 at 16:16; Status DC Ceftriaxone Sodium (Rocephin) 1 gm STK-MED ONCE .ROUTE ; Start 12/26/18 at 16:15; Stop 12/26/18 at 16:16; Status DC Sodium Chloride 50 ml @ As Directed STK-MED ONCE .ROUTE ; Start 12/26/18 at 16:16; Stop 12/26/18 at 16:17; Status DC Ceftriaxone Sodium (Rocephin) 1 gm STK-MED ONCE .ROUTE ; Start 12/26/18 at 16:16; Stop 12/26/18 at 16:17; Status DC Sodium Chloride 50 ml @ As Directed STK-MED ONCE .ROUTE ; Start 12/26/18 at 16:2 3; Stop 12/26/18 at 16:24; Status DC Active Scripts Active Reported Nystatin 15 Gm Powder 1 Karlos TP BID Depakote Er (Divalproex Sodium) 250 Mg Tab.er.24h 250 Mg PO QHS Depakote Sprinkle (Divalproex Sodium) 125 Mg Cap.sprink 125 Mg PO BID92 Flonase Allergy Relief (Fluticasone Propionate) 9.9 Ml [place].susp 2 Sprays NS DAILY Acetaminophen 500 Mg Tablet 500 Mg PO PRN Q6HRS PRN Buspirone Hcl 5 Mg Tablet 10 Mg PO BID@0900,1700 Milk Of Magnesia (Magnesium Hydroxide) 400 Mg/5 Ml Oral.susp 2,400 Mg PO PRN QHS PRN Mag-Al Plus Xs Suspension (Mag Hydrox/Al Hydrox/Simeth) 30 Ml Oral.susp 15 Ml PO PRN AFTMEALHC PRN Ascorbic Acid 500 Mg Tablet 500 Mg PO DAILY Uloric (Febuxostat) 40 Mg Tablet 40 Mg PO DAILY Systane Nighttime Eye Oint (Mineral Oil/Petrolatum,White) 3.5 Gm Oint...g. 1 Karlos OU QHS Oxybutynin Chloride Er (Oxybutynin Chloride) 5 Mg Tab.er.24 5 Mg PO DAILY Magnesium Chloride 64 Mg Tablet.dr 64 Mg PO DAILY Humalog (Insulin Lispro) 100 Unit/1 Ml Insuln.pen 8 Unit SQ TIDAC Docusate Sodium 100 Mg Capsule 100 Mg PO DAILY Artificial Tears (Polyvinyl Alcohol) 15 Ml Drops 1 Drp OU QID Potassium Chloride 10 Meq Tablet.er 10 Meq PO BID Xarelto (Rivaroxaban) 20 Mg Tablet 20 Mg PO DAILY Probiotic (Lactobacillus Combo No.10) 1 Each Capsule 1 Cap PO BID 14 Days Lasix (Furosemide) 40 Mg Tablet 40 Mg PO DAILY Coreg (Carvedilol) 6.25 Mg Tablet 6.25 Mg PO BIDWMEALS Lantus (Insulin Glargine,Hum.rec.anlog) 100 Unit/1 Ml Vial 17 Unit SQ HS Latanoprost 2.5 Ml Drops 1 Drop OS QHS Losartan Potassium (Losartan Potassium) 25 Mg Tablet 25 Mg PO DAILY Cymbalta (Duloxetine Hcl) 60 Mg Capsule.dr 60 Mg PO DAILY I have reviewed the current psychotropics carefully including drug interactions. Risk benefit ratio favors no change other than as noted in my dictated progress note. Diagnosis: Problems: (1) Encounter for medical screening examination (2) Anxiety disorder (3) Major depressive disorder, recurrent episode (4) Impulse control disorder CLAUDIA LAROSE MD Dec 26, 2018 22:54
[2018-12-26] MEDS ORDERED: MAGNESIUM HYDROXIDE 2,400 MG/30 ML ORAL.SUSP. PO PRN (23:30)
[2018-12-26] MEDS ORDERED: METHYL SALICYLATE/MENTHOL TOPICAL OINTMENT 29GM TUBE. TP PRN (23:30)
[2018-12-26] MEDS ORDERED: MAG HYDROX/AL HYDROX/SIMETH 30 ML ORAL.SUSP PO PRN (23:30)
[2018-12-26] MEDS ORDERED: ACETAMINOPHEN 325 MG TABLET PO PRN (23:30)
[2018-12-27] MEDS ORDERED: NON FORMULARY ITEM (Acetaminophen 500 MG) PO PRN
[2018-12-27] MEDS ORDERED: MAGNESIUM HYDROXIDE 2,400 MG/30 ML ORAL.SUSP. PO PRN
[2018-12-27] MEDS ORDERED: MAG HYDROX/AL HYDROX/SIMETH 30 ML ORAL.SUSP PO PRN
[2018-12-27 00:42] VITALS: BP 116/50
[2018-12-27] MEDS ORDERED: DEXTROSE 50% 25 GM / 50ML DISP.SYRIN. IV PRN ×2 (00:45)
[2018-12-27 05:55] VITALS: BP 107/50
[2018-12-27] MEDS: INSULIN LISPRO 300 UNITS/3 ML INSULN.PEN. SQ SCH ×3 (07:30→16:38)
[2018-12-27] MEDS ORDERED: POTASSIUM CHLORIDE 10 MEQ TABLET.ER. PO SCH (08:00)
[2018-12-27] MEDS: ASCORBIC ACID 500 MG TABLET PO SCH (08:35)
[2018-12-27] MEDS: NITROFURANTOIN MONOHYD/M-CRYST 100 MG CAPSULE. PO SCH (08:36)
[2018-12-27] MEDS: DIVALPROEX 125 MG CAP.SPRINK PO SCH ×2 (08:36→12:31)
[2018-12-27] MEDS: MAGNESIUM CHLORIDE ER 64 MG TABLET.ER PO SCH (08:36)
[2018-12-27] MEDS: DULoxetine HCL 60 MG CAPSULE.DR PO SCH (08:36)
[2018-12-27] MEDS: LACTOBACILLUS RHAMNOSUS GG 1 CAPSULE. PO SCH ×2 (08:36→21:18)
[2018-12-27] MEDS: DOCUSATE SODIUM 100 MG CAPSULE PO SCH (08:36)
[2018-12-27] MEDS: OXYBUTYNIN CHLORIDE 5 MG TABLET PO SCH (08:37)
[2018-12-27] MEDS: busPIRone 10 MG TABLET. PO SCH ×2 (08:38→16:37)
[2018-12-27] MEDS: LOSARTAN 25 MG TABLET. PO SCH (08:38)
[2018-12-27] MEDS: NYSTATIN TOPICAL POWDER 15GM BOTTLE. TP SCH ×2 (08:39→21:19)
[2018-12-27] MEDS: RIVAROXABAN 10 MG TABLET. PO SCH ×2 (08:42→09:00)
[2018-12-27] MEDS: FLUTICASONE 50MCG/NASAL SPRAY 16GM BOTTLE. NS SCH (08:43)
[2018-12-27] MEDS: POLYVINYL ALCOHOL 1.4% OPHTH SOLUTION 15ML BOTTLE. OU SCH ×4 (08:43→21:15)
[2018-12-27] MEDS: FEBUXOSTAT 40 MG TABLET PO SCH (08:43)
[2018-12-27] MEDS: CARVEDILOL 6.25 MG TABLET PO SCH ×2 (08:43→16:37)
[2018-12-27] MEDS ORDERED: OXYBUTYNIN CHLORIDE 5 MG TABLET PO SCH (09:00)
[2018-12-27] MEDS ORDERED: FUROSEMIDE 40 MG TABLET PO SCH (09:00)
[2018-12-27] MEDS ORDERED: DIVALPROEX 125 MG CAP.SPRINK PO ONE ×2 (09:00)
[2018-12-27] MEDS ORDERED: busPIRone 10 MG TABLET. ONE ×2 (09:00)
[2018-12-27 10:51] LABS: BASO # 0.1 x10^3/uL (0.0-0.2); BASO % 1 % (0-3); EOS # 0.2 x10^3/uL (0.0-0.7); EOS % 3 % (0-3); HEMOGLOBIN 14.4 g/dL (12.0-15.5); LYMPH # 1.1 x10^3/uL (1.0-4.8); LYMPH % 12 % (24-48); MEAN CORPUSCULAR HEMOGLOBIN 26 pg (25-35); MEAN CORPUSCULAR HGB CONC 31 g/dL (31-37); MEAN CORPUSCULAR VOLUME 82 fL (79-100); MONO # 0.9 x10^3/uL (0.0-1.1); MONO % 10 % (0-9); NEUT # 6.3 x10^3uL (1.8-7.7); NEUT % 73 % (31-73); PLATELET COUNT 263 x10^3/uL (140-400); RED BLOOD COUNT 5.62 x10^6/uL (3.50-5.40); WHITE BLOOD COUNT 8.6 x10^3/uL (4.0-11.0)
[2018-12-27 10:57] LABS: ALBUMIN 2.7 g/dL (3.4-5.0); ALBUMIN/GLOBULIN RATIO 0.4 (1.0-1.7); CALCIUM 11.1 mg/dL (8.5-10.1); CREATININE 1.3 mg/dL (0.6-1.0); GFR 39.9; MAGNESIUM 2.1 mg/dL (1.8-2.4); POTASSIUM 4.8 mmol/L (3.5-5.1); TOTAL BILIRUBIN 0.3 mg/dL (0.2-1.0); TOTAL PROTEIN 8.9 g/dL (6.4-8.2)
[2018-12-27 11:17] LABS: VAL ACID 17 mcg/mL (50-100)
[2018-12-27 14:05] LABS: THYROID STIM HORMONE (TSH) 0.999 uIU/mL (0.358-3.740)
[2018-12-27 16:19] VITALS: BP 104/70
[2018-12-27] MEDS: MINERAL OIL/PETROLATUM,WHITE OPHTH OINT 3.5GM TUBE. OU SCH (21:00)
[2018-12-27] MEDS: LATANOPROST 0.005% OPHTH SOLUTION 2.5ML BOTTLE. OU SCH (21:15)
[2018-12-27] MEDS: INSULIN GLARGINE 300 UNITS/3 ML INSULN.PEN. SQ SCH (21:26)
--- NOTE | 2018-12-27 22:34 | PDOC ---
Exam Note: Nain Note: Please also refer to the separate dictated note~for this date of service dictated separately.~Patient seen individually. Discussed the patient with Nursing staff reviewed the chart.~Reviewed interim history and current functioning. Reviewed vital signs,~Labs/ Radiology~and current medications noted below. Continue current treatment with the changes noted in the dictated addendum note Assessment: Vital Signs: Vital Signs Date Time Temp Pulse Resp B/P (MAP) Pulse Ox O2 Delivery O2 Flow Rate FiO2 12/27/18 16:37 73 104/70 12/27/18 16:19 98.0 18 94 Room Air 12/27/18 05:55 2.0 I&O Intake and Output 12/27/18 07:00 Intake Total 1050 ml Output Total 700 ml Balance 350 ml IV Total 1050 ml Output Urine Total 700 ml Stool Total 0 ml Labs: Laboratory Tests Test 12/27/18 07:15 12/27/18 10:30 12/27/18 12:06 12/27/18 16:35 Glucose (Fingerstick) 85 mg/dL (70-99) 144 mg/dL (70-99) H 153 mg/dL (70-99) H White Blood Count 8.6 x10^3/uL (4.0-11.0) Red Blood Count 5.62 x10^6/uL (3.50-5.40) H Hemoglobin 14.4 g/dL (12.0-15.5) Hematocrit 46.0 % (36.0-47.0) Mean Corpuscular Volume 82 fL (79-100) Mean Corpuscular Hemoglobin 26 pg (25-35) Mean Corpuscular Hemoglobin Concent 31 g/dL (31-37) Red Cell Distribution Width 16.0 % (11.5-14.5) H Platelet Count 263 x10^3/uL (140-400) Neutrophils (%) (Auto) 73 % (31-73) Lymphocytes (%) (Auto) 12 % (24-48) L Monocytes (%) (Auto) 10 % (0-9) H Eosinophils (%) (Auto) 3 % (0-3) Basophils (%) (Auto) 1 % (0-3) Neutrophils # (Auto) 6.3 x10^3uL (1.8-7.7) Lymphocytes # (Auto) 1.1 x10^3/uL (1.0-4.8) Monocytes # (Auto) 0.9 x10^3/uL (0.0-1.1) Eosinophils # (Auto) 0.2 x10^3/uL (0.0-0.7) Basophils # (Auto) 0.1 x10^3/uL (0.0-0.2) Sodium Level 141 mmol/L (136-145) Potassium Level 4.8 mmol/L (3.5-5.1) Chloride Level 104 mmol/L (98-107) Carbon Dioxide Level 29 mmol/L (21-32) Anion Gap 8 (6-14) Blood Urea Nitrogen 37 mg/dL (7-20) H Creatinine 1.3 mg/dL (0.6-1.0) H Estimated GFR (Cockcroft-Gault) 39.9 BUN/Creatinine Ratio 28 (6-20) H Glucose Level 174 mg/dL (70-99) H Calcium Level 11.1 mg/dL (8.5-10.1) H Magnesium Level 2.1 mg/dL (1.8-2.4) Total Bilirubin 0.3 mg/dL (0.2-1.0) Aspartate Amino Transferase (AST) 17 U/L (15-37) Alanine Aminotransferase (ALT) 16 U/L (14-59) Alkaline Phosphatase 85 U/L (46-116) Total Protein 8.9 g/dL (6.4-8.2) H Albumin 2.7 g/dL (3.4-5.0) L Albumin/Globulin Ratio 0.4 (1.0-1.7) L Triglycerides Level 169 mg/dL (0-150) H Cholesterol Level 145 mg/dL (0-200) LDL Cholesterol, Calculated 86 mg/dL (0-100) VLDL Cholesterol, Calculated 33 mg/dL (0-40) Non-HDL Cholesterol Calculated 119 mg/dL (0-129) HDL Cholesterol 26 mg/dL (40-60) L Cholesterol/HDL Ratio 5.0 Thyroid Stimulating Hormone (TSH) 0.999 uIU/mL (0.358-3.740) Valproic Acid Level 17 mcg/mL (50-100) L Valproic Acid Last Dose Date 12/26/18 Valproic Acid Last Dose Time 0900 Test 12/27/18 19:20 12/27/18 21:23 Glucose (Fingerstick) 60 mg/dL (70-99) L 101 mg/dL (70-99) H Current Medications: Meds: Current Medications Sodium Chloride 1,000 ml @ 1,000 mls/hr 1X ONCE IV Last administered on 12/26/18at 16:15; Start 12/26/18 at 16:15; Stop 12/26/18 at 17:14; Status DC Ceftriaxone Sodium 1 gm/ Sodium Chloride 50 ml @ 100 mls/hr 1X ONCE IV Last administered on 12/26/18at 16:15; Start 12/26/18 at 16:15; Stop 12/26/18 at 16:44; Status DC Sodium Chloride 50 ml @ As Directed STK-MED ONCE .ROUTE ; Start 12/26/18 at 16:15; Stop 12/26/18 at 16:16; Status DC Ceftriaxone Sodium (Rocephin) 1 gm STK-MED ONCE .ROUTE ; Start 12/26/18 at 16:15; Stop 12/26/18 at 16:16; Status DC Sodium Chloride 50 ml @ As Directed STK-MED ONCE .ROUTE ; Start 12/26/18 at 16:16; Stop 12/26/18 at 16:17; Status DC Ceftriaxone Sodium (Rocephin) 1 gm STK-MED ONCE .ROUTE ; Start 12/26/18 at 16:16; Stop 12/26/18 at 16:17; Status DC Sodium Chloride 50 ml @ As Directed STK-MED ONCE .ROUTE ; Start 12/26/18 at 16:23; Stop 12/26/18 at 16:24; Status DC Acetaminophen (Tylenol) 650 mg PRN Q6HRS PRN PO PAIN / TEMP; Start 12/26/18 at 23:30 Multi-Ingredient Ointment (Analgesic Olanta) 1 karlos PRN QID PRN TP MUSCLE PAIN; Start 12/26/18 at 23:30 Al Hydroxide/Mg Hydroxide (Mylanta Plus Xs) 15 ml PRN AFTMEALHC PRN PO DYSPEPSIA; Start 12/26/18 at 23:30 Magnesium Hydroxide (Milk Of Magnesia) 2,400 mg PRN QHS PRN PO CONSTIPATION; Start 12/26/18 at 23:30 Ascorbic Acid (Vitamin C) 500 mg DAILY PO Last administered on 12/27/18 08:35; Start 12/27/18 at 09:00 Febuxostat (Uloric) 40 mg DAILY PO ; Start 12/27/18 at 09:00 Insulin Human Lispro (HumaLOG) 8 units TIDAC SQ Last administered on 12/27/18 16:38; Start 12/27/18 at 07:30 Losartan Potassium (Cozaar) 25 mg DAILY PO Last administered on 12/27/18 08:38; Start 12/27/18 at 09:00 Al Hydroxide/Mg Hydroxide (Mylanta Plus Xs) 15 ml PRN AFTMEALHC PRN PO DYSPEPSIA; Start 12/27/18 at 00:00; Status UNV Magnesium Hydroxide (Milk Of Magnesia) 2,400 mg PRN QHS PRN PO CONSTIPATION; Start 12/27/18 at 00:00; Status UNV Nystatin (Nystop) 1 karlos BID TP Last administered on 12/27/18 21:19; Start at 09:00 Artificial Tears (Artificial Tears) 1 drop QID OU Last administered on 12/27/18 21:15; Start 12/27/18 at 09:00 Non-Formulary Medication (Acetaminophen ) 500 mg PRN Q6HRS PRN PO PAIN / TEMP; Start 12/27/18 at 00:00; Status UNV Buspirone HCl (Buspar) 10 mg BID@0900,1700 PO Last administered on 12/27/18 16:37; Start 12/27/18 at 09:00 Carvedilol (Coreg) 6.25 mg BIDWMEALS PO Last administered on 12/27/18 16:37; Start 12/27/18 at 08:00 Divalproex Sodium (Depakote Er) 250 mg QHS PO ; Start 12/27/18 at 21:00 Divalproex Sodium (Depakote Sprinkles) 125 mg BID92 PO Last administered on 12/27/18 12:31; Start 12/27/18 at 09:00 Docusate Sodium (Colace) 100 mg DAILY PO Last administered on 12/27/18 08:36; Start 12/27/18 at 09:00 Duloxetine HCl (Cymbalta) 60 mg DAILY PO Last administered on 12/27/18 08:36; Start 12/27/18 at 09:00 Fluticasone Propionate (Flonase) 2 spray DAILY NS ; Start 12/27/18 at 09:00 Furosemide (Lasix) 40 mg DAILY PO Last administered on 12/27/18at 08:37; Start 12/27/18 at 09:00; Stop 12/27/18 at 09:59; Status DC Insulin Glargine (Lantus) 17 units QHS SQ Last administered on 12/27/18 21:26; Start 12/27/18 at 21:00 Lactobacillus Rhamnosus (Culturelle) 1 cap BID PO Last administered on 12/27/18 21:18; Start 12/27/18 at 09:00 Latanoprost (Xalatan) 1 drop QHS OU Last administered on 12/27/18 21:15; Start 12/27/18 at 21:00 Magnesium Chloride (Mag Delay) 64 mg DAILY PO Last administered on 12/27/18at 08:36; Start 12/27/18 at 09:00 Multi-Ingred Cream/Lotion/Oil/ Oint (Artificial Tears Eye Ointment) 1 karlos QHS OU ; Start 12/27/18 at 21:00 Oxybutynin Chloride (Ditropan) 5 mg DAILY PO ; Start 12/27/18 at 09:00; Stop 12/27/18 at 09:00; Status DC Potassium Chloride (Klor-Con) 10 meq BIDWMEALS PO ; Start 12/27/18 at 08:00; Stop 12/27/18 at 09:59; Status DC Rivaroxaban (Xarelto) 20 mg DAILY PO Last administered on 12/27/18at 09:00; Start 12/26/18 at 09:00 Oxybutynin Chloride (Ditropan) 10 mg DAILY PO Last administered on 12/27/18at 08:37; Start 12/27/18 at 09:00 Nitrofurantoin Macrocrystals (Macrobid) 100 mg DAILY PO Last administered on 12/27/18at 08:36; Start 12/27/18 at 09:00; Stop 01/01/19 at 09:01 Dextrose (Dextrose 50%-Water Syringe) 12.5 gm PRN Q15MIN PRN IV SEE COMMENTS; Start 12/27/18 at 00:45; Status UNV Dextrose (Dextrose 50%-Water Syringe) 12.5 gm PRN Q15MIN PRN IV SEE COMMENTS; Start 12/27/18 at 00:45 Active Scripts Active Reported Nystatin 15 Gm Powder 1 Karlos TP BID Depakote Er (Divalproex Sodium) 250 Mg Tab.er.24h 250 Mg PO QHS Depakote Sprinkle (Divalproex Sodium) 125 Mg Cap.sprink 125 Mg PO BID92 Flonase Allergy Relief (Fluticasone Propionate) 9.9 Ml [place].susp 2 Sprays NS DAILY Acetaminophen 500 Mg Tablet 500 Mg PO PRN Q6HRS PRN Buspirone Hcl 5 Mg Tablet 10 Mg PO BID@0900,1700 Milk Of Magnesia (Magnesium Hydroxide) 400 Mg/5 Ml Oral.susp 2,400 Mg PO PRN QHS PRN Mag-Al Plus Xs Suspension (Mag Hydrox/Al Hydrox/Simeth) 30 Ml Oral.susp 15 Ml PO PRN AFTMEALHC PRN Ascorbic Acid 500 Mg Tablet 500 Mg PO DAILY Uloric (Febuxostat) 40 Mg Tablet 40 Mg PO DAILY Systane Nighttime Eye Oint (Mineral Oil/Petrolatum,White) 3.5 Gm Oint...g. 1 Karlos OU QHS Oxybutynin Chloride Er (Oxybutynin Chloride) 5 Mg Tab.er.24 5 Mg PO DAILY Magnesium Chloride 64 Mg Tablet.dr 64 Mg PO DAILY Humalog (Insulin Lispro) 100 Unit/1 Ml Insuln.pen 8 Unit SQ TIDAC Docusate Sodium 100 Mg Capsule 100 Mg PO DAILY Artificial Tears (Polyvinyl Alcohol) 15 Ml Drops 1 Drp OU QID Potassium Chloride 10 Meq Tablet.er 10 Meq PO BID Xarelto (Rivaroxaban) 20 Mg Tablet 20 Mg PO DAILY Probiotic (Lactobacillus Combo No.10) 1 Each Capsule 1 Cap PO BID 14 Days Lasix (Furosemide) 40 Mg Tablet 40 Mg PO DAILY Coreg (Carvedilol) 6.25 Mg Tablet 6.25 Mg PO BIDWMEALS Lantus (Insulin Glargine,Hum.rec.anlog) 100 Unit/1 Ml Vial 17 Unit SQ HS Latanoprost 2.5 Ml Drops 1 Drop OS QHS Losartan Potassium (Losartan Potassium) 25 Mg Tablet 25 Mg PO DAILY Cymbalta (Duloxetine Hcl) 60 Mg Capsule.dr 60 Mg PO DAILY I have reviewed the current psychotropics carefully including drug interactions. Risk benefit ratio favors no change other than as noted in my dictated progress note. Diagnosis: Problems: (1) Anxiety disorder (2) Major depressive disorder, recurrent episode (3) Impulse control disorder CLAUDIA LAROSE MD Dec 27, 2018 22:34
[2018-12-27] MEDS: DIVALPROEX ER 250 MG TAB.ER.24H. PO SCH (23:03)
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
[2018-12-28 06:53] VITALS: BP 101/68
[2018-12-28] MEDS: INSULIN LISPRO 300 UNITS/3 ML INSULN.PEN. SQ SCH ×3 (07:30→16:30)
--- NOTE | 2018-12-28 07:43 | CONS ---
DATE OF CONSULTATION: 12/27/2018 ATTENDING PHYSICIAN: Dr. Kalia Woodruff. REASON FOR CONSULTATION: We were asked to see this patient for medical consultation. HISTORY OF PRESENT ILLNESS: The patient is a pleasant 77-year-old female, very hard of hearing. She has underlying dementia. She is seen here for behavioral issues. It is noted that she had been verbally abusive and yelling at the residents hurling racial slurs, kicking, shoving machines, throwing things and banging on the table. She was acting up. She was sent here for impulse control as well as underlying dementia. PAST MEDICAL HISTORY: Significant for type 2 diabetes. She has a previous colostomy that is functioning; diverticulitis; chronic indwelling Canales catheter; COPD; oxygen dependent; essential hypertension; congestive heart failure, compensated; insomnia; and UTIs related to indwelling catheter. She is on a diabetic diet. CURRENT MEDICATIONS: Reviewed. She takes Tylenol, Mylanta, Artificial Tears, vitamin C, BuSpar, Coreg, Rocephin, Depakote, docusate, Cymbalta, Uloric, fluticasone, Flonase, Lantus insulin lispro, lactobacillus, Xalatan eyedrop, Cozaar, magnesium, multi-ingredient ointments, nystatin, oxybutynin, Xarelto, and vitamin C. PAST SURGICAL HISTORY: She has previous colostomy with a functioning ostomy. ALLERGIES: SHE HAS ALLERGIES TO MORPHINE AND SULFASALAZINE. SOCIAL HISTORY: She is a nonsmoker, nondrinker. FAMILY HISTORY: Unobtainable. REVIEW OF SYSTEMS: Unobtainable due to the patient's current condition. PHYSICAL EXAMINATION: GENERAL: When I saw her; this is a very kyphotic elderly female who is fairly hard of hearing, but she was cooperative with me. INITIAL VITAL SIGNS: Showed a blood pressure of 116/50, pulse is 76 and regular. She was afebrile. HEENT: Head is without trauma. Pupils are reactive. Sclerae is nonicteric. Oropharynx is clear. NECK: Supple. LUNGS: Showed significant curvature of her spine with severe kyphoscoliosis resulting in restrictive lung disease. Lungs are otherwise clear. CARDIOVASCULAR: Showed distant heart tones. No obvious gallops. Peripheral pulses are palpable and full. ABDOMEN: Obese, protuberant. No organomegaly. Bowel sounds were normoactive. She has a functioning ostomy with normal stoma in the left mid quadrant. There is a slight ventral hernia without any incarceration. EXTREMITIES: Showed no cyanosis or edema. NEUROLOGIC: Focally intact. Speech is fluent. No deficit. She is very hard of hearing. LABORATORY DATA: Reviewed. On admission, she had a hemoglobin of 14.3 g/dL with white count of 8200. Electrolytes are within normal range. Creatinine which had been 1.7 is down to 1.3 mg/dL. BUN 37. Electrolytes within normal range. Nonfasting blood sugar of 144. ASSESSMENT: 1. This 77-year-old female, prison resident, has been admitted with behavior issues. 2. Severe kyphoscoliosis with restrictive lung disease. 3. Chronic obstructive pulmonary disease, oxygen dependent. 4. History of previous colon resection with functioning ostomy. 5. Type 2 diabetes. 6. Hypertension. 7. Remote history of congestive heart failure, compensated. 8. Chronic indwelling Canales catheter due to urinary incontinence. RECOMMENDATIONS: This patient is stable from a medical standpoint. I reviewed her medications. There probably should not be any changes at this time. Thank you again for asking us to see this patient for medical consultation. We shall gladly follow along and take care of any medical issues that should arise. PURA ZAMORA MD DR: HECTOR/carina JOB#: [id number] / [id number] NEYMAR Camara MD
[2018-12-28] MEDS: OXYBUTYNIN CHLORIDE 5 MG TABLET PO SCH (08:55)
[2018-12-28] MEDS: FEBUXOSTAT 40 MG TABLET PO SCH (08:55)
[2018-12-28] MEDS: DOCUSATE SODIUM 100 MG CAPSULE PO SCH (08:55)
[2018-12-28] MEDS: NITROFURANTOIN MONOHYD/M-CRYST 100 MG CAPSULE. PO SCH (08:55)
[2018-12-28] MEDS: LACTOBACILLUS RHAMNOSUS GG 1 CAPSULE. PO SCH ×2 (08:55→23:35)
[2018-12-28] MEDS: LOSARTAN 25 MG TABLET. PO SCH (08:55)
[2018-12-28] MEDS: busPIRone 10 MG TABLET. PO SCH ×2 (08:55→16:54)
[2018-12-28] MEDS: MAGNESIUM CHLORIDE ER 64 MG TABLET.ER PO SCH (08:56)
[2018-12-28] MEDS: DULoxetine HCL 60 MG CAPSULE.DR PO SCH (08:56)
[2018-12-28] MEDS: ASCORBIC ACID 500 MG TABLET PO SCH (08:56)
[2018-12-28] MEDS: RIVAROXABAN 10 MG TABLET. PO SCH (08:56)
[2018-12-28] MEDS: NYSTATIN TOPICAL POWDER 15GM BOTTLE. TP SCH ×2 (08:56→23:36)
[2018-12-28] MEDS: DIVALPROEX 125 MG CAP.SPRINK PO SCH ×2 (08:56→12:51)
[2018-12-28] MEDS: CARVEDILOL 6.25 MG TABLET PO SCH ×2 (08:56→16:55)
[2018-12-28] MEDS: POLYVINYL ALCOHOL 1.4% OPHTH SOLUTION 15ML BOTTLE. OU SCH ×4 (08:57→21:00)
[2018-12-28] MEDS: FLUTICASONE 50MCG/NASAL SPRAY 16GM BOTTLE. NS SCH (08:58)
[2018-12-28] MEDS ORDERED: busPIRone 10 MG TABLET. ONE ×2 (09:00)
[2018-12-28] MEDS ORDERED: DIVALPROEX 125 MG CAP.SPRINK PO ONE ×2 (09:00)
[2018-12-28 15:07] LABS: THYROXINE 7.5 ug/dL (4.5-12.0)
[2018-12-28 16:44] VITALS: BP 94/62
--- NOTE | 2018-12-28 20:49 | PDOC ---
Exam Note: Nain Note: Please also refer to the separate dictated note~for this date of service dictated separately.~Patient seen individually. Discussed the patient with Nursing staff reviewed the chart.~Reviewed interim history and current functioning. Reviewed vital signs,~Labs/ Radiology~and current medications noted below. Continue current treatment with the changes noted in the dictated addendum note Assessment: Vital Signs: Vital Signs Date Time Temp Pulse Resp B/P (MAP) Pulse Ox O2 Delivery O2 Flow Rate FiO2 12/28/18 16:55 69 94/62 12/28/18 16:44 98.0 20 96 Room Air 12/27/18 05:55 2.0 I&O Intake and Output 12/28/18 07:00 Intake Total 718 ml Balance 718 ml Intake Oral 718 ml Labs: Laboratory Tests Test 12/27/18 21:23 12/28/18 07:23 12/28/18 12:10 12/28/18 16:50 Glucose (Fingerstick) 101 mg/dL (70-99) H 96 mg/dL (70-99) 154 mg/dL (70-99) H 69 mg/dL (70-99) L Test 12/28/18 19:15 Glucose (Fingerstick) 121 mg/dL (70-99) H Current Medications: Meds: Current Medications Sodium Chloride 1,000 ml @ 1,000 mls/hr 1X ONCE IV Last administered on 12/26/18at 16:15; Start 12/26/18 at 16:15; Stop 12/26/18 at 17:14; Status DC Ceftriaxone Sodium 1 gm/ Sodium Chloride 50 ml @ 100 mls/hr 1X ONCE IV Last administered on 12/26/18at 16:15; Start 12/26/18 at 16:15; Stop 12/26/18 at 16:44; Status DC Sodium Chloride 50 ml @ As Directed STK-MED ONCE .ROUTE ; Start 12/26/18 at 16:15; Stop 12/26/18 at 16:16; Status DC Ceftriaxone Sodium (Rocephin) 1 gm STK-MED ONCE .ROUTE ; Start 12/26/18 at 16:15; Stop 12/26/18 at 16:16; Status DC Sodium Chloride 50 ml @ As Directed STK-MED ONCE .ROUTE ; Start 12/26/18 at 16:16; Stop 12/26/18 at 16:17; Status DC Ceftriaxone Sodium (Rocephin) 1 gm STK-MED ONCE .ROUTE ; Start 12/26/18 at 16:16; Stop 12/26/18 at 16:17; Status DC Sodium Chloride 50 ml @ As Directed STK-MED ONCE .ROUTE ; Start 12/26/18 at 16:23; Stop 12/26/18 at 16:24; Status DC Acetaminophen (Tylenol) 650 mg PRN Q6HRS PRN PO PAIN / TEMP; Start 12/26/18 at 23:30 Multi-Ingredient Ointment (Analgesic [place]) 1 karlos PRN QID PRN TP MUSCLE PAIN; Start 12/26/18 at 23:30 Al Hydroxide/Mg Hydroxide (Mylanta Plus Xs) 15 ml PRN AFTMEALHC PRN PO DYSPEPSIA; Start 12/26/18 at 23:30 Magnesium Hydroxide (Milk Of Magnesia) 2,400 mg PRN QHS PRN PO CONSTIPATION; Start 12/26/18 at 23:30 Ascorbic Acid (Vitamin C) 500 mg DAILY PO Last administered on 12/28/18 08:56; Start 12/27/18 at 09:00 Febuxostat (Uloric) 40 mg DAILY PO Last administered on 12/28/18 08:55; Start 12/27/18 at 09:00 Insulin Human Lispro (HumaLOG) 8 units TIDAC SQ Last administered on 12/28/18 12:41; Start 12/27/18 at 07:30 Losartan Potassium (Cozaar) 25 mg DAILY PO Last administered on 12/28/18 08:55; Start 12/27/18 at 09:00 Al Hydroxide/Mg Hydroxide (Mylanta Plus Xs) 15 ml PRN AFTMEALHC PRN PO DYSPEPSIA; Start 12/27/18 at 00:00; Status UNV Magnesium Hydroxide (Milk Of Magnesia) 2,400 mg PRN QHS PRN PO CONSTIPATION; Start 12/27/18 at 00:00; Status UNV Nystatin (Nystop) 1 karlos BID TP Last administered on 12/28/18 08:56; Start 12/27/18 at 09:00 Artificial Tears (Artificial Tears) 1 drop QID OU Last administered on 12/28/18 16:55; Start 12/27/18 at 09:00 Non-Formulary Medication (Acetaminophen ) 500 mg PRN Q6HRS PRN PO PAIN / TEMP; Start 12/27/18 at 00:00; Status UNV Buspirone HCl (Buspar) 10 mg BID@0900,1700 PO Last administered on 12/28/18 16:54; Start 12/27/18 at 09:00 Carvedilol (Coreg) 6.25 mg BIDWMEALS PO Last administered on 12/28/18 16:55; Start 12/27/18 at 08:00 Divalproex Sodium (Depakote Er) 250 mg QHS PO Last administered on 12/27/18 23:03; Start 12/27/18 at 21:00 Divalproex Sodium (Depakote Sprinkles) 125 mg BID92 PO Last administered on 12/28/18 12:51; Start 12/27/18 at 09:00 Docusate Sodium (Colace) 100 mg DAILY PO Last administered on 12/28/18 08:55; Start 12/27/18 at 09:00 Duloxetine HCl (Cymbalta) 60 mg DAILY PO Last administered on 12/28/18 08:56; Start 12/27/18 at 09:00 Fluticasone Propionate (Flonase) 2 spray DAILY NS Last administered on 12/28/18 08:58; Start 12/27/18 at 09:00 Furosemide (Lasix) 40 mg DAILY PO Last administered on 12/27/18 08:37; Start 12/27/18 at 09:00; Stop 12/27/18 at 09:59; Status DC Insulin Glargine (Lantus) 17 units QHS SQ Last administered on 12/27/18 21:26; Start 12/27/18 at 21:00 Lactobacillus Rhamnosus (Culturelle) 1 cap BID PO Last administered on 12/28/18 08:55; Start 12/27/18 at 09:00 Latanoprost (Xalatan) 1 drop QHS OU Last administered on 12/27/18 21:15; Start 12/27/18 at 21:00 Magnesium Chloride (Mag Delay) 64 mg DAILY PO Last administered on 12/28/18 08:56; Start 12/27/18 at 09:00 Multi-Ingred Cream/Lotion/Oil/ Oint (Artificial Tears Eye Ointment) 1 karlos QHS OU Last administered on 12/27/18at 21:00; Start 12/27/18 at 21:00 Oxybutynin Chloride (Ditropan) 5 mg DAILY PO ; Start 12/27/18 at 09:00; Stop 12/27/18 at 09:00; Status DC Potassium Chloride (Klor-Con) 10 meq BIDWMEALS PO ; Start 12/27/18 at 08:00; Stop 12/27/18 at 09:59; Status DC Rivaroxaban (Xarelto) 20 mg DAILY PO Last administered on 12/28/18at 08:56; Start 12/26/18 at 09:00 Oxybutynin Chloride (Ditropan) 10 mg DAILY PO Last administered on 12/28/18at 08:55; Start 12/27/18 at 09:00 Nitrofurantoin Macrocrystals (Macrobid) 100 mg DAILY PO Last administered on 12/28/18at 08:55; Start 12/27/18 at 09:00; Stop 01/01/19 at 09:01 Dextrose (Dextrose 50%-Water Syringe) 12.5 gm PRN Q15MIN PRN IV SEE COMMENTS; Start 12/27/18 at 00:45; Status UNV Dextrose (Dextrose 50%-Water Syringe) 12.5 gm PRN Q15MIN PRN IV SEE COMMENTS; Start 12/27/18 at 00:45 Active Scripts Active Reported Nystatin 15 Gm Powder 1 Karlos TP BID Depakote Er (Divalproex Sodium) 250 Mg Tab.er.24h 250 Mg PO QHS Depakote Sprinkle (Divalproex Sodium) 125 Mg Cap.sprink 125 Mg PO BID92 Flonase Allergy Relief (Fluticasone Propionate) 9.9 Ml [place].susp 2 Sprays NS DAILY Acetaminophen 500 Mg Tablet 500 Mg PO PRN Q6HRS PRN Buspirone Hcl 5 Mg Tablet 10 Mg PO BID@0900,1700 Milk Of Magnesia (Magnesium Hydroxide) 400 Mg/5 Ml Oral.susp 2,400 Mg PO PRN QHS PRN Mag-Al Plus Xs Suspension (Mag Hydrox/Al Hydrox/Simeth) 30 Ml Oral.susp 15 Ml PO PRN AFTMEALHC PRN Ascorbic Acid 500 Mg Tablet 500 Mg PO DAILY Uloric (Febuxostat) 40 Mg Tablet 40 Mg PO DAILY Systane Nighttime Eye Oint (Mineral Oil/Petrolatum,White) 3.5 Gm Oint...g. 1 Karlos OU QHS Oxybutynin Chloride Er (Oxybutynin Chloride) 5 Mg Tab.er.24 5 Mg PO DAILY Magnesium Chloride 64 Mg Tablet.dr 64 Mg PO DAILY Humalog (Insulin Lispro) 100 Unit/1 Ml Insuln.pen 8 Unit SQ TIDAC Docusate Sodium 100 Mg Capsule 100 Mg PO DAILY Artificial Tears (Polyvinyl Alcohol) 15 Ml Drops 1 Drp OU QID Potassium Chloride 10 Meq Tablet.er 10 Meq PO BID Xarelto (Rivaroxaban) 20 Mg Tablet 20 Mg PO DAILY Probiotic (Lactobacillus Combo No.10) 1 Each Capsule 1 Cap PO BID 14 Days Lasix (Furosemide) 40 Mg Tablet 40 Mg PO DAILY Coreg (Carvedilol) 6.25 Mg Tablet 6.25 Mg PO BIDWMEALS Lantus (Insulin Glargine,Hum.rec.anlog) 100 Unit/1 Ml Vial 17 Unit SQ HS Latanoprost 2.5 Ml Drops 1 Drop OS QHS Losartan Potassium (Losartan Potassium) 25 Mg Tablet 25 Mg PO DAILY Cymbalta (Duloxetine Hcl) 60 Mg Capsule.dr 60 Mg PO DAILY I have reviewed the current psychotropics carefully including drug interactions. Risk benefit ratio favors no change other than as noted in my dictated progress note. Diagnosis: Problems: (1) Encounter for medical screening examination (2) Anxiety disorder (3) Major depressive disorder, recurrent episode (4) Impulse control disorder CLAUDIA LAROSE MD Dec 28, 2018 20:49
[2018-12-28] MEDS: DIVALPROEX ER 250 MG TAB.ER.24H. PO SCH (23:35)
[2018-12-28] MEDS: MINERAL OIL/PETROLATUM,WHITE OPHTH OINT 3.5GM TUBE. OU SCH (23:36)
[2018-12-28] MEDS: INSULIN GLARGINE 300 UNITS/3 ML INSULN.PEN. SQ SCH (23:36)
[2018-12-28] MEDS: LATANOPROST 0.005% OPHTH SOLUTION 2.5ML BOTTLE. OU SCH (23:36)
[2018-12-29 06:17] VITALS: BP 136/57
[2018-12-29] MEDS: INSULIN LISPRO 300 UNITS/3 ML INSULN.PEN. SQ SCH ×3 (07:30→16:48)
[2018-12-29] MEDS: ASCORBIC ACID 500 MG TABLET PO SCH (08:35)
[2018-12-29] MEDS: MAGNESIUM CHLORIDE ER 64 MG TABLET.ER PO SCH (08:35)
[2018-12-29] MEDS: LOSARTAN 25 MG TABLET. PO SCH (08:36)
[2018-12-29] MEDS: DOCUSATE SODIUM 100 MG CAPSULE PO SCH (08:37)
[2018-12-29] MEDS: NITROFURANTOIN MONOHYD/M-CRYST 100 MG CAPSULE. PO SCH (08:37)
[2018-12-29] MEDS: OXYBUTYNIN CHLORIDE 5 MG TABLET PO SCH (08:38)
[2018-12-29] MEDS: DULoxetine HCL 60 MG CAPSULE.DR PO SCH (08:39)
[2018-12-29] MEDS: DIVALPROEX 125 MG CAP.SPRINK PO SCH ×3 (08:39→20:26)
[2018-12-29] MEDS: LACTOBACILLUS RHAMNOSUS GG 1 CAPSULE. PO SCH ×2 (08:39→20:09)
[2018-12-29] MEDS: CARVEDILOL 6.25 MG TABLET PO SCH ×2 (08:39→16:47)
[2018-12-29] MEDS: busPIRone 10 MG TABLET. PO SCH ×2 (08:39→16:46)
[2018-12-29] MEDS: RIVAROXABAN 10 MG TABLET. PO SCH (08:40)
[2018-12-29] MEDS: FEBUXOSTAT 40 MG TABLET PO SCH (08:45)
[2018-12-29] MEDS: FLUTICASONE 50MCG/NASAL SPRAY 16GM BOTTLE. NS SCH (08:45)
[2018-12-29] MEDS ORDERED: DIVALPROEX 125 MG CAP.SPRINK PO ONE ×2 (09:00)
[2018-12-29] MEDS ORDERED: busPIRone 10 MG TABLET. ONE ×2 (09:00)
[2018-12-29] MEDS: NYSTATIN TOPICAL POWDER 15GM BOTTLE. TP SCH ×2 (09:55→20:13)
[2018-12-29] MEDS: POLYVINYL ALCOHOL 1.4% OPHTH SOLUTION 15ML BOTTLE. OU SCH ×4 (09:56→20:11)
[2018-12-29 12:15] LABS: VAL ACID 26 mcg/mL (50-100)
--- NOTE | 2018-12-29 13:11 | PN ---
DATE: 12/28/2018 PSYCHIATRIC PROGRESS NOTE This late entry of 12/28/2018 covers elements not covered in my initial note. SUBJECTIVE: I met with the patient in the evening. The patient slept 4-3/4 hours previous night. She remains cooperative, somewhat confused, anxious at times. Valproic acid level on the 7th was 17. We will check it again on morning of 12/29/2018 and then adjust the dosage. REVIEW OF SYSTEMS: Ambulation impaired, in wheelchair. No CV, , pulmonary, eye system symptoms on review. MENTAL STATUS EXAM: Oriented to herself and situation. Speech has some latency, coherent. Abstraction fair, computation impaired, language function intact, attention span short. Mood and affect somewhat anxious, labile, withdrawn at times. LABORATORY DATA: Reviewed. IMPRESSION: Unchanged from initial note. PLAN: No change from initial note. Check a valproic acid, adjust thereafter. Continue BuSpar along with Cymbalta. CLAUDIA LAROSE MD DR: RUFUS/carina JOB#: [id number] / [id number]
[2018-12-29 15:59] VITALS: BP 131/63
[2018-12-29] MEDS: MINERAL OIL/PETROLATUM,WHITE OPHTH OINT 3.5GM TUBE. OU SCH (20:11)
[2018-12-29] MEDS: LATANOPROST 0.005% OPHTH SOLUTION 2.5ML BOTTLE. OU SCH (20:11)
[2018-12-29] MEDS: INSULIN GLARGINE 300 UNITS/3 ML INSULN.PEN. SQ SCH (20:13)
--- NOTE | 2018-12-29 22:52 | PDOC ---
Exam Note: Nain Note: Please also refer to the separate dictated note~for this date of service dictated separately.~Patient seen individually. Discussed the patient with Nursing staff reviewed the chart.~Reviewed interim history and current functioning. Reviewed vital signs,~Labs/ Radiology~and current medications noted below. Continue current treatment with the changes noted in the dictated addendum note Assessment: Vital Signs: Vital Signs Date Time Temp Pulse Resp B/P (MAP) Pulse Ox O2 Delivery O2 Flow Rate FiO2 12/29/18 16:47 60 131/63 12/29/18 15:59 97.2 16 94 12/28/18 16:44 Room Air 12/27/18 05:55 2.0 I&O Intake and Output 12/29/18 07:00 Intake Total 960 ml Output Total 620 ml Balance 340 ml Intake Oral 960 ml Output Urine Total 620 ml # Voids 2 Labs: Laboratory Tests Test 12/29/18 07:07 12/29/18 11:02 12/29/18 11:17 12/29/18 16:10 Glucose (Fingerstick) 98 mg/dL (70-99) 201 mg/dL (70-99) H 155 mg/dL (70-99) H Valproic Acid Level 26 mcg/mL (50-100) L Valproic Acid Last Dose Date 12/28/18 Valproic Acid Last Dose Time 0900 Test 12/29/18 19:26 Glucose (Fingerstick) 154 mg/dL (70-99) H Current Medications: Meds: Current Medications Sodium Chloride 1,000 ml @ 1,000 mls/hr 1X ONCE IV Last administered on at 16:15; Start 12/26/18 at 16:15; Stop 12/26/18 at 17:14; Status DC Ceftriaxone Sodium 1 gm/ Sodium Chloride 50 ml @ 100 mls/hr 1X ONCE IV Last administered on 12/26/18at 16:15; Start 12/26/18 at 16:15; Stop 12/26/18 at 16:44; Status DC Sodium Chloride 50 ml @ As Directed STK-MED ONCE .ROUTE ; Start 12/26/18 at 16:15; Stop 12/26/18 at 16:16; Status DC Ceftriaxone Sodium (Rocephin) 1 gm STK-MED ONCE .ROUTE ; Start 12/26/18 at 16:15; Stop 12/26/18 at 16:16; Status DC Sodium Chloride 50 ml @ As Directed STK-MED ONCE .ROUTE ; Start 12/26/18 at 16:16; Stop 12/26/18 at 16:17; Status DC Ceftriaxone Sodium (Rocephin) 1 gm STK-MED ONCE .ROUTE ; Start 12/26/18 at 16:16; Stop 12/26/18 at 16:17; Status DC Sodium Chloride 50 ml @ As Directed STK-MED ONCE .ROUTE ; Start 12/26/18 at 16:23; Stop 12/26/18 at 16:24; Status DC Acetaminophen (Tylenol) 650 mg PRN Q6HRS PRN PO PAIN / TEMP; Start 12/26/18 at 23:30 Multi-Ingredient Ointment (Analgesic [place]) 1 karlos PRN QID PRN TP MUSCLE PAIN; Start 12/26/18 at 23:30 Al Hydroxide/Mg Hydroxide (Mylanta Plus Xs) 15 ml PRN AFTMEALHC PRN PO DYSPEPSIA; Start 12/26/18 at 23:30 Magnesium Hydroxide (Milk Of Magnesia) 2,400 mg PRN QHS PRN PO CONSTIPATION; Start 12/26/18 at 23:30 Ascorbic Acid (Vitamin C) 500 mg DAILY PO Last administered on 12/29/18at 08:35; Start 12/27/18 at 09:00 Febuxostat (Uloric) 40 mg DAILY PO Last administered on 12/29/18at 08:45; Start 12/27/18 at 09:00 Insulin Human Lispro (HumaLOG) 8 units TIDAC SQ Last administered on 12/29/18at 16:48; Start 12/27/18 at 07:30 Losartan Potassium (Cozaar) 25 mg DAILY PO Last administered on 12/29/18at 08:36; Start 12/27/18 at 09:00 Al Hydroxide/Mg Hydroxide (Mylanta Plus Xs) 15 ml PRN AFTMEALHC PRN PO DYSPEPSIA; Start 12/27/18 at 00:00; Status UNV Magnesium Hydroxide (Milk Of Magnesia) 2,400 mg PRN QHS PRN PO CONSTIPATION; Start 12/27/18 at 00:00; Status UNV Nystatin (Nystop) 1 karlos BID TP Last administered on 12/29/18at 20:13; Start 12/27/18 at 09:00 Artificial Tears (Artificial Tears) 1 drop QID OU Last administered on 12/29/18 20:11; Start 12/27/18 at 09:00 Non-Formulary Medication (Acetaminophen ) 500 mg PRN Q6HRS PRN PO PAIN / TEMP; Start 12/27/18 at 00:00; Status UNV Buspirone HCl (Buspar) 10 mg BID@0900,1700 PO Last administered on 12/29/18 16:46; Start 12/27/18 at 09:00 Carvedilol (Coreg) 6.25 mg BIDWMEALS PO Last administered on 12/29/18 16:47; Start 12/27/18 at 08:00 Divalproex Sodium (Depakote Er) 250 mg QHS PO Last administered on 12/28/18 23:35; Start 12/27/18 at 21:00; Stop 12/29/18 at 19:57; Status DC Divalproex Sodium (Depakote Sprinkles) 125 mg BID92 PO Last administered on 12/29/18 13:15; Start 12/27/18 at 09:00; Stop 12/29/18 at 19:57; Status DC Docusate Sodium (Colace) 100 mg DAILY PO Last administered on 12/29/18 08:37; Start 12/27/18 at 09:00 Duloxetine HCl (Cymbalta) 60 mg DAILY PO Last administered on 12/29/18 08:39; Start 12/27/18 at 09:00 Fluticasone Propionate (Flonase) 2 spray DAILY NS Last administered on 12/29/18 08:45; Start 12/27/18 at 09:00 Furosemide (Lasix) 40 mg DAILY PO Last administered on 12/27/18 08:37; Start 12/27/18 at 09:00; Stop 12/27/18 at 09:59; Status DC Insulin Glargine (Lantus) 17 units QHS SQ Last administered on 12/29/18 20:13; Start 12/27/18 at 21:00 Lactobacillus Rhamnosus (Culturelle) 1 cap BID PO Last administered on 12/29/18 20:09; Start 12/27/18 at 09:00 Latanoprost (Xalatan) 1 drop QHS OU Last administered on 12/29/18at 20:11; Start 12/27/18 at 21:00 Magnesium Chloride (Mag Delay) 64 mg DAILY PO Last administered on 12/29/18at 08:35; Start 12/27/18 at 09:00 Multi-Ingred Cream/Lotion/Oil/ Oint (Artificial Tears Eye Ointment) 1 karlos QHS OU Last administered on 12/29/18at 20:11; Start 12/27/18 at 21:00 Oxybutynin Chloride (Ditropan) 5 mg DAILY PO ; Start 12/27/18 at 09:00; Stop 12/27/18 at 09:00; Status DC Potassium Chloride (Klor-Con) 10 meq BIDWMEALS PO ; Start 12/27/18 at 08:00; Stop 12/27/18 at 09:59; Status DC Rivaroxaban (Xarelto) 20 mg DAILY PO Last administered on 12/29/18at 08:40; Start 12/26/18 at 09:00 Oxybutynin Chloride (Ditropan) 10 mg DAILY PO Last administered on 12/29/18at 08:38; Start 12/27/18 at 09:00 Nitrofurantoin Macrocrystals (Macrobid) 100 mg DAILY PO Last administered on 12/29/18at 08:37; Start 12/27/18 at 09:00; Stop 01/01/19 at 09:01 Dextrose (Dextrose 50%-Water Syringe) 12.5 gm PRN Q15MIN PRN IV SEE COMMENTS; Start 12/27/18 at 00:45; Status UNV Dextrose (Dextrose 50%-Water Syringe) 12.5 gm PRN Q15MIN PRN IV SEE COMMENTS; Start 12/27/18 at 00:45 Divalproex Sodium (Depakote Sprinkles) 250 mg TID PO Last administered on 12/29/18at 20:26; Start 12/29/18 at 21:00 Active Scripts Active Reported Nystatin 15 Gm Powder 1 Karlos TP BID Depakote Er (Divalproex Sodium) 250 Mg Tab.er.24h 250 Mg PO QHS Depakote Sprinkle (Divalproex Sodium) 125 Mg Cap.sprink 125 Mg PO BID92 Flonase Allergy Relief (Fluticasone Propionate) 9.9 Ml [place].susp 2 Sprays NS DAILY Acetaminophen 500 Mg Tablet 500 Mg PO PRN Q6HRS PRN Buspirone Hcl 5 Mg Tablet 10 Mg PO BID@0900,1700 Milk Of Magnesia (Magnesium Hydroxide) 400 Mg/5 Ml Oral.susp 2,400 Mg PO PRN QHS PRN Mag-Al Plus Xs Suspension (Mag Hydrox/Al Hydrox/Simeth) 30 Ml Oral.susp 15 Ml PO PRN AFTMEALHC PRN Ascorbic Acid 500 Mg Tablet 500 Mg PO DAILY Uloric (Febuxostat) 40 Mg Tablet 40 Mg PO DAILY Systane Nighttime Eye Oint (Mineral Oil/Petrolatum,White) 3.5 Gm Oint...g. 1 Karlos OU QHS Oxybutynin Chloride Er (Oxybutynin Chloride) 5 Mg Tab.er.24 5 Mg PO DAILY Magnesium Chloride 64 Mg Tablet.dr 64 Mg PO DAILY Humalog (Insulin Lispro) 100 Unit/1 Ml Insuln.pen 8 Unit SQ TIDAC Docusate Sodium 100 Mg Capsule 100 Mg PO DAILY Artificial Tears (Polyvinyl Alcohol) 15 Ml Drops 1 Drp OU QID Potassium Chloride 10 Meq Tablet.er 10 Meq PO BID Xarelto (Rivaroxaban) 20 Mg Tablet 20 Mg PO DAILY Probiotic (Lactobacillus Combo No.10) 1 Each Capsule 1 Cap PO BID 14 Days Lasix (Furosemide) 40 Mg Tablet 40 Mg PO DAILY Coreg (Carvedilol) 6.25 Mg Tablet 6.25 Mg PO BIDWMEALS Lantus (Insulin Glargine,Hum.rec.anlog) 100 Unit/1 Ml Vial 17 Unit SQ HS Latanoprost 2.5 Ml Drops 1 Drop OS QHS Losartan Potassium (Losartan Potassium) 25 Mg Tablet 25 Mg PO DAILY Cymbalta (Duloxetine Hcl) 60 Mg Capsule.dr 60 Mg PO DAILY I have reviewed the current psychotropics carefully including drug interactions. Risk benefit ratio favors no change other than as noted in my dictated progress note. Diagnosis: Problems: (1) Encounter for medical screening examination (2) Anxiety disorder (3) Major depressive disorder, recurrent episode (4) Impulse control disorder CLAUDIA LAROSE MD Dec 29, 2018 22:51
[2018-12-30 06:05] VITALS: BP 143/84
[2018-12-30] MEDS: INSULIN LISPRO 300 UNITS/3 ML INSULN.PEN. SQ SCH ×4 (07:30→17:12)
[2018-12-30] MEDS: CARVEDILOL 6.25 MG TABLET PO SCH ×2 (08:18→17:11)
[2018-12-30] MEDS: DULoxetine HCL 60 MG CAPSULE.DR PO SCH (08:19)
[2018-12-30] MEDS: LACTOBACILLUS RHAMNOSUS GG 1 CAPSULE. PO SCH ×2 (08:19→20:17)
[2018-12-30] MEDS: busPIRone 10 MG TABLET. PO SCH ×2 (08:19→17:10)
[2018-12-30] MEDS: LOSARTAN 25 MG TABLET. PO SCH (08:19)
[2018-12-30] MEDS: DOCUSATE SODIUM 100 MG CAPSULE PO SCH (08:19)
[2018-12-30] MEDS: DIVALPROEX 125 MG CAP.SPRINK PO SCH ×3 (08:20→20:17)
[2018-12-30] MEDS: NITROFURANTOIN MONOHYD/M-CRYST 100 MG CAPSULE. PO SCH (08:21)
[2018-12-30] MEDS: ASCORBIC ACID 500 MG TABLET PO SCH (08:21)
[2018-12-30] MEDS: OXYBUTYNIN CHLORIDE 5 MG TABLET PO SCH (08:21)
[2018-12-30] MEDS: MAGNESIUM CHLORIDE ER 64 MG TABLET.ER PO SCH (08:21)
[2018-12-30] MEDS: RIVAROXABAN 10 MG TABLET. PO SCH (08:22)
[2018-12-30] MEDS: FEBUXOSTAT 40 MG TABLET PO SCH (08:24)
[2018-12-30] MEDS: FLUTICASONE 50MCG/NASAL SPRAY 16GM BOTTLE. NS SCH ×2 (08:24→09:00)
[2018-12-30] MEDS: POLYVINYL ALCOHOL 1.4% OPHTH SOLUTION 15ML BOTTLE. OU SCH ×5 (08:24→20:17)
[2018-12-30] MEDS: NYSTATIN TOPICAL POWDER 15GM BOTTLE. TP SCH ×2 (09:00→20:18)
[2018-12-30] MEDS ORDERED: busPIRone 10 MG TABLET. ONE ×2 (09:00)
--- NOTE | 2018-12-30 12:07 | PN ---
DATE: 12/29/2018 PSYCHIATRIC PROGRESS NOTE This late entry of 12/29/2018 covers elements not covered in my initial note. SUBJECTIVE: I met with the patient in the evening. The patient slept 6-1/4 hours previous night. Per nursing report, the patient has been "crabby." She was angry at her visitor and ran her wheelchair into the person irritable at times, did take her medications. Valproic acid level is 26 on 12/29/2018, subtherapeutic on Depakote Sprinkles 125 b.i.d., 250 at bedtime. REVIEW OF SYSTEMS: Ambulation impaired, in wheelchair. No CV, , pulmonary, eye, ENT system symptoms on review. MENTAL STATUS EXAM: Oriented to herself and situation. Speech is coherent, has some latency, often responses monosyllabic. Abstraction fair, computation impaired, language function intact, attention span short. Mood and affect somewhat labile, anxious at times. LABORATORY DATA: Reviewed. IMPRESSION: Major depressive disorder; anxiety disorder, unspecified; impulse control disorder; bipolar disorder, unspecified. PLAN: Continue to treat the UTI and she is on Macrobid for this. Increase Depakote Sprinkles to 250 mg t.i.d. Check CBC, CMP, valproic acid level in 3 days. Continue rest unchanged. Klarissa Gaspar for now. MAN Nicolette LAROSE MD DR: RUFUS/carina JOB#: [id number] / [id number]
[2018-12-30 15:51] VITALS: BP 105/65
[2018-12-30] MEDS: MINERAL OIL/PETROLATUM,WHITE OPHTH OINT 3.5GM TUBE. OU SCH (20:17)
[2018-12-30] MEDS: LATANOPROST 0.005% OPHTH SOLUTION 2.5ML BOTTLE. OU SCH (20:18)
[2018-12-30] MEDS: INSULIN GLARGINE 300 UNITS/3 ML INSULN.PEN. SQ SCH (20:19)
--- NOTE | 2018-12-30 22:44 | PDOC ---
Exam Note: Nain Note: Please also refer to the separate dictated note~for this date of service dictated separately.~Patient seen individually. Discussed the patient with Nursing staff reviewed the chart.~Reviewed interim history and current functioning. Reviewed vital signs,~Labs/ Radiology~and current medications noted below. Continue current treatment with the changes noted in the dictated addendum note Assessment: Vital Signs: Vital Signs Date Time Temp Pulse Resp B/P (MAP) Pulse Ox O2 Delivery O2 Flow Rate FiO2 12/30/18 17:11 62 105/65 12/30/18 15:51 97.3 19 95 12/28/18 16:44 Room Air 12/27/18 05:55 2.0 I&O Intake and Output 12/30/18 07:00 Intake Total 1080 ml Balance 1080 ml Intake Oral 1080 ml Labs: Laboratory Tests Test 12/30/18 07:18 12/30/18 08:23 12/30/18 11:54 12/30/18 17:01 Glucose (Fingerstick) 66 mg/dL (70-99) L 121 mg/dL (70-99) H 135 mg/dL (70-99) H 150 mg/dL (70-99) H Test 12/30/18 19:11 Glucose (Fingerstick) 162 mg/dL (70-99) H Current Medications: Meds: Current Medications Sodium Chloride 1,000 ml @ 1,000 mls/hr 1X ONCE IV Last administered on 12/26/18at 16:15; Start 12/26/18 at 16:15; Stop 12/26/18 at 17:14; Status DC Ceftriaxone Sodium 1 gm/ Sodium Chloride 50 ml @ 100 mls/hr 1X ONCE IV Last administered on 12/26/18at 16:15; Start 12/26/18 at 16:15; Stop 12/26/18 at 16:44; Status DC Sodium Chloride 50 ml @ As Directed STK-MED ONCE .ROUTE ; Start 12/26/18 at 16:15; Stop 12/26/18 at 16:16; Status DC Ceftriaxone Sodium (Rocephin) 1 gm STK-MED ONCE .ROUTE ; Start 12/26/18 at 16:15; Stop 12/26/18 at 16:16; Status DC Sodium Chloride 50 ml @ As Directed STK-MED ONCE .ROUTE ; Start 12/26/18 at 16 :16; Stop 12/26/18 at 16:17; Status DC Ceftriaxone Sodium (Rocephin) 1 gm STK-MED ONCE .ROUTE ; Start 12/26/18 at 16:16; Stop 12/26/18 at 16:17; Status DC Sodium Chloride 50 ml @ As Directed STK-MED ONCE .ROUTE ; Start 12/26/18 at 16:23; Stop 12/26/18 at 16:24; Status DC Acetaminophen (Tylenol) 650 mg PRN Q6HRS PRN PO PAIN / TEMP; Start 12/26/18 at 23:30 Multi-Ingredient Ointment (Analgesic [place]) 1 karlos PRN QID PRN TP MUSCLE PAIN; Start 12/26/18 at 23:30 Al Hydroxide/Mg Hydroxide (Mylanta Plus Xs) 15 ml PRN AFTMEALHC PRN PO DYSPEPSIA; Start 12/26/18 at 23:30 Magnesium Hydroxide (Milk Of Magnesia) 2,400 mg PRN QHS PRN PO CONSTIPATION; Start 12/26/18 at 23:30 Ascorbic Acid (Vitamin C) 500 mg DAILY PO Last administered on 12/30/18at 08:21; Start 12/27/18 at 09:00 Febuxostat (Uloric) 40 mg DAILY PO Last administered on 12/30/18 08:24; Start 12/27/18 at 09:00 Insulin Human Lispro (HumaLOG) 8 units TIDAC SQ Last administered on 12/30/18at 17:12; Start 12/27/18 at 07:30 Losartan Potassium (Cozaar) 25 mg DAILY PO Last administered on 12/30/18at 08:19; Start 12/27/18 at 09:00 Al Hydroxide/Mg Hydroxide (Mylanta Plus Xs) 15 ml PRN AFTMEALHC PRN PO D YSPEPSIA; Start 12/27/18 at 00:00; Status UNV Magnesium Hydroxide (Milk Of Magnesia) 2,400 mg PRN QHS PRN PO CONSTIPATION; Start 12/27/18 at 00:00; Status UNV Nystatin (Nystop) 1 karlos BID TP Last administered on 12/30/18at 20:18; Start 12/27/18 at 09:00 Artificial Tears (Artificial Tears) 1 drop QID OU Last administered on 6/10/19at 20:17; Start 12/27/18 at 09:00 Non-Formulary Medication (Acetaminophen ) 500 mg PRN Q6HRS PRN PO PAIN / TEMP; Start 12/27/18 at 00:00; Status UNV Buspirone HCl (Buspar) 10 mg BID@0900,1700 PO Last administered on 12/30/18 17:10; Start 12/27/18 at 09:00 Carvedilol (Coreg) 6.25 mg BIDWMEALS PO Last administered on 12/30/18 17:11; Start 12/27/18 at 08:00 Divalproex Sodium (Depakote Er) 250 mg QHS PO Last administered on 12/28/18 23:35; Start 12/27/18 at 21:00; Stop 12/29/18 at 19:57; Status DC Divalproex Sodium (Depakote Sprinkles) 125 mg BID92 PO Last administered on 12/29/18 13:15; Start 12/27/18 at 09:00; Stop 12/29/18 at 19:57; Status DC Docusate Sodium (Colace) 100 mg DAILY PO Last administered on 12/30/18 08:19; Start 12/27/18 at 09:00 Duloxetine HCl (Cymbalta) 60 mg DAILY PO Last administered on 12/30/18 08:19; Start 12/27/18 at 09:00 Fluticasone Propionate (Flonase) 2 spray DAILY NS Last administered on 12/29/18 08:45; Start 12/27/18 at 09:00 Furosemide (Lasix) 40 mg DAILY PO Last administered on 12/27/18 08:37; Start 12/27/18 at 09:00; Stop 12/27/18 at 09:59; Status DC Insulin Glargine (Lantus) 17 units QHS SQ Last administered on 12/30/18 20:19; Start 12/27/18 at 21:00 Lactobacillus Rhamnosus (Culturelle) 1 cap BID PO Last administered on 12/30/18 20:17; Start 12/27/18 at 09:00 Latanoprost (Xalatan) 1 drop QHS OU Last administered on 12/30/18 20:18; Start 12/27/18 at 21:00 Magnesium Chloride (Mag Delay) 64 mg DAILY PO Last administered on 12/30/18 08:21; Start 12/27/18 at 09:00 Multi-Ingred Cream/Lotion/Oil/ Oint (Artificial Tears Eye Ointment) 1 karlos QHS OU Last administered on 12/30/18 20:17; Start 12/27/18 at 21:00 Oxybutynin Chloride (Ditropan) 5 mg DAILY PO ; Start 12/27/18 at 09:00; Stop 12/27/18 at 09:00; Status DC Potassium Chloride (Klor-Con) 10 meq BIDWMEALS PO ; Start 12/27/18 at 08:00; Stop 12/27/18 at 09:59; Status DC Rivaroxaban (Xarelto) 20 mg DAILY PO Last administered on 12/30/18 08:22; Start 12/26/18 at 09:00 Oxybutynin Chloride (Ditropan) 10 mg DAILY PO Last administered on 12/30/18 08:21; Start 12/27/18 at 09:00 Nitrofurantoin Macrocrystals (Macrobid) 100 mg DAILY PO Last administered on 12/30/18 08:21; Start 12/27/18 at 09:00; Stop 01/01/19 at 09:01 Dextrose (Dextrose 50%-Water Syringe) 12.5 gm PRN Q15MIN PRN IV SEE COMMENTS; Start 12/27/18 at 00:45; Status UNV Dextrose (Dextrose 50%-Water Syringe) 12.5 gm PRN Q15MIN PRN IV SEE COMMENTS; Start 12/27/18 at 00:45 Divalproex Sodium (Depakote Sprinkles) 250 mg TID PO Last administered on 12/30/18 20:17; Start 12/29/18 at 21:00 Active Scripts Active Reported Nystatin 15 Gm Powder 1 Karlos TP BID Depakote Er (Divalproex Sodium) 250 Mg Tab.er.24h 250 Mg PO QHS Depakote Sprinkle (Divalproex Sodium) 125 Mg Cap.sprink 125 Mg PO BID92 Flonase Allergy Relief (Fluticasone Propionate) 9.9 Ml [place].susp 2 Sprays NS DAILY Acetaminophen 500 Mg Tablet 500 Mg PO PRN Q6HRS PRN Buspirone Hcl 5 Mg Tablet 10 Mg PO BID@0900,1700 Milk Of Magnesia (Magnesium Hydroxide) 400 Mg/5 Ml Oral.susp 2,400 Mg PO PRN QHS PRN Mag-Al Plus Xs Suspension (Mag Hydrox/Al Hydrox/Simeth) 30 Ml Oral.susp 15 Ml PO PRN AFTMEALHC PRN Ascorbic Acid 500 Mg Tablet 500 Mg PO DAILY Uloric (Febuxostat) 40 Mg Tablet 40 Mg PO DAILY Systane Nighttime Eye Oint (Mineral Oil/Petrolatum,White) 3.5 Gm Oint...g. 1 Karlos OU QHS Oxybutynin Chloride Er (Oxybutynin Chloride) 5 Mg Tab.er.24 5 Mg PO DAILY Magnesium Chloride 64 Mg Tablet.dr 64 Mg PO DAILY Humalog (Insulin Lispro) 100 Unit/1 Ml Insuln.pen 8 Unit SQ TIDAC Docusate Sodium 100 Mg Capsule 100 Mg PO DAILY Artificial Tears (Polyvinyl Alcohol) 15 Ml Drops 1 Drp OU QID Potassium Chloride 10 Meq Tablet.er 10 Meq PO BID Xarelto (Rivaroxaban) 20 Mg Tablet 20 Mg PO DAILY Probiotic (Lactobacillus Combo No.10) 1 Each Capsule 1 Cap PO BID 14 Days Lasix (Furosemide) 40 Mg Tablet 40 Mg PO DAILY Coreg (Carvedilol) 6.25 Mg Tablet 6.25 Mg PO BIDWMEALS Lantus (Insulin Glargine,Hum.rec.anlog) 100 Unit/1 Ml Vial 17 Unit SQ HS Latanoprost 2.5 Ml Drops 1 Drop OS QHS Losartan Potassium (Losartan Potassium) 25 Mg Tablet 25 Mg PO DAILY Cymbalta (Duloxetine Hcl) 60 Mg Capsule.dr 60 Mg PO DAILY I have reviewed the current psychotropics carefully including drug interactions. Risk benefit ratio favors no change other than as noted in my dictated progress note. Diagnosis: Problems: (1) Anxiety disorder (2) Major depressive disorder, recurrent episode (3) Impulse control disorder CLAUDIA LAROSE MD Dec 30, 2018 22:44
[2018-12-31 05:49] VITALS: BP 137/77
[2018-12-31] MEDS: INSULIN LISPRO 300 UNITS/3 ML INSULN.PEN. SQ SCH ×3 (07:30→17:12)
[2018-12-31] MEDS: POLYVINYL ALCOHOL 1.4% OPHTH SOLUTION 15ML BOTTLE. OU SCH ×4 (08:01→20:30)
[2018-12-31] MEDS: FLUTICASONE 50MCG/NASAL SPRAY 16GM BOTTLE. NS SCH ×2 (08:01→09:00)
[2018-12-31] MEDS: busPIRone 10 MG TABLET. PO SCH ×2 (08:01→17:09)
[2018-12-31] MEDS: CARVEDILOL 6.25 MG TABLET PO SCH ×2 (08:01→17:10)
[2018-12-31] MEDS: DOCUSATE SODIUM 100 MG CAPSULE PO SCH (08:02)
[2018-12-31] MEDS: DULoxetine HCL 60 MG CAPSULE.DR PO SCH (08:03)
[2018-12-31] MEDS: LOSARTAN 25 MG TABLET. PO SCH (08:03)
[2018-12-31] MEDS: MAGNESIUM CHLORIDE ER 64 MG TABLET.ER PO SCH (08:04)
[2018-12-31] MEDS: OXYBUTYNIN CHLORIDE 5 MG TABLET PO SCH (08:04)
[2018-12-31] MEDS: DIVALPROEX 125 MG CAP.SPRINK PO SCH ×3 (08:04→20:31)
[2018-12-31] MEDS: NITROFURANTOIN MONOHYD/M-CRYST 100 MG CAPSULE. PO SCH (08:04)
[2018-12-31] MEDS: RIVAROXABAN 10 MG TABLET. PO SCH (08:05)
[2018-12-31] MEDS: ASCORBIC ACID 500 MG TABLET PO SCH (08:05)
[2018-12-31] MEDS: FEBUXOSTAT 40 MG TABLET PO SCH (08:06)
[2018-12-31] MEDS: LACTOBACILLUS RHAMNOSUS GG 1 CAPSULE. PO SCH ×2 (08:11→20:31)
[2018-12-31] MEDS: NYSTATIN TOPICAL POWDER 15GM BOTTLE. TP SCH ×2 (09:00→20:31)
[2018-12-31] MEDS ORDERED: busPIRone 10 MG TABLET. ONE ×2 (09:00)
[2018-12-31 16:38] VITALS: BP 151/76
[2018-12-31] MEDS: MINERAL OIL/PETROLATUM,WHITE OPHTH OINT 3.5GM TUBE. OU SCH (20:30)
[2018-12-31] MEDS: INSULIN GLARGINE 300 UNITS/3 ML INSULN.PEN. SQ SCH (20:32)
--- NOTE | 2018-12-31 22:49 | PDOC ---
Exam Note: Nain Note: Please also refer to the separate dictated note~for this date of service dictated separately.~Patient seen individually. Discussed the patient with Nursing staff reviewed the chart.~Reviewed interim history and current functioning. Reviewed vital signs,~Labs/ Radiology~and current medications noted below. Continue current treatment with the changes noted in the dictated addendum note Assessment: Vital Signs: Vital Signs Date Time Temp Pulse Resp B/P (MAP) Pulse Ox O2 Delivery O2 Flow Rate FiO2 12/31/18 17:10 58 151/76 12/31/18 16:38 97.3 16 96 12/28/18 16:44 Room Air 12/27/18 05:55 2.0 I&O Intake and Output 12/31/18 07:00 Intake Total 1080 ml Balance 1080 ml Intake Oral 1080 ml Labs: Laboratory Tests Test 12/31/18 07:22 12/31/18 07:49 12/31/18 11:33 12/31/18 17:00 Glucose (Fingerstick) 52 mg/dL (70-99) L 74 mg/dL (70-99) 136 mg/dL (70-99) H 80 mg/dL (70-99) Test 12/31/18 19:15 Glucose (Fingerstick) 115 mg/dL (70-99) H Current Medications: Meds: Current Medications Sodium Chloride 1,000 ml @ 1,000 mls/hr 1X ONCE IV Last administered on 12/26/18at 16:15; Start 12/26/18 at 16:15; Stop 12/26/18 at 17:14; Status DC Ceftriaxone Sodium 1 gm/ Sodium Chloride 50 ml @ 100 mls/hr 1X ONCE IV Last administered on 12/26/18at 16:15; Start 12/26/18 at 16:15; Stop 12/26/18 at 16:44; Status DC Sodium Chloride 50 ml @ As Directed STK-MED ONCE .ROUTE ; Start 12/26/18 at 16:15; Stop 12/26/18 at 16:16; Status DC Ceftriaxone Sodium (Rocephin) 1 gm STK-MED ONCE .ROUTE ; Start 12/26/18 at 16:15; Stop 12/26/18 at 16:16; Status DC Sodium Chloride 50 ml @ As Directed STK-MED ONCE .ROUTE ; Start 12/26/18 at 16:16; Stop 12/26/18 at 16:17; Status DC Ceftriaxone Sodium (Rocephin) 1 gm STK-MED ONCE .ROUTE ; Start 12/26/18 at 16:16; Stop 12/26/18 at 16:17; Status DC Sodium Chloride 50 ml @ As Directed STK-MED ONCE .ROUTE ; Start 12/26/18 at 16:23; Stop 12/26/18 at 16:24; Status DC Acetaminophen (Tylenol) 650 mg PRN Q6HRS PRN PO PAIN / TEMP; Start 12/26/18 at 23:30 Multi-Ingredient Ointment (Analgesic [place]) 1 karlos PRN QID PRN TP MUSCLE PAIN; Start 12/26/18 at 23:30 Al Hydroxide/Mg Hydroxide (Mylanta Plus Xs) 15 ml PRN AFTMEALHC PRN PO DYSPEPSIA; Start 12/26/18 at 23:30 Magnesium Hydroxide (Milk Of Magnesia) 2,400 mg PRN QHS PRN PO CONSTIPATION; Start 12/26/18 at 23:30 Ascorbic Acid (Vitamin C) 500 mg DAILY PO Last administered on 12/31/18at 08:05; Start 12/27/18 at 09:00 Febuxostat (Uloric) 40 mg DAILY PO Last administered on 12/31/18at 08:06; Start 12/27/18 at 09:00 Insulin Human Lispro (HumaLOG) 8 units TIDAC SQ Last administered on 12/31/18at 17:12; Start 12/27/18 at 07:30 Losartan Potassium (Cozaar) 25 mg DAILY PO Last administered on 12/31/18at 08:03; Start 12/27/18 at 09:00 Al Hydroxide/Mg Hydroxide (Mylanta Plus Xs) 15 ml PRN AFTMEALHC PRN PO DYSPEPSIA; Start 12/27/18 at 00:00; Status UNV Magnesium Hydroxide (Milk Of Magnesia) 2,400 mg PRN QHS PRN PO CONSTIPATION; Start 12/27/18 at 00:00; Status UNV Nystatin (Nystop) 1 karlos BID TP Last administered on 12/31/18at 20:31; Start 12/27/18 at 09:00 Artificial Tears (Artificial Tears) 1 drop QID OU Last administered on 12/31/18at 20:30; Start 12/27/18 at 09:00 Non-Formulary Medication (Acetaminophen ) 500 mg PRN Q6HRS PRN PO PAIN / TEMP; Start 12/27/18 at 00:00; Status UNV Buspirone HCl (Buspar) 10 mg BID@0900,1700 PO Last administered on 12/31/18 17:09; Start 12/27/18 at 09:00 Carvedilol (Coreg) 6.25 mg BIDWMEALS PO Last administered on 12/31/18 17:10; Start 12/27/18 at 08:00 Divalproex Sodium (Depakote Er) 250 mg QHS PO Last administered on 12/28/18 23:35; Start 12/27/18 at 21:00; Stop 12/29/18 at 19:57; Status DC Divalproex Sodium (Depakote Sprinkles) 125 mg BID92 PO Last administered on 12/29/18 13:15; Start 12/27/18 at 09:00; Stop 12/29/18 at 19:57; Status DC Docusate Sodium (Colace) 100 mg DAILY PO Last administered on 12/31/18 08:02; Start 12/27/18 at 09:00 Duloxetine HCl (Cymbalta) 60 mg DAILY PO Last administered on 12/31/18 08:03; Start 12/27/18 at 09:00 Fluticasone Propionate (Flonase) 2 spray DAILY NS Last administered on 12/31/18 08:01; Start 12/27/18 at 09:00 Furosemide (Lasix) 40 mg DAILY PO Last administered on 12/27/18 08:37; Start 12/27/18 at 09:00; Stop 12/27/18 at 09:59; Status DC Insulin Glargine (Lantus) 17 units QHS SQ Last administered on 12/30/18 20:19; Start 12/27/18 at 21:00; Stop 12/31/18 at 18:28; Status DC Lactobacillus Rhamnosus (Culturelle) 1 cap BID PO Last administered on 12/31/18 20:31; Start 12/27/18 at 09:00 Latanoprost (Xalatan) 1 drop QHS OU Last administered on 6/10/19at 20:18; Start 12/27/18 at 21:00 Magnesium Chloride (Mag Delay) 64 mg DAILY PO Last administered on 12/31/18 08:04; Start 12/27/18 at 09:00 Multi-Ingred Cream/Lotion/Oil/ Oint (Artificial Tears Eye Ointment) 1 karlos QHS OU Last administered on 12/31/18at 20:30; Start 12/27/18 at 21:00 Oxybutynin Chloride (Ditropan) 5 mg DAILY PO ; Start 12/27/18 at 09:00; Stop 12/27/18 at 09:00; Status DC Potassium Chloride (Klor-Con) 10 meq BIDWMEALS PO ; Start 12/27/18 at 08:00; Stop 12/27/18 at 09:59; Status DC Rivaroxaban (Xarelto) 20 mg DAILY PO Last administered on 12/31/18 08:05; Start 12/26/18 at 09:00 Oxybutynin Chloride (Ditropan) 10 mg DAILY PO Last administered on 12/31/18at 08:04; Start 12/27/18 at 09:00 Nitrofurantoin Macrocrystals (Macrobid) 100 mg DAILY PO Last administered on 12/31/18 08:04; Start 12/27/18 at 09:00; Stop 01/01/19 at 09:01 Dextrose (Dextrose 50%-Water Syringe) 12.5 gm PRN Q15MIN PRN IV SEE COMMENTS; Start 12/27/18 at 00:45; Status UNV Dextrose (Dextrose 50%-Water Syringe) 12.5 gm PRN Q15MIN PRN IV SEE COMMENTS; Start 12/27/18 at 00:45 Divalproex Sodium (Depakote Sprinkles) 250 mg TID PO Last administered on 12/31/18 20:31; Start 12/29/18 at 21:00 Insulin Glargine (Lantus) 10 units QHS SQ Last administered on 12/31/18at 20:32; Start 12/31/18 at 21:00 Active Scripts Active Reported Nystatin 15 Gm Powder 1 Karlos TP BID Depakote Er (Divalproex Sodium) 250 Mg Tab.er.24h 250 Mg PO QHS Depakote Sprinkle (Divalproex Sodium) 125 Mg Cap.sprink 125 Mg PO BID92 Flonase Allergy Relief (Fluticasone Propionate) 9.9 Ml [place].susp 2 Sprays NS DAILY Acetaminophen 500 Mg Tablet 500 Mg PO PRN Q6HRS PRN Buspirone Hcl 5 Mg Tablet 10 Mg PO BID@0900,1700 Milk Of Magnesia (Magnesium Hydroxide) 400 Mg/5 Ml Oral.susp 2,400 Mg PO PRN QHS PRN Mag-Al Plus Xs Suspension (Mag Hydrox/Al Hydrox/Simeth) 30 Ml Oral.susp 15 Ml PO PRN AFTMEALHC PRN Ascorbic Acid 500 Mg Tablet 500 Mg PO DAILY Uloric (Febuxostat) 40 Mg Tablet 40 Mg PO DAILY Systane Nighttime Eye Oint (Mineral Oil/Petrolatum,White) 3.5 Gm Oint...g. 1 Karlos OU QHS Oxybutynin Chloride Er (Oxybutynin Chloride) 5 Mg Tab.er.24 5 Mg PO DAILY Magnesium Chloride 64 Mg Tablet.dr 64 Mg PO DAILY Humalog (Insulin Lispro) 100 Unit/1 Ml Insuln.pen 8 Unit SQ TIDAC Docusate Sodium 100 Mg Capsule 100 Mg PO DAILY Artificial Tears (Polyvinyl Alcohol) 15 Ml Drops 1 Drp OU QID Potassium Chloride 10 Meq Tablet.er 10 Meq PO BID Xarelto (Rivaroxaban) 20 Mg Tablet 20 Mg PO DAILY Probiotic (Lactobacillus Combo No.10) 1 Each Capsule 1 Cap PO BID 14 Days Lasix (Furosemide) 40 Mg Tablet 40 Mg PO DAILY Coreg (Carvedilol) 6.25 Mg Tablet 6.25 Mg PO BIDWMEALS Lantus (Insulin Glargine,Hum.rec.anlog) 100 Unit/1 Ml Vial 17 Unit SQ HS Latanoprost 2.5 Ml Drops 1 Drop OS QHS Losartan Potassium (Losartan Potassium) 25 Mg Tablet 25 Mg PO DAILY Cymbalta (Duloxetine Hcl) 60 Mg Capsule.dr 60 Mg PO DAILY I have reviewed the current psychotropics carefully including drug interactions. Risk benefit ratio favors no change other than as noted in my dictated progress note. Diagnosis: Problems: (1) Encounter for medical screening examination (2) Anxiety disorder (3) Major depressive disorder, recurrent episode (4) Impulse control disorder CLAUDIA LAROSE MD Dec 31, 2018 22:49
[2018-12-31] MEDS: LATANOPROST 0.005% OPHTH SOLUTION 2.5ML BOTTLE. OU SCH (22:59)
--- NOTE | 2019-01-01 04:15 | PN ---
DATE: 12/30/2018 PSYCHIATRIC PROGRESS NOTE This is late entry 12/30/2018, covers elements not covered in my initial note. SUBJECTIVE: I met with the patient in the evening. The patient slept 6-1/2 hours previous night. She has been compliant with medications, attended groups. It was her [birth year] on [birth year] and celebrated with a cake and she was quite pleased with this. REVIEW OF SYSTEMS: Ambulation impaired, in wheelchair, hard of hearing. No CV, , pulmonary, eyes system symptoms on review. MENTAL STATUS EXAM: Oriented to herself and situation. Speech has some latency, coherent, often responses monosyllabic. Abstraction fair, computation impaired, language function intact, attention span short. Mood and affect still somewhat depressed, anxious, less so than before. LABORATORY DATA: Reviewed. IMPRESSION: Unchanged from initial note. PLAN: No change from initial note. Depakote has been increased to 250 mg t.i.d. We are checking labs in 3 days. Rest unchanged. MAN Nicolette LAROSE MD DR: RUFUS/carina JOB#: [id number] / [id number]
[2019-01-01 06:03] VITALS: BP 158/84
[2019-01-01] MEDS: CARVEDILOL 6.25 MG TABLET PO SCH ×2 (07:38→17:00)
[2019-01-01] MEDS: DOCUSATE SODIUM 100 MG CAPSULE PO SCH (07:39)
[2019-01-01] MEDS: busPIRone 10 MG TABLET. PO SCH ×2 (07:39→17:00)
[2019-01-01] MEDS: LACTOBACILLUS RHAMNOSUS GG 1 CAPSULE. PO SCH ×2 (07:40→20:22)
[2019-01-01] MEDS: LOSARTAN 25 MG TABLET. PO SCH (07:40)
[2019-01-01] MEDS: DULoxetine HCL 60 MG CAPSULE.DR PO SCH (07:40)
[2019-01-01] MEDS: MAGNESIUM CHLORIDE ER 64 MG TABLET.ER PO SCH (07:41)
[2019-01-01] MEDS: DIVALPROEX 125 MG CAP.SPRINK PO SCH ×3 (07:41→20:23)
[2019-01-01] MEDS: NITROFURANTOIN MONOHYD/M-CRYST 100 MG CAPSULE. PO SCH (07:41)
[2019-01-01] MEDS: OXYBUTYNIN CHLORIDE 5 MG TABLET PO SCH (07:41)
[2019-01-01] MEDS: ASCORBIC ACID 500 MG TABLET PO SCH (07:42)
[2019-01-01] MEDS: RIVAROXABAN 10 MG TABLET. PO SCH (07:42)
[2019-01-01] MEDS: FEBUXOSTAT 40 MG TABLET PO SCH (07:42)
[2019-01-01] MEDS: INSULIN LISPRO 300 UNITS/3 ML INSULN.PEN. SQ SCH ×3 (07:51→17:06)
[2019-01-01] MEDS: POLYVINYL ALCOHOL 1.4% OPHTH SOLUTION 15ML BOTTLE. OU SCH ×5 (07:53→20:22)
[2019-01-01] MEDS: FLUTICASONE 50MCG/NASAL SPRAY 16GM BOTTLE. NS SCH (08:03)
[2019-01-01 08:09] LABS: BASO # 0.1 x10^3/uL (0.0-0.2); BASO % 1 % (0-3); EOS # 0.6 x10^3/uL (0.0-0.7); EOS % 9 % (0-3); HEMATOCRIT 44.4 % (36.0-47.0); HEMOGLOBIN 14.1 g/dL (12.0-15.5); LYMPH # 1.8 x10^3/uL (1.0-4.8); LYMPH % 30 % (24-48); MEAN CORPUSCULAR HEMOGLOBIN 26 pg (25-35); MEAN CORPUSCULAR HGB CONC 32 g/dL (31-37); MEAN CORPUSCULAR VOLUME 81 fL (79-100); MONO # 0.6 x10^3/uL (0.0-1.1); MONO % 9 % (0-9); NEUT # 3.2 x10^3uL (1.8-7.7); NEUT % 51 % (31-73); PLATELET COUNT 367 x10^3/uL (140-400); RED BLOOD COUNT 5.52 x10^6/uL (3.50-5.40); RED CELL DISTRIBUTION WIDTH 15.7 % (11.5-14.5); WHITE BLOOD COUNT 6.2 x10^3/uL (4.0-11.0)
[2019-01-01 08:24] LABS: ALBUMIN 2.7 g/dL (3.4-5.0); ALBUMIN/GLOBULIN RATIO 0.5 (1.0-1.7); ALK PHOS 80 U/L (46-116); ALT (SGPT) 14 U/L (14-59); ANION GAP 6 (6-14); AST (SGOT) 11 U/L (15-37); BLOOD UREA NITROGEN 20 mg/dL (7-20); BUN/CREATININE RATIO 20 (6-20); CALCIUM 10.5 mg/dL (8.5-10.1); CARBON DIOXIDE 32 mmol/L (21-32); CHLORIDE 104 mmol/L (98-107); GFR 53.9; GLUCOSE 114 mg/dL (70-99); POTASSIUM 4.6 mmol/L (3.5-5.1); SODIUM 142 mmol/L (136-145); TOTAL BILIRUBIN 0.2 mg/dL (0.2-1.0); TOTAL PROTEIN 8.5 g/dL (6.4-8.2)
[2019-01-01 08:33] LABS: VAL ACID 44 mcg/mL (50-100)
[2019-01-01] MEDS: NYSTATIN TOPICAL POWDER 15GM BOTTLE. TP SCH ×2 (09:00→20:23)
[2019-01-01] MEDS ORDERED: busPIRone 10 MG TABLET. ONE (09:00)
[2019-01-01 15:48] VITALS: BP 115/80
[2019-01-01] MEDS: MINERAL OIL/PETROLATUM,WHITE OPHTH OINT 3.5GM TUBE. OU SCH (20:21)
[2019-01-01] MEDS: LATANOPROST 0.005% OPHTH SOLUTION 2.5ML BOTTLE. OU SCH (20:21)
[2019-01-01] MEDS: INSULIN GLARGINE 300 UNITS/3 ML INSULN.PEN. SQ SCH (20:28)
[2019-01-01] MEDS: 0.9 % SODIUM CHLORIDE 10 ML DISP.SYRIN. INT CAT SCH (21:00)
--- NOTE | 2019-01-01 23:06 | PDOC ---
Exam Note: Nain Note: Please also refer to the separate dictated note~for this date of service dictated separately.~Patient seen individually. Discussed the patient with Nursing staff reviewed the chart.~Reviewed interim history and current functioning. Reviewed vital signs,~Labs/ Radiology~and current medications noted below. Continue current treatment with the changes noted in the dictated addendum note Assessment: Vital Signs: Vital Signs Date Time Temp Pulse Resp B/P (MAP) Pulse Ox O2 Delivery O2 Flow Rate FiO2 01/01/19 17:00 69 115/80 01/01/19 15:48 97.7 18 95 12/28/18 16:44 Room Air 12/27/18 05:55 2.0 I&O Intake and Output 01/01/19 06:59 Intake Total 1800 ml Output Total 1650 ml Balance 150 ml Intake Oral 1800 ml Output Urine Total 1650 ml # Bowel Movements 2 Labs: Laboratory Tests Test 01/01/19 07:28 01/01/19 07:30 01/01/19 12:04 01/01/19 17:02 Glucose (Fingerstick) 112 mg/dL (70-99) H 119 mg/dL (70-99) H 171 mg/dL (70-99) H White Blood Count 6.2 x10^3/uL (4.0-11.0) Red Blood Count 5.52 x10^6/uL (3.50-5.40) H Hemoglobin 14.1 g/dL (12.0-15.5) Hematocrit 44.4 % (36.0-47.0) Mean Corpuscular Volume 81 fL (79-100) Mean Corpuscular Hemoglobin 26 pg (25-35) Mean Corpuscular Hemoglobin Concent 32 g/dL (31-37) Red Cell Distribution Width 15.7 % (11.5-14.5) H Platelet Count 367 x10^3/uL (140-400) Neutrophils (%) (Auto) 51 % (31-73) Lymphocytes (%) (Auto) 30 % (24-48) Monocytes (%) (Auto) 9 % (0-9) Eosinophils (%) (Auto) 9 % (0-3) H Basophils (%) (Auto) 1 % (0-3) Neutrophils # (Auto) 3.2 x10^3uL (1.8-7.7) Lymphocytes # (Auto) 1.8 x10^3/uL (1.0-4.8) Monocytes # (Auto) 0.6 x10^3/uL (0.0-1.1) Eosinophils # (Auto) 0.6 x10^3/uL (0.0-0.7) Basophils # (Auto) 0.1 x10^3/uL (0.0-0.2) Sodium Level 142 mmol/L (136-145) Potassium Level 4.6 mmol/L (3.5-5.1) Chloride Level 104 mmol/L (98-107) Carbon Dioxide Level 32 mmol/L (21-32) Anion Gap 6 (6-14) Blood Urea Nitrogen 20 mg/dL (7-20) Creatinine 1.0 mg/dL (0.6-1.0) Estimated GFR (Cockcroft-Gault) 53.9 BUN/Creatinine Ratio 20 (6-20) Glucose Level 114 mg/dL (70-99) H Calcium Level 10.5 mg/dL (8.5-10.1) H Total Bilirubin 0.2 mg/dL (0.2-1.0) Aspartate Amino Transferase (AST) 11 U/L (15-37) L Alanine Aminotransferase (ALT) 14 U/L (14-59) Alkaline Phosphatase 80 U/L (46-116) Total Protein 8.5 g/dL (6.4-8.2) H Albumin 2.7 g/dL (3.4-5.0) L Albumin/Globulin Ratio 0.5 (1.0-1.7) L Valproic Acid Level 44 mcg/mL (50-100) L Valproic Acid Last Dose Date 12/31/18 Valproic Acid Last Dose Time 2100 Test 01/01/19 19:28 Glucose (Fingerstick) 244 mg/dL (70-99) H Current Medications: Meds: Current Medications Sodium Chloride 1,000 ml @ 1,000 mls/hr 1X ONCE IV Last administered on 12/26/18at 16:15; Start 12/26/18 at 16:15; Stop 12/26/18 at 17:14; Status DC Ceftriaxone Sodium 1 gm/ Sodium Chloride 50 ml @ 100 mls/hr 1X ONCE IV Last administered on 12/26/18at 16:15; Start 12/26/18 at 16:15; Stop 12/26/18 at 16:44; Status DC Sodium Chloride 50 ml @ As Directed STK-MED ONCE .ROUTE ; Start 12/26/18 at 16:15; Stop 12/26/18 at 16:16; Status DC Ceftriaxone Sodium (Rocephin) 1 gm STK-MED ONCE .ROUTE ; Start 12/26/18 at 16:15; Stop 12/26/18 at 16:16; Status DC Sodium Chloride 50 ml @ As Directed STK-MED ONCE .ROUTE ; Start 12/26/18 at 16:16; Stop 12/26/18 at 16:17; Status DC Ceftriaxone Sodium (Rocephin) 1 gm STK-MED ONCE .ROUTE ; Start 12/26/18 at 16:16; Stop 12/26/18 at 16:17; Status DC Sodium Chloride 50 ml @ As Directed STK-MED ONCE .ROUTE ; Start 12/26/18 at 16:23; Stop 12/26/18 at 16:24; Status DC Acetaminophen (Tylenol) 650 mg PRN Q6HRS PRN PO PAIN / TEMP; Start 12/26/18 at 23:30 Multi-Ingredient Ointment (Analgesic [place]) 1 karlos PRN QID PRN TP MUSCLE PAIN; Start 12/26/18 at 23:30 Al Hydroxide/Mg Hydroxide (Mylanta Plus Xs) 15 ml PRN AFTMEALHC PRN PO DYSPEPSIA; Start 12/26/18 at 23:30 Magnesium Hydroxide (Milk Of Magnesia) 2,400 mg PRN QHS PRN PO CONSTIPATION; Start 12/26/18 at 23:30 Ascorbic Acid (Vitamin C) 500 mg DAILY PO Last administered on 01/01/19at 07:42; Start 12/27/18 at 09:00 Febuxostat (Uloric) 40 mg DAILY PO Last administered on 01/01/19at 07:42; Start 12/27/18 at 09:00 Insulin Human Lispro (HumaLOG) 8 units TIDAC SQ Last administered on 01/01/19at 17:06; Start 12/27/18 at 07:30 Losartan Potassium (Cozaar) 25 mg DAILY PO Last administered on 01/01/19at 07:40; Start 12/27/18 at 09:00 Al Hydroxide/Mg Hydroxide (Mylanta Plus Xs) 15 ml PRN AFTMEALHC PRN PO DYSPEPSIA; Start 12/27/18 at 00:00; Status UNV Magnesium Hydroxide (Milk Of Magnesia) 2,400 mg PRN QHS PRN PO CONSTIPATION; Start 12/27/18 at 00:00; Status UNV Nystatin (Nystop) 1 karlos BID TP Last administered on 01/01/19 20:23; Start 12/27/18 at 09:00 Artificial Tears (Artificial Tears) 1 drop QID OU Last administered on 01/01/19 20:22; Start 12/27/18 at 09:00 Non-Formulary Medication (Acetaminophen ) 500 mg PRN Q6HRS PRN PO PAIN / TEMP; Start 12/27/18 at 00:00; Status UNV Buspirone HCl (Buspar) 10 mg BID@0900,1700 PO Last administered on 01/01/19 17:00; Start 12/27/18 at 09:00 Carvedilol (Coreg) 6.25 mg BIDWMEALS PO Last administered on 01/01/19 17:00; Start 12/27/18 at 08:00 Divalproex Sodium (Depakote Er) 250 mg QHS PO Last administered on 12/28/18 23:35; Start 12/27/18 at 21:00; Stop 12/29/18 at 19:57; Status DC Divalproex Sodium (Depakote Sprinkles) 125 mg BID92 PO Last administered on 12/29/18 13:15; Start 12/27/18 at 09:00; Stop 12/29/18 at 19:57; Status DC Docusate Sodium (Colace) 100 mg DAILY PO Last administered on 01/01/19 07:39; Start 12/27/18 at 09:00 Duloxetine HCl (Cymbalta) 60 mg DAILY PO Last administered on 01/01/19 07:40; Start 12/27/18 at 09:00 Fluticasone Propionate (Flonase) 2 spray DAILY NS Last administered on 12/29/18 08:45; Start 12/27/18 at 09:00 Furosemide (Lasix) 40 mg DAILY PO Last administered on 12/27/18 08:37; Start 12/27/18 at 09:00; Stop 12/27/18 at 09:59; Status DC Insulin Glargine (Lantus) 17 units QHS SQ Last administered on 12/30/18 20:19; Start 12/27/18 at 21:00; Stop 12/31/18 at 18:28; Status DC Lactobacillus Rhamnosus (Culturelle) 1 cap BID PO Last administered on 01/01/19 20:22; Start 12/27/18 at 09:00 Latanoprost (Xalatan) 1 drop QHS OU Last administered on 01/01/19 20:21; Start 12/27/18 at 21:00 Magnesium Chloride (Mag Delay) 64 mg DAILY PO Last administered on 01/01/19 07:41; Start 12/27/18 at 09:00 Multi-Ingred Cream/Lotion/Oil/ Oint (Artificial Tears Eye Ointment) 1 karlos QHS OU Last administered on 01/01/19 20:21; Start 12/27/18 at 21:00 Oxybutynin Chloride (Ditropan) 5 mg DAILY PO ; Start 12/27/18 at 09:00; Stop 12/27/18 at 09:00; Status DC Potassium Chloride (Klor-Con) 10 meq BIDWMEALS PO ; Start 12/27/18 at 08:00; Stop 12/27/18 at 09:59; Status DC Rivaroxaban (Xarelto) 20 mg DAILY PO Last administered on 01/01/19at 07:42; Start 12/26/18 at 09:00 Oxybutynin Chloride (Ditropan) 10 mg DAILY PO Last administered on 01/01/19at 07:41; Start 12/27/18 at 09:00 Nitrofurantoin Macrocrystals (Macrobid) 100 mg DAILY PO Last administered on 01/01/19at 07:41; Start 12/27/18 at 09:00; Stop 01/01/19 at 09:01; Status DC Dextrose (Dextrose 50%-Water Syringe) 12.5 gm PRN Q15MIN PRN IV SEE COMMENTS; Start 12/27/18 at 00:45; Status UNV Dextrose (Dextrose 50%-Water Syringe) 12.5 gm PRN Q15MIN PRN IV SEE COMMENTS; Start 12/27/18 at 00:45 Divalproex Sodium (Depakote Sprinkles) 250 mg TID PO Last administered on 01/01/19at 14:28; Start 12/29/18 at 21:00; Stop 01/01/19 at 16:52; Status DC Insulin Glargine (Lantus) 10 units QHS SQ Last administered on 01/01/19at 20:28; Start 12/31/18 at 21:00 Sodium Chloride (Normal Saline Flush) 20 ml QHS INT CAT ; Start 01/01/19 at 21:00 Divalproex Sodium (Depakote Sprinkles) 125 mg STK-MED ONCE PO ; Start 12/27/18 at 09:00; Stop 01/01/19 at 16:25; Status DC Divalproex Sodium (Depakote Sprinkles) 125 mg STK-MED ONCE PO ; Start 12/27/18 at 09:00; Stop 01/01/19 at 16:25; Status DC Divalproex Sodium (Depakote Sprinkles) 125 mg STK-MED ONCE PO ; Start 12/28/18 at 09:00; Stop 01/01/19 at 16:25; Status DC Divalproex Sodium (Depakote Sprinkles) 125 mg STK-MED ONCE PO ; Start 12/28/18 at 09:00; Stop 01/01/19 at 16:25; Status DC Divalproex Sodium (Depakote Sprinkles) 125 mg STK-MED ONCE PO ; Start 12/29/18 at 09:00; Stop 01/01/19 at 16:26; Status DC Divalproex Sodium (Depakote Sprinkles) 125 mg STK-MED ONCE PO ; Start 12/29/18 at 09:00; Stop 01/01/19 at 16:26; Status DC Buspirone HCl (Buspar) 10 mg STK-MED ONCE .ROUTE ; Start 12/27/18 at 09:00; Stop 01/01/19 at 16:28; Status DC Buspirone HCl (Buspar) 10 mg STK-MED ONCE .ROUTE ; Start 12/27/18 at 09:00; Stop 01/01/19 at 16:28; Status DC Buspirone HCl (Buspar) 10 mg STK-MED ONCE .ROUTE ; Start 12/28/18 at 09:00; Stop 01/01/19 at 16:28; Status DC Buspirone HCl (Buspar) 10 mg STK-MED ONCE .ROUTE ; Start 12/28/18 at 09:00; Stop 01/01/19 at 16:28; Status DC Buspirone HCl (Buspar) 10 mg STK-MED ONCE .ROUTE ; Start 12/30/18 at 09:00; Stop 01/01/19 at 16:28; Status DC Buspirone HCl (Buspar) 10 mg STK-MED ONCE .ROUTE ; Start 12/30/18 at 09:00; Stop 01/01/19 at 16:28; Status DC Buspirone HCl (Buspar) 10 mg STK-MED ONCE .ROUTE ; Start 12/29/18 at 09:00; Stop 01/01/19 at 16:31; Status DC Buspirone HCl (Buspar) 10 mg STK-MED ONCE .ROUTE ; Start 12/29/18 at 09:00; Stop 01/01/19 at 16:31; Status DC Buspirone HCl (Buspar) 10 mg STK-MED ONCE .ROUTE ; Start 12/31/18 at 09:00; Stop 01/01/19 at 16:31; Status DC Buspirone HCl (Buspar) 10 mg STK-MED ONCE .ROUTE ; Start 12/31/18 at 09:00; Stop 01/01/19 at 16:31; Status DC Buspirone HCl (Buspar) 10 mg STK-MED ONCE .ROUTE ; Start 01/01/19 at 09:00; Stop 01/01/19 at 16:32; Status DC Divalproex Sodium (Depakote Sprinkles) 250 mg BID92 PO ; Start 01/02/19 at 09:00 Divalproex Sodium (Depakote Sprinkles) 500 mg QHS PO Last administered on 01/01/19at 20:23; Start 01/01/19 at 21:00 Active Scripts Active Reported Nystatin 15 Gm Powder 1 Karlos TP BID Depakote Er (Divalproex Sodium) 250 Mg Tab.er.24h 250 Mg PO QHS Depakote Sprinkle (Divalproex Sodium) 125 Mg Cap.sprink 125 Mg PO BID92 Flonase Allergy Relief (Fluticasone Propionate) 9.9 Ml [place].susp 2 Sprays NS DAILY Acetaminophen 500 Mg Tablet 500 Mg PO PRN Q6HRS PRN Buspirone Hcl 5 Mg Tablet 10 Mg PO BID@0900,1700 Milk Of Magnesia (Magnesium Hydroxide) 400 Mg/5 Ml Oral.susp 2,400 Mg PO PRN QHS PRN Mag-Al Plus Xs Suspension (Mag Hydrox/Al Hydrox/Simeth) 30 Ml Oral.susp 15 Ml PO PRN AFTMEALHC PRN Ascorbic Acid 500 Mg Tablet 500 Mg PO DAILY Uloric (Febuxostat) 40 Mg Tablet 40 Mg PO DAILY Systane Nighttime Eye Oint (Mineral Oil/Petrolatum,White) 3.5 Gm Oint...g. 1 Karlos OU QHS Oxybutynin Chloride Er (Oxybutynin Chloride) 5 Mg Tab.er.24 5 Mg PO DAILY Magnesium Chloride 64 Mg Tablet.dr 64 Mg PO DAILY Humalog (Insulin Lispro) 100 Unit/1 Ml Insuln.pen 8 Unit SQ TIDAC Docusate Sodium 100 Mg Capsule 100 Mg PO DAILY Artificial Tears (Polyvinyl Alcohol) 15 Ml Drops 1 Drp OU QID Potassium Chloride 10 Meq Tablet.er 10 Meq PO BID Xarelto (Rivaroxaban) 20 Mg Tablet 20 Mg PO DAILY Probiotic (Lactobacillus Combo No.10) 1 Each Capsule 1 Cap PO BID 14 Days Lasix (Furosemide) 40 Mg Tablet 40 Mg PO DAILY Coreg (Carvedilol) 6.25 Mg Tablet 6.25 Mg PO BIDWMEALS Lantus (Insulin Glargine,Hum.rec.anlog) 100 Unit/1 Ml Vial 17 Unit SQ HS Latanoprost 2.5 Ml Drops 1 Drop OS QHS Losartan Potassium (Losartan Potassium) 25 Mg Tablet 25 Mg PO DAILY Cymbalta (Duloxetine Hcl) 60 Mg Capsule.dr 60 Mg PO DAILY I have reviewed the current psychotropics carefully including drug interactions. Risk benefit ratio favors no change other than as noted in my dictated progress note. Diagnosis: Problems: (1) Anxiety disorder (2) Major depressive disorder, recurrent episode (3) Impulse control disorder CLAUDIA LAROSE MD Jan 01, 2019 23:06
--- NOTE | 2019-01-02 02:24 | PN ---
DATE: 12/31/2018 PSYCHIATRIC PROGRESS NOTE This is a late entry 12/31/2018 covers the elements not covered in my initial note. SUBJECTIVE: I met with the patient on evening of 12/31/2018. The patient slept 6-1/4 hours previous night. She has had a good day, not agitated, aggressive, compliant with medications. REVIEW OF SYSTEMS: Ambulation impaired. No CV, , pulmonary, eye system symptoms on review. MENTAL STATUS EXAM: Oriented to herself, situation, somewhat obsessive about discharge plans addressed with her. Speech coherent, has some latency. Abstraction fair, computation impaired, language function intact, attention span short. Mood and affect somewhat anxious and labile, but improved. LABORATORY DATA: Reviewed. IMPRESSION: Unchanged from initial note. PLAN: No change from initial note. MAN Nicolette LAROSE MD DR: RUFUS/carina JOB#: [id number] / [id number]
[2019-01-02 06:02] VITALS: BP 140/53
[2019-01-02] MEDS: MAGNESIUM CHLORIDE ER 64 MG TABLET.ER PO SCH (08:09)
[2019-01-02] MEDS: OXYBUTYNIN CHLORIDE 5 MG TABLET PO SCH (08:09)
[2019-01-02] MEDS: RIVAROXABAN 10 MG TABLET. PO SCH (08:10)
[2019-01-02] MEDS: DOCUSATE SODIUM 100 MG CAPSULE PO SCH (08:10)
[2019-01-02] MEDS: CARVEDILOL 6.25 MG TABLET PO SCH ×2 (08:10→17:28)
[2019-01-02] MEDS: DULoxetine HCL 60 MG CAPSULE.DR PO SCH (08:10)
[2019-01-02] MEDS: LOSARTAN 25 MG TABLET. PO SCH (08:10)
[2019-01-02] MEDS: LACTOBACILLUS RHAMNOSUS GG 1 CAPSULE. PO SCH ×2 (08:10→20:28)
[2019-01-02] MEDS: FEBUXOSTAT 40 MG TABLET PO SCH (08:11)
[2019-01-02] MEDS: ASCORBIC ACID 500 MG TABLET PO SCH (08:11)
[2019-01-02] MEDS: INSULIN LISPRO 300 UNITS/3 ML INSULN.PEN. SQ SCH ×3 (08:13→17:30)
[2019-01-02] MEDS: busPIRone 10 MG TABLET. PO SCH ×2 (08:17→17:27)
[2019-01-02] MEDS: DIVALPROEX 125 MG CAP.SPRINK PO SCH ×3 (08:17→20:28)
[2019-01-02] MEDS: FLUTICASONE 50MCG/NASAL SPRAY 16GM BOTTLE. NS SCH ×2 (08:18→09:00)
[2019-01-02] MEDS: POLYVINYL ALCOHOL 1.4% OPHTH SOLUTION 15ML BOTTLE. OU SCH ×5 (08:18→20:31)
[2019-01-02] MEDS: NYSTATIN TOPICAL POWDER 15GM BOTTLE. TP SCH ×2 (08:18→20:32)
[2019-01-02 16:06] VITALS: BP 132/63
[2019-01-02] MEDS: LATANOPROST 0.005% OPHTH SOLUTION 2.5ML BOTTLE. OU SCH (20:28)
[2019-01-02] MEDS: INSULIN GLARGINE 300 UNITS/3 ML INSULN.PEN. SQ SCH (20:30)
[2019-01-02] MEDS: MINERAL OIL/PETROLATUM,WHITE OPHTH OINT 3.5GM TUBE. OU SCH (20:31)
[2019-01-02] MEDS ORDERED: FLUTICASONE 50MCG/NASAL SPRAY 16GM BOTTLE. NS PRN (20:45)
[2019-01-02] MEDS: 0.9 % SODIUM CHLORIDE 10 ML DISP.SYRIN. INT CAT SCH (22:34)
--- NOTE | 2019-01-02 23:10 | PDOC ---
Exam Note: Nain Note: Please also refer to the separate dictated note~for this date of service dictated separately.~Patient seen individually. Discussed the patient with Nursing staff reviewed the chart.~Reviewed interim history and current functioning. Reviewed vital signs,~Labs/ Radiology~and current medications noted below. Continue current treatment with the changes noted in the dictated addendum note Assessment: Vital Signs: Vital Signs Date Time Temp Pulse Resp B/P (MAP) Pulse Ox O2 Delivery O2 Flow Rate FiO2 01/02/19 17:28 65 132/63 01/02/19 16:06 97.6 20 96 12/28/18 16:44 Room Air I&O Intake and Output 01/02/19 07:00 Intake Total 1200 ml Balance 1200 ml Intake Oral 1200 ml Labs: Laboratory Tests Test 01/02/19 07:41 01/02/19 12:04 01/02/19 17:02 01/02/19 19:14 Glucose (Fingerstick) 120 mg/dL (70-99) H 162 mg/dL (70-99) H 91 mg/dL (70-99) 142 mg/dL (70-99) H Current Medications: Meds: Current Medications Sodium Chloride 1,000 ml @ 1,000 mls/hr 1X ONCE IV Last administered on 12/26/18at 16:15; Start 12/26/18 at 16:15; Stop 12/26/18 at 17:14; Status DC Ceftriaxone Sodium 1 gm/ Sodium Chloride 50 ml @ 100 mls/hr 1X ONCE IV Last administered on 12/26/18at 16:15; Start 12/26/18 at 16:15; Stop 12/26/18 at 16:44; Status DC Sodium Chloride 50 ml @ As Directed STK-MED ONCE .ROUTE ; Start 12/26/18 at 16:15; Stop 12/26/18 at 16:16; Status DC Ceftriaxone Sodium (Rocephin) 1 gm STK-MED ONCE .ROUTE ; Start 12/26/18 at 16:15; Stop 12/26/18 at 16:16; Status DC Sodium Chloride 50 ml @ As Directed STK-MED ONCE .ROUTE ; Start 12/26/18 at 16:16; Stop 12/26/18 at 16:17; Status DC Ceftriaxone Sodium (Rocephin) 1 gm STK-MED ONCE .ROUTE ; Start 12/26/18 at 16:16; Stop 12/26/18 at 16:17; Status DC Sodium Chloride 50 ml @ As Directed STK-MED ONCE .ROUTE ; Start 12/26/18 at 16:23; Stop 12/26/18 at 16:24; Status DC Acetaminophen (Tylenol) 650 mg PRN Q6HRS PRN PO PAIN / TEMP; Start 12/26/18 at 23:30 Multi-Ingredient Ointment (Analgesic [place]) 1 karlos PRN QID PRN TP MUSCLE PAIN; Start 12/26/18 at 23:30 Al Hydroxide/Mg Hydroxide (Mylanta Plus Xs) 15 ml PRN AFTMEALHC PRN PO DYSPEPSIA; Start 12/26/18 at 23:30 Magnesium Hydroxide (Milk Of Magnesia) 2,400 mg PRN QHS PRN PO CONSTIPATION; Start 12/26/18 at 23:30 Ascorbic Acid (Vitamin C) 500 mg DAILY PO Last administered on 01/02/19at 08:11; Start 12/27/18 at 09:00 Febuxostat (Uloric) 40 mg DAILY PO Last administered on 01/02/19 08:11; Start 12/27/18 at 09:00 Insulin Human Lispro (HumaLOG) 8 units TIDAC SQ Last administered on 01/02/19at 17:30; Start 12/27/18 at 07:30 Losartan Potassium (Cozaar) 25 mg DAILY PO Last administered on 01/02/19 08:10; Start 12/27/18 at 09:00 Al Hydroxide/Mg Hydroxide (Mylanta Plus Xs) 15 ml PRN AFTMEALHC PRN PO DYSPEPSIA; Start 12/27/18 at 00:00; Status UNV Magnesium Hydroxide (Milk Of Magnesia) 2,400 mg PRN QHS PRN PO CONSTIPATION; Start 12/27/18 at 00:00; Status UNV Nystatin (Nystop) 1 karlos BID TP Last administered on 01/02/19 20:32; Start 12/27/18 at 09:00 Artificial Tears (Artificial Tears) 1 drop QID OU Last administered on 01/02/19 20:31; Start 12/27/18 at 09:00 Non-Formulary Medication (Acetaminophen ) 500 mg PRN Q6HRS PRN PO PAIN / TEMP; Start 12/27/18 at 00:00; Status UNV Buspirone HCl (Buspar) 10 mg BID@0900,1700 PO Last administered on 01/02/19 17:27; Start 12/27/18 at 09:00 Carvedilol (Coreg) 6.25 mg BIDWMEALS PO Last administered on 01/02/19 17:28; Start 12/27/18 at 08:00 Divalproex Sodium (Depakote Er) 250 mg QHS PO Last administered on 12/28/18 23:35; Start 12/27/18 at 21:00; Stop 12/29/18 at 19:57; Status DC Divalproex Sodium (Depakote Sprinkles) 125 mg BID92 PO Last administered on 12/29/18 13:15; Start 12/27/18 at 09:00; Stop 12/29/18 at 19:57; Status DC Docusate Sodium (Colace) 100 mg DAILY PO Last administered on 01/02/19 08:10; Start 12/27/18 at 09:00 Duloxetine HCl (Cymbalta) 60 mg DAILY PO Last administered on 01/02/19 08:10; Start 12/27/18 at 09:00 Fluticasone Propionate (Flonase) 2 spray DAILY NS Last administered on 12/29/18 08:45; Start 12/27/18 at 09:00; Stop 01/02/19 at 20:32; Status DC Furosemide (Lasix) 40 mg DAILY PO Last administered on 12/27/18 08:37; Start 12/27/18 at 09:00; Stop 12/27/18 at 09:59; Status DC Insulin Glargine (Lantus) 17 units QHS SQ Last administered on 12/30/18 20:19; Start 12/27/18 at 21:00; Stop 12/31/18 at 18:28; Status DC Lactobacillus Rhamnosus (Culturelle) 1 cap BID PO Last administered on 01/02/19 20:28; Start 12/27/18 at 09:00 Latanoprost (Xalatan) 1 drop QHS OU Last administered on 01/02/19 20:28; Start 12/27/18 at 21:00 Magnesium Chloride (Mag Delay) 64 mg DAILY PO Last administered on 01/02/19 08:09; Start 12/27/18 at 09:00 Multi-Ingred Cream/Lotion/Oil/ Oint (Artificial Tears Eye Ointment) 1 karlos QHS OU Last administered on 01/02/19at 20:31; Start 12/27/18 at 21:00 Oxybutynin Chloride (Ditropan) 5 mg DAILY PO ; Start 12/27/18 at 09:00; Stop 12/27/18 at 09:00; Status DC Potassium Chloride (Klor-Con) 10 meq BIDWMEALS PO ; Start 12/27/18 at 08:00; Stop 12/27/18 at 09:59; Status DC Rivaroxaban (Xarelto) 20 mg DAILY PO Last administered on 01/02/19 08:10; Start 12/26/18 at 09:00 Oxybutynin Chloride (Ditropan) 10 mg DAILY PO Last administered on 01/02/19 08:09; Start 12/27/18 at 09:00 Nitrofurantoin Macrocrystals (Macrobid) 100 mg DAILY PO Last administered on 01/01/19 07:41; Start 12/27/18 at 09:00; Stop 01/01/19 at 09:01; Status DC Dextrose (Dextrose 50%-Water Syringe) 12.5 gm PRN Q15MIN PRN IV SEE COMMENTS; Start 12/27/18 at 00:45; Status UNV Dextrose (Dextrose 50%-Water Syringe) 12.5 gm PRN Q15MIN PRN IV SEE COMMENTS; Start 12/27/18 at 00:45 Divalproex Sodium (Depakote Sprinkles) 250 mg TID PO Last administered on 01/01/19 14:28; Start 12/29/18 at 21:00; Stop 01/01/19 at 16:52; Status DC Insulin Glargine (Lantus) 10 units QHS SQ Last administered on 01/02/19 20:30; Start 12/31/18 at 21:00 Sodium Chloride (Normal Saline Flush) 20 ml QHS INT CAT Last administered on 01/02/19at 22:34; Start 01/01/19 at 21:00 Divalproex Sodium (Depakote Sprinkles) 125 mg STK-MED ONCE PO ; Start 12/27/18 at 09:00; Stop 01/01/19 at 16:25; Status DC Divalproex Sodium (Depakote Sprinkles) 125 mg STK-MED ONCE PO ; Start 12/27/18 at 09:00; Stop 01/01/19 at 16:25; Status DC Divalproex Sodium (Depakote Sprinkles) 125 mg STK-MED ONCE PO ; Start 12/28/18 at 09:00; Stop 01/01/19 at 16:25; Status DC Divalproex Sodium (Depakote Sprinkles) 125 mg STK-MED ONCE PO ; Start 12/28/18 at 09:00; Stop 01/01/19 at 16:25; Status DC Divalproex Sodium (Depakote Sprinkles) 125 mg STK-MED ONCE PO ; Start 12/29/18 at 09:00; Stop 01/01/19 at 16:26; Status DC Divalproex Sodium (Depakote Sprinkles) 125 mg STK-MED ONCE PO ; Start 12/29/18 at 09:00; Stop 01/01/19 at 16:26; Status DC Buspirone HCl (Buspar) 10 mg STK-MED ONCE .ROUTE ; Start 12/27/18 at 09:00; Stop 01/01/19 at 16:28; Status DC Buspirone HCl (Buspar) 10 mg STK-MED ONCE .ROUTE ; Start 12/27/18 at 09:00; Stop 01/01/19 at 16:28; Status DC Buspirone HCl (Buspar) 10 mg STK-MED ONCE .ROUTE ; Start 12/28/18 at 09:00; Stop 01/01/19 at 16:28; Status DC Buspirone HCl (Buspar) 10 mg STK-MED ONCE .ROUTE ; Start 12/28/18 at 09:00; Stop 01/01/19 at 16:28; Status DC Buspirone HCl (Buspar) 10 mg STK-MED ONCE .ROUTE ; Start 12/30/18 at 09:00; Stop 01/01/19 at 16:28; Status DC Buspirone HCl (Buspar) 10 mg STK-MED ONCE .ROUTE ; Start 12/30/18 at 09:00; Stop 01/01/19 at 16:28; Status DC Buspirone HCl (Buspar) 10 mg STK-MED ONCE .ROUTE ; Start 12/29/18 at 09:00; Stop 01/01/19 at 16:31; Status DC Buspirone HCl (Buspar) 10 mg STK-MED ONCE .ROUTE ; Start 12/29/18 at 09:00; Stop 01/01/19 at 16:31; Status DC Buspirone HCl (Buspar) 10 mg STK-MED ONCE .ROUTE ; Start 12/31/18 at 09:00; Stop 01/01/19 at 16:31; Status DC Buspirone HCl (Buspar) 10 mg STK-MED ONCE .ROUTE ; Start 12/31/18 at 09:00; Stop 01/01/19 at 16:31; Status DC Buspirone HCl (Buspar) 10 mg STK-MED ONCE .ROUTE ; Start 01/01/19 at 09:00; Stop 01/01/19 at 16:32; Status DC Divalproex Sodium (Depakote Sprinkles) 250 mg BID92 PO Last administered on 01/02/19at 14:04; Start 01/02/19 at 09:00 Divalproex Sodium (Depakote Sprinkles) 500 mg QHS PO Last administered on 01/02/19at 20:28; Start 01/01/19 at 21:00 Fluticasone Propionate (Flonase) 2 spray PRN DAILY PRN NS ALLERGIES; Start 01/02/19 at 20:45 Active Scripts Active Reported Nystatin 15 Gm Powder 1 Karlos TP BID Depakote Er (Divalproex Sodium) 250 Mg Tab.er.24h 250 Mg PO QHS Depakote Sprinkle (Divalproex Sodium) 125 Mg Cap.sprink 125 Mg PO BID92 Flonase Allergy Relief (Fluticasone Propionate) 9.9 Ml [place].susp 2 Sprays NS DAILY Acetaminophen 500 Mg Tablet 500 Mg PO PRN Q6HRS PRN Buspirone Hcl 5 Mg Tablet 10 Mg PO BID@0900,1700 Milk Of Magnesia (Magnesium Hydroxide) 400 Mg/5 Ml Oral.susp 2,400 Mg PO PRN QHS PRN Mag-Al Plus Xs Suspension (Mag Hydrox/Al Hydrox/Simeth) 30 Ml Oral.susp 15 Ml PO PRN AFTMEALHC PRN Ascorbic Acid 500 Mg Tablet 500 Mg PO DAILY Uloric (Febuxostat) 40 Mg Tablet 40 Mg PO DAILY Systane Nighttime Eye Oint (Mineral Oil/Petrolatum,White) 3.5 Gm Oint...g. 1 Karlos OU QHS Oxybutynin Chloride Er (Oxybutynin Chloride) 5 Mg Tab.er.24 5 Mg PO DAILY Magnesium Chloride 64 Mg Tablet.dr 64 Mg PO DAILY Humalog (Insulin Lispro) 100 Unit/1 Ml Insuln.pen 8 Unit SQ TIDAC Docusate Sodium 100 Mg Capsule 100 Mg PO DAILY Artificial Tears (Polyvinyl Alcohol) 15 Ml Drops 1 Drp OU QID Potassium Chloride 10 Meq Tablet.er 10 Meq PO BID Xarelto (Rivaroxaban) 20 Mg Tablet 20 Mg PO DAILY Probiotic (Lactobacillus Combo No.10) 1 Each Capsule 1 Cap PO BID 14 Days Lasix (Furosemide) 40 Mg Tablet 40 Mg PO DAILY Coreg (Carvedilol) 6.25 Mg Tablet 6.25 Mg PO BIDWMEALS Lantus (Insulin Glargine,Hum.rec.anlog) 100 Unit/1 Ml Vial 17 Unit SQ HS Latanoprost 2.5 Ml Drops 1 Drop OS QHS Losartan Potassium (Losartan Potassium) 25 Mg Tablet 25 Mg PO DAILY Cymbalta (Duloxetine Hcl) 60 Mg Capsule.dr 60 Mg PO DAILY I have reviewed the current psychotropics carefully including drug interactions. Risk benefit ratio favors no change other than as noted in my dictated progress note. Diagnosis: Problems: (1) Encounter for medical screening examination (2) Anxiety disorder (3) Major depressive disorder, recurrent episode (4) Impulse control disorder CLAUDIA LAROSE MD Jan 02, 2019 23:10
[2019-01-03 06:52] VITALS: BP 185/97
[2019-01-03] MEDS: RIVAROXABAN 10 MG TABLET. PO SCH (08:16)
[2019-01-03] MEDS: OXYBUTYNIN CHLORIDE 5 MG TABLET PO SCH (08:16)
[2019-01-03] MEDS: DIVALPROEX 125 MG CAP.SPRINK PO SCH ×3 (08:16→19:53)
[2019-01-03] MEDS: ASCORBIC ACID 500 MG TABLET PO SCH (08:17)
[2019-01-03] MEDS: MAGNESIUM CHLORIDE ER 64 MG TABLET.ER PO SCH (08:17)
[2019-01-03] MEDS: NYSTATIN TOPICAL POWDER 15GM BOTTLE. TP SCH ×2 (08:17→20:01)
[2019-01-03] MEDS: CARVEDILOL 6.25 MG TABLET PO SCH ×2 (08:17→17:21)
[2019-01-03] MEDS: LOSARTAN 25 MG TABLET. PO SCH (08:17)
[2019-01-03] MEDS: LACTOBACILLUS RHAMNOSUS GG 1 CAPSULE. PO SCH ×2 (08:17→19:53)
[2019-01-03] MEDS: DOCUSATE SODIUM 100 MG CAPSULE PO SCH (08:17)
[2019-01-03] MEDS: FEBUXOSTAT 40 MG TABLET PO SCH (08:18)
[2019-01-03] MEDS: POLYVINYL ALCOHOL 1.4% OPHTH SOLUTION 15ML BOTTLE. OU SCH ×4 (08:18→19:56)
[2019-01-03] MEDS: DULoxetine HCL 60 MG CAPSULE.DR PO SCH (08:18)
[2019-01-03] MEDS: busPIRone 10 MG TABLET. PO SCH ×2 (08:18→17:15)
[2019-01-03] MEDS: INSULIN LISPRO 300 UNITS/3 ML INSULN.PEN. SQ SCH ×3 (08:19→17:22)
[2019-01-03 15:26] VITALS: BP 118/76
--- NOTE | 2019-01-03 18:22 | PN ---
DATE: 01/01/2019 PSYCHIATRIC PROGRESS NOTE This late entry 01/01/2019 covers the elements not covered in my initial note. SUBJECTIVE: I met with the patient in the evening at some length. The patient slept 7-1/2 hours previous night, compliant with medications. Valproic acid level was subtherapeutic at 44, on Depakote 250 t.i.d. REVIEW OF SYSTEMS: Ambulation impaired, in wheelchair. No CV, , pulmonary, eye, ENT system symptoms on review. MENTAL STATUS EXAM: Oriented to herself and situation. Speech coherent, states she does not feel well and this is her typical response every day when I see her, much of this relates to what she perceives as being unfair by the staff. Abstraction fair, computation impaired and language function intact. Short-term memory is impaired. Mood and affect remains somewhat dysphoric. LABORATORY DATA: Reviewed. IMPRESSION: Unchanged from initial note. PLAN: Increase Depakote from 250 t.i.d. to 250 b.i.d., 500 at bedtime. Check CBC, CMP, valproic acid level in 3 days to get to therapeutic level. Rest unchanged for now. MAN Nicolette LAROSE MD DR: RUFUS/carina JOB#: [id number] / [id number]
[2019-01-03] MEDS: INSULIN GLARGINE 300 UNITS/3 ML INSULN.PEN. SQ SCH (19:55)
[2019-01-03] MEDS: MINERAL OIL/PETROLATUM,WHITE OPHTH OINT 3.5GM TUBE. OU SCH (20:01)
[2019-01-03] MEDS: 0.9 % SODIUM CHLORIDE 10 ML DISP.SYRIN. INT CAT SCH (20:01)
[2019-01-03] MEDS: LATANOPROST 0.005% OPHTH SOLUTION 2.5ML BOTTLE. OU SCH (20:01)
--- NOTE | 2019-01-03 22:48 | PDOC ---
Exam Note: Nain Note: Please also refer to the separate dictated note~for this date of service dictated separately.~Patient seen individually. Discussed the patient with Nursing staff reviewed the chart.~Reviewed interim history and current functioning. Reviewed vital signs,~Labs/ Radiology~and current medications noted below. Continue current treatment with the changes noted in the dictated addendum note Assessment: Vital Signs/I&O: Vital Signs Date Time Temp Pulse Resp B/P (MAP) Pulse Ox O2 Delivery O2 Flow Rate FiO2 01/03/19 17:21 76 118/76 01/03/19 15:26 97.3 20 95 12/28/18 16:44 Room Air I & O 01/02/19 01/02/19 01/03/19 15:00 23:00 07:00 Intake Total 720 ml 600 ml Balance 720 ml 600 ml Labs: Laboratory Tests Test 01/03/19 07:16 01/03/19 09:09 01/03/19 11:52 01/03/19 16:41 Glucose (Fingerstick) 91 mg/dL (70-99) 121 mg/dL (70-99) H 90 mg/dL (70-99) Phosphorus Level 2.8 mg/dL (2.6-4.7) Test 01/03/19 19:06 Glucose (Fingerstick) 148 mg/dL (70-99) H Current Medications: I have reviewed the current psychotropics carefully including drug interactions. Risk benefit ratio favors no change other than as noted in my dictated progress note. Diagnosis: Problems: (1) Encounter for medical screening examination (2) Anxiety disorder (3) Major depressive disorder, recurrent episode (4) Impulse control disorder CLAUDIA LAROSE MD Jan 03, 2019 22:48
--- NOTE | 2019-01-04 00:51 | PN ---
DATE: 01/02/2019 PSYCHIATRIC PROGRESS NOTE This is a late entry 01/02/2019 covers elements not covered in my initial note. I met with the patient in the evening. The patient slept 7-1/4 hours previous night. Nursing staff indicated that the time she pretends she cannot hear well, but in fact she can. She has been more cooperative. As I met with her, this was the first day when I questioned her, she said she felt better. REVIEW OF SYSTEMS: Ambulation impaired, in wheelchair, complains of being slightly hard of hearing. No CV, , pulmonary, eye system symptoms on review. MENTAL STATUS EXAM: Reasonably oriented. Speech is coherent, has some latency. Abstraction fair, computation impaired, language function intact. Mood and affect still depressed, anxious, but improved. LABORATORY DATA: Reviewed. IMPRESSION: Unchanged from initial note. PLAN: No change from initial note. Maintain Depakote, Cymbalta, BuSpar. CLAUDIA LAROSE MD DR: RUFUS/carina JOB#: [id number] / [id number]
[2019-01-04 05:50] VITALS: BP 144/72
[2019-01-04] MEDS: DOCUSATE SODIUM 100 MG CAPSULE PO SCH (08:05)
[2019-01-04] MEDS: OXYBUTYNIN CHLORIDE 5 MG TABLET PO SCH (08:05)
[2019-01-04] MEDS: busPIRone 10 MG TABLET. PO SCH ×2 (08:05→17:12)
[2019-01-04] MEDS: ASCORBIC ACID 500 MG TABLET PO SCH (08:05)
[2019-01-04] MEDS: LACTOBACILLUS RHAMNOSUS GG 1 CAPSULE. PO SCH ×2 (08:05→19:52)
[2019-01-04] MEDS: DIVALPROEX 125 MG CAP.SPRINK PO SCH ×3 (08:05→19:52)
[2019-01-04] MEDS: MAGNESIUM CHLORIDE ER 64 MG TABLET.ER PO SCH (08:05)
[2019-01-04] MEDS: CARVEDILOL 6.25 MG TABLET PO SCH ×2 (08:06→17:12)
[2019-01-04] MEDS: LOSARTAN 25 MG TABLET. PO SCH (08:06)
[2019-01-04] MEDS: RIVAROXABAN 10 MG TABLET. PO SCH (08:06)
[2019-01-04] MEDS: DULoxetine HCL 60 MG CAPSULE.DR PO SCH (08:06)
[2019-01-04] MEDS: FEBUXOSTAT 40 MG TABLET PO SCH (08:08)
[2019-01-04] MEDS: POLYVINYL ALCOHOL 1.4% OPHTH SOLUTION 15ML BOTTLE. OU SCH ×4 (08:08→19:54)
[2019-01-04] MEDS: INSULIN LISPRO 300 UNITS/3 ML INSULN.PEN. SQ SCH ×3 (08:08→17:20)
[2019-01-04] MEDS: NYSTATIN TOPICAL POWDER 15GM BOTTLE. TP SCH ×2 (08:08→19:56)
[2019-01-04 10:21] LABS: BASO # 0.1 x10^3/uL (0.0-0.2); BASO % 1 % (0-3); EOS # 0.6 x10^3/uL (0.0-0.7); EOS % 7 % (0-3); HEMATOCRIT 43.8 % (36.0-47.0); HEMOGLOBIN 13.8 g/dL (12.0-15.5); LYMPH # 2.2 x10^3/uL (1.0-4.8); LYMPH % 27 % (24-48); MEAN CORPUSCULAR HEMOGLOBIN 26 pg (25-35); MEAN CORPUSCULAR HGB CONC 32 g/dL (31-37); MEAN CORPUSCULAR VOLUME 81 fL (79-100); MONO # 0.8 x10^3/uL (0.0-1.1); MONO % 9 % (0-9); NEUT # 4.6 x10^3uL (1.8-7.7); NEUT % 56 % (31-73); PLATELET COUNT 316 x10^3/uL (140-400); RED BLOOD COUNT 5.41 x10^6/uL (3.50-5.40); RED CELL DISTRIBUTION WIDTH 16.6 % (11.5-14.5); WHITE BLOOD COUNT 8.3 x10^3/uL (4.0-11.0)
[2019-01-04 10:32] LABS: ALBUMIN 2.5 g/dL (3.4-5.0); ALBUMIN/GLOBULIN RATIO 0.5 (1.0-1.7); ALK PHOS 77 U/L (46-116); ALT (SGPT) 12 U/L (14-59); ANION GAP 5 (6-14); AST (SGOT) 9 U/L (15-37); BLOOD UREA NITROGEN 17 mg/dL (7-20); BUN/CREATININE RATIO 17 (6-20); CALCIUM 9.9 mg/dL (8.5-10.1); CARBON DIOXIDE 30 mmol/L (21-32); CHLORIDE 106 mmol/L (98-107); GFR 53.9; GLUCOSE 165 mg/dL (70-99); POTASSIUM 4.1 mmol/L (3.5-5.1); SODIUM 141 mmol/L (136-145); TOTAL BILIRUBIN 0.2 mg/dL (0.2-1.0); TOTAL PROTEIN 7.7 g/dL (6.4-8.2)
[2019-01-04 10:35] LABS: VAL ACID 55 mcg/mL (50-100)
[2019-01-04 13:09] LABS: CALCIUM PTH 10.1 mg/dL (8.7-10.3); CREATININE PTH 0.79 mg/dL (0.57-1.00); PTH INTACT 74 pg/mL (15-65)
[2019-01-04 14:38] LABS: AMORPHOUS SEDIMENT,UR PRESENT /HPF; BACTERIA,URINE MOD /HPF (0-FEW); BILIRUBIN,URINE NEG (NEG); CLARITY,URINE TURBID; COLOR,URINE AMBER; GLUCOSE,URINE NEG (NEG); NITRITE,URINE NEG (NEG); RBC,URINE >40 /HPF (0-2); SQUAMOUS EPITHELIAL CELL,UR FEW /LPF; UROBILINOGEN,URINE 0.2 mg/dL (0.2 mg/dL); WBC,URINE >40 /HPF (0-4)
[2019-01-04 14:39] LABS: YEAST,URINE PRESENT /HPF
[2019-01-04 15:52] VITALS: BP 120/73
[2019-01-04] MEDS: 0.9 % SODIUM CHLORIDE 10 ML DISP.SYRIN. INT CAT SCH (19:54)
[2019-01-04] MEDS: MINERAL OIL/PETROLATUM,WHITE OPHTH OINT 3.5GM TUBE. OU SCH (19:54)
[2019-01-04] MEDS: LATANOPROST 0.005% OPHTH SOLUTION 2.5ML BOTTLE. OU SCH (19:55)
[2019-01-04] MEDS: INSULIN GLARGINE 300 UNITS/3 ML INSULN.PEN. SQ SCH (19:56)
--- NOTE | 2019-01-04 22:58 | PDOC ---
Exam Note: Nain Note: Please also refer to the separate dictated note~for this date of service dictated separately.~Patient seen individually. Discussed the patient with Nursing staff reviewed the chart.~Reviewed interim history and current functioning. Reviewed vital signs,~Labs/ Radiology~and current medications noted below. Continue current treatment with the changes noted in the dictated addendum note Assessment: Vital Signs/I&O: Vital Signs Date Time Temp Pulse Resp B/P (MAP) Pulse Ox O2 Delivery O2 Flow Rate FiO2 01/04/19 17:12 69 120/73 01/04/19 15:52 97.7 18 93 01/04/19 05:50 Room Air I & O 01/03/19 01/03/19 01/04/19 14:59 22:59 06:59 Intake Total 600 ml 440 ml Output Total 500 ml Balance 600 ml -60 ml Labs: Laboratory Tests Test 01/04/19 07:21 01/04/19 09:30 01/04/19 12:04 01/04/19 13:50 Glucose (Fingerstick) 111 mg/dL (70-99) H 155 mg/dL (70-99) H White Blood Count 8.3 x10^3/uL (4.0-11.0) Red Blood Count 5.41 x10^6/uL (3.50-5.40) H Hemoglobin 13.8 g/dL (12.0-15.5) Hematocrit 43.8 % (36.0-47.0) Mean Corpuscular Volume 81 fL (79-100) Mean Corpuscular Hemoglobin 26 pg (25-35) Mean Corpuscular Hemoglobin Concent 32 g/dL (31-37) Red Cell Distribution Width 16.6 % (11.5-14.5) H Platelet Count 316 x10^3/uL (140-400) Neutrophils (%) (Auto) 56 % (31-73) Lymphocytes (%) (Auto) 27 % (24-48) Monocytes (%) (Auto) 9 % (0-9) Eosinophils (%) (Auto) 7 % (0-3) H Basophils (%) (Auto) 1 % (0-3) Neutrophils # (Auto) 4.6 x10^3uL (1.8-7.7) Lymphocytes # (Auto) 2.2 x10^3/uL (1.0-4.8) Monocytes # (Auto) 0.8 x10^3/uL (0.0-1.1) Eosinophils # (Auto) 0.6 x10^3/uL (0.0-0.7) Basophils # (Auto) 0.1 x10^3/uL (0.0-0.2) Sodium Level 141 mmol/L (136-145) Potassium Level 4.1 mmol/L (3.5-5.1) Chloride Level 106 mmol/L (98-107) Carbon Dioxide Level 30 mmol/L (21-32) Anion Gap 5 (6-14) L Blood Urea Nitrogen 17 mg/dL (7-20) Creatinine 1.0 mg/dL (0.6-1.0) Estimated GFR (Cockcroft-Gault) 53.9 BUN/Creatinine Ratio 17 (6-20) Glucose Level 165 mg/dL (70-99) H Calcium Level 9.9 mg/dL (8.5-10.1) Total Bilirubin 0.2 mg/dL (0.2-1.0) Aspartate Amino Transferase (AST) 9 U/L (15-37) L Alanine Aminotransferase (ALT) 12 U/L (14-59) L Alkaline Phosphatase 77 U/L (46-116) Total Protein 7.7 g/dL (6.4-8.2) Albumin 2.5 g/dL (3.4-5.0) L Albumin/Globulin Ratio 0.5 (1.0-1.7) L Valproic Acid Level 55 mcg/mL (50-100) Valproic Acid Last Dose Date 01/03/2019 Valproic Acid Last Dose Time 2100 Urine Collection Type U cath Urine Color [place] Urine Clarity Turbid Urine pH 5.5 Urine Specific [place] >=1.030 Urine Protein >100 mg/dl (NEG-TRACE) Urine Glucose (UA) Neg mg/dL (NEG) Urine Ketones (Stick) Neg mg/dL (NEG) Urine Blood Large (NEG) Urine Nitrite Neg (NEG) Urine Bilirubin Neg (NEG) Urine Urobilinogen Dipstick 0.2 mg/dL (0.2 mg/dL) Urine Leukocyte Esterase Small (NEG) Urine RBC >40 /HPF (0-2) Urine WBC >40 /HPF (0-4) Urine Squamous Epithelial Cells Few /LPF Urine Amorphous Sediment Present /HPF Urine Bacteria Mod /HPF (0-FEW) Urine Yeast Present /HPF Test 01/04/19 16:37 01/04/19 19:22 Glucose (Fingerstick) 82 mg/dL (70-99) 101 mg/dL (70-99) H Current Medications: I have reviewed the current psychotropics carefully including drug interactions. Risk benefit ratio favors no change other than as noted in my dictated progress note. Diagnosis: Problems: (1) Encounter for medical screening examination (2) Anxiety disorder (3) Major depressive disorder, recurrent episode (4) Impulse control disorder CLAUDIA LAROSE MD Jan 04, 2019 22:57
[2019-01-05 05:53] VITALS: BP 166/78
[2019-01-05] MEDS: INSULIN LISPRO 300 UNITS/3 ML INSULN.PEN. SQ SCH ×3 (07:54→16:30)
[2019-01-05] MEDS: DOCUSATE SODIUM 100 MG CAPSULE PO SCH (07:55)
[2019-01-05] MEDS: LOSARTAN 25 MG TABLET. PO SCH (07:55)
[2019-01-05] MEDS: RIVAROXABAN 10 MG TABLET. PO SCH (07:55)
[2019-01-05] MEDS: LACTOBACILLUS RHAMNOSUS GG 1 CAPSULE. PO SCH ×2 (07:56→19:50)
[2019-01-05] MEDS: busPIRone 10 MG TABLET. PO SCH ×2 (07:56→17:29)
[2019-01-05] MEDS: CARVEDILOL 6.25 MG TABLET PO SCH ×2 (07:56→17:29)
[2019-01-05] MEDS: DULoxetine HCL 60 MG CAPSULE.DR PO SCH (07:57)
[2019-01-05] MEDS: DIVALPROEX 125 MG CAP.SPRINK PO SCH ×3 (07:57→19:50)
[2019-01-05] MEDS: ASCORBIC ACID 500 MG TABLET PO SCH (07:57)
[2019-01-05] MEDS: OXYBUTYNIN CHLORIDE 5 MG TABLET PO SCH (07:57)
[2019-01-05] MEDS: MAGNESIUM CHLORIDE ER 64 MG TABLET.ER PO SCH (07:59)
[2019-01-05] MEDS: POLYVINYL ALCOHOL 1.4% OPHTH SOLUTION 15ML BOTTLE. OU SCH ×4 (08:01→19:52)
[2019-01-05] MEDS: FEBUXOSTAT 40 MG TABLET PO SCH (08:01)
[2019-01-05] MEDS: NYSTATIN TOPICAL POWDER 15GM BOTTLE. TP SCH ×2 (08:02→19:52)
[2019-01-05 15:36] VITALS: BP 122/79
[2019-01-05] MEDS: 0.9 % SODIUM CHLORIDE 10 ML DISP.SYRIN. INT CAT SCH (19:50)
[2019-01-05] MEDS: LATANOPROST 0.005% OPHTH SOLUTION 2.5ML BOTTLE. OU SCH (19:51)
[2019-01-05] MEDS: MINERAL OIL/PETROLATUM,WHITE OPHTH OINT 3.5GM TUBE. OU SCH (19:52)
[2019-01-05] MEDS: INSULIN GLARGINE 300 UNITS/3 ML INSULN.PEN. SQ SCH (20:23)
--- NOTE | 2019-01-05 22:07 | PN ---
DATE: 01/03/2019 PSYCHIATRIC PROGRESS NOTE This late entry of 01/03 covers elements not covered in my initial note. SUBJECTIVE: I met with the patient in the evening. The patient slept 6-3/4 hours previous night, average 7 hours. She remains somewhat withdrawn, anxious. REVIEW OF SYSTEMS: Ambulation impaired, in wheelchair. No CV, , pulmonary, eye, ENT system symptoms on review. Reliability varies. MENTAL STATUS EXAM: Oriented to herself and situation. Speech is coherent, has some latency. Abstraction fair, computation impaired, language function intact, attention span short. Mood and affect improved, less withdrawn. LABORATORY DATA: Reviewed. IMPRESSION: Unchanged from initial note. PLAN: No change from initial note. MAN Nicolette LAROSE MD DR: RUFUS/carina JOB#: [id number] / [id number]
--- NOTE | 2019-01-05 22:29 | PDOC ---
Exam Note: Nain Note: Please also refer to the separate dictated note~for this date of service dictated separately.~Patient seen individually. Discussed the patient with Nursing staff reviewed the chart.~Reviewed interim history and current functioning. Reviewed vital signs,~Labs/ Radiology~and current medications noted below. Continue current treatment with the changes noted in the dictated addendum note Assessment: Vital Signs/I&O: Vital Signs Date Time Temp Pulse Resp B/P (MAP) Pulse Ox O2 Delivery O2 Flow Rate FiO2 01/05/19 17:29 68 122/79 01/05/19 15:36 97.3 16 98 01/04/19 05:50 Room Air I & O 01/04/19 01/04/19 01/05/19 15:00 23:00 07:00 Intake Total 840 ml 480 ml 240 ml Output Total 400 ml 300 ml Balance 840 ml 80 ml -60 ml Labs: Laboratory Tests Test 01/05/19 07:06 01/05/19 11:41 01/05/19 16:47 01/05/19 20:08 Glucose (Fingerstick) 61 mg/dL (70-99) L 223 mg/dL (70-99) H 78 mg/dL (70-99) 162 mg/dL (70-99) H Current Medications: I have reviewed the current psychotropics carefully including drug interactions. Risk benefit ratio favors no change other than as noted in my dictated progress note. Diagnosis: Problems: (1) Anxiety disorder (2) Major depressive disorder, recurrent episode (3) Impulse control disorder CLAUDIA LAROSE MD Jan 05, 2019 22:29
[2019-01-06 06:13] VITALS: BP 158/65
[2019-01-06] MEDS: DULoxetine HCL 60 MG CAPSULE.DR PO SCH (08:54)
[2019-01-06] MEDS: CARVEDILOL 6.25 MG TABLET PO SCH ×2 (08:54→17:14)
[2019-01-06] MEDS: LOSARTAN 25 MG TABLET. PO SCH (08:55)
[2019-01-06] MEDS: DIVALPROEX 125 MG CAP.SPRINK PO SCH ×3 (08:55→19:54)
[2019-01-06] MEDS: ASCORBIC ACID 500 MG TABLET PO SCH (08:55)
[2019-01-06] MEDS: DOCUSATE SODIUM 100 MG CAPSULE PO SCH (08:55)
[2019-01-06] MEDS: RIVAROXABAN 10 MG TABLET. PO SCH (08:55)
[2019-01-06] MEDS: MAGNESIUM CHLORIDE ER 64 MG TABLET.ER PO SCH (08:56)
[2019-01-06] MEDS: LACTOBACILLUS RHAMNOSUS GG 1 CAPSULE. PO SCH ×2 (08:56→19:54)
[2019-01-06] MEDS: busPIRone 10 MG TABLET. PO SCH ×2 (08:56→17:14)
[2019-01-06] MEDS: OXYBUTYNIN CHLORIDE 5 MG TABLET PO SCH (08:56)
[2019-01-06] MEDS: POLYVINYL ALCOHOL 1.4% OPHTH SOLUTION 15ML BOTTLE. OU SCH ×4 (08:58→19:55)
[2019-01-06] MEDS: NYSTATIN TOPICAL POWDER 15GM BOTTLE. TP SCH ×2 (08:58→19:55)
[2019-01-06] MEDS: INSULIN LISPRO 300 UNITS/3 ML INSULN.PEN. SQ SCH ×3 (09:10→17:46)
[2019-01-06] MEDS: FEBUXOSTAT 40 MG TABLET PO SCH (13:59)
[2019-01-06 16:13] VITALS: BP 164/81
--- NOTE | 2019-01-06 17:08 | PN ---
DATE: 01/05/2019 PSYCHIATRIC PROGRESS NOTE This is a late entry, date of service 01/05/2019. Covers elements not covered in my initial note. SUBJECTIVE: I met with the patient in the evening. The patient slept 6-3/4 hours previous evening. She has been pleasant, cooperative, smiling as I met with her. REVIEW OF SYSTEMS: Ambulation impaired, in wheelchair. No CV, , pulmonary, eye system symptoms on review. MENTAL STATUS EXAM: Oriented to herself and situation. Speech has some latency, coherent. Abstraction fair, computation impaired, language function intact, attention span fair. Mood and affect are improved. LABORATORY DATA: Reviewed. IMPRESSION: Unchanged from initial note. PLAN: No change from initial note. Valproic acid level therapeutic at 55. MAN Nicolette LAROSE MD DR: RUFUS/carina JOB#: [id number] / [id number]
[2019-01-06] MEDS: LATANOPROST 0.005% OPHTH SOLUTION 2.5ML BOTTLE. OU SCH (19:55)
[2019-01-06] MEDS: 0.9 % SODIUM CHLORIDE 10 ML DISP.SYRIN. INT CAT SCH (19:55)
[2019-01-06] MEDS: MINERAL OIL/PETROLATUM,WHITE OPHTH OINT 3.5GM TUBE. OU SCH (19:56)
[2019-01-06] MEDS: INSULIN GLARGINE 300 UNITS/3 ML INSULN.PEN. SQ SCH (19:58)
[2019-01-06 20:09] LABS: ALPHA 1 0.3 g/dL (0.0-0.4); ALPHA 2 0.9 g/dL (0.4-1.0); BETA 1.4 g/dL (0.7-1.3); GAMMA 2.4 g/dL (0.4-1.8); SPEP AG RATIO 0.6 (0.7-1.7)
--- NOTE | 2019-01-06 22:42 | PDOC ---
Exam Note: Nain Note: Please also refer to the separate dictated note~for this date of service dictated separately.~Patient seen individually. Discussed the patient with Nursing staff reviewed the chart.~Reviewed interim history and current functioning. Reviewed vital signs,~Labs/ Radiology~and current medications noted below. Continue current treatment with the changes noted in the dictated addendum note Assessment: Vital Signs/I&O: Vital Signs Date Time Temp Pulse Resp B/P (MAP) Pulse Ox O2 Delivery O2 Flow Rate FiO2 01/06/19 17:14 67 164/81 01/06/19 16:13 97.4 16 95 01/04/19 05:50 Room Air I & O 01/05/19 01/05/19 01/06/19 14:59 22:59 06:59 Intake Total 840 ml 240 ml 360 ml Output Total 900 ml Balance 840 ml 240 ml -540 ml Labs: Laboratory Tests Test 01/06/19 06:03 01/06/19 07:26 01/06/19 12:15 01/06/19 16:28 Glucose (Fingerstick) 96 mg/dL (70-99) 101 mg/dL (70-99) H 158 mg/dL (70-99) H 162 mg/dL (70-99) H Test 01/06/19 19:30 Glucose (Fingerstick) 162 mg/dL (70-99) H Current Medications: I have reviewed the current psychotropics carefully including drug interactions. Risk benefit ratio favors no change other than as noted in my dictated progress note. Diagnosis: Problems: (1) Anxiety disorder (2) Major depressive disorder, recurrent episode (3) Impulse control disorder CLAUDIA LAROSE MD Jan 06, 2019 22:42
--- NOTE | 2019-01-06 23:23 | PN ---
DATE: 01/04/2019 PSYCHIATRIC PROGRESS NOTE This late entry 01/04/2019, covers elements not covered in my initial note. SUBJECTIVE: I met with the patient in the evening. The patient slept 5-1/2 hours previous night. She remains somewhat irritable off and on, but did well in the shower. Urine C and S is pending. REVIEW OF SYSTEMS: Ambulation impaired, in wheelchair. No CV, , pulmonary, eye, ENT system symptoms on review. MENTAL STATUS EXAM: Oriented to herself and situation. Speech has some latency, coherent. Abstraction fair, computation impaired, language function intact, attention span short. Mood and affect is improved. Subjectively, as I questioned her, she said she feels better. LABORATORY DATA: Reviewed. IMPRESSION: Unchanged from initial note. PLAN: No change from initial note. MAN Nicolette LAROSE MD DR: RUFUS/carina JOB#: [id number] / [id number]
[2019-01-07 06:03] VITALS: BP 170/59
[2019-01-07] MEDS: CARVEDILOL 6.25 MG TABLET PO SCH ×2 (08:09→17:42)
[2019-01-07] MEDS: RIVAROXABAN 10 MG TABLET. PO SCH (08:09)
[2019-01-07] MEDS: DOCUSATE SODIUM 100 MG CAPSULE PO SCH (08:09)
[2019-01-07] MEDS: LACTOBACILLUS RHAMNOSUS GG 1 CAPSULE. PO SCH ×2 (08:09→20:31)
[2019-01-07] MEDS: OXYBUTYNIN CHLORIDE 5 MG TABLET PO SCH (08:09)
[2019-01-07] MEDS: MAGNESIUM CHLORIDE ER 64 MG TABLET.ER PO SCH (08:09)
[2019-01-07] MEDS: DULoxetine HCL 60 MG CAPSULE.DR PO SCH (08:10)
[2019-01-07] MEDS: busPIRone 10 MG TABLET. PO SCH ×2 (08:10→17:40)
[2019-01-07] MEDS: NYSTATIN TOPICAL POWDER 15GM BOTTLE. TP SCH ×2 (08:10→20:43)
[2019-01-07] MEDS: ASCORBIC ACID 500 MG TABLET PO SCH (08:10)
[2019-01-07] MEDS: LOSARTAN 25 MG TABLET. PO SCH (08:10)
[2019-01-07] MEDS: DIVALPROEX 125 MG CAP.SPRINK PO SCH ×3 (08:10→20:31)
[2019-01-07] MEDS: POLYVINYL ALCOHOL 1.4% OPHTH SOLUTION 15ML BOTTLE. OU SCH ×4 (08:11→20:33)
[2019-01-07] MEDS: INSULIN LISPRO 300 UNITS/3 ML INSULN.PEN. SQ SCH ×3 (08:14→17:43)
[2019-01-07] MEDS: FEBUXOSTAT 40 MG TABLET PO SCH (08:15)
--- NOTE | 2019-01-07 14:17 | PN ---
DATE: 01/06/2019 PSYCHIATRIC PROGRESS NOTE This late entry, 01/06/2019, covers elements not covered in my initial note. SUBJECTIVE: I met with the patient in the evening. The patient slept 5-3/4 hours previous night. reed maker, she was sarcastic, rude per nursing staff, then did better, did attend group therapy. After lunch, she did okay. REVIEW OF SYSTEMS: Ambulation impaired, in wheelchair. No CV, , pulmonary, eye, ENT system symptoms on review. MENTAL STATUS EXAM: The patient is oriented to herself and situation. Speech has some latency, coherent. Abstraction fair, computation impaired, language function intact, attention span short. Mood and affect is improved. LABORATORY DATA: Reviewed. IMPRESSION: Unchanged from initial note. PLAN: No change from initial note. MAN Nicolette LAROSE MD DR: RUFUS/carina JOB#: [id number] / [id number]
[2019-01-07 15:52] VITALS: BP 116/76
[2019-01-07] MEDS: LATANOPROST 0.005% OPHTH SOLUTION 2.5ML BOTTLE. OU SCH (20:31)
[2019-01-07] MEDS: MINERAL OIL/PETROLATUM,WHITE OPHTH OINT 3.5GM TUBE. OU SCH (20:31)
[2019-01-07] MEDS: 0.9 % SODIUM CHLORIDE 10 ML DISP.SYRIN. INT CAT SCH (20:33)
[2019-01-07] MEDS: INSULIN GLARGINE 300 UNITS/3 ML INSULN.PEN. SQ SCH (20:34)
--- NOTE | 2019-01-07 22:22 | PDOC ---
Exam Note: Nain Note: Please also refer to the separate dictated note~for this date of service dictated separately.~Patient seen individually. Discussed the patient with Nursing staff reviewed the chart.~Reviewed interim history and current functioning. Reviewed vital signs,~Labs/ Radiology~and current medications noted below. Continue current treatment with the changes noted in the dictated addendum note Assessment: Vital Signs/I&O: Vital Signs Date Time Temp Pulse Resp B/P (MAP) Pulse Ox O2 Delivery O2 Flow Rate FiO2 01/07/19 17:42 65 116/76 01/07/19 15:52 97.2 18 96 01/04/19 05:50 Room Air I & O 01/06/19 01/06/19 01/07/19 14:59 22:59 06:59 Intake Total 720 ml 240 ml 480 ml Output Total 700 ml Balance 720 ml 240 ml -220 ml Labs: Laboratory Tests Test 01/07/19 07:37 01/07/19 12:13 01/07/19 16:42 01/07/19 19:24 Glucose (Fingerstick) 81 mg/dL (70-99) 173 mg/dL (70-99) H 78 mg/dL (70-99) 72 mg/dL (70-99) Current Medications: I have reviewed the current psychotropics carefully including drug interactions. Risk benefit ratio favors no change other than as noted in my dictated progress note. Diagnosis: Problems: (1) Anxiety disorder (2) Major depressive disorder, recurrent episode (3) Impulse control disorder CLAUDIA LAROSE MD Jan 07, 2019 22:22
[2019-01-07] MEDS ORDERED: METH29OI TP (23:34)
[2019-01-07] MEDS ORDERED: 0.92DISP2 IJ (23:37)
[2019-01-08 06:17] VITALS: BP 157/85
[2019-01-08] MEDS: INSULIN LISPRO 300 UNITS/3 ML INSULN.PEN. SQ SCH (07:30)
[2019-01-08] MEDS: OXYBUTYNIN CHLORIDE 5 MG TABLET PO SCH (08:09)
[2019-01-08] MEDS: CARVEDILOL 6.25 MG TABLET PO SCH (08:09)
[2019-01-08] MEDS: DULoxetine HCL 60 MG CAPSULE.DR PO SCH (08:09)
[2019-01-08 08:10] VITALS: BP 157/85
[2019-01-08] MEDS: LACTOBACILLUS RHAMNOSUS GG 1 CAPSULE. PO SCH (08:10)
[2019-01-08] MEDS: LOSARTAN 25 MG TABLET. PO SCH (08:10)
[2019-01-08] MEDS: RIVAROXABAN 10 MG TABLET. PO SCH (08:10)
[2019-01-08] MEDS: DOCUSATE SODIUM 100 MG CAPSULE PO SCH (08:10)
[2019-01-08] MEDS: DIVALPROEX 125 MG CAP.SPRINK PO SCH (08:10)
[2019-01-08] MEDS: ASCORBIC ACID 500 MG TABLET PO SCH (08:10)
[2019-01-08] MEDS: FEBUXOSTAT 40 MG TABLET PO SCH (08:10)
[2019-01-08] MEDS: MAGNESIUM CHLORIDE ER 64 MG TABLET.ER PO SCH (08:10)
[2019-01-08] MEDS: POLYVINYL ALCOHOL 1.4% OPHTH SOLUTION 15ML BOTTLE. OU SCH (08:11)
[2019-01-08] MEDS: busPIRone 10 MG TABLET. PO SCH (08:11)
[2019-01-08] MEDS: NYSTATIN TOPICAL POWDER 15GM BOTTLE. TP SCH (08:11)
--- NOTE | 2019-01-08 18:34 | PDOC ---
Exam Note: Nain Note: Please also refer to the separate dictated note~for this date of service dictated separately.~Patient seen individually. Discussed the patient with Nursing staff reviewed the chart.~Reviewed interim history and current functioning. Reviewed vital signs,~Labs/ Radiology~and current medications noted below. Continue current treatment with the changes noted in the dictated addendum note Assessment: Vital Signs/I&O: Vital Signs Date Time Temp Pulse Resp B/P (MAP) Pulse Ox O2 Delivery O2 Flow Rate FiO2 01/08/19 08:10 87 157/85 01/08/19 06:17 98.0 20 100 Room Air I & O 01/07/19 01/07/19 01/08/19 15:00 23:00 07:00 Intake Total 720 ml 240 ml 240 ml Output Total 1600 ml Balance 720 ml 240 ml -1360 ml Labs: Laboratory Tests Test 01/07/19 19:24 01/08/19 07:22 Glucose (Fingerstick) 72 mg/dL (70-99) 54 mg/dL (70-99) L Current Medications: I have reviewed the current psychotropics carefully including drug interactions. Risk benefit ratio favors no change other than as noted in my dictated progress note. Diagnosis: Problems: (1) Impulse control disorder (2) Major depressive disorder, recurrent episode (3) Anxiety disorder CLAUDIA LAROSE MD Jan 08, 2019 18:34
--- NOTE | 2019-01-09 01:02 | PN ---
DATE: 01/07/2019 PSYCHIATRIC PROGRESS NOTE This late entry 01/07/2019 covers elements not covered in my initial note. SUBJECTIVE: I met with the patient in the evening. The patient slept 6 hours previous evening. She has had no behaviors doing better, more pleasant, cooperative, verbal, smiling as I met with her. She does better if her morning meds are given before groups because at that time she gets distracted and often little resistive to taking it. REVIEW OF SYSTEMS: Ambulation impaired, in wheelchair. No CV, , pulmonary, eye, ENT system symptoms on review. MENTAL STATUS EXAMINATION: Oriented to herself and situation. Speech is coherent. Abstraction fair, computation impaired, language function intact, attention span short. Mood and affect is improved. LABORATORY DATA: Reviewed. IMPRESSION: Unchanged from initial note. PLAN: No change from initial note with transition to halfway. MAN Nicoletet LAROSE MD DR: RUFUS/carina JOB#: [id number] / [id number]
--- NOTE | 2019-01-10 21:50 | DS ---
DATE OF DISCHARGE: 01/08/2019 DISCHARGE SUMMARY/PSYCHIATRIC PROGRESS NOTE This is a late entry of 01/08/2019 covers elements not covered in my initial note. REASON FOR ADMISSION: Please refer to the admission history for details. Briefly, the patient is a 78-year-old female referred back to us from [facility] via the Emergency Room on account of being verbally abusive, yelling racial slurs at staff, kicking. She had "shoved" blood pressure machine, throwing things, banging on the table. Behaviors were deemed unmanageable, dangerous with marked mood lability, had failed outpatient psychiatric interventions at the nursing facility resulting in this referral back to us. SIGNIFICANT FINDINGS AND CLINICAL COURSE: Following admission, the patient was seen daily individually by myself from a psychiatric standpoint, medical followup with Dr. Dennis. She was noted to be quite anxious, depressed, irritable, labile at admission. Adjustments were made in her psychotropics. She seemed to respond to a combination of BuSpar 10 mg b.i.d., Depakote 250 mg b.i.d. and 500 mg at bedtime. Valproic acid level therapeutic at 55, duloxetine 60 mg a day. Prior to discharge on 01/08/2019. REVIEW OF SYSTEMS: Ambulation impaired, in wheelchair. No CV, , pulmonary, eye, ENT system symptoms on review. She is pleasant, smiling, which is quite a change for her in a positive manner. MENTAL STATUS EXAM: Oriented to herself and situation. Speech is coherent, has some latency. Abstraction fair, computation impaired, language function intact, attention span short. Mood and affect improved, less irritable, not aggressive. Labs reviewed. No suicidal or homicidal ideation at discharge. CONDITION AT DISCHARGE: Improved. FINAL DIAGNOSES: Major depressive disorder, recurrent, in partial remission; anxiety disorder, unspecified; impulse control disorder, unspecified. Rest unchanged from admission. DISCHARGE MEDICATIONS: Please refer to the [facility]. DISCHARGE INSTRUCTIONS: Outpatient psychiatric and medical followup at the detention. CLAUDIA LAROSE MD DR: RUFUS/carina JOB#: [id number] / [id number]
== END 2019-01-08 11:32 | DRG 885 ==
LOC: ER 15:15 → GEROPSY 21:17
PROVIDERS: ADMIT Psychiatry & Neurology Psychiatry; ATTEND Psychiatry & Neurology Psychiatry
DX: F33.41 Major depressive disorder, recurrent, in partial remission (principal); N39.0 Urinary tract infection, site not specified; F03.91 Unspecified dementia, unspecified severity, with behavioral disturbance; E86.0 Dehydration; J98.4 Other disorders of lung; M41.9 Scoliosis, unspecified; E11.9 Type 2 diabetes mellitus without complications; F41.9 Anxiety disorder, unspecified; F63.9 Impulse disorder, unspecified; H91.90 Unspecified hearing loss, unspecified ear; I11.0 Hypertensive heart disease with heart failure; G47.00 Insomnia, unspecified; I50.9 Heart failure, unspecified; J44.9 Chronic obstructive pulmonary disease, unspecified; R32 Unspecified urinary incontinence; Z66 Do not resuscitate; Z87.440 Personal history of urinary (tract) infections; Z90.49 Acquired absence of other specified parts of digestive tract; Z93.3 Colostomy status; Z99.81 Dependence on supplemental oxygen
CPT/HCPCS: 36415; 80053; 80061; 80164; 81001; 82947; 83735; 83970; 84100; 84165; 84436; 84443; 84480; 85025; 86592; 87086; 87186; 93005; 96365; 96366; J0696; J1815; 97530; 99285-25; J7030

== ENCOUNTER 2019-01-17 19:00 | Inpatient (IN) | payer MEDICARE, OTHER ==
[~2019-01-17] VITALS: Ht 165.1 cm; Wt 83.7 kg
[~2019-01-17 19:00] MED LIST changes: +0.92DISP2 IJ
[2019-01-17] MEDS ORDERED: ACETAMINOPHEN 325 MG TABLET PO PRN (20:30)
[2019-01-17] MEDS ORDERED: MAGNESIUM HYDROXIDE 2,400 MG/30 ML ORAL.SUSP. PO PRN (20:30)
[2019-01-17] MEDS ORDERED: MAG HYDROX/AL HYDROX/SIMETH 30 ML ORAL.SUSP PO PRN (20:30)
--- NOTE | 2019-01-17 20:40 | NUR ---
Admission Note with Justification for Admission to [facility] Patient admitted to [facility] for protective oversight for emergency stabilization of acute psychiatric crisis. Pt admitted from: Hospital ER Mode of arrival: EMS Accompanied By: EMS Precipitating behaviors that initiated intake and admission: Hallucinating, thinks someone is trying to kill her, refusing to wear O2, agitation, refusing cares, won't let staff touch her, attempting to strike staff Description of failure of out patient attempts at stabilization in previous setting list behavior and medication trials: ativan, ER visit Behaviors and assessment findings upon admission: Pt sedated before arrival Plan: Admit for protective oversight for adjustment and stabilization of medications, behaviors and mood. Intense treatment regimen including groups, medication adjustments, therapy, consistent regimen for ADL's, self care, and sleep hygiene. Daily monitoring by Inpatient staff, Psychiatry, and Medical Physician.
[2019-01-17] MEDS ORDERED: TRAZ-120 PO (21:14)
[2019-01-17] MEDS ORDERED: FURO20TA3 PO (21:14)
[2019-01-17] MEDS ORDERED: NITR100C62 PO (21:14)
[2019-01-17] MEDS ORDERED: LORA0.5T PO (21:14)
[2019-01-17 22:47] VITALS: BP 138/80
[2019-01-18 02:29] LABS: COLOR,URINE YELLOW
[2019-01-18 02:30] LABS: BACTERIA,URINE MOD /HPF (0-FEW); BILIRUBIN,URINE NEG (NEG); CLARITY,URINE CLOUDY; GLUCOSE,URINE NEG (NEG); NITRITE,URINE POS (NEG); RBC,URINE >40 /HPF (0-2); UROBILINOGEN,URINE 0.2 mg/dL (0.2 mg/dL)
[2019-01-18 02:31] LABS: SQUAMOUS EPITHELIAL CELL,UR OCC /LPF
[2019-01-18 06:09] VITALS: BP 150/81
[2019-01-18] MEDS: CARVEDILOL 6.25 MG TABLET PO SCH ×2 (08:09→17:00)
[2019-01-18] MEDS: POLYVINYL ALCOHOL 1.4% OPHTH SOLUTION 15ML BOTTLE. OU SCH ×4 (08:09→19:34)
[2019-01-18] MEDS: INSULIN LISPRO 300 UNITS/3 ML INSULN.PEN. SQ SCH ×4 (08:13→16:30)
[2019-01-18 08:22] LABS: BASO # 0.1 x10^3/uL (0.0-0.2); BASO % 1 % (0-3); EOS # 0.3 x10^3/uL (0.0-0.7); EOS % 4 % (0-3); HEMATOCRIT 49.8 % (36.0-47.0); HEMOGLOBIN 15.6 g/dL (12.0-15.5); LYMPH # 1.7 x10^3/uL (1.0-4.8); LYMPH % 20 % (24-48); MEAN CORPUSCULAR HEMOGLOBIN 26 pg (25-35); MEAN CORPUSCULAR HGB CONC 31 g/dL (31-37); MEAN CORPUSCULAR VOLUME 82 fL (79-100); MONO # 0.9 x10^3/uL (0.0-1.1); MONO % 11 % (0-9); NEUT # 5.5 x10^3uL (1.8-7.7); NEUT % 64 % (31-73); PLATELET COUNT 241 x10^3/uL (140-400); RED BLOOD COUNT 6.04 x10^6/uL (3.50-5.40); RED CELL DISTRIBUTION WIDTH 17.3 % (11.5-14.5); WHITE BLOOD COUNT 8.5 x10^3/uL (4.0-11.0)
[2019-01-18] MEDS: DOCUSATE SODIUM 100 MG CAPSULE PO SCH (08:22)
[2019-01-18] MEDS: OXYBUTYNIN CHLORIDE 5 MG TABLET PO SCH ×2 (08:22→19:30)
[2019-01-18] MEDS: DIVALPROEX 125 MG CAP.SPRINK PO SCH ×4 (08:23→15:00)
[2019-01-18] MEDS: FUROSEMIDE 20 MG TABLET PO SCH (08:23)
[2019-01-18] MEDS: RIVAROXABAN 10 MG TABLET. PO SCH (08:23)
[2019-01-18] MEDS: LACTOBACILLUS RHAMNOSUS GG 1 CAPSULE. PO SCH ×2 (08:23→19:30)
[2019-01-18] MEDS: NITROFURANTOIN MONOHYD/M-CRYST 100 MG CAPSULE. PO SCH (08:23)
[2019-01-18] MEDS: DULoxetine HCL 60 MG CAPSULE.DR PO SCH (08:23)
[2019-01-18] MEDS: MAGNESIUM CHLORIDE ER 64 MG TABLET.ER PO SCH (08:23)
[2019-01-18] MEDS: LOSARTAN 25 MG TABLET. PO SCH (08:24)
[2019-01-18] MEDS: NYSTATIN TOPICAL POWDER 15GM BOTTLE. TP SCH ×2 (08:26→19:34)
[2019-01-18] MEDS: FEBUXOSTAT 40 MG TABLET PO SCH (08:32)
[2019-01-18] MEDS: busPIRone 10 MG TABLET. PO SCH ×2 (08:32→17:00)
[2019-01-18] MEDS: ASCORBIC ACID 500 MG TABLET PO SCH (08:32)
[2019-01-18 08:34] LABS: CALCIUM 10.9 mg/dL (8.5-10.1); CREATININE 1.1 mg/dL (0.6-1.0); GFR 48.3; MAGNESIUM 2.1 mg/dL (1.8-2.4); POTASSIUM 4.3 mmol/L (3.5-5.1); TOTAL BILIRUBIN 0.4 mg/dL (0.2-1.0)
[2019-01-18 08:50] LABS: ALBUMIN 2.9 g/dL (3.4-5.0); ALBUMIN/GLOBULIN RATIO 0.5 (1.0-1.7); TOTAL PROTEIN 8.5 g/dL (6.4-8.2)
[2019-01-18] MEDS ORDERED: LORazepam 0.5 MG TABLET PO SCH ×2 (09:00→21:00)
[2019-01-18] MEDS ORDERED: FLUTICASONE 50MCG/NASAL SPRAY 16GM BOTTLE. NS PRN (09:00)
[2019-01-18 09:58] LABS: VAL ACID 38 mcg/mL (50-100)
--- NOTE | 2019-01-18 13:09 | NUR ---
Angel Luis's noon insulin was held(8units Humalog) due to patient not eating, her artificial tears were held as well due to patient not being able to hold her head back-she stated "I don't want em"
--- NOTE | 2019-01-18 13:36 | NUR ---
Patient observed in her wheel chair this am, she was very sleepy, when asked if she would take her meds she stated "I don't want any pills, I don't want them, just let me go" this nurse returned a little later and [facility], she did not want to take her insulin either and this nurse convinced her to take it, she could barely keep her head up during lunch and fell asleep with food in her mouth, her insulin was held
[2019-01-18 15:41] VITALS: BP 95/76
[2019-01-18 16:15] LABS: BGAS PH 7.35 (7.35-7.45)
--- NOTE | 2019-01-18 16:28 | NUR ---
Per the marketing technology coordinator, the ABG results are indicitive of someone who has COPD, recommendation-patient wear 02, patient refused to wear 02
[2019-01-18] MEDS ORDERED: traZODone 50 MG TABLET. PO SCH (21:00)
[2019-01-18] MEDS ORDERED: MINERAL OIL/PETROLATUM,WHITE OPHTH OINT 3.5GM TUBE. OU SCH (21:00)
[2019-01-18] MEDS ORDERED: LATANOPROST 0.005% OPHTH SOLUTION 2.5ML BOTTLE. OS SCH (21:00)
[2019-01-18] MEDS ORDERED: 0.9 % SODIUM CHLORIDE 10 ML DISP.SYRIN. INT CAT SCH (21:00)
[2019-01-18] MEDS ORDERED: INSULIN GLARGINE 300 UNITS/3 ML INSULN.PEN. SQ SCH (21:00)
[2019-01-18] MEDS ORDERED: DIVALPROEX ER 500 MG TAB.ER.24H PO SCH (21:00)
--- NOTE | 2019-01-18 21:00 | NUR ---
Nursing note: Assumed care of pt in the day room. She was dozing in her chair and was easily aroused but groggy. She was calm, compliant, and pleasant. No delusions/hallucinations at this time. She was able to answer a couple of my questions but she is very slow to respond. She took her meds crushed in applesauce. When I gave her insulin in her stomach, she said she usually gets it in her arm. No c/o pain at this time. Alert to self.
--- NOTE | 2019-01-18 21:57 | PDOC ---
Exam Note: Nain Note: Please also refer to the separate dictated note~for this date of service dictated separately.~Patient seen individually. Discussed the patient with Nursing staff reviewed the chart.~Reviewed interim history and current functioning. Reviewed vital signs,~Labs/ Radiology~and current medications noted below. Continue current treatment with the changes noted in the dictated addendum note Assessment: Vital Signs/I&O: Vital Signs Date Time Temp Pulse Resp B/P (MAP) Pulse Ox O2 Delivery O2 Flow Rate FiO2 01/18/19 17:00 78 95/76 01/18/19 15:41 98.2 18 97 Room Air I & O 01/17/19 01/17/19 01/18/19 15:00 23:00 07:00 Intake Total 0 ml Balance 0 ml Labs: Laboratory Tests Test 01/18/19 00:47 01/18/19 01:35 01/18/19 07:22 01/18/19 07:30 Glucose (Fingerstick) 98 mg/dL (70-99) 128 mg/dL (70-99) H Urine Collection Type U cath Urine Color Yellow Urine Clarity Cloudy Urine pH 6.0 Urine Specific Clover 1.025 Urine Protein 100 mg/dl (NEG-TRACE) Urine Glucose (UA) Neg mg/dL (NEG) Urine Ketones (Stick) 40 mg/dL (NEG) Urine Blood Large (NEG) Urine Nitrite Pos (NEG) Urine Bilirubin Neg (NEG) Urine Urobilinogen Dipstick 0.2 mg/dL (0.2 mg/dL) Urine Leukocyte Esterase Large (NEG) Urine RBC >40 /HPF (0-2) Urine WBC 11-20 /HPF (0-4) Urine Squamous Epithelial Cells Occ /LPF Urine Amorphous Sediment /HPF Urine Bacteria Mod /HPF (0-FEW) White Blood Count 8.5 x10^3/uL (4.0-11.0) Red Blood Count 6.04 x10^6/uL (3.50-5.40) H Hemoglobin 15.6 g/dL (12.0-15.5) H Hematocrit 49.8 % (36.0-47.0) H Mean Corpuscular Volume 82 fL (79-100) Mean Corpuscular Hemoglobin 26 pg (25-35) Mean Corpuscular Hemoglobin Concent 31 g/dL (31-37) Red Cell Distribution Width 17.3 % (11.5-14.5) H Platelet Count 241 x10^3/uL (140-400) Neutrophils (%) (Auto) 64 % (31-73) Lymphocytes (%) (Auto) 20 % (24-48) L Monocytes (%) (Auto) 11 % (0-9) H Eosinophils (%) (Auto) 4 % (0-3) H Basophils (%) (Auto) 1 % (0-3) Neutrophils # (Auto) 5.5 x10^3uL (1.8-7.7) Lymphocytes # (Auto) 1.7 x10^3/uL (1.0-4.8) Monocytes # (Auto) 0.9 x10^3/uL (0.0-1.1) Eosinophils # (Auto) 0.3 x10^3/uL (0.0-0.7) Basophils # (Auto) 0.1 x10^3/uL (0.0-0.2) Sodium Level 143 mmol/L (136-145) Potassium Level 4.3 mmol/L (3.5-5.1) Chloride Level 105 mmol/L (98-107) Carbon Dioxide Level 27 mmol/L (21-32) Anion Gap 11 (6-14) Blood Urea Nitrogen 25 mg/dL (7-20) H Creatinine 1.1 mg/dL (0.6-1.0) H Estimated GFR (Cockcroft-Gault) 48.3 BUN/Creatinine Ratio 23 (6-20) H Glucose Level 126 mg/dL (70-99) H Calcium Level 10.9 mg/dL (8.5-10.1) H Magnesium Level 2.1 mg/dL (1.8-2.4) Total Bilirubin 0.4 mg/dL (0.2-1.0) Aspartate Amino Transferase (AST) 11 U/L (15-37) L Alanine Aminotransferase (ALT) 13 U/L (14-59) L Alkaline Phosphatase 84 U/L (46-116) Total Protein 8.5 g/dL (6.4-8.2) H Albumin 2.9 g/dL (3.4-5.0) L Albumin/Globulin Ratio 0.5 (1.0-1.7) L Triglycerides Level 155 mg/dL (0-150) H Cholesterol Level 179 mg/dL (0-200) LDL Cholesterol, Calculated 111 mg/dL (0-100) H VLDL Cholesterol, Calculated 31 mg/dL (0-40) Non-HDL Cholesterol Calculated 142 mg/dL (0-129) H HDL Cholesterol 37 mg/dL (40-60) L Cholesterol/HDL Ratio 4.0 Valproic Acid Level 38 mcg/mL (50-100) L Valproic Acid Last Dose Date 01/17/2019 Valproic Acid Last Dose Time 0900 Test 01/18/19 11:54 01/18/19 16:04 01/18/19 16:35 01/18/19 19:15 Glucose (Fingerstick) 109 mg/dL (70-99) H 110 mg/dL (70-99) H 139 mg/dL (70-99) H Blood pH 7.35 (7.35-7.45) Blood Gas PCO2 51 mmHg (35-45) H Blood Gas PO2 64 mmHg (71-100) L Blood Gas HCO3 29 mmol/L (22-26) H Arterial Bld O2 Saturation (Calc) 91 % (92-99) L FiO2 21 % Current Medications: Meds: Current Medications Medications (Trade) Dose Ordered Sig/Ar Route PRN Reason Start Time Stop Time Status Last Admin Dose Admin Sodium Chloride (Normal Saline Flush) 20 ml HS INT CAT 01/18/19 21:00 01/18/19 19:37 Ascorbic Acid (Vitamin C) 500 mg DAILY PO 01/18/19 09:00 01/18/19 08:32 Febuxostat (Uloric) 40 mg DAILY PO 01/18/19 09:00 01/18/19 08:32 Furosemide (Lasix) 20 mg DAILY PO 01/18/19 09:00 01/18/19 08:23 Insulin Human Lispro (HumaLOG) 8 units TIDAC SQ 01/18/19 07:30 01/18/19 08:13 Losartan Potassium (Cozaar) 25 mg DAILY PO 01/18/19 09:00 01/18/19 08:24 Nystatin (Nystop) 1 rachel BID TP 01/18/19 09:00 01/18/19 19:34 Artificial Tears (Artificial Tears) 1 drop QID OU 01/18/19 09:00 01/18/19 19:34 Carvedilol (Coreg) 6.25 mg BIDWMEALS PO 01/18/19 08:00 01/18/19 17:00 Docusate Sodium (Colace) 100 mg DAILY PO 01/18/19 09:00 01/18/19 08:22 Insulin Glargine (Lantus) 10 units QHS SQ 01/18/19 21:00 01/18/19 19:36 Lactobacillus Rhamnosus (Culturelle) 1 cap BID PO 01/18/19 09:00 01/18/19 19:30 Magnesium Chloride (Mag Delay) 64 mg DAILY PO 01/18/19 09:00 01/18/19 08:23 Nitrofurantoin Macrocrystals (Macrobid) 100 mg DAILY PO 01/18/19 09:00 01/18/19 08:23 Oxybutynin Chloride (Ditropan) 5 mg BID PO 01/18/19 09:00 01/18/19 19:30 Rivaroxaban (Xarelto) 20 mg DAILY PO 01/18/19 09:00 01/18/19 08:23 Buspirone HCl (Buspar) 10 mg BID@0900,1700 PO 01/18/19 09:00 01/18/19 17:00 Divalproex Sodium (Depakote Er) 500 mg QHS PO 01/18/19 21:00 01/18/19 19:34 Divalproex Sodium (Depakote Sprinkles) 250 mg BID92 PO 01/18/19 09:00 01/18/19 14:41 Duloxetine HCl (Cymbalta) 60 mg DAILY PO 01/18/19 09:00 01/18/19 08:23 Lorazepam (Ativan) 0.5 mg BID PO 01/18/19 09:00 01/18/19 18:59 DC 01/18/19 08:23 Trazodone HCl (Desyrel) 50 mg QHS PO 01/18/19 21:00 01/18/19 19:34 Lorazepam (Ativan) 0.5 mg HS PO 01/18/19 21:00 01/18/19 19:34 I have reviewed the current psychotropics carefully including drug interactions. Risk benefit ratio favors no change other than as noted in my dictated progress note. Diagnosis: Problems: (1) Encounter for medical screening examination (2) Anxiety disorder (3) Major depressive disorder, recurrent episode (4) Impulse control disorder CLAUDIA LAROSE MD Jan 18, 2019 21:56
--- NOTE | 2019-01-19 00:19 | CONS ---
DATE OF CONSULTATION: 01/18/2019 REASON FOR CONSULTATION: Medical management. HISTORY OF PRESENT ILLNESS: The patient is a 78-year-old female patient, a resident at [facility], was admitted on account of being hallucinating, thinks someone is trying to kill her, refusing oxygen and oxygen saturation drops. She agitated once the lab staff to touch her, trying to hit staff if they tried to help her. All this on account of a major depressive disorder. She has been paranoid and delusional and was [facility] for [facility] stabilization. PAST MEDICAL HISTORY: Significant for diverticulitis and she has had chronic Canales catheter, frequent UTIs, congestive heart failure, COPD. She apparently also is diabetic. She has also glaucoma and gout. PAST SURGICAL HISTORY: Significant for diverticulitis and treated with colostomy. ALLERGIES: She is allergic to MORPHINE and SULFASALAZINE. FAMILY HISTORY: Noncontributory. SOCIAL HISTORY: She is a resident at [facility]. She apparently does not smoke, drink alcohol or using recreational drugs. MEDICATIONS: She is currently on following medications: She is on Macrobid 100 mg once a day, rivaroxaban or Xarelto 20 mg once a day, carvedilol 6.25 mg twice a day, losartan potassium 25 mg daily, divalproex sodium 150 mg twice a day, divalproex sodium 500 mg at bedtime, Cymbalta 60 mg daily, trazodone 50 mg at bedtime, lorazepam 0.5 mg twice a day, buspirone 10 mg twice a day. She is on magnesium chloride 64 mg once a day, furosemide 20 mg once a day, Flonase 1 spray to each nostril twice a day, latanoprost 1 drop to both eyes at bedtime. She is on Systane nighttime eye ointment 1 application to both eyes at bedtime. She is on polyvinyl alcohol for artificial tears 1 drop to both eyes 4 times a day, Colace 100 mg daily, Lactobacillus for probiotic one tablet twice a day. She is on Lantus insulin 10 units at bedtime. She is on Humalog insulin 8 units before meals. She is also on nystatin powder apply topically twice a day, oxybutynin chloride 10 mg daily, ascorbic acid 500 mg once a day, Uloric 40 mg daily. PHYSICAL EXAMINATION: GENERAL: When I examined her this afternoon, she was sitting comfortably in her wheelchair with severe kyphoscoliosis. She responds and go back to sleep immediately, almost in the form consistent with narcolepsy. She was pale, no jaundice or cyanosis. No lymphadenopathy, no thyromegaly. No jugular venous distension. No lower limb edema. VITAL SIGNS: Her heart rate was 67, blood pressure 150/81, temperature was 97.9, respiratory rate 22 and oxygen saturation was 99%. HEAD, EYES, EARS, NOSE AND THROAT: Normocephalic, atraumatic. NECK: Supple. HEART: Showed normal first and second heart sounds. No gallop, rub or murmur. CHEST: Shows central trachea, equally reduced expansion, reduced air entry, vesicular sounds with marked kyphoscoliosis. ABDOMEN: Markedly distended, soft, nontender. No guarding or rigidity. No organomegaly. All hernial orifice intact. Bowel sounds normal. NEUROLOGIC: She was very lethargic, but arousable. All her cranial nerves intact. EXTREMITIES: She moves all extremities without difficulty, though she seems to be mostly bedbound. LABORATORY DATA: Her lab work showed a white cell count of 8500, hemoglobin 16.6, hematocrit 50, MCV 82 and platelet count 241,000. Her chemistry showed a serum sodium of 143, potassium 4.3, chloride 105, bicarbonate 27, anion gap of 11, BUN 25, creatinine was 1.1, estimated GFR was 38 mL per minute. Her glucose was 126, calcium was 7.9, magnesium was 2.1. Total bilirubin, AST, ALT, alkaline phosphatase were normal. Total protein was 8.5, albumin was 2.9. Her serum triglycerides were 155, total cholesterol 179, LDL was 111, the LDL was 31 and HDL cholesterol was 37 and ratio was 4. Urinalysis showed the urine was yellow, cloudy with a pH of 6, specific gravity of 1.025. There was large amount of protein. The urine was negative for glucose. There was a trace of ketones, large amount of blood, positive for nitrite and there was large amount of leukocyte esterase, more than 40 rbc's, 11-20 wbc's and moderate amount of bacteria. Her toxicology screen showed her valproic acid was 38 mcg/mL, which is below the lower limit of therapeutic range. IMPRESSION: In summary, this is a 78-year-old female patient, a resident at [facility], was admitted on account of being hallucinating, thinks someone is trying to kill her, refusing oxygen, her oxygen saturation drops and agitated. Once the lab staff to touch her, trying to hit staff, they tried to help her. All this in a background of major depressive disorder. The patient has multiple medical problems including type 2 diabetes, chronic obstructive pulmonary disease, chronic hypoxic respiratory failure, hypertension, congestive heart failure, recurrent urinary tract infections. She has also severe kyphoscoliosis. PLAN: My plan is to given the way she is extremely lethargic and almost has narcolepsy, although obviously some of this might be due to excessive sedation and she is on lorazepam, duloxetine and buspirone and therefore, I will arrange for her to have blood gases to make sure that she is not retaining carbon dioxide. Otherwise, she seemed to be generally medically stable. I will follow her labs and make any necessary recommendation. Her calcium also is high and corrected for serum albumin, probably higher, although she is not on any calcium supplement and/or vitamin D. I will also arrange for her to check her intact PTH and serum phosphorus as she is likely to have primary hyperparathyroidism. NEYMAR CALVILLO MD DR: IVAN/carina JOB#: [id number] / [id number]
[2019-01-19 02:11] LABS: HEMOGLOBIN A1C 6.8 % (4.8-5.6)
[2019-01-19 06:07] VITALS: BP 122/63
[2019-01-19] MEDS: INSULIN LISPRO 300 UNITS/3 ML INSULN.PEN. SQ SCH ×4 (07:30→16:30)
[2019-01-19] MEDS: MAGNESIUM CHLORIDE ER 64 MG TABLET.ER PO SCH (07:31)
[2019-01-19] MEDS: DIVALPROEX 125 MG CAP.SPRINK PO SCH ×2 (07:31→13:41)
[2019-01-19] MEDS: CARVEDILOL 6.25 MG TABLET PO SCH ×3 (07:31→17:00)
[2019-01-19] MEDS: NITROFURANTOIN MONOHYD/M-CRYST 100 MG CAPSULE. PO SCH (07:32)
[2019-01-19] MEDS: DOCUSATE SODIUM 100 MG CAPSULE PO SCH ×2 (07:32→09:00)
[2019-01-19] MEDS: busPIRone 10 MG TABLET. PO SCH ×2 (07:32→17:00)
[2019-01-19] MEDS: OXYBUTYNIN CHLORIDE 5 MG TABLET PO SCH ×2 (07:33→09:00)
[2019-01-19] MEDS: DULoxetine HCL 60 MG CAPSULE.DR PO SCH (07:33)
[2019-01-19] MEDS: ASCORBIC ACID 500 MG TABLET PO SCH (07:34)
[2019-01-19] MEDS: LOSARTAN 25 MG TABLET. PO SCH ×2 (07:34→09:00)
[2019-01-19] MEDS: RIVAROXABAN 10 MG TABLET. PO SCH (07:35)
[2019-01-19] MEDS: LACTOBACILLUS RHAMNOSUS GG 1 CAPSULE. PO SCH ×2 (07:35→09:00)
[2019-01-19] MEDS: FUROSEMIDE 20 MG TABLET PO SCH ×2 (07:35→09:00)
[2019-01-19] MEDS: FEBUXOSTAT 40 MG TABLET PO SCH (07:36)
[2019-01-19] MEDS: NYSTATIN TOPICAL POWDER 15GM BOTTLE. TP SCH (09:00)
[2019-01-19] MEDS: POLYVINYL ALCOHOL 1.4% OPHTH SOLUTION 15ML BOTTLE. OU SCH ×3 (09:00→17:22)
--- NOTE | 2019-01-19 11:03 | NUR ---
Nurse note: Pt. seated in w/c in dining room, unable to arouse. With much shaking and loud prompting she would mumble incoherent words. Repeated attempts made to feed, offered drinks, fed spoonful of applesauce and she left in her mouth. Unable to obtain a pulse ox reading, so applied O2 by blowby as she would not allow anything to be put on her face. Began yelling and calling out "Garret, get me out of this truck". Eventually moved to quiet anderson with O2 continuing on blow by. She is seated with head tilted forward and will not look up, will not respond when given commands. Pt. then moved to her room and attempted to transfer back to bed. Unable with assist of two. She pulled on process description writer and refused to stand. O2 accepted per n/c and applied at 2.5 L, seated in w/c next to bed. She did open mouth and take one bite of sugar free pudding with most critical medications. Insulin, eye drops, vitamin, and other meds held (as charted per SEP). Urine in drainage bag is dark brown, patent and hanging to dependent drainage. Pt. would not allow me to check her stoma or ostomy bag at this time time. Hallucinating that items are on her shirt, picking at shirt and calling out for mother and Garret. Allowed to remain in her room in w/c as she stated she wanted to stay there. Will continue to monitor blood sugars and v/s, and alertness for safety.
--- NOTE | 2019-01-19 11:42 | NUR ---
Nurse Note O2: Rechecked her O2 sat, was 97% and H/R 96. Able to verbalize she wanted a coke. Continuing to wear N/C and seated in W/C
[2019-01-19 12:27] VITALS: BP 129/84
--- NOTE | 2019-01-19 12:51 | NUR ---
Pt. Note: Pt. was up in w/c in dining room, continues unresponsive. Wearing O2 per N/C at 2.5L, breathing labored, inspiratory stridor in upper R quad, otherwise unable to auscultate breath sounds. Using accessory muscles after placed in bed with 3 person lift. HOB elevated 30 degrees. Pt. will not respond verbally. Did open her eyes with sternal rub. Pt. 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 notified of current condition and CXR ordered. Will continue to monitor.
[2019-01-19] MEDS ORDERED: LORazepam 0.5 MG TABLET PO SCH (13:00)
[2019-01-19] MEDS ORDERED: ACET325T9 PO (13:02)
[2019-01-19] MEDS ORDERED: MAG355OR17 PO (13:04)
[2019-01-19] MEDS ORDERED: MAGN2400 PO (13:05)
[2019-01-19] MEDS ORDERED: OXYB5TAB7 PO (13:06)
--- NOTE | 2019-01-19 13:07 | NUR ---
Patient has a positive sepsis screen. Charge nurse and MD notified. Will continue to monitor.
--- NOTE | 2019-01-19 13:53 | NUR ---
Nurse note: Pt. received portable CXR at 1345 in her bed, no reaction to repositioning in bed or procedure. Eye drops administered, R eye dried shut prior to given. No eye movement or pupil reaction. Stoma site observed, pink and surrounding tissue dry and intact. No output in ostomy bag. Canales catheter emptied of dark brown urine with 350cc output at 1300. Will continue to monitor. Pt. is mouth breathing, using accessory muscles R=30.
[2019-01-19 13:54] LABS: BASO % 0 % (0-3); EOS # 0.3 x10^3/uL (0.0-0.7); EOS % 3 % (0-3); HEMATOCRIT 47.5 % (36.0-47.0); HEMOGLOBIN 14.9 g/dL (12.0-15.5); LYMPH # 1.6 x10^3/uL (1.0-4.8); LYMPH % 21 % (24-48); MEAN CORPUSCULAR HEMOGLOBIN 26 pg (25-35); MEAN CORPUSCULAR HGB CONC 31 g/dL (31-37); MEAN CORPUSCULAR VOLUME 82 fL (79-100); MONO # 0.9 x10^3/uL (0.0-1.1); MONO % 12 % (0-9); NEUT # 5.1 x10^3uL (1.8-7.7); NEUT % 64 % (31-73); PLATELET COUNT 243 x10^3/uL (140-400); RED BLOOD COUNT 5.78 x10^6/uL (3.50-5.40)
[2019-01-19 14:01] LABS: ALBUMIN 2.8 g/dL (3.4-5.0); ALBUMIN/GLOBULIN RATIO 0.5 (1.0-1.7); CALCIUM 10.8 mg/dL (8.5-10.1); CREATININE 1.2 mg/dL (0.6-1.0); GFR 43.7; POTASSIUM 4.5 mmol/L (3.5-5.1); TOTAL BILIRUBIN 0.3 mg/dL (0.2-1.0); TOTAL PROTEIN 8.1 g/dL (6.4-8.2)
--- NOTE | 2019-01-19 16:29 | RAD ---
EXAM: CHEST 1 VIEW. HISTORY: Shortness of breath. COMPARISON: Today's CT. FINDINGS: A frontal view of the chest is obtained. Linear opacities in the bases indicate atelectasis or mild infiltrate. Refer to CT for more information. There is no pneumothorax or pleural effusion. The heart is mildly enlarged. There is a chronic healed fracture deformity of the right proximal humerus. IMPRESSION: 1. Left greater than right basilar atelectasis or mild infiltrate. 2. Mild cardiomegaly. Electronically signed by: Cindi Murcia MD (01/19/2019 4:26 PM) [facility]
--- NOTE | 2019-01-19 16:33 | RAD ---
EXAM: CT OF THE CHEST WITHOUT CONTRAST. HISTORY: Hypoxia. TECHNIQUE: Computed tomography of the chest was performed without intravenous contrast. COMPARISON: Today's chest radiograph. FINDINGS: Images of the upper abdomen reveal no acute abnormality. Bone windows reveal no suspicious lesions. A lower right paratracheal lymph node measures 1.4 x 1.1 cm but has a prominent fatty hilus and appears benign. There are no clearly pathologically enlarged mediastinal or axillary lymph nodes. There is no pleural or pericardial effusion. The heart is mildly enlarged. There are relatively dense calcifications of the aortic valve. The main pulmonary artery measures 3.3 cm. There is a common origin of the left common carotid and brachiocephalic arteries, a variant of normal. A hazy groundglass density nodule medially in the left lower lobe on image 22 measures 1.5 x 1.1 cm. This may be inflammatory but is indeterminate. Adjacent smaller nodules favor an inflammatory process. Elsewhere, linear opacities in both bases most likely indicate atelectasis. There is respiratory motion artifact. Mild septal line thickening component of mild pulmonary edema. Another 1 cm nodule in the lingula on image 30 is also indeterminate. IMPRESSION: 1. Nodular opacities in the left lower lobe measure up to 1.5 cm and are most likely inflammatory. Another 1 cm nodule in the lingula is indeterminate. Follow-up is recommended in 3 months after treatment to confirm stability/resolution if long-term stability is not already known. 2. Mild cardiomegaly. Aortic valve calcifications. Correlate for aortic stenosis. Pulmonary arterial enlargement is consistent with pulmonary arterial hypertension. *One or more of the following individualized dose reduction techniques were utilized for this examination: 1. Automated exposure control. 2. Adjustment of the mA and/or kV according to patient size. 3. Use of iterative reconstruction technique. Electronically signed by: Cindi Murcia MD (01/19/2019 4:30 PM) [facility]
[2019-01-19 16:43] VITALS: BP 100/57
[2019-01-19 16:44] LABS: BGAS PH 7.3 (7.35-7.45)
[2019-01-19 17:00] VITALS: BP 100/57
--- NOTE | 2019-01-19 17:05 | NUR ---
Patient has critical lab value of pCO2=62.4. MD paged, new orders received, will prepare patient for transfer to ICU per orders.
--- NOTE | 2019-01-19 17:24 | NUR ---
Nurse Note: Evening meds not administered due to pt. unresponsive in bed, mouth breathing with O2 per n/c.
--- NOTE | 2019-01-19 18:43 | NUR ---
Transition Record was faxed to follow-up provider with the following elements: Reason for admission, procedures, tests, principal diagnosis, pending studies, patient instructions, 12/02 contact information for unit, phone number to obtain pending test results, plan for follow-up care, physician follow-up, advanced directive information, and medication list with dose, duration and instructions. This information was included in the following documents: History and physical, lab results, study results, progress notes, social work planning form, DC instruction form, patient visit summary, and medication reconciliation form. Date & time record faxed:01/19/2019 18:00 Record faxed to:[facility] Record discussed with/ report given to: Makayla HOOVER, ICU : voice message left for family member / DPOA for Anali.
--- NOTE | 2019-01-19 19:01 | HP ---
ADMIT DATE: 01/18/2019 This late entry 01/18/2019 covers elements not covered in my initial note. I met with the patient on the evening of 01/18/2019. IDENTIFYING DATA: The patient is a 78-year-old female referred back to us once again from [facility] via the [facility] Emergency Room where she presented from the nursing facility on account of worsening symptoms of depression, apathy, withdrawal, irritability, anger once again within the context of her recurrent UTI for which she has been started on Macrobid. Behavior is unmanageable at the facility, disruptive. She was referred to the Emergency Room at [facility], evaluated and then referred to us for inpatient psychiatric stabilization. CHIEF COMPLAINT: "I don't know." The patient is extremely withdrawn, depressed sedated, head bent forward, not very verbally interactive. I have known her from her prior hospitalizations. HISTORY OF PRESENT ILLNESS: The patient has a history of major depressive disorder with worsening confusion, anxiety, irritability, agitation, worsening within the context of recurrent urinary tract infection. She has had sleep and appetite changes. No active suicidal or homicidal ideation. No clear history of bipolar disorder. She has had some cognitive dysfunction as well. PAST PSYCHIATRIC HISTORY: As above. MEDICAL HISTORY: Positive for urinary tract infection, neuromuscular dysfunction of bladder, idiopathic, gout, chronic pain, anemia, type 2 diabetes mellitus, hypertension, CHF, COPD, diverticulitis, muscle weakness, edema, colostomy, hypercapnia, fistula of intestine. Accu-Cheks a.c. and h.s. DIET: Diabetic. MEDICATIONS: Takes some whole floated in applesauce. Ambulates in a wheelchair. She has a colostomy in place. ALLERGIES: SULFA, ASPIRIN, MORPHINE. CODE STATUS: DNR. FAMILY HISTORY: Noncontributory. SOCIAL HISTORY: No history of alcohol, drug abuse, physical, sexual or elder abuse. She is not known to be a perpetrator. REACTION TO HOSPITALIZATION: The patient is accepting of this, but quite sedated. ASSETS: [facility] at the [facility]. MENTAL STATUS EXAMINATION: The patient was seen individually evening of 01/18. She is in a wheelchair, head bent forward quite sedated, withdrawn. Speech moderate latency, often responses monosyllabic. Abstraction fair, computation impaired, language function intact, attention span short. Mood and affect withdrawn. Short term memory is impaired. No active suicidal or homicidal ideation. She appears hopeless, helpless, worthless. LABORATORY DATA: Reviewed. IMPRESSION: Major depressive disorder, recurrent with psychotic features, mild cognitive impairment versus major neurocognitive disorder, early Alzheimer, vascular with delusion, depression; anxiety disorder, unspecified; impulse control disorder, unspecified. Rest as above including urinary tract infection. PLAN: Admit to Geropsychiatry Unit at [facility]. I will see the patient daily individually from a psychiatric standpoint. Medical followup with Dr. Dennis. Her Depakote has been held due to sedation and we will go ahead and reduce the Ativan 0.5 b.i.d. down to 0.5 mg at bedtime, to be held if sedated. Maintain Depakote 125 b.i.d. 500 mg at bedtime, to be held if sedated. Continue duloxetine 60 mg a day. Maintain Macrobid for the UTI, trazodone 50 mg at bedtime, to be held if sedated. She has been refusing her oxygen. Arterial blood gas unremarkable. We will check CBC, CMP, valproic acid level in the morning of 01/19/2019. Further recommendations will be made post baseline assessment. CLAUDIA LAROSE MD DR: RUFUS/carina JOB#: [id number] / [id number]
[2019-01-19 19:08] LABS: CALCIUM PTH 10.7 mg/dL (8.7-10.3); CREATININE PTH 1.01 mg/dL (0.57-1.00); PTH INTACT 87 pg/mL (15-65)
--- NOTE | 2019-01-20 20:40 | DS ---
DATE OF DISCHARGE: 01/19/2019 PSYCHIATRIC PROGRESS NOTE This is a late entry, covers the elements not covered in my initial note 01/19/2019. REASON FOR ADMISSION: Please refer to the admission history for details. Briefly, the patient is a 78-year-old female referred back to us from [facility] on account of worsening hallucinations, delusions, believing someone was trying to kill her. She was refusing her oxygen, was agitated, yelling when staff would touch are attempting to physically attack staff members. She had failed outpatient psychiatric interventions following her recent discharge from our facility [facility]. I have reviewed information from Dr. España who covered for me while I was on vacation over the last few days. Reason for admission is as noted above. SIGNIFICANT FINDINGS AND CLINICAL COURSE: Following admission, the patient was seen daily individually by myself, followed medically per Dr. Dennis. She did have a UTI, which is being treated on Macrobid. On 01/19/2019, her CO2 was [address] Dennis transferred her to [address] [place] [address] surgical floor for medical stabilization prior to discharge on 01/19/2019. REVIEW OF SYSTEMS: Ambulation impaired, in wheelchair. No CV, , pulmonary, eye system symptoms on review other than above. MENTAL STATUS EXAM: Oriented to herself and situation. Speech moderate latency, often responses monosyllabic. Abstraction fair, computation impaired, language function intact. Mood and affect depressed, anxious, withdrawn, sedated. No active suicidal ideation. LABORATORY DATA: Reviewed. FINAL DIAGNOSES: Major depressive disorder, recurrent with psychotic features; anxiety disorder, unspecified; impulse control disorder, unspecified. Rest is as above including hypercapnia/respiratory failure. DISCHARGE MEDICATIONS: Please refer to [facility]. DISCHARGE INSTRUCTIONS: Psychiatric medical followup on [address] [place] [address] Dennis. We will reassess her when she is medically stable to see if she meets criteria to be back on our unit or may return to the [facility] after medical stabilization. MAN Nicolette LAROSE MD DR: RUFUS/carina JOB#: [id number] / [id number]
== END 2019-01-19 18:30 | disposition short-term general hospital (02) | DRG 885 ==
LOC: GEROPSY 19:00
PROVIDERS: ADMIT Psychiatry & Neurology Psychiatry; ATTEND Psychiatry & Neurology Psychiatry
PROC: 5A09357 Assistance with Respiratory Ventilation, Less than 24 Consecutive Hours, Continuous Positive Airway Pressure (ICD-10-PCS; principal; 2019-01-19)
DX: F33.3 Major depressive disorder, recurrent, severe with psychotic symptoms (principal); N39.0 Urinary tract infection, site not specified; J96.11 Chronic respiratory failure with hypoxia; J96.12 Chronic respiratory failure with hypercapnia; F41.9 Anxiety disorder, unspecified; M10.9 Gout, unspecified; G89.29 Other chronic pain; I11.0 Hypertensive heart disease with heart failure; I50.9 Heart failure, unspecified; J44.9 Chronic obstructive pulmonary disease, unspecified; E11.9 Type 2 diabetes mellitus without complications; Z93.3 Colostomy status; Z66 Do not resuscitate; Z88.6 Allergy status to analgesic agent; Z88.5 Allergy status to narcotic agent; Z88.2 Allergy status to sulfonamides; F02.80 Dementia in other diseases classified elsewhere, unspecified severity, without behavioral disturbance, psychotic disturbance, mood disturbance, and anxiety; G30.9 Alzheimer's disease, unspecified; F63.9 Impulse disorder, unspecified; H40.9 Unspecified glaucoma; M41.9 Scoliosis, unspecified; Z87.440 Personal history of urinary (tract) infections
CPT/HCPCS: 36415; 71045; 71250; 80053; 80061; 80164; 81001; 82140; 82306; 82803; 82947; 83036; 83540; 83550; 83605; 83735; 83970; 84100; 85025; 86592; 87040; 87086; J1815

== ENCOUNTER 2019-01-19 18:00 | Inpatient (IN) | payer MEDICARE, OTHER ==
[~2019-01-19] VITALS: Ht 165.1 cm; Wt 83.7 kg
[~2019-01-19 18:00] MED LIST changes: +ACET325T9 PO; +FURO20TA3 PO; +LORA0.5T PO; +MAG355OR17 PO; +MAGN2400 PO; +NITR100C62 PO; +OXYB5TAB7 PO; +TRAZ-120 PO
[2019-01-19 19:00] VITALS: BP 92/54
[2019-01-19 20:00] VITALS: BP 120/49
[2019-01-19] MEDS ORDERED: VANCOMYCIN PER PHARMACY MC PRN (20:00)
[2019-01-19] MEDS ORDERED: PIP/TAZO PER PHARMACY MC PRN (20:00)
[2019-01-19] MEDS: IPRATRPIUM/ALBUTEROL 0.5/2.5MG 3 ML NEBU. NEB SCH (20:30)
[2019-01-19 21:00] VITALS: BP 143/74
[2019-01-19] MEDS ORDERED: VANCOMYCIN 2 GM in IV NORMAL SALINE 500ML 500 ML IV ONE (21:00)
[2019-01-19] MEDS ORDERED: ENOXAPARIN 40 MG/0.4 ML SYRINGE. SQ SCH (21:00)
[2019-01-19 21:17] LABS: BGAS PH 7.29 (7.35-7.45)
[2019-01-19 22:00] VITALS: BP 114/58
--- NOTE | 2019-01-19 22:51 | PDOC ---
Exam Note: Nain Note: Please also refer to the separate dictated note~for this date of service dictated separately.~Patient seen individually. Discussed the patient with Nursing staff reviewed the chart.~Reviewed interim history and current functioning. Reviewed vital signs,~Labs/ Radiology~and current medications noted below. Continue current treatment with the changes noted in the dictated addendum note Assessment: Vital Signs/I&O: Vital Signs Date Time Temp Pulse Resp B/P (MAP) Pulse Ox O2 Delivery O2 Flow Rate FiO2 01/19/19 20:44 96 BiPAP/CPAP Labs: Laboratory Tests Test 01/19/19 21:07 Blood pH 7.29 (7.35-7.45) L Blood Gas PCO2 63 mmHg (35-45) *H Blood Gas PO2 109 mmHg (71-100) H Blood Gas HCO3 30 mmol/L (22-26) H Arterial Bld O2 Saturation (Calc) 98 % (92-99) FiO2 30 % Current Medications: Meds: Current Medications Medications (Trade) Dose Ordered Sig/Ar Route PRN Reason Start Time Stop Time Status Last Admin Dose Admin Vancomycin HCl (Vanco Per Pharmacy) 1 each PRN DAILY PRN MC SEE COMMENTS 01/19/19 20:00 01/19/19 20:21 Albuterol/ Ipratropium (Duoneb) 3 ml RTQID NEB 01/19/19 20:30 01/19/19 20:30 I have reviewed the current psychotropics carefully including drug interactions. Risk benefit ratio favors no change other than as noted in my dictated progress note. Diagnosis: Problems: (1) Encounter for medical screening examination (2) Anxiety disorder (3) Major depressive disorder, recurrent episode (4) Impulse control disorder CLAUDIA LAROSE MD Jan 19, 2019 22:51
[2019-01-19 23:00] VITALS: BP 173/55
[2019-01-19] MEDS: methylPREDNISolone SOD SUCC PF 125 MG/2 ML VIAL. IV SCH (23:20)
[2019-01-19] MEDS: PIPERACILLIN/TAZOBACTAM 3.375 GM in IV NORMAL SALINE 50ML 50 ML IV SCH (23:21)
[2019-01-19 23:37] LABS: ALBUMIN 2.7 g/dL (3.4-5.0); ALBUMIN/GLOBULIN RATIO 0.5 (1.0-1.7); CALCIUM 10.9 mg/dL (8.5-10.1); CREATININE 1.1 mg/dL (0.6-1.0); GFR 48.3; POTASSIUM 4.5 mmol/L (3.5-5.1); TOTAL BILIRUBIN 0.3 mg/dL (0.2-1.0); TOTAL PROTEIN 8.1 g/dL (6.4-8.2)
[2019-01-19] MEDS ORDERED: IV NORMAL SALINE 1,000ML 1,000 ML IV SCH (23:45)
[2019-01-19 23:55] LABS: BASO # 0.1 x10^3/uL (0.0-0.2); BASO % 1 % (0-3); EOS # 0.2 x10^3/uL (0.0-0.7); EOS % 2 % (0-3); HEMATOCRIT 45.2 % (36.0-47.0); HEMOGLOBIN 14.1 g/dL (12.0-15.5); LYMPH # 1.5 x10^3/uL (1.0-4.8); LYMPH % 19 % (24-48); MEAN CORPUSCULAR HEMOGLOBIN 25 pg (25-35); MEAN CORPUSCULAR HGB CONC 31 g/dL (31-37); MEAN CORPUSCULAR VOLUME 81 fL (79-100); MONO # 0.9 x10^3/uL (0.0-1.1); MONO % 12 % (0-9); NEUT # 5.1 x10^3uL (1.8-7.7); NEUT % 66 % (31-73); PLATELET COUNT 247 x10^3/uL (140-400); RED BLOOD COUNT 5.57 x10^6/uL (3.50-5.40); RED CELL DISTRIBUTION WIDTH 17.6 % (11.5-14.5); WHITE BLOOD COUNT 7.8 x10^3/uL (4.0-11.0)
[2019-01-20] VITALS (10 sets, daily range): BP systolic 125–169; BP diastolic 46–70
[2019-01-20 01:03] LABS: BGAS PH 7.31 (7.35-7.45)
[2019-01-20] MEDS: IPRATRPIUM/ALBUTEROL 0.5/2.5MG 3 ML NEBU. NEB SCH ×2 (04:51→10:42)
[2019-01-20] MEDS: PIPERACILLIN/TAZOBACTAM 3.375 GM in IV NORMAL SALINE 50ML 50 ML IV SCH ×2 (06:41→12:00)
[2019-01-20 08:10] LABS: BASO % 1 % (0-3); EOS % 0 % (0-3); HEMATOCRIT 44.9 % (36.0-47.0); HEMOGLOBIN 14.2 g/dL (12.0-15.5); LYMPH # 1.2 x10^3/uL (1.0-4.8); LYMPH % 18 % (24-48); MEAN CORPUSCULAR HEMOGLOBIN 26 pg (25-35); MEAN CORPUSCULAR HGB CONC 32 g/dL (31-37); MEAN CORPUSCULAR VOLUME 83 fL (79-100); MONO # 0.1 x10^3/uL (0.0-1.1); MONO % 2 % (0-9); NEUT # 5.2 x10^3uL (1.8-7.7); NEUT % 79 % (31-73); PLATELET COUNT 232 x10^3/uL (140-400); RED BLOOD COUNT 5.43 x10^6/uL (3.50-5.40); RED CELL DISTRIBUTION WIDTH 17.4 % (11.5-14.5); WHITE BLOOD COUNT 6.6 x10^3/uL (4.0-11.0)
[2019-01-20] MEDS ORDERED: IV DEXTROSE 5% 1,000 ML IV SCH (08:15)
[2019-01-20 08:17] LABS: CALCIUM 10.7 mg/dL (8.5-10.1); CREATININE 1.2 mg/dL (0.6-1.0); GFR 43.7; POTASSIUM 5.1 mmol/L (3.5-5.1)
[2019-01-20] MEDS: methylPREDNISolone SOD SUCC PF 125 MG/2 ML VIAL. IV SCH (08:58)
[2019-01-20 10:46] LABS: BGAS PH 7.2 (7.35-7.45)
--- NOTE | 2019-01-20 12:02 | HP ---
ADMIT DATE: 01/20/2019 HISTORY OF PRESENT ILLNESS: The patient is a 78-year-old female patient whom I have seen yesterday. [facility]. She was extremely lethargic and we did blood gases and clearly she is retaining carbon dioxide. Her pH was 7.30, pCO2 of 62, pO2 of 78, bicarbonate 31, and oxygen saturation was 94% on FiO2 of 32%. Given that she has severe kyphoscoliosis and she was on multiple sedatives and has history of COPD, decision was made to transfer her to ICU. We did chest x-ray, which basically showed that she has left greater than right basilar atelectasis or mild infiltrate and a CT scan of the chest without contrast showed that the patient has nodular opacities in the left lower lobe measuring up to 1.5 cm and are most likely inflammatory and another 1 cm nodule in the lingula is indeterminate. She has mild cardiomegaly, aortic valve calcification, pulmonary arterial enlargement consistent with pulmonary arterial hypertension. She was admitted to the ICU, was started on BiPAP, also on IV fluid together with the antibiotic for healthcare-associated pneumonia including vancomycin and Zosyn as per pharmacy recommendation. The patient is extremely lethargic and does not respond to verbal stimuli when I saw her upstairs; however, she has already received also multiple sedatives including lorazepam, trazodone, divalproex, and buspirone. PAST MEDICAL HISTORY: Significant for diverticulitis and chronic urinary retention with chronic indwelling Canales catheter, frequent UTIs, congestive heart failure, COPD. She is also known to have diabetes, glaucoma, and gout. PAST SURGICAL HISTORY: Significant for diverticulitis, treated with colostomy. FAMILY HISTORY: Noncontributory. SOCIAL HISTORY: She is a resident at [facility]. She apparently does not smoke, drink alcohol or use any recreational drugs. ALLERGIES: SHE IS ALLERGIC TO MORPHINE AND SULFASALAZINE. MEDICATIONS: She was on following medications: She was on nitrofurantoin, Macrobid 100 mg once a day, rivaroxaban 20 mg daily, carvedilol 6.25 mg twice a day with meals, losartan potassium 25 mg once a day, Tylenol 650 mg every 6 hours, divalproex 250 mg twice a day, divalproex 500 mg at bedtime, duloxetine 60 mg once a day, trazodone 50 mg at bedtime, lorazepam 0.5 mg at bedtime, buspirone 10 mg twice a day. She is on magnesium chloride 64 mg daily, furosemide 20 mg daily, Flonase 2 sprays to each nostril once a day, latanoprost 1 drop to both eyes at bedtime. She is on Systane nighttime eye ointment 1 application to both eyes at bedtime, polyvinyl alcohol for artificial tears 1 drop to both eyes 4 times a day, Colace 100 mg daily, milk of magnesia 30 mL p.o. daily p.r.n. for constipation, lactobacillus probiotic 1 capsule twice a day. She is on Lantus 10 units at bedtime. She is on Humalog insulin 8 units before meals, nystatin powder applied topically twice a day. She is on febuxostat, Uloric 40 mg daily, ascorbic acid 500 mg once a day. PHYSICAL EXAMINATION: GENERAL: On arrival to the Emergency Room, she continued to be extremely lethargic; however, withdraw to painful stimuli and there was no pallor, jaundice or cyanosis. No lymphadenopathy, no thyromegaly. No jugular venous distension. No lower limb edema. VITAL SIGNS: Her heart rate was 64, blood pressure was 129/84, temperature was 97.5, respiratory rate was 20, and oxygen saturation was 95% on BiPAP machine. HEAD, EYES, EARS, NOSE AND THROAT: Showed normocephalic, atraumatic. NECK: Supple. HEART: Showed normal first and second heart sounds. No gallop, rub or murmur. CHEST: Clear to auscultation. No crepitation or rhonchi. ABDOMEN: Distended, soft, nontender. NEUROLOGIC: She is lethargic and does not open her eyes spontaneously nor does she respond to verbal stimuli. She does withdraw to painful stimuli. LABORATORY DATA: His lab work yesterday showed a white cell count of 7800, hemoglobin 14, hematocrit 45, MCV 81 and platelet count 247,000 with normal manual differential. Her repeat blood gases showed a pH of 7.229, pCO2 of 63, pO2 109, bicarbonate 30, and oxygen saturation was 98% on FiO2 of 30%. Her chemistry showed serum sodium of 143, potassium 4.3, chloride 105, bicarbonate 27, anion gap of 11, BUN 25, creatinine 1.1, estimated GFR was 48 mL per minute. Her glucose was 126, calcium was 10.9. Total magnesium was 2.1. Total bilirubin, AST, ALT, alkaline phosphatase were normal. Total protein was 8.5, albumin was 2.9. Her blood gases showed a pH of 7.30, pCO2 of 62, pO2 of 78, bicarbonate 31, and oxygen saturation was 94% on FiO2 of 32%. Her urinalysis showed the urine was yellow, cloudy with a pH of 6, specific gravity of 1.025. Large amount of protein. The urine was negative for glucose. There was small amount of ketones, large amount of blood, positive for nitrite. There is large amount of leukocyte esterase, more than 40 rbc's, more than 11-20 wbc's and moderate amount of bacteria. Her valproic acid was only 38 mcg/mL. ASSESSMENT AND PLAN: 1. In summary, this is a 78-year-old female patient who was admitted with altered mental status. 2. Acute on chronic hypoxic hypercapnic respiratory failure. She is also on multiple sedative medications and probably has some form of metabolic toxic encephalopathy, chronic obstructive pulmonary disease exacerbation and healthcare-associated pneumonia. We did start her on IV fluid, IV antibiotic in the form of Zosyn and vancomycin as per pharmacy recommendation. Continue with BiPAP and repeat her blood gases and she is DNR/DNI. Obviously, she is not a candidate for intubation. We will hold most of her medication particularly as long as she is unresponsive and to complete the picture will order a CT scan of the head to make sure that she is not bleeding as she is on rivaroxaban. NEYMAR CALVILLO MD DR: IVAN/carina JOB#: [id number] / [id number]
[2019-01-20] MEDS ORDERED: VANCOMYCIN 1.25 GM in IV NORMAL SALINE 250ML 250 ML IV SCH (21:00)
--- NOTE | 2019-01-20 23:57 | PN ---
DATE: 01/20/2019 SUBJECTIVE: The patient was transferred yesterday from [facility] on account of altered mental status and [id number] hypoxic hypercapnic respiratory failure. She was also found to have healthcare-associated pneumonia and was started on BiPAP as well as IV fluid together with IV Zosyn and vancomycin and apparently she has had blood gases done at around midnight, which showed that her pH was 7.31, pCO2 down to 58, pO2 90 and bicarbonate 29. Continues on BiPAP until around 8:00 this morning, was taken off the BiPAP and continued on 2 liters of oxygen by nasal cannula and apparently repeat labs at around 10:30 showed the pH is actually worse. She is down to 7.20, pCO2 of 71, pO2 of 86, bicarbonate 28, and oxygen saturation was 94% on FiO2 28. She continued to be unresponsive. PHYSICAL EXAMINATION: GENERAL: When I examined her this morning, she was resting slightly propped up in bed, slightly tachypneic, but there is no pallor, jaundice, cyanosis, or thyromegaly. No jugular venous distension. No limb edema. VITAL SIGNS: Her heart rate was 88, blood pressure was 149/55, temperature was 98, respiratory rate was 27 and oxygen saturation was 96% on 2 liters of oxygen. In fact, when I saw her, she was back on BiPAP machine with an FiO2 of 25%, maintaining her oxygen saturation of 96%. HEAD, EYES, EARS, NOSE AND THROAT: Showed normocephalic, atraumatic. NECK: Supple. HEART: Showed normal first and second heart sounds with no gallop, rub or murmur. CHEST: Clear to auscultation. No crepitation or rhonchi. ABDOMEN: Distended, soft. NEUROLOGIC: She continued to be lethargic, does not open her eyes spontaneously nor does respond to verbal stimuli. She does, however, moves spontaneously. Her intake over the last 24 hours was 316 output was recorded. LABORATORY DATA: Her lab work this morning showed a white cell count of 6600, hemoglobin 14, hematocrit 44, MCV 83 and platelet count of 232,000. Her chemistry showed a serum sodium 146, potassium 5.1, chloride 109, bicarbonate 27, anion gap of 10, BUN 33, creatinine 1.2, estimated GFR was 44 mL per minute, blood glucose 154 and calcium was 10.7: IN SUMMARY: This this is a 78-year-old female patient who was transferred from [facility] with acute hypoxic hypercapnic respiratory failure, altered mental status due to metabolic and toxic encephalopathy. She has hypernatremia, hypercalcemia. She has Healthcare-associated pneumonia and chronic obstructive pulmonary disease exacerbation. She probably has also multiple myeloma given high protein and low albumin. PLAN: My plan is obviously to continue with change IV fluid to D5W to correct her hypernatremia; however, given the multitude of medical problems that she is DNR/DNI. I think she is a perfect candidate for hospice and palliative care. NEYMAR CALVILLO MD DR: IVAN/carina JOB#: [id number] / [id number]
== END 2019-01-20 14:24 | disposition hospice, home (50) | DRG 189 ==
LOC: ICU 18:00
PROVIDERS: ADMIT Internal Medicine; ATTEND Internal Medicine
PROC: 5A09357 Assistance with Respiratory Ventilation, Less than 24 Consecutive Hours, Continuous Positive Airway Pressure (ICD-10-PCS; principal; 2019-01-19)
PROC: 5A09357 Assistance with Respiratory Ventilation, Less than 24 Consecutive Hours, Continuous Positive Airway Pressure (ICD-10-PCS; 2019-01-20)
DX: J96.21 Acute and chronic respiratory failure with hypoxia (principal); J18.9 Pneumonia, unspecified organism; G92 Toxic encephalopathy; F33.9 Major depressive disorder, recurrent, unspecified; J44.0 Chronic obstructive pulmonary disease with (acute) lower respiratory infection; J44.1 Chronic obstructive pulmonary disease with (acute) exacerbation; J98.11 Atelectasis; E87.0 Hyperosmolality and hypernatremia; J96.22 Acute and chronic respiratory failure with hypercapnia; E83.52 Hypercalcemia; E11.9 Type 2 diabetes mellitus without complications; F41.9 Anxiety disorder, unspecified; F63.9 Impulse disorder, unspecified; M10.9 Gout, unspecified; H40.9 Unspecified glaucoma; I27.21 Secondary pulmonary arterial hypertension; I50.9 Heart failure, unspecified; M41.9 Scoliosis, unspecified; Y95 Nosocomial condition; Z66 Do not resuscitate; Z87.440 Personal history of urinary (tract) infections; Z93.3 Colostomy status
CPT/HCPCS: 36415; 36600; 80048; 80053; 82803; 83605; 84145; 85025; 87040; 94640; 94660; J1650; J2543; J2930; J3370; J7040; J7620; J7030